=== PATIENT | female | born 1950 | race Caucasian/White ===

== ENCOUNTER 2016-12-15 05:08 | Observation (INO) | payer OTHER ==
[2016-11-30 10:30] VITALS: BMI 40.0
--- NOTE | 2016-11-30 11:00 | PAT Medication Instructions ---
Service Date Nov 30, 2016. Current Home Medication List Aspirin (Aspirin Ec), 81 MG PO HS Atenolol (Tenormin), 25 MG PO QAM Butalbital/Asa/Caffeine (Fiorinal), 1 TAB PO UD PRN for HEADACHES Cholecalciferol (Vitamin D), 5,000 INTER.UNIT PO QAM Hydrocodone/Acetaminophen 5MG/325MG ([place] 5MG/325MG), 1 TABLET PO Q4 PRN for Pain Insulin Glargine (Lantus), 30 UNITS SC QAM Lisinopril (Zestril), 10 MG PO QAM Multivitamin (Multivitamin), 1 TAB PO QAM Omeprazole (Prilosec), 40 MG PO QAM Medication Instructions For Your Scheduled Surgery - Hold the following medications 1 week prior to surgery as instructed by surgeon: Aspirin (Aspirin Ec), 81 MG PO HS Butalbital/Asa/Caffeine (Fiorinal), 1 TAB PO UD PRN for HEADACHES - Hold the following medications the morning of surgery: Lisinopril (Zestril), 10 MG PO QAM Multivitamin (Multivitamin), 1 TAB PO QAM - Take the following medications the morning of surgery with a sip of water OTHERWISE NOTHING TO EAT OR DRINK AFTER MIDNIGHT: Omeprazole (Prilosec), 40 MG PO QAM Atenolol (Tenormin), 25 MG PO QAM - For Insulin Dependent Diabetic patients: Test blood sugar A.M. of surgery. - If Blood Sugar is GREATER THAN 150, take HALF of your regular dose of: Insulin Glargine (Lantus) - If Blood Sugar is LESS THAN 150, do not take any: Insulin Glargine ( Lantus) - Take the following medications as scheduled the night before surgery: Insulin Glargine (Lantus), 30 UNITS SC QPM If you have any questions please call us at [phone] or [phone] or [phone]
[2016-11-30 11:38] LABS: BASO % 0.9 %; BASO ABS # 0.08 K/uL (0-0.2); COMPLETE YES; EOS % 5.4 %; HEMATOCRIT 37.2 % (37-47); IG% 0.5 %; LYMPH % 29.4 %; LYMPH ABS # 2.56 K/uL (1.2-3.4); MEAN CELL VOLUME 91.4 fL (80-100); MEAN CORPUSCULAR HEMOGLOBIN 29.5 pg (25-34); MEAN CORPUSCULAR HGB CONC 32.3 g/dl (32-36); MEAN PLATELET VOLUME 12.9 fL (7.4-10.4); MONO % 8.5 %; NEUT % 55.3 %; PLATELET COUNT 179 K/uL (130-400); RED BLOOD COUNT 4.07 M/uL (4.2-5.4); WHITE BLOOD COUNT 8.72 K/uL (4.8-10.8)
[2016-11-30 11:40] LABS: URINE APPEARANCE CLEAR (CLEAR); URINE BILIRUBIN NEG (NEG); URINE COLOR YELLOW; URINE EPITHELIAL CELL AUTO 20-30 /lpf (0-5); URINE NITRITE NEG (NEG); URINE PH 6.5 (4.5-7.5); URINE SPECIFIC GRAVITY 1.017 (1.000-1.030); UROBILINOGEN NEG (NEG)
--- NOTE | 2016-11-30 11:40 | DIAGNOSTIC IMAGING REPORT ---
CHEST 2 VIEWS ROUTINE CLINICAL HISTORY: pat preoperative evaluation COMPARISON STUDY: 12/03/2015 FINDINGS: The bones soft tissues and hemidiaphragms are normal. The cardiomediastinal silhouette is normal. The lungs are clear. The pulmonary vasculature is normal. Bilateral shoulder arthroplasties IMPRESSION: No acute process Electronically signed by: Savage Albarado M.D. 11/30/2016 11:39 AM Dictated Date/Time: 11/30/2016 11:34 AM
[2016-11-30 11:46] LABS: MANUAL MICROSCOPIC REQUIRED? NO; REVIEW REQ? NO
[2016-11-30 12:06] LABS: ESTIMATED AVERAGE GLUCOSE 134 mg/dl; HA1C FLAG Normal (Normal)
[2016-11-30 12:30] LABS: BUN/CREATININE RATIO 16.9 (10-20); CALCIUM 9.3 mg/dl (8.5-10.1); POTASSIUM 4.4 mmol/L (3.5-5.1)
--- NOTE | 2016-12-14 13:40 | History and Physical ---
History & Physical Date Dec 14, 2016. Chief Complaint Left foot pain History of Present Illness The patient is a 66 year old female with complaints of dorsal left foot pain despite attempted fusion of the 2nd and 3rd TMT joints previously. X-rays note that the fusion has not healed. 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 She is now being set up for surgical tx. Past Medical/Surgical History Diabetes Type II HTN GERD PVD Hyperlipidemia Obesity Additional History Endocrine Disorder: Yes (DM) Hypertension: Yes Bleeding Tendencies: No Allergies Coded Allergies: Sulfa Drugs (Verified Allergy, Severe, anaphylaxis, 11/30/16) Sucralfate (Verified Allergy, Intermediate, HIVES, 11/30/16) Tramadol (Verified Allergy, Intermediate, HEADACHES, 11/30/16) Adhesives (Verified Allergy, Mild, contact dermatitis; skin blistering, ) Codeine (Verified Allergy, Unknown, vomiting, 11/30/16) Erythromycin (Verified Allergy, Unknown, hives, 11/30/16) Meloxicam (Verified Allergy, Unknown, GI upset, 11/30/16) Azithromycin (Verified Adverse Reaction, Severe, abdominal cramping, SOB, 11/30/16) Ibuprofen (Verified Adverse Reaction, Unknown, GI DISTRESS, 11/30/16) Morphine (Verified Adverse Reaction, Unknown, VOMITING, 11/30/16) FROM MORPHINE GLOBAL SOURCING MANAGER Home Medications Scheduled Aspirin (Aspirin Ec), 81 MG PO HS Atenolol (Tenormin), 25 MG PO QAM Cholecalciferol (Vitamin D), 5,000 INTER.UNIT PO QAM Insulin Glargine (Lantus), 30 UNITS SC BID Lisinopril (Zestril), 10 MG PO QAM Multivitamin (Multivitamin), 1 TAB PO QAM Omeprazole (Prilosec), 40 MG PO QAM Scheduled PRN Butalbital/Asa/Caffeine (Fiorinal), 1 TAB PO UD PRN for HEADACHES Hydrocodone/Acetaminophen 5MG/325MG ([place] 5MG/325MG), 1 TABLET PO Q4 PRN for Pain Physical Examination Skin: warm/dry, no rash Head: normocephalic, atraumatic Neck: supple Respiratory/Chest: lungs clear, normal breath sounds, no respiratory distress Cardiovascular: regular rate, rhythm, no murmur Abdomen / GI: normal bowel sounds, non tender Extremities: + pertinent finding (Antalgic gait to the left LE. Well healed surgical incisions left foot. Swelling of the dorsal foot. No erythema or ecchymosis. Tender to palpation at the 2nd/3rd TMT joint fusion sites. 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 All potential risks, benefits, complications, alternatives and rehab have been discussed. She wishes to proceed with the surgery as indicated. Plan for surgery on 12.15.16 with use of ASA 81 mg BID for 30 days for DVT prophylaxis.
[2016-12-15] VITALS (8 sets, daily range): BP systolic 99–144; BP diastolic 60–84; PULSE 50–72; TEMP 36.7–37.4; O2SAT 93–100; Ht 157.5 cm; Wt 99.0 kg
[~2016-12-15] VITALS: Ht 157.5 cm; Wt 99.0 kg
[~2016-12-15 05:08] MED LIST: ASPI81TA28 PO; ATEN-173 PO; CHOL100010 PO; FRN PO; HYDR-5688 PO; INSDGI SC; LISI-461 PO; MULT-506 PO; OMEP40CA PO
[2016-12-15] MEDS ORDERED: ACET-1256 PO (05:41)
[2016-12-15] MEDS: LACTATED RINGER'S 1000ML 1,000 ML IV SCH ×2 (06:00→11:37)
[2016-12-15] MEDS ORDERED: CEFAZOLIN 2000 MG/60 ML D5W IV SCH (06:00)
[2016-12-15 06:22] LABS: PARTIAL THROMBOPLASTIN RATIO 1.1; PROTHROMBIN TIME (PATIENT) 10.9 SECONDS (9.0-12.0)
[2016-12-15] MEDS ORDERED: ROPIVACAINE 0.5% 5 MG/ML 30 ML VIAL ONE (06:30)
[2016-12-15] MEDS ORDERED: BACITRACIN 50000 UNIT VIAL ONE (07:01)
[2016-12-15] MEDS ORDERED: BUPIVACAINE 0.5 % 5 MG/1 ML MPF 30ML VIAL ONE (07:01)
[2016-12-15] MEDS ORDERED: FENTANYL CITRATE INJ 50 MCG/1 ML 2 ML VIAL ONE ×2 (07:02→09:50)
[2016-12-15] MEDS ORDERED: BUPIVACAINE/EPINEPHRINE 0.5% MPF 1:200,000 10 ML VIAL ONE (07:02)
[2016-12-15] MEDS ORDERED: MIDAZOLAM HCL 1 MG/ML 2ML VIAL ONE (07:02)
[2016-12-15] MEDS ORDERED: SCOPOLAMINE 1.5 MG TDSY TD ONE (07:35)
--- NOTE | 2016-12-15 07:45 | History & Physical Bridge Note ---
H&P Re-Evaluation Bridge Note: I have examined the patient, reviewed the History & Physical and in the interval since the performance of the History & Physical I have noted the following changes of clinical significance: No changes noted
[2016-12-15] MEDS ORDERED: ATROPINE SULFATE 0.1 MG/ML 5ML SYR IV PRN (08:00)
[2016-12-15] MEDS ORDERED: EpHEDrine SULFATE INJ 50 MG/ML AMP IV PRN (08:00)
[2016-12-15] MEDS ORDERED: FENTANYL CITRATE INJ 50 MCG/1 ML 2 ML VIAL IV PRN (08:00)
[2016-12-15] MEDS ORDERED: PROMETHAZINE HCL INJ 12.5 MG in SODIUM CHLORIDE 0.9% 50ML 50 ML IV PRN (08:00)
[2016-12-15] MEDS ORDERED: ONDANSETRON INJ 2 MG/ML 2 ML VIAL IV PRN ×2 (08:00→11:00)
[2016-12-15] MEDS ORDERED: LIDOCAINE HCL 2% 2 ML VIAL (20MG/ML) ONE (08:35)
[2016-12-15] MEDS ORDERED: ONDANSETRON INJ 2 MG/ML 2 ML VIAL ONE (08:35)
[2016-12-15] MEDS ORDERED: METOCLOPRAMIDE HCL INJ 5 MG/ML 2 ML VIAL ONE (08:35)
[2016-12-15] MEDS ORDERED: PROPOFOL IV EMULSION 10 MG/ML 20 ML VIAL IV ONE (08:35)
[2016-12-15] MEDS ORDERED: DEXAMETHASONE SOD INJ 4 MG/ML VIAL ONE (08:35)
--- NOTE | 2016-12-15 10:38 | [facility] Post Operative Brief Note ---
Immediate Operative Summary Operative Date Dec 15, 2016. Pre-Operative Diagnosis Left foot 2nd and 3rd TMT joint fusion nonunions, Retained Hardware Post-Operative Diagnosis Left foot 2nd and 3rd TMT joint fusion nonunions, Retained hardware, Degenerative joint disease second/third intercuneiform joint Procedure(s) Performed Left Foot Revision 2nd and 3rd Tarsometatarsal Joint Fusion with Autograft; Removal Hardware 2nd and 3rd Tarsometatarsal Joints; Calcaneal Autograft [place], Fusion 2nd and 3rd Intercuneiform joint with Autograft Surgeon Dr. Sunny Hutchison Case Manager Specialist Surgeon(s) Artie Malik PA-C Estimated Blood Loss 5ML Findings See dictation Specimens none per surgeon Dr. Sunny Hutchison Drains none Anesthesia Gen. LMA with popliteal block Complication(s) None Disposition Recovery Room / PACU
--- NOTE | 2016-12-15 10:55 | [facility] Operative Report ---
Operative Report Date of Service Dec 15, 2016. Operative Report Preoperative diagnosis: Left midfoot nonunion second/third tarsometatarsal joint ; retained hardware second and third tarsometatarsal joints Postoperative diagnosis: Left midfoot nonunion second/third tarsometatarsal joint; retained hardware second and third tarsometatarsal joints, degenerative joint disease second/third intercuneiform joint Procedure: Left midfoot revision fusion second/third tarsometatarsal joints with autografting. Fusion second/third intercuneiform joint with autografting. Removal screws 2 second and third tarsometatarsal joints. Autograft harvest left calcaneus Surgeon: Kianna Zavala Asst.: Artie Malik PA-C Anesthesia: Gen. LMA with popliteal block Specimens: None Drains: None Complications: None EBL: 5 mL Indications: This is a 66-year-old female who had a previously attempted left midfoot fusion. She had continued pain and swelling of the left midfoot. She had serial radiographs, use of a I bone stimulator, and continued observation. She had failed to achieve union confirmed with a CT scan of the left foot. Patient was then scheduled for revision surgery as indicated. All potential risks, benefits, complications, alternatives, rehabilitation, potential for incomplete relief of symptoms, need for further surgery, persistent numbness, weakness, stiffness, persistent pain, DVT, PE, , bone fracture, hardware breakage, nonunion, malunion or wound complications were discussed with the patient. The patient decided to proceed with the procedure as indicated. Procedure: The patient received a popliteal block in the preoperative holding area. The patient was then taken to the operative suite and placed supine on the operating table. After review of the consent and identification of proper operative site the patient was anesthetized. A tourniquet was applied high on the operative thigh over cast padding. The left lower extremity was then sterilely prepped and draped in usual fashion. The left lower extremity was then elevated and exsanguinated with Esmarch bandage. Tourniquet was inflated to 350 mmHg. A 15 blade scalpel used to make an incision over the dorsum of the left midfoot at the site of the prior incision. This incision was then deepened to the subcutaneous tissue and scar tissue. Meticulous hemostasis was achieved with electrocautery. The retinacular tissue was then sized in line with the skin incision and retracted both medially and laterally. The extensor digitorum brevis was identified elevated retracted and protected. The neurovascular bundle was then elevated retracted and protected. The site of the previous nonunion was identified. A 15 blade scalpel was used to debride the nonunion sites of the second and third tarsometatarsal joints. A rongeur was then used to resect the fibrous tissue at the nonunion site. Next the screw heads were identified and then the screws were removed without difficulty. Next the joint surfaces were then carefully repaired using comminution of small curette and rongeur. Once the fibrous tissue from the nonunion was completely resected the foot was then copious irrigated with sterile normal saline. Multiple small drill holes with a 1.25 mm drill bit was then placed into the joint surfaces of the second and third tarsometatarsal joints next the screw holes from the hardware which is previously removed were then curetted with a small curette. Second and third intercuneiform joint was then noted to have significant degenerative arthropathy. The joint surface was prepared using, patient curette and rongeur. This was irrigated until clear with sterile normal saline. Next a 1.25 mm drill bit was then used to multiple drill holes into the second and third cuneiform bones. Next attention was then directed toward the lateral calcaneus. A 15 blade scalpel incision was used to make an oblique incision over the lateral body of the calcaneus. Incision was deepened through subcutaneous tissue with Metzenbaum scissors. Appropriate retractors were placed to retract soft tissue. A bone window was made with an 8 mm osteotome and mallet. The lateral flap of bone was then elevated with an osteotome. A curet was then used to harvest autograft and the calcaneal tuberosity. Once graft was harvested the incision was irrigated with sterile normal saline. The periosteum overlying the lateral flap of bone was then closed using a single 2-0 Vicryl suture. The dermis was closed using buried interrupted 3-0 Vicryl sutures. The skin was closed using 4-0 nylon. The cancellous bone graft harvested from the calcaneus was then impacted into the second and third tarsometatarsal joints as well as in the second and third intercuneiform joint. Next pilot plant research technician holes were drilled for the bone darrin to be used in the fusion procedure crossing the second and third metatarsal metatarsal joints respectively. 15 mm x 15 mm bone darrin were then impacted into the holes compressing and stabilizing the second and third tarsometatarsal joints after bone grafted and impacted into the second and third tarsometatarsal joints. Bone graft was also placed between the second and third metatarsal bases and also in the 2/3 intercuneiform joint. Next 15 x 15 mm bone staple was then impacted to fuse the 2/3 intercuneiform joint. A final 18 mm x 15 mm bone darrin and drilled and impacted to stabilize the bases of the second and third metatarsals to each other. No further irrigation was performed to prevent removal of the autograft from the joint fusion sites. Next the dorsal retinacular tissue was then closed using 2-0 Vicryl. The dermis was closed using buried interrupted 3-0 Vicryl. The skin is closed using 4-0 nylon. A sterile compressive dressing and bulky Tae Prasad plaster splint was applied overwrapped with an Benedict wrap. The foot was held in neutral dorsiflexion. The tourniquet was released and the patient was then taken to recovery in stable condition. I attest to the content of the Intraoperative Record and any orders documented therein. Any exceptions are noted below.
--- NOTE | 2016-12-15 10:58 | Discharge Instructions ---
Discharge Instructions Date of Service Dec 15, 2016. Admission Reason for Admission: Left Foot Osteoarthritis, Pain D/T Internal Orthop Discharge Discharge Diagnosis / Problem: left nonunion fusion 2nd/3rd tarsometatarsal joints Discharge Goals Goal(s): Decrease discomfort, Improve function Activity Recommendations Activity Limitations: per Instructions/Follow-up section Weightbearing Status: Left non-weightbearing . Instructions / Follow-Up Instructions / Follow-Up ACTIVITY RECOMMENDATIONS: Limitations: No weight bearing to affected limb at all times. SPECIAL CARE INSTRUCTIONS: * Take aspirin 81 mg by mouth every 12 hours for 30 days. * Some drainage onto the dressing is normal and is no cause for alarm. * Some swelling is natural especially after walking. * When resting, keep your foot elevated above the level of your heart. * Call [facility] if you notice: -Increased drainage -Fever over 101 degrees F -Severe constant pain BANDAGE: * Leave bandage/cast in place unless otherwise directed. * Keep bandage/cast dry at all times. FOLLOW UP VISIT WITH DR. PACK If appointment is not already scheduled: Please call [facility] after you get home today to schedule a follow-up appointment for [address] Pack at . Current Hospital Diet Patient's current hospital diet: Diabetes Type 1 Diet Discharge Diet Recommended Diet: Diabetes Type 1 Diet Procedures Procedures Performed: Left Foot Revision 2nd and 3rd Tarsometatarsal Joint Fusion with Autograft; Removal Hardware 2nd and 3rd Tarsometatarsal Joints; Calcaneal Autograft Sandwich, Fusion 2nd and 3rd Intercuneiform joint with Autograft Pending Studies Studies pending at discharge: no Laboratory Results Hemoglobin A1c Test 11/30/16 11:08 Range/Units Estimated Average Glucose 134 mg/dl Hemoglobin A1c 6.3 H 4.5-5.6 % Medical Emergencies . Who to Call and When: Medical Emergencies: If at any time you feel your situation is an emergency, please call 911 immediately. . Non-Emergent Contact Non-Emergency issues call your: Surgeon Call Non-Emergent contact if: temperature is above 101, your pain is not controlled, your pain is worsening . "Provider Documentation" section prepared by Artie Malik. . VTE Core Measure Inpt VTE Proph given/why not?: Other Anticoagulation, T.E.D. Stockings, SCD's
[2016-12-15] MEDS ORDERED: BISACODYL 10 MG SUPP PR PRN (11:00)
[2016-12-15] MEDS ORDERED: HYDROmorphone INJ 1 MG/ML SYR IV PRN (11:00)
[2016-12-15] MEDS ORDERED: NO NSAIDS SCH (11:00)
[2016-12-15] MEDS ORDERED: MAGNESIUM HYDROXIDE SUSP 30 ML UDC PO PRN (11:00)
[2016-12-15] MEDS ORDERED: ZOLPIDEM TARTRATE 5 MG TAB PO PRN (11:00)
[2016-12-15] MEDS ORDERED: SOD PHOSPHATE/SOD BIPHOSPHATE ENEMA 132 ML BTL PR PRN (11:00)
[2016-12-15] MEDS ORDERED: ALUMINUM/MAGNESIUM/SIMETH (MAALOX MAX) 30 ML UDC PO PRN (11:00)
--- NOTE | 2016-12-15 11:18 | Anesthesiology Progress Note ---
Anesthesia Post Op Note Date & Time Dec 15, 2016 at 11:17 Vital Signs Pain Intensity: 0 Vital Signs Past 12 Hours Date Time Temp Pulse Resp B/P (MAP) Pulse Ox O2 Delivery O2 Flow Rate FiO2 12/15/16 11:05 36.7 68 14 121/83 96 Nasal Cannula 2 12/15/16 10:55 69 16 121/75 97 Mask 10 12/15/16 10:45 64 12 108/71 99 Mask 10 12/15/16 10:35 36.7 75 16 124/66 97 Mask 10 12/15/16 05:48 36.7 62 18 140/79 (99) 97 Room Air Notes Mental Status: alert / awake / arousable, participated in evaluation Pt Amnestic to Procedure: Yes Nausea / Vomiting: adequately controlled Pain: adequately controlled Airway Patency, RR, SpO2: stable & adequate BP & HR: stable & adequate Hydration State: stable & adequate Anesthetic Complications: no major complications apparent
--- NOTE | 2016-12-15 11:46 | DIAGNOSTIC IMAGING REPORT ---
LEFT FOOT MIN 3 VIEWS ROUTINE HISTORY:66 yearsFemalepost op COMPARISON: Left foot radiographs 12/29/2015. TECHNIQUE: Three Radiographic views of the left foot. FINDINGS: Post surgical changes are again seen within the left foot with cannulated screws within the first, second and third metatarsal heads and also within the first proximal phalanx. There is been interval removal of the cannulated screws within the second third tarsal metatarsal joints which are now replaced by 4 metallic staple devices fixating the mid foot. Postsurgical changes are seen involving the second and third PIP joints, unchanged. Fine bony details obscured by overlying casting material. There is unchanged mild widening of the first and second cuneiform articulation which is likely postsurgical. IMPRESSION: Interval postoperative changes of the midfoot fixating the second and third tarsal metatarsal joints as above. The above report was generated using voice recognition software. It may contain grammatical, syntax or spelling errors. Electronically signed by: Trent Nicholson 12/15/2016 11:45 AM Dictated Date/Time: 12/15/2016 11:41 AM
[2016-12-15] MEDS ORDERED: GLUCAGON FOR INJ 1 MG VIAL SQ PRN (13:00)
[2016-12-15] MEDS ORDERED: GLUCOSE 40% GEL 15 GM TUBE PO PRN (13:00)
[2016-12-15] MEDS ORDERED: GLUCOSE 10 TABS/TUBE PO PRN (13:00)
[2016-12-15] MEDS ORDERED: DEXTROSE 50% 50 ML SYR IV PRN (13:00)
[2016-12-15] MEDS: POTASSIUM CHLORIDE INJ 10 MEQ in SODIUM CHLORIDE 0.9% 1000ML 1,000 ML IV SCH ×2 (13:35→23:36)
--- NOTE | 2016-12-15 13:38 | DIAGNOSTIC IMAGING REPORT ---
LEFT FOOT 2 VIEWS CLINICAL HISTORY: 66 years-old Female presenting with LEFT FOOT. TECHNIQUE: 2 fluoroscopic spot images including frontal and lateral views of the left foot were obtained intraoperatively. COMPARISON: 12/29/2015. FINDINGS/IMPRESSION: Multiple screw fixation of the first through third metatarsal heads and proximal phalanx of the first toe, unchanged. Interval placement of 4 view-shaped screw fixation devices at the site of prior second and third tarsometatarsal cortical screws. Anatomic alignment grossly intact. Please see separately dictated operative report for further details. Electronically signed by: Marshall Krueger 12/15/2016 1:36 PM Dictated Date/Time: 12/15/2016 1:33 PM
[2016-12-15] MEDS ORDERED: IV FLUIDS COMPLETED PRN (13:45)
[2016-12-15] MEDS: ACETAMINOPHEN 500 MG TAB PO SCH ×2 (13:46→22:08)
--- NOTE | 2016-12-15 18:06 | Medical Consult ---
Consultation Note Date of Service Dec 15, 2016. Consultation Note HOSPITALIST -INTERNAL MEDICINE CONSULT : DATE OF CONSULT: 12/15/16 REASON FOR CONSULT: Post op medical management HPI The patient is a 66 year old female with complaints of dorsal left foot pain despite attempted fusion of the 2nd and 3rd TMT joints previously. X-rays noted that the fusion was not healed. CT scan confirmed the nonunion of the 2nd and 3rd TMT joints. Thus underwent Left midfoot revision fusion second/third tarsometatarsal joints with autografting. Fusion second/third intercuneiform joint with autografting. Removal screws 2 second and third tarsometatarsal joints. Autograft harvest left calcaneus. Patient is currently POD # 0. Denies any chest pain, SOB, nausea, vomiting, fever, ch ills. Hemodynamically stable. We have been consulted for medical mx post operatively including diabetes management. Past Medical/Surgical History Diabetes Type II HTN GERD PVD Hyperlipidemia Obesity SOCIAL HISTORY No hx of smoking, alcoholism FAMILY HISTORY Not significant Allergies Coded Allergies: Sulfa Drugs (Verified Allergy, Severe, anaphylaxis, 11/30/16) Sucralfate (Verified Allergy, Intermediate, HIVES, 11/30/16) Tramadol (Verified Allergy, Intermediate, HEADACHES, 11/30/16) Adhesives (Verified Allergy, Mild, contact dermatitis; skin blistering, ) Codeine (Verified Allergy, Unknown, vomiting, 11/30/16) Erythromycin (Verified Allergy, Unknown, hives, 11/30/16) Meloxicam (Verified Allergy, Unknown, GI upset, 11/30/16) Azithromycin (Verified Adverse Reaction, Severe, abdominal cramping, SOB, 11/30/16) Ibuprofen (Verified Adverse Reaction, Unknown, GI DISTRESS, 11/30/16) Morphine (Verified Adverse Reaction, Unknown, VOMITING, 11/30/16) FROM MORPHINE RN MANAGER Home Medications Scheduled Aspirin (Aspirin Ec), 81 MG PO HS Atenolol (Tenormin), 25 MG PO QAM Cholecalciferol (Vitamin D), 5,000 INTER.UNIT PO QAM Insulin Glargine (Lantus), 30 UNITS SC BID Lisinopril (Zestril), 10 MG PO QAM Multivitamin (Multivitamin), 1 TAB PO QAM Omeprazole (Prilosec), 40 MG PO QAM Scheduled PRN Butalbital/Asa/Caffeine (Fiorinal), 1 TAB PO UD PRN for HEADACHES Hydrocodone/Acetaminophen 5MG/325MG ([place] 5MG/325MG), 1 TABLET PO Q4 PRN for Pain Physical Examination General: AAOX3, no distress Head: normocephalic, atraumatic Neck: supple Respiratory/Chest: lungs clear, normal breath sounds, no respiratory distress Cardiovascular: regular rate, rhythm, no murmur Abdomen / GI: normal bowel sounds, non tender Extremities: + pertinent finding S/P Surgery - foot - left Neurologic/Psych: no motor/sensory deficits, alert, oriented x 3 ASSESSMENT AND PLAN: STATUS POST Left midfoot revision fusion second/third tarsometatarsal joints with autografting. Fusion second/third intercuneiform joint with autografting. Removal screws 2 second and third tarsometatarsal joints. Autograft harvest left calcaneus. -POD # 0 -Pain mx/Wound care/DVT prophylaxis per primary team -Monitor H & H post operatively DM-II -Insulin glargine 30 units daily as at home. -ISS, Accuchecks HTN- Stable -Continue with home medications GERD -Continue with protonix HX OF PVD HYPERLIPIDEMIA OBESITY DVT PROPHYLAXIS ASA 81 MG BID x 30 days per Ortho DISPOSITION Per primary team
--- NOTE | 2016-12-15 18:50 | Critical Care Consultation ---
Critical Care Consultation Date of Consultation: Dec 15, 2016. Attending Physician: Sunny Hutchison D.O. Reason for Consultation: Possible central line for IV antibiotics History of Present Illness Patient is a 66-year-old female with significant past medical history of type 2 diabetes, hypertension and GERD, per for vascular disease, hyperlipidemia, obesity who is postop day 0 from a transmetatarsal joint effusion and associated removal of hardware. She has poor vascular access, requires 24 hours of IV antibiotics and has failed multiple IV attempts. I have been consult to address further vascular access. Patient does not have contraindication for midline catheter insertion. He does not have a breast cancer history, she has had hardware in both shoulders. She is not on anticoagulants. I have discussed the risks and benefits of midline catheter placement, obtained written consent from the patient and the IV team will be proceeding with catheter placement. If IV team is unable to place a midline catheter we will proceed with small bore central venous catheter placement. Past Medical/Surgical History As noted above Family History Hypertension Social History Smoking Status: Never Smoker Drug Use: none Occupation Status: retired Allergies Coded Allergies: Sulfa Antibiotics (Verified Allergy, Severe, ANAPHYLAXIS, 12/15/16) Sucralfate (Verified Allergy, Intermediate, HIVES, 12/15/16) Tramadol (Verified Allergy, Intermediate, HEADACHES, 12/15/16) Adhesives (Verified Allergy, Mild, contact dermatitis; skin blistering, 12/15/16) Codeine (Verified Allergy, Unknown, vomiting, 12/15/16) Erythromycin (Verified Allergy, Unknown, hives, 12/15/16) Meloxicam (Verified Allergy, Unknown, GI upset, 12/15/16) Azithromycin (Verified Adverse Reaction, Severe, abdominal cramping, SOB, 12/15/16) Ibuprofen (Verified Adverse Reaction, Unknown, GI DISTRESS, 12/15/16) Morphine (Verified Adverse Reaction, Unknown, VOMITING, 12/15/16) 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 Home Medications Scheduled Aspirin (Aspirin Ec), 81 MG PO HS Atenolol (Tenormin), 25 MG PO QAM Cholecalciferol (Vitamin D), 5,000 INTER.UNIT PO QAM Insulin Glargine (Lantus), 30 UNITS SC BID Lisinopril (Zestril), 10 MG PO QAM Multivitamin (Multivitamin), 1 TAB PO QAM Omeprazole (Prilosec), 40 MG PO QAM Scheduled PRN Acetaminophen (Tylenol), 1 TAB PO Q8 PRN for Pain Butalbital/Asa/Caffeine (Fiorinal), 1 TAB PO UD PRN for HEADACHES Hydrocodone/Acetaminophen 5MG/325MG ([place] 5MG/325MG), 1 TABLET PO Q4 PRN for Pain Current Inpatient Medications Current Inpatient Medications Medications (Trade) Dose Ordered Sig/Kayla Route Start Time Stop Time Status Last Admin Dose Admin Atenolol (Tenormin Tab) 25 mg QAM PO 12/16/16 09:00 01/15/17 08:59 Miscellaneous Information (Order Awaiting Action) 1 ea QS N/A 12/15/16 16:00 01/14/17 15:59 Cholecalciferol (Vitamin D Tab) 5,000 inter.unit QAM PO 12/16/16 09:00 01/15/17 08:59 Lisinopril (Zestril Tab) 10 mg QAM PO 12/16/16 09:00 01/15/17 08:59 Multivitamins (Multivitamin Tab) 1 tab QAM PO 12/16/16 09:00 01/15/17 08:59 Pantoprazole Sodium (Protonix Tab) 40 mg QAM PO 12/16/16 09:00 01/15/17 08:59 Aspirin (Ecotrin Tab) 81 mg Q12 PO 12/15/16 21:00 01/14/17 20:59 Potassium Chloride 10 meq/ Sodium Chloride 1,005 ml @ 100 mls/hr Q10H3M IV 12/15/16 13:15 01/14/17 10:47 12/15/16 13:35 100 MLS/HR Miscellaneous Medication (No Nsaids) 1 ea UD N/A 12/15/16 11:00 01/14/17 10:59 Oxycodone HCl (Roxicodone Immediate Rel Tab) 1-2 TABS FOR PAIN 1 TABLET ... Q4H PRN PO 12/15/16 11:00 12/29/16 10:59 Oxycodone HCl (Oxycontin Tab) 10 mg Q12 PO 12/15/16 21:00 12/29/16 20:59 Acetaminophen (Tylenol Tab) 1,000 mg Q8H PO 12/15/16 14:00 01/14/17 10:59 12/15/16 13:46 1,000 MG Magnesium Hydroxide (Milk Of Magnesia Susp) 30 ml Q6H PRN PO 12/15/16 11:00 01/14/17 10:59 Bisacodyl (Dulcolax Supp) 10 mg DAILY PRN VT 12/15/16 11:00 01/14/17 10:59 Sodium Biphosphate/ Sodium Phosphate (Fleet Enema) 132 ml DAILY PRN VT 12/15/16 11:00 01/14/17 10:59 Senna (Senokot Tab) 17.2 mg HS PO 12/15/16 21:00 01/14/17 20:59 Docusate Sodium (coLACE CAP) 100 mg BID PO 12/15/16 21:00 01/14/17 20:59 Diphenhydramine HCl (Benadryl Cap) 25 mg Q8H PRN PO 12/15/16 11:00 01/14/17 10:59 Al Hydrox/Mg Hydrox/Simethicone (Maalox Max Susp) 15 ml Q4H PRN PO 12/15/16 11:00 01/14/17 10:59 Zolpidem Tartrate (Ambien Tab) 5 mg HSZ PRN PO 12/15/16 11:00 01/14/17 10:59 Ondansetron HCl (Zofran Inj) 4 mg Q6H PRN IV 12/15/16 11:00 01/14/17 10:59 Cefazolin Sodium 2000 mg/Dextrose 60 ml @ 100 mls/hr Q8H IV 12/15/16 16:00 12/16/16 00:35 Hydromorphone HCl (Dilaudid Inj) 1 mg Q1HWA PRN IV 12/15/16 11:00 12/29/16 10:59 Glucose (Glucose 40% Gel) 15-30 GRAMS 15 GRAMS... UD PRN PO 12/15/16 13:00 01/14/17 12:59 Glucose (Glucose Chew Tab) 4-8 Tablets 4 Tabl... UD PRN PO 12/15/16 13:00 01/14/17 12:59 Dextrose (Dextrose 50% 50ML Syringe) 25-50ML OF 50% DW IV FOR... UD PRN IV 12/15/16 13:00 01/14/17 12:59 Glucagon (Glucagon Inj) 1 mg UD PRN SQ 12/15/16 13:00 01/14/17 12:59 Miscellaneous (Iv Fluids Completed) 1 ea PRN PRN N/A 12/15/16 13:45 12/15/17 13:44 Insulin Aspart (novoLOG ASPART) SLIDING SCALE If C... ACHS SC 12/15/16 21:00 01/14/17 20:59 Insulin Glargine (Lantus Solostar Pen) 30 units HS SC 12/15/16 21:00 01/14/17 20:59 Review of Systems Constitutional: No fever, No chills, No sweats Musculoskeletal: No joint pain (no postoperative pain at this time) Integumentary: No rash, No itch, No new/changing skin lesions, No color change Physical Exam Date Time Temp Pulse Resp B/P (MAP) Pulse Ox O2 Delivery O2 Flow Rate FiO2 12/15/16 14:48 37.4 69 18 110/69 (83) 99 Nasal Cannula 2.0 12/15/16 13:48 65 16 108/72 (84) 99 Nasal Cannula 2.0 12/15/16 12:50 72 16 126/75 (92) 100 Nasal Cannula 2.0 12/15/16 12:20 62 18 126/77 (93) 98 Nasal Cannula 2.0 12/15/16 11:50 36.9 72 16 144/84 (104) 100 Nasal Cannula 2.0 12/15/16 11:50 100 Nasal Cannula 2.0 12/15/16 11:50 100 Nasal Cannula 2.0 12/15/16 11:35 36.8 61 14 104/71 98 Nasal Cannula 2 12/15/16 11:25 57 14 112/69 97 Nasal Cannula 2 12/15/16 11:15 67 14 120/65 96 Nasal Cannula 2 12/15/16 11:05 36.7 68 14 121/83 96 Nasal Cannula 2 12/15/16 10:55 69 16 121/75 97 Mask 10 12/15/16 10:45 64 12 108/71 99 Mask 10 12/15/16 10:35 36.7 75 16 124/66 97 Mask 10 12/15/16 05:48 36.7 62 18 140/79 (99) 97 Room Air General Appearance: well-appearing, WD/WN Head: normocephalic, atraumatic Lower Extremities: other (left lower extremity in a bulky dressing with ice and elevated) Laboratory Results Last 24 Hours Test 12/15/16 05:35 12/15/16 05:58 12/15/16 10:40 12/15/16 12:09 Bedside Glucose 95 mg/dl 141 mg/dl 105 mg/dl Prothrombin Time 10.9 SECONDS Prothromb Time International Ratio 1.0 Activated Partial Thromboplast Time 29.0 SECONDS Partial Thromboplastin Ratio 1.1 Test 12/15/16 16:47 Bedside Glucose 151 mg/dl Assessment & Plan Patient consented for midline catheter placement * If IV team unable to place midline catheter proceed with central venous catheter placement.
[2016-12-15] MEDS: CEFAZOLIN IV 2,000 MG in DEXTROSE 5% 50ML 50 ML IV SCH (20:15)
[2016-12-15] MEDS ORDERED: INSULIN GLARGINE SOLOSTAR 100 UNITS/ML 3 ML PEN SC SCH ×2 (21:00)
[2016-12-15] MEDS: DOCUSATE SODIUM 100 MG CAP PO SCH (22:07)
[2016-12-15] MEDS: SENNA 8.6 MG TAB PO SCH (22:07)
[2016-12-15] MEDS: ASPIRIN 81 MG ECTAB PO SCH (22:07)
[2016-12-15] MEDS: OXYCODONE HCL 10 MG TABCR (OXYCONTIN) PO SCH (22:08)
[2016-12-15] MEDS: INSULIN ASPART 100 UNITS/ML 3 ML PEN SC SCH (22:13)
[2016-12-16] VITALS (12 sets, daily range): BP systolic 68–103; BP diastolic 44–66; PULSE 40–53; TEMP 36.8–36.9; O2SAT 93–97
[2016-12-16] MEDS: CEFAZOLIN IV 2,000 MG in DEXTROSE 5% 50ML 50 ML IV SCH (03:52)
[2016-12-16] MEDS: ACETAMINOPHEN 500 MG TAB PO SCH ×3 (05:35→22:12)
[2016-12-16 05:54] LABS: HEMATOCRIT 34.1 % (37-47); MEAN CELL VOLUME 90.9 fL (80-100); MEAN CORPUSCULAR HEMOGLOBIN 28.8 pg (25-34); MEAN CORPUSCULAR HGB CONC 31.7 g/dl (32-36); MEAN PLATELET VOLUME 12.3 fL (7.4-10.4); PLATELET COUNT 173 K/uL (130-400); RED BLOOD COUNT 3.75 M/uL (4.2-5.4); WHITE BLOOD COUNT 15.17 K/uL (4.8-10.8)
[2016-12-16 06:31] LABS: BUN/CREATININE RATIO 15.5 (10-20); CALCIUM 8.3 mg/dl (8.5-10.1); CREATININE 1.1 mg/dl (0.60-1.20); POTASSIUM 4.6 mmol/L (3.5-5.1)
--- NOTE | 2016-12-16 07:54 | Orthopedic Progress Note ---
Orthopedic Progress Note Date of Service Dec 16, 2016. Subjective Post OP Day: 1 Reports: feeling well (Moderate pain) Objective dressing C/D/I, toes mobile (Pt states decreased sensation in toes) Date Time Temp Pulse Resp B/P (MAP) Pulse Ox O2 Delivery O2 Flow Rate FiO2 12/15/16 23:38 37.0 50 16 99/60 (73) 96 Room Air 12/15/16 23:32 Room Air 12/15/16 20:59 37.2 71 18 107/66 (80) 93 Room Air 12/15/16 16:25 Nasal Cannula 2.0 12/15/16 14:48 37.4 69 18 110/69 (83) 99 Nasal Cannula 2.0 12/15/16 13:48 65 16 108/72 (84) 99 Nasal Cannula 2.0 12/15/16 12:50 72 16 126/75 (92) 100 Nasal Cannula 2.0 12/15/16 12:20 62 18 126/77 (93) 98 Nasal Cannula 2.0 12/15/16 11:50 36.9 72 16 144/84 (104) 100 Nasal Cannula 2.0 12/15/16 11:50 100 Nasal Cannula 2.0 12/15/16 11:50 100 Nasal Cannula 2.0 12/15/16 11:35 36.8 61 14 104/71 98 Nasal Cannula 2 12/15/16 11:25 57 14 112/69 97 Nasal Cannula 2 12/15/16 11:15 67 14 120/65 96 Nasal Cannula 2 12/15/16 11:05 36.7 68 14 121/83 96 Nasal Cannula 2 12/15/16 10:55 69 16 121/75 97 Mask 10 12/15/16 10:45 64 12 108/71 99 Mask 10 12/15/16 10:35 36.7 75 16 124/66 97 Mask 10 Laboratory Results 24 Hours: Test 12/16/16 05:12 Hematocrit 34.1 % Hemoglobin 10.8 g/dL Assessment & Plan Assessment: 66 yo female stable POD #1 s/p left revision midfoot fusion Plan: 1. Med management 2. DVT prophylaxis- ASA 3. PT/OT 4. D/C planning- probable d/c home tomorrow
[2016-12-16] MEDS: ASPIRIN 81 MG ECTAB PO SCH ×2 (08:42→21:07)
[2016-12-16] MEDS: OXYCODONE HCL 10 MG TABCR (OXYCONTIN) PO SCH ×2 (08:42→20:16)
[2016-12-16] MEDS: PANTOprazole SOD 40 MG TAB PO SCH (08:43)
[2016-12-16] MEDS: DOCUSATE SODIUM 100 MG CAP PO SCH ×2 (08:43→21:07)
[2016-12-16] MEDS: MULTIVITAMIN TAB PO SCH (08:43)
[2016-12-16] MEDS: CHOLECALCIFEROL 1000 INTER.UNIT TAB PO SCH (08:44)
[2016-12-16] MEDS: INSULIN ASPART 100 UNITS/ML 3 ML PEN SC SCH ×4 (08:51→20:42)
[2016-12-16] MEDS ORDERED: LISINOPRIL 10 MG TAB PO SCH (09:00)
[2016-12-16] MEDS ORDERED: MULTIVITAMIN TAB PO SCH (09:00)
[2016-12-16] MEDS: OXYCODONE HCL IR 5 MG TAB (IMMEDIATE RELEASE) PO PRN ×2 (10:35→20:17)
[2016-12-16] MEDS: POTASSIUM CHLORIDE INJ 10 MEQ in SODIUM CHLORIDE 0.9% 1000ML 1,000 ML IV SCH ×2 (10:45→21:07)
--- NOTE | 2016-12-16 11:43 | Progress Note ---
Internal Med Progress Note Date of Service: Dec 16, 2016. Provider Documentation: SUBJECTIVE: Patient doing well post operatively. Pain is well controlled No chest pain, fever, chills, SOB, nausea, vomiting OBJECTIVE: Vital Signs-as noted below Exam: General: AAOX3, no distress Head: normocephalic, atraumatic Neck: supple Respiratory/Chest: lungs clear, normal breath sounds, no respiratory distress Cardiovascular: regular rate, rhythm, no murmur Abdomen / GI: normal bowel sounds, non tender Extremities: + pertinent finding S/P Surgery - foot - left Lab data as noted below. ASSESSMENT & PLAN: ASSESSMENT AND PLAN: STATUS POST Left midfoot revision fusion second/third tarsometatarsal joints with autografting. Fusion second/third intercuneiform joint with autografting. Removal screws 2 second and third tarsometatarsal joints. Autograft harvest left calcaneus. -POD # 1 -Pain mx/Wound care/DVT prophylaxis per primary team -Monitor H & H post operatively-stable DM-II -Blood sugars in range -Insulin glargine 30 units daily as at home. -ISS, Accuchecks HTN- Stable -Continue with home medications GERD -Continue with protonix HX OF PVD HYPERLIPIDEMIA OBESITY DVT PROPHYLAXIS ASA 81 MG BID x 30 days per Ortho DISPOSITION Per primary team. Likely discharge tomorrow Vital Signs: Date Time Temp Pulse Resp B/P (MAP) Pulse Ox O2 Delivery O2 Flow Rate FiO2 12/16/16 09:31 93 Room Air 12/16/16 08:57 36.9 53 18 103/66 (78) 97 Room Air 12/15/16 23:38 37.0 50 16 99/60 (73) 96 Room Air 12/15/16 23:32 Room Air 12/15/16 20:59 37.2 71 18 107/66 (80) 93 Room Air 12/15/16 16:25 Nasal Cannula 2.0 12/15/16 14:48 37.4 69 18 110/69 (83) 99 Nasal Cannula 2.0 12/15/16 13:48 65 16 108/72 (84) 99 Nasal Cannula 2.0 12/15/16 12:50 72 16 126/75 (92) 100 Nasal Cannula 2.0 12/15/16 12:20 62 18 126/77 (93) 98 Nasal Cannula 2.0 12/15/16 11:50 36.9 72 16 144/84 (104) 100 Nasal Cannula 2.0 12/15/16 11:50 100 Nasal Cannula 2.0 12/15/16 11:50 100 Nasal Cannula 2.0 Lab Results: Results Past 24 Hours Test 12/15/16 12:09 12/15/16 16:47 12/15/16 20:26 12/16/16 05:12 Range/Units Bedside Glucose 105 151 160 70-90 mg/dl White Blood Count 15.17 4.8-10.8 K/uL Red Blood Count 3.75 4.2-5.4 M/uL Hemoglobin 10.8 12.0-16.0 g/dL Hematocrit 34.1 37-47 % Mean Corpuscular Volume 90.9 80-100 fL Mean Corpuscular Hemoglobin 28.8 25-34 pg Mean Corpuscular Hemoglobin Concent 31.7 32-36 g/dl RDW Standard Deviation 48.6 36.4-46.3 fL RDW Coefficient of Variation 14.5 11.5-14.5 % Platelet Count 173 130-400 K/uL Mean Platelet Volume 12.3 7.4-10.4 fL Sodium Level 140 136-145 mmol/L Potassium Level 4.6 3.5-5.1 mmol/L Chloride Level 109 98-107 mmol/L Carbon Dioxide Level 24 21-32 mmol/L Anion Gap 7.0 3-11 mmol/L Blood Urea Nitrogen 17 7-18 mg/dl Creatinine 1.10 0.60-1.20 mg/dl Est Creatinine Clear Calc Drug Dose 53.8 ml/min Estimated GFR () 59.7 Estimated GFR (Non- 51.5 BUN/Creatinine Ratio 15.5 10-20 Random Glucose 123 70-99 mg/dl Calcium Level 8.3 8.5-10.1 mg/dl Test 12/16/16 08:02 Range/Units Bedside Glucose 97 70-90 mg/dl
[2016-12-16] MEDS ORDERED: NURSING VERBAL MED ORDER ONE ×2 (15:30→16:30)
[2016-12-16] MEDS ORDERED: SODIUM CHLORIDE 0.9% 1000ML 500 ML IV SCH ×2 (15:45→16:30)
--- NOTE | 2016-12-16 16:44 | Progress Note ---
Progress Note Date of Service Dec 16, 2016. Progress Note Received a call from RN as BP was 76/48 and HR of 40s. Patient overall asymptomatic, except when she tried to walk before felt a bit dizzy. No c/o chest pain, SOB, diaphoresis, nausea, vomiting. Likely post operative hypotension On Exam: Gen- AAOX3, no distress, Heart- Bradycardia, no murmurs, Lungs- AEBE, no wheezing, crackles, Ext-S/P left foot surgery. Will give a bolus of IV NS - 1 L. HR in 40s. Will do EKG. Hold Atenolol, Lisinopril which are her home medications. Will closely monitor BP/HR.
[2016-12-16] MEDS ORDERED: INSULIN GLARGINE SOLOSTAR 100 UNITS/ML 3 ML PEN SC SCH (22:00)
[2016-12-16] MEDS: SENNA 8.6 MG TAB PO SCH (22:12)
[2016-12-17] MEDS ORDERED: SODIUM CHLORIDE 0.9% 500ML 500 ML IV SCH (02:00)
[2016-12-17 03:10] VITALS: BP 82/55; PULSE 45
[2016-12-17 05:46] VITALS: BP 97/66
[2016-12-17] MEDS: POTASSIUM CHLORIDE INJ 10 MEQ in SODIUM CHLORIDE 0.9% 1000ML 1,000 ML IV SCH (05:56)
[2016-12-17] MEDS: ACETAMINOPHEN 500 MG TAB PO SCH (05:56)
[2016-12-17 06:15] LABS: HEMATOCRIT 34.2 % (37-47); MEAN CELL VOLUME 92.9 fL (80-100); MEAN CORPUSCULAR HEMOGLOBIN 28.8 pg (25-34); MEAN PLATELET VOLUME 12.9 fL (7.4-10.4); PLATELET COUNT 164 K/uL (130-400); RED BLOOD COUNT 3.68 M/uL (4.2-5.4); WHITE BLOOD COUNT 11.23 K/uL (4.8-10.8)
[2016-12-17 06:45] LABS: BUN/CREATININE RATIO 18.5 (10-20); CALCIUM 8.2 mg/dl (8.5-10.1); CREATININE 1.1 mg/dl (0.60-1.20); POTASSIUM 4.6 mmol/L (3.5-5.1)
[2016-12-17 07:37] VITALS: BP 93/62; PULSE 47; TEMP 36.9; O2SAT 93
--- NOTE | 2016-12-17 07:49 | Orthopedic Progress Note ---
Orthopedic Progress Note Date of Service Dec 17, 2016. Subjective Post OP Day: 2 Reports: feeling well (Pt states her BP has been low.) Objective N/V intact, splint C/D/I, toes mobile Date Time Temp Pulse Resp B/P (MAP) Pulse Ox O2 Delivery O2 Flow Rate FiO2 12/17/16 07:37 36.9 47 18 93/62 (72) 93 Room Air 12/17/16 05:46 97/66 (76) 12/17/16 03:10 45 82/55 (64) 12/16/16 23:15 68/44 (52) 12/16/16 23:01 36.8 45 14 71/51 (58) 93 Room Air 12/16/16 20:15 98/55 (69) 12/16/16 19:50 44 98/48 (65) 12/16/16 19:40 Room Air 12/16/16 17:55 52 90/56 (67) 12/16/16 16:50 44 81/52 (62) 12/16/16 16:10 40 76/48 (57) 12/16/16 15:42 Room Air 12/16/16 15:26 43 74/48 (57) 12/16/16 15:01 90/47 (61) 12/16/16 14:55 36.9 45 18 93 Room Air 12/16/16 09:31 93 Room Air 12/16/16 08:57 36.9 53 18 103/66 (78) 97 Room Air Laboratory Results 24 Hours: Test 12/17/16 05:09 Hematocrit 34.2 % Hemoglobin 10.6 g/dL Assessment & Plan Assessment: 66 yo female stable POD #2 s/p left revision midfoot fusion Plan: 1. Med management 2. DVT prophylaxis- ASA 3. PT/OT 4. D/C planning- d/c home when BP improves
[2016-12-17] MEDS ORDERED: ACET-24 PO (07:51)
[2016-12-17] MEDS ORDERED: OXYSR10 PO (07:51)
[2016-12-17] MEDS ORDERED: RXC5 PO (07:51)
[2016-12-17] MEDS ORDERED: ASPEC81 PO (07:51)
[2016-12-17] MEDS: INSULIN ASPART 100 UNITS/ML 3 ML PEN SC SCH ×2 (08:00→12:00)
[2016-12-17] MEDS: DOCUSATE SODIUM 100 MG CAP PO SCH (09:00)
[2016-12-17] MEDS: PANTOprazole SOD 40 MG TAB PO SCH (09:00)
[2016-12-17] MEDS: MULTIVITAMIN TAB PO SCH (09:14)
[2016-12-17] MEDS: ASPIRIN 81 MG ECTAB PO SCH (09:14)
[2016-12-17] MEDS: OXYCODONE HCL 10 MG TABCR (OXYCONTIN) PO SCH (09:15)
[2016-12-17] MEDS: CHOLECALCIFEROL 1000 INTER.UNIT TAB PO SCH (09:15)
[2016-12-17 11:04] VITALS: BP 105/69
[2016-12-17 11:28] VITALS: BP 108/65; PULSE 73
--- NOTE | 2016-12-17 11:33 | Progress Note ---
Internal Med Progress Note Date of Service: Dec 17, 2016. Provider Documentation: SUBJECTIVE: Patient 's BP dropped down to 70s yesterday- Responded to IVF. Pain is well controlled Denies any dizziness, syncope. No chest pain, fever, chills, SOB, nausea, vomiting OBJECTIVE: Vital Signs-as noted below Exam: General: AAOX3, no distress Head: normocephalic, atraumatic Neck: supple Respiratory/Chest: lungs clear, normal breath sounds, no respiratory distress Cardiovascular: regular rate, rhythm, no murmur Abdomen / GI: normal bowel sounds, non tender Extremities: + pertinent finding S/P Surgery - foot - left Lab data as noted below. ASSESSMENT & PLAN: ASSESSMENT AND PLAN: POST OPERATIVE HYPOTENSION BP did drop to 70s yesterday, responded to IVF -Received 1.5 L NS in boluses and 100 cc/hour maintenance fluids -BP is 108/70 , HR 73 now. Asymptomatic. Tolerating ambulation very well. Discharged by primary team -Instructed patient to hold Atenolol, Lisinopril today, tomorrow- Ok to restart it on 12/19/16 if SBP > 110, HR > 60 STATUS POST Left midfoot revision fusion second/third tarsometatarsal joints with autografting. Fusion second/third intercuneiform joint with autografting. Removal screws 2 second and third tarsometatarsal joints. Autograft harvest left calcaneus. -POD # 2 -Pain mx/Wound care/DVT prophylaxis per primary team -Monitor H & H post operatively-stable DM-II -Blood sugars in range -Insulin glargine 30 units daily as at home. -ISS, Accuchecks HTN- Stable -Continue with home medications GERD -Continue with protonix HX OF PVD HYPERLIPIDEMIA OBESITY DVT PROPHYLAXIS ASA 81 MG BID x 30 days per Ortho DISPOSITION Discharged by primary team Discharge instructions given Vital Signs: Date Time Temp Pulse Resp B/P (MAP) Pulse Ox O2 Delivery O2 Flow Rate FiO2 12/17/16 11:28 73 108/65 (79) 12/17/16 11:08 Room Air 12/17/16 07:37 36.9 47 18 93/62 (72) 93 Room Air 12/17/16 05:46 97/66 (76) 12/17/16 03:10 45 82/55 (64) 12/16/16 23:15 68/44 (52) 12/16/16 23:01 36.8 45 14 71/51 (58) 93 Room Air 12/16/16 20:15 98/55 (69) 12/16/16 19:50 44 98/48 (65) 12/16/16 19:40 Room Air 12/16/16 17:55 52 90/56 (67) 12/16/16 16:50 44 81/52 (62) 12/16/16 16:10 40 76/48 (57) 12/16/16 15:42 Room Air 12/16/16 15:26 43 74/48 (57) 12/16/16 15:01 90/47 (61) 12/16/16 14:55 36.9 45 18 93 Room Air Lab Results: Results Past 24 Hours Test 12/16/16 11:52 12/16/16 16:40 12/16/16 21:24 12/17/16 05:09 Range/Units Bedside Glucose 76 84 146 70-90 mg/dl White Blood Count 11.23 4.8-10.8 K/uL Red Blood Count 3.68 4.2-5.4 M/uL Hemoglobin 10.6 12.0-16.0 g/dL Hematocrit 34.2 37-47 % Mean Corpuscular Volume 92.9 80-100 fL Mean Corpuscular Hemoglobin 28.8 25-34 pg Mean Corpuscular Hemoglobin Concent 31.0 32-36 g/dl RDW Standard Deviation 51.9 36.4-46.3 fL RDW Coefficient of Variation 15.2 11.5-14.5 % Platelet Count 164 130-400 K/uL Mean Platelet Volume 12.9 7.4-10.4 fL Sodium Level 140 136-145 mmol/L Potassium Level 4.6 3.5-5.1 mmol/L Chloride Level 110 98-107 mmol/L Carbon Dioxide Level 21 21-32 mmol/L Anion Gap 9.0 3-11 mmol/L Blood Urea Nitrogen 20 7-18 mg/dl Creatinine 1.10 0.60-1.20 mg/dl Est Creatinine Clear Calc Drug Dose 53.8 ml/min Estimated GFR () 59.7 Estimated GFR (Non- 51.5 BUN/Creatinine Ratio 18.5 10-20 Random Glucose 64 70-99 mg/dl Calcium Level 8.2 8.5-10.1 mg/dl Test 12/17/16 08:02 12/17/16 09:27 Range/Units Bedside Glucose 68 74 70-90 mg/dl
--- NOTE | 2016-12-17 11:36 | Discharge Instructions ---
Discharge Instructions Date of Service Dec 17, 2016. Admission Reason for Admission: Left Foot Osteoarthritis, Pain D/T Internal Orthop Discharge Discharge Diagnosis / Problem: 1. Post operative hypotension 2. S/P Left foot surgery Discharge Goals Goal(s): Decrease discomfort, Improve function Activity Recommendations Activity Limitations: per Instructions/Follow-up section (as per ortho instructions) . Instructions / Follow-Up Instructions / Follow-Up MEDICATION CHANGES: 1. Hold Atenolol as her HR was in 40s. Hold it today, tomorrow, restart on if heart rate > 60 2. Hold Lisinopril as your BP was low. Hold it today, tomorrow,. restart on 12/19 if BP > 110 FOLLOW UP 1. Follow up with PCP in 1 week. Please call for appt date/time 2. Follow up with ortho as per instructions Current Hospital Diet Patient's current hospital diet: Diabetes Type 2 Diet Discharge Diet Recommended Diet: Diabetes Type 2 Diet Procedures Procedures Performed: Left Foot Revision 2nd and 3rd Tarsometatarsal Joint Fusion with Autograft; Removal Hardware 2nd and 3rd Tarsometatarsal Joints; Calcaneal Autograft [place], Fusion 2nd and 3rd Intercuneiform joint with Autograft Pending Studies Studies pending at discharge: no Laboratory Results Hemoglobin A1c Test 11/30/16 11:08 Range/Units Estimated Average Glucose 134 mg/dl Hemoglobin A1c 6.3 H 4.5-5.6 % Medical Emergencies . Who to Call and When: Medical Emergencies: If at any time you feel your situation is an emergency, please call 911 immediately. . Non-Emergent Contact Non-Emergency issues call your: Primary Care Provider, Specialist (orthopedics) . . "Provider Documentation" section prepared by Mariana El. . VTE Core Measure Inpt VTE Proph given/why not?: Other Anticoagulation, T.E.D. Stockings, SCD's
[2016-12-17 12:12] VITALS: BP 108/65; PULSE 73; TEMP 36.9; O2SAT 93
[2016-12-17] MEDS: OXYCODONE HCL IR 5 MG TAB (IMMEDIATE RELEASE) PO PRN (12:53)
[2016-12-17] MEDS ORDERED: INSULIN GLARGINE SOLOSTAR 100 UNITS/ML 3 ML PEN SC SCH (21:00)
--- NOTE | 2016-12-28 11:45 | Discharge Summary ---
Orthopedic Discharge Summary Admission Date/Reason Dec 15, 2016 at 10:55 Left Foot Osteoarthritis, Pain D/T Internal Orthop. 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 Fusion second/third intercuneiform joint with autografting. Removal screws 2 second and third tarsometatarsal joints. Autograft harvest left calcaneus Consultations Medicine Medication Reconciliation New Medications: Acetaminophen (Sb Non-Aspirin Extra Stre) 500 Mg Tab 1000 MG PO Q8H for 30 Days, TAB Aspirin (Aspirin EC Low Dose) 81 Mg Ectab 81 MG PO Q12 for 30 Days Oxycodone HCl (Oxycontin) 10 Mg Tabcr 10 MG PO Q12, #20 Oxycodone HCl (Oxycodone HCl) 5 Mg Tab 5-10 MG PO Q4H PRN for Pain, #60 TAB Continued Medications: Atenolol (Tenormin) 25 Mg Tab 25 MG PO QAM, 0 Refills Butalbital/Asa/Caffeine (Fiorinal) 1 Tab Tab 1 TAB PO UD PRN for HEADACHES, TAB Cholecalciferol (Vitamin D) 1,000 Inter.unit Tab 5000 INTER.UNIT PO QAM, 0 Refills Insulin Glargine (Lantus) Vial 30 UNITS SC BID, 0 Refills ONLY TAKES IF BSG IS GREATER THAN 130 Lisinopril (Zestril) 10 Mg Tab 10 MG PO QAM, TAB Multivitamin (Multivitamin) Tab 1 TAB PO QAM, TAB Omeprazole (Prilosec) 40 Mg Capcr 40 MG PO QAM, CAP Discontinued Medications: Acetaminophen (Tylenol) 500 Mg Tab 1 TAB PO Q8 PRN for Pain for 3 Days, #10 TAB Aspirin (Aspirin Ec) 81 Mg Tab 81 MG PO HS IS AWARE TO STOP ONE WEEK PRIOR TO SURGERY PER SURGEON Hydrocodone/Acetaminophen 5MG/325MG ([place] 5MG/325MG) Tab 1 TABLET PO Q4 PRN for Pain, TAB PRN PAIN Admission Physical Exam As per Admitting History & Physical. Hospital Course On 12.15.16, the patient underwent the above procedure. She was kept overnight because of her secondary diagnoses. On POD #1, she was hypotensive and medicine had ordered an IV bolus. Her pain was controlled and was maintaining NWB. On POD #2, her BP was improved and she continued to do well from the orthopedic standpoint. She was d/c'd home. Discharge Instructions Please refer to the electronic Patient Visit Report (Discharge Instructions) for additional information. ACTIVITY RECOMMENDATIONS: Limitations: No weight bearing to affected limb at all times. SPECIAL CARE INSTRUCTIONS: * Some drainage onto the dressing is normal and is no cause for alarm. * Some swelling is natural especially after walking. * When resting, keep your foot elevated above the level of your heart. * Call [facility] if you notice: -Increased drainage -Fever over 101 degrees F -Severe constant pain BANDAGE: * Leave bandage/cast in place unless otherwise directed. * Keep bandage/cast dry at all times. FOLLOW UP VISIT WITH DR. PACK If appointment is not already scheduled: Please call [facility] after you get home today to schedule a follow-up appointment for [address] Pack at .
== END 2016-12-17 13:14 | disposition home or self-care (01) ==
LOC: C.ACU 05:08 → C.3E 10:55 → ENRESERV 11:20
PROVIDERS: ADMIT Orthopaedic Surgery Sports Medicine; ATTEND Orthopaedic Surgery Sports Medicine
DX: S92.812K Other fracture of left foot, subsequent encounter for fracture with nonunion (principal); Z47.2 Encounter for removal of internal fixation device; I95.81 Postprocedural hypotension; M19.072 Primary osteoarthritis, left ankle and foot; X58.XXXD Exposure to other specified factors, subsequent encounter; E11.9 Type 2 diabetes mellitus without complications; I10 Essential (primary) hypertension; K21.9 Gastro-esophageal reflux disease without esophagitis; I73.9 Peripheral vascular disease, unspecified; E78.5 Hyperlipidemia, unspecified; E66.9 Obesity, unspecified; Z79.4 Long term (current) use of insulin; Z79.82 Long term (current) use of aspirin; Z82.49 Family history of ischemic heart disease and other diseases of the circulatory system

== ENCOUNTER → 2018-01-24 | Outpatient (CLI) | payer OTHER ==
[~2018-01-24] MED LIST changes: +ACET-24 PO; +ASPI-320 PO; -ASPI81TA28 PO; -HYDR-5688 PO; +OXYSR10 PO; +RXC5 PO
[2018-01-24 14:48] LABS: BASO ABS # 0.09 K/uL (0-0.2); EOS % 6.8 %; EOS ABS # 0.64 K/uL (0-0.5); HEMATOCRIT 39.3 % (37-47); HEMOGLOBIN 12.8 g/dL (12.0-16.0); IG# 0.03 K/uL (0.00-0.02); LYMPH % 33.2 %; LYMPH ABS # 3.14 K/uL (1.2-3.4); MEAN CORPUSCULAR HGB CONC 32.6 g/dl (32-36); MEAN PLATELET VOLUME 12.8 fL (7.4-10.4); MONO % 6.8 %; MONO ABS # 0.64 K/uL (0.11-0.59); NEUT % 51.9 %; NEUT ABS # 4.93 K/uL (1.4-6.5); PLATELET COUNT 201 K/uL (130-400); RED CELL DISTRIBUTION WIDTH CV 15.7 % (11.5-14.5); RED CELL DISTRIBUTION WIDTH SD 52.5 fL (36.4-46.3); WHITE BLOOD COUNT 9.47 K/uL (4.8-10.8)
--- NOTE | 2018-01-24 23:42 | DIAGNOSTIC IMAGING REPORT ---
THREE-PHASE NUCLEAR BONE SCAN OF THE SHOULDERS CLINICAL HISTORY: Painful right shoulder arthroplasty. COMPARISON STUDY: Three-phase bone scan of the shoulders 8 04/24/2016. Radiographs of the right shoulder dated 01/31/2012. Radiographs of the left shoulder dated 06/14/2011. TECHNIQUE: Following the IV administration of 27.4 mCi of technetium 99m MDP, three-phase bone scan of the shoulders was performed. Anterior and posterior flow and blood pool phase imaging of the shoulders is performed. Bone phase imaging of the shoulders was acquired at three hours in multiple obliquities. Note that interpretation is suboptimal without current plain film correlate. FINDINGS: There is no hyperemia identified in either shoulder on the flow or blood pool phase imaging. Photopenic defects are consistent with bilateral shoulder arthroplasties. There is nonspecific and symmetric tracer deposition identified around both shoulder arthroplasties involving the humeral head and the glenoid, overall similar to the 04/24/2016 examination. IMPRESSION: 1. Three-phase negative bone scan of the shoulders. 2. 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 3. Nonspecific and symmetric tracer deposition is again identified around both shoulder arthroplasties, similar in appearance to the 04/24/2016 examination. This is nonspecific and may represent normal postoperative change. Loosening would be impossible to exclude but is considered less likely. Electronically signed by: Yosef Quintero M.D. 01/24/2018 11:40 PM Dictated Date/Time: 01/24/2018 11:36 PM
== END | disposition home or self-care (01) ==
LOC: C.NUCL 13:30
PROVIDERS: ATTEND Orthopaedic Surgery Sports Medicine
DX: Z96.612 Presence of left artificial shoulder joint (principal)

== ENCOUNTER → 2018-02-01 | Outpatient (CLI) | payer OTHER ==
--- NOTE | 2018-02-01 10:41 | DIAGNOSTIC IMAGING REPORT ---
FLUOROSCOPICALLY GUIDED LEFT SHOULDER ARTHROGRAM PRIOR TO CT CLINICAL HISTORY: Left shoulder pain. Total shoulder arthroplasty. Evaluate for rotator cuff tear. COMPARISON STUDY: Left shoulder radiographs November 20, 2017. FLUOROSCOPY TIME: 0.8 minutes. FINDINGS: 1 fluoroscopic image was obtained. The procedure, risks and benefits were discussed with the patient and informed written consent was obtained. The procedure was performed by Dr. Alfredo following a timeout. Skin was prepped and draped in sterile fashion and local anesthesia was achieved with 1% lidocaine. Under intermittent fluoroscopic guidance, a 2 1/2 inch 22-gauge needle was directed into the left glenohumeral joint. Positioning within the joint was confirmed with injection of contrast. At this time, 15 cc of Optiray 300 was injected into the left glenohumeral joint. Filling defects within the joint space were noted. No extravasation of contrast into the subacromial/subdeltoid bursa was identified by fluoroscopy. The needle was removed. The patient tolerated the procedure well and no immediate complications were evident. The patient was transported to CT. IMPRESSION: Fluoroscopically guided left shoulder arthrogram prior to CT. Electronically signed by: Ankit Alfredo M.D. 02/01/2018 10:40 AM Dictated Date/Time: 02/01/2018 10:38 AM
--- NOTE | 2018-02-01 10:54 | DIAGNOSTIC IMAGING REPORT ---
LEFT SHOULDER CT ARTHROGRAPHY CLINICAL HISTORY: Left shoulder pain following arthroplasty. Recent fall. Evaluate for rotator cuff tear. COMPARISON STUDY: Left shoulder radiographs November 20, 2017. TECHNIQUE: Following a fluoroscopically guided left shoulder arthrogram, axial images through the left shoulder were obtained. Sagittal and coronal reconstructions were viewed. FINDINGS: Alignment of the left shoulder arthroplasty is anatomic. No periprosthetic fracture or lucency is noted. There is contrast within the glenohumeral joint. There are multiple filling defects within the joint space. In addition, there is contrast extravasation into the subacromial/subdeltoid bursa which suggests a full-thickness rotator cuff tear. The cuff is difficult to assess given streak artifact from the arthroplasty. However, subscapularis appears irregular with suspected full-thickness tear. There is also a suspected small full-thickness tear of the anterior distal fibers of supraspinatus. Tendon retraction or muscular atrophy is difficult to assess on this examination. Visualized portions of the lungs are unremarkable. No mass is noted adjacent to the left shoulder. IMPRESSION: 1. Status post left shoulder arthroplasty. No periprosthetic fracture or lucency. Hardware intact. 2. Contrast extravasation into the subacromial/subdeltoid bursa which suggests a full-thickness rotator cuff tear. Cuff difficult to assess given streak artifact from arthroplasty. However, suspected full-thickness tear of subscapularis and probable small full-thickness tear anterior distal fibers of supraspinatus. 3. Numerous filling defects within the joint space which suggest joint bodies/debris. Electronically signed by: Ankit Alfredo M.D. 02/01/2018 10:53 AM Dictated Date/Time: 02/01/2018 10:40 AM
== END | disposition home or self-care (01) ==
LOC: C.RAD 09:26
PROVIDERS: ATTEND Orthopaedic Surgery Sports Medicine
DX: Z96.612 Presence of left artificial shoulder joint (principal)

== ENCOUNTER 2019-02-14 08:32 | Inpatient (IN) ==
--- NOTE | 2019-01-22 15:24 | XRay Report ---
XR chest 2V routine CLINICAL HISTORY: Preoperative chest COMPARISON STUDY: 02/22/2018 FINDINGS: The cardiac and mediastinal contours are normal. There is no evidence of focal pulmonary co nsolidation. There is no evidence of failure. No pleural effusions are visualized.[Note is made of bi lateral shoulder arthroplasties. IMPRESSION: No active disease in the chest. Electronically signed by: Geovanny Boyle M.D. 01/22/2019 3:23 PM
[2019-01-22 15:30] LABS: Basophils # (auto) 0.06 K/uL (0-0.2); Basophils % (auto) 0.6 %; Eosinophils # (auto) 0.41 K/uL (0-0.5); Eosinophils % (auto) 4.4 %; Hematocrit (blood only) 38.1 % (37-47); Hemoglobin 12.4 g/dL (12.0-16.0); Immature Granulocytes # (auto) 0.06 K/uL (0.00-0.02); Immature Granulocytes % (auto) 0.6 %; Lymphocytes # (auto) 2.75 K/uL (1.2-3.4); Lymphocytes % (auto) 29.5 %; Mean Corpuscular Hemoglobin 30.7 pg (25-34); Mean Corpuscular Hgb Conc 32.5 g/dL (32-36); Mean Corpuscular Volume 94.3 fL (80-100); Mean Platelet Volume 13.5 fL (7.4-10.4); Monocytes % (auto) 6.4 %; Neutrophils # (auto) 5.44 K/uL (1.4-6.5); Neutrophils % (auto) 58.5 %; Platelet Count 184 K/uL (130-400); RDW Coefficient of Variation 14.4 % (11.5-14.5); RDW Standard Deviation 49.8 fL (36.4-46.3); Red Blood Count 4.04 M/uL (4.2-5.4); White Blood Count 9.32 K/uL (4.8-10.8)
[2019-01-22 15:37] LABS: Appearance Urine Cloudy (Clear); Bacteria Urine Automated 1+ (Negative); Bilirubin Urine Negative (Negative); Blood Urine Negative (Negative); Color Urine Yellow; Epithelial Cell Urine Auto >30 /lpf (0-5); Glucose Urine UA Negative (Negative); Ketones Urine Negative (Negative); Leukocyte Esterase Urine 1+ (Negative); Nitrite Urine Negative (Negative); Protein Urine Negative (Negative); RBC Urine Automated 0-4 /hpf (0-4); Specific Gravity Urine 1.017 (1.000-1.030); Urobilinogen Urine Negative (Negative)
--- NOTE | 2019-01-24 11:08 | Anesthesiology Consultation ---
Date of Service January 24, 2019 Assessment & Plan (1) Encounter for pre-operative examination: - Mivacurium reaction: "abdominal cramping, SOB" per RN phone interview; no further details - S/P left reverse total shoulder revision TSA: 03/07/18: Grade 2 view, MAC#3, ETT 7.0 at [facility]. Scope patch used. - Hx PONV: per RN phone interview, patient requesting scope patch be used for upcoming surgery. Does appear scope patch used with 02/2018 shoulder surgery at [facility]. Will leave at anesthesiologist discretion AM DOS regarding use of scope patch. - Check BSG AM DOS Chart Review Chart Review: Acceptable Risk for Surgery and Patient NOT seen in Pre Admission Testing History Surgery Operation Date: 02/14/19 09:15 Proposed Procedures p Right Knee Debridement Nonunion Distal Femur with Allograft, Application Vikki roselinen - Sunny Hutchison DO Height/Weight Height: 5 ft 2 in Weight: 86.183 kg Allergies Allergy/AdvReac Type Severity Reaction Status Date / Time Sulfa (Sulfonamide Allergy Severe ANAPHYLAXIS Verified 01/23/19 09:19 Antibiotics) erythromycin base Allergy Intermediate hives Verified 01/23/19 09:19 latex Allergy Intermediate Blister Verified 01/23/19 09:19 sucralfate Allergy Intermediate HIVES Verified 01/23/19 09:19 adhesive Allergy Mild contact Verified 01/23/19 09:19 dermatitis; skin blistering mivacurium AdvReac Severe abdominal Verified 01/23/19 09:19 cramping, SOB meloxicam AdvReac Intermediate GI upset Verified 01/24/19 11:03 tramadol AdvReac Intermediate HEADACHES Verified 01/24/19 11:03 codeine AdvReac Unknown vomiting Verified 01/24/19 11:03 ibuprofen AdvReac Unknown GI DISTRESS Verified 01/23/19 09:19 morphine AdvReac Unknown VOMITING Verified 01/23/19 09:19 Medications Home Medications Medication Instructions Recorded Confirmed Last Taken [place] Heartburn 1 tab PO UD PRN 02/18/18 01/23/19 03/05/18 13:00 Lantus U-100 Insulin 30 unit SUBCUT UD 02/18/18 01/23/19 03/06/18 05:30 atenolol 25 mg PO QAM 02/18/18 01/23/19 03/05/18 07:00 multivitamin [Multiple Vitamins] 1 tab PO QAM 02/18/18 01/23/19 03/05/18 07:00 omeprazole 40 mg PO QAM 02/18/18 01/23/19 03/05/18 07:00 trolamine salicylate [Arthricream 1 dose TOPICAL UD PRN 02/18/18 01/23/19 03/03/18 09:00 Rub] aspirin 81 mg PO HS 01/23/19 01/23/19 Unknown garlic 300 mg PO QAM 01/23/19 01/23/19 Unknown loratadine [Claritin] 10 mg PO QAM 01/23/19 01/23/19 Unknown Past Medical History Medical History Diabetes mellitus, type 2 Obesity GERD (gastroesophageal reflux disease) Hx of fracture of femur Hx of seasonal allergies Hypertension Osteoarthritis Past Family History Family History Brother Family hx of colon cancer Family history of diabetes mellitus Past Surgical History Surgical History History of breast biopsy History of dilatation and curettage History of endoscopic sinus surgery History of shoulder surgery LEFT History of tonsillectomy History of tooth extraction Hx of hand surgery RT Family history of reaction to anesthesia SON AND DAUGHTER HARD TO WAKE UP Hx of appendectomy Hx of arthroplasty R AND L SHOULDER Hx of colonoscopy Hx of foot surgery BUNION AND OTHER PROCEDURE ( BOTH FEET HAD OPERATIONS...NO FURTHER DETAILS) Hx of fracture of femur RIGHT ([place]) Hx of hysterectomy Hx of total knee arthroplasty R AND L Nausea and vomiting after administration of anesthetic agent Social History Smoking Status: Never smoker Do You Dip or Chew Tobacco: No Hx Alcohol Use: No alcohol intake frequency: holidays/special occasions only Hx Substance Use: No substance use type: does not use Testing Laboratory Results 01/22/19 14:49 Urine Color Yellow 01/22/19 15:06 Urine Appearance Cloudy (Clear) A 01/22/19 15:06 Urine pH 5.0 (4.5-7.5) 01/22/19 15:06 Ur Specific [place] 1.017 (1.000-1.030) 01/22/19 15:06 Urine Protein Negative (Negative) 01/22/19 15:06 Urine Glucose (UA) Negative (Negative) 01/22/19 15:06 Urine Ketones Negative (Negative) 01/22/19 15:06 Urine Nitrite Negative (Negative) 01/22/19 15:06 Ur Leukocyte Esterase 1+ (Negative) H 01/22/19 15:06 Urine WBC (Auto) 10-30 /hpf (0-5) H 01/22/19 15:06 Urine RBC (Auto) 0-4 /hpf (0-4) 01/22/19 15:06 U Hyaline Cast (Auto) 1-5 /lpf (0-5) 01/22/19 15:06 U Epithel Cells (Auto) >30 /lpf (0-5) H 01/22/19 15:06 Urine Bacteria (Auto) 1+ (Negative) H 01/22/19 15:06 01/22/19 15:06 Urine Culture - Final Urine,Clean Catch Three types of organisms present, all high counts probable skin robina. No further identifications or sensitivities to follow. *Surgeon made aware + UA* Electrocardiogram Date: 01/22/19 SR with PVC's at 78bpm. NS ST/TWA. Chest X-Ray Date: 01/22/19 Findings: + NAD
--- NOTE | 2019-02-13 15:35 | History & Physical Report ---
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 All potential risks, benefits, complications, alternatives, and rehab have been discussed with the patient and she wishes to proceed. Plan for ASA 81 mg BID x 4 wks for DVT prophylaxis. History of Present Illness Chief Complaint: right upper leg pain Primary Care Provider: Allan Aragon MD This is a patient who had a distal femur fracture that was fixed in [place] a little over 1 year ago. She had persistent upper leg pain proximal to her knee. A recent CT noted partial union of the fx. She is now being set up for surgical fixation of the nonunion. Allergies Allergy/AdvReac Type Severity Reaction Status Date / Time Sulfa (Sulfonamide Allergy Severe ANAPHYLAXIS Verified 01/23/19 09:19 Antibiotics) erythromycin base Allergy Intermediate hives Verified 01/23/19 09:19 latex Allergy Intermediate Blister Verified 01/23/19 09:19 sucralfate Allergy Intermediate HIVES Verified 01/23/19 09:19 adhesive Allergy Mild contact Verified 01/23/19 09:19 dermatitis; skin blistering mivacurium AdvReac Severe abdominal Verified 01/23/19 09:19 cramping, SOB meloxicam AdvReac Intermediate GI upset Verified 01/24/19 11:03 tramadol AdvReac Intermediate HEADACHES Verified 01/24/19 11:03 codeine AdvReac Unknown vomiting Verified 01/24/19 11:03 ibuprofen AdvReac Unknown GI DISTRESS Verified 01/23/19 09:19 morphine AdvReac Unknown VOMITING Verified 01/23/19 09:19 Home Medications Home Medications Medication Instructions Recorded Confirmed Type [facility]orah-[place] Heartburn 1 tab PO UD PRN 02/18/18 01/23/19 History Lantus U-100 Insulin 30 unit SUBCUT UD 02/18/18 01/23/19 History atenolol 25 mg PO QAM 02/18/18 01/23/19 History multivitamin [Multiple Vitamins] 1 tab PO QAM 02/18/18 01/23/19 History omeprazole 40 mg PO QAM 02/18/18 01/23/19 History trolamine salicylate [Arthricream 1 dose TOPICAL UD PRN 02/18/18 01/23/19 History Rub] aspirin 81 mg PO HS 01/23/19 01/23/19 History garlic 300 mg PO QAM 01/23/19 01/23/19 History loratadine [Claritin] 10 mg PO QAM 01/23/19 01/23/19 History Past Med/Surg History Medical History Diabetes mellitus, type 2 GERD (gastroesophageal reflux disease) Hx of fracture of femur Hx of seasonal allergies Hypertension Obesity Osteoarthritis Surgical History Family history of reaction to anesthesia SON AND DAUGHTER HARD TO WAKE UP History of breast biopsy History of dilatation and curettage History of endoscopic sinus surgery History of shoulder surgery LEFT History of tonsillectomy History of tooth extraction Hx of appendectomy Hx of arthroplasty R AND L SHOULDER Hx of colonoscopy Hx of foot surgery BUNION AND OTHER PROCEDURE ( BOTH FEET HAD OPERATIONS...NO FURTHER DETAILS) Hx of fracture of femur RIGHT ([place]) Hx of hand surgery RT Hx of hysterectomy Hx of total knee arthroplasty R AND L Nausea and vomiting after administration of anesthetic agent Family History Brother Family hx of colon cancer Family history of diabetes mellitus Social History Preferred Language: [place]araguan Communication Ability: Effective Executive Director Contract Shop Required: No Beliefs That Will Affect Care: None Current Living Situation: Spouse Current Living Situation Comment: , SON AND GRANDCHILDREN Other Information That Helps Us Care for You: No Feels Safe at Home: Yes Safety Concerns: Feels Safe At This Time Smoking Status: Never smoker Do You Dip or Chew Tobacco: No ; Second Hand Exposure: No ; Tobacco Cessation Education Requested by Patient: No Hx Alcohol Use: No Hx Substance Use: No Physical Exam Constitutional: well developed and well nourished; no acute distress ENMT: external ear and nose normal, oropharynx normal Neck: trachea midline, no thyromegaly Respiratory: normal respiratory effort, lungs clear to auscultation Cardiovascular: Rate/Rhythm: regular rate and regular rhythm Gastrointestinal (Abdomen): normal bowel sounds, soft, nontender, no hepatosplenomegaly Musculoskeletal: Knee: + surgical incision (Right knee: anterior knee, lateral thigh); knee normal to inspection, no deformity, no skin erythema, no ecchymosis and no crepitation with knee ROM Tender right distal femur Skin: no rashes, warm and dry Neurologic: normal touch/pain/proprioception Psychiatric: A+Ox3, euthymic affect Lymphatic: no cervical or axillary lymphadenopathy
[~2019-02-14 08:32] MED LIST changes: -ACET-24 PO; -ASPI-320 PO; -ATEN-173 PO; +CEFAZOLIN 2000MG 2,000 MG/15 ML SYR IV SCH; -CHOL100010 PO; -FRN PO; -INSDGI SC; -LISI-461 PO; +LR 15ML/HR IV SCH; -MULT-506 PO; -OMEP40CA PO; -OXYSR10 PO; -RXC5 PO
--- NOTE | 2019-02-14 09:19 | History & Physical Bridge Note ---
Date of Service February 14, 2019 History & Physical Bridge Note I have examined the patient, reviewed the History & Physical and in the interval since the performance of the History & Physical I have noted the following changes of clinical significance: no changes noted
[2019-02-14] MEDS ORDERED: DEXAMETHASONE SOD INJ 4 MG/ML VIAL ONE (09:20)
[2019-02-14] MEDS ORDERED: LIDOCAINE HCL 2% 2 ML VIAL/AMP(20MG/ML) INFIL ONE (09:20)
[2019-02-14] MEDS ORDERED: PROPOFOL IV EMULSION 10 MG/ML 20 ML VIAL IV ONE (09:20)
[2019-02-14] MEDS ORDERED: ONDANSETRON INJ 2 MG/ML 2 ML VIAL ONE (09:20)
[2019-02-14] MEDS ORDERED: MIDAZOLAM HCL 1 MG/ML 2ML VIAL ONE ×2 (09:21)
[2019-02-14] MEDS ORDERED: fentaNYL citrate 100 MCG/2 ML VIAL ONE ×2 (09:21→12:18)
[2019-02-14] MEDS ORDERED: ROPIVACAINE 0.5% 5 MG/ML 30 ML VIAL ONE (10:31)
[2019-02-14] MEDS ORDERED: SCOPOLAMINE 1.5 MG TDSY ONE (11:01)
[2019-02-14] MEDS ORDERED: BACITRACIN INJ 50,000 UNIT VIAL ONE (11:01)
[2019-02-14] MEDS ORDERED: HYDROmorphone INJ 2 MG/ML SYR/VIAL IV PRN (11:29)
[2019-02-14] MEDS ORDERED: ePHEDrine sulfate 50 MG/ML AMP IV PRN ×2 (11:29→11:30)
[2019-02-14] MEDS ORDERED: ATROPINE SULFATE 0.1 MG/ML 10ML SYR IV PRN ×2 (11:29→11:30)
[2019-02-14] MEDS ORDERED: HYDROmorphone INJ 0.5 MG/0.5 ML SYR IV PRN ×2 (11:30→14:52)
[2019-02-14] MEDS ORDERED: ePHEDrine sulfate 50 MG/ML SYR ONE (12:20)
--- NOTE | 2019-02-14 13:39 | Post Operative Brief Note ---
Immediate Post Op Note v1 Date of Surgery February 14, 2019 Pre & Post Diagnosis Operation Date: 02/14/19 10:40 Pre-Op Diagnosis: Nonunion right distal femur, unspecified Fracture of Lower End of Right Femur Post-Op Diagnosis: Nonunion right distal femur, unspecified Fracture of Lower End of Right Femur Procedure Operation Date: 02/14/19 10:40 Actual Procedures p Right Knee Debridement and curettage of non-Union Distal Femur; Implantation of Allograft distal femur, Application of Augment osteo-inductive bone graft substitute(Right) - Sunny Hutchison DO Surgeon Sunny Hutchison DO Investigation Division Captain Artie Malik PA-C Estimated Blood Loss 10 Findings Consistent with Post-Op Diagnosis Specimens 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 I was immediately available: during the entire case.
--- NOTE | 2019-02-14 13:57 | Fluoroscopy Report ---
FL knee RT 1 or 2V CLINICAL HISTORY: Intraoperative study with metallic plate fixation COMPARISON STUDY: January 2008 FLUOROSCOPY TIME: 4 seconds. NUMBER OF FLUOROSCOPIC IMAGES: 2 FINDINGS: 2 intraoperative fluoroscopic spot images reveal postsurgical changes of a total right knee arthroplasty. There is deformity of the distal femoral metaphysis, possibly posttraumatic. Now evide nt is a laterally positioned distal femoral metallic plate with multiple transverse screws. IMPRESSION: Intraoperative fluoroscopic spot images as described above. Electronically signed by: Geovanny Boyle M.D. 02/14/2019 1:55 PM
[2019-02-14] MEDS ORDERED: MAGNESIUM HYDROXIDE SUSP 30 ML UDC PO PRN (14:52)
[2019-02-14] MEDS ORDERED: SODIUM BICARBONATE PO PRN (14:52)
[2019-02-14] MEDS ORDERED: NO NSAIDS SCH (14:52)
[2019-02-14] MEDS ORDERED: CITRIC ACID PO PRN (14:52)
[2019-02-14] MEDS ORDERED: NALOXONE HCL 0.4 MG/1 ML VIAL/CARP IV PRN (14:52)
[2019-02-14] MEDS ORDERED: BISACODYL 10 MG SUPP PR PRN (14:52)
[2019-02-14] MEDS ORDERED: METOCLOPRAMIDE HCL INJ 5 MG/ML 2 ML VIAL IV PRN (14:52)
[2019-02-14] MEDS ORDERED: INSULIN GLARGINE SOLOSTAR 100 UNITS/ML 3 ML PEN SQ PRN (15:30)
--- NOTE | 2019-02-14 15:45 | Consultation ---
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 I examined the patient today independently of her. I discussed the plan of care with her with the plan being as written in her note except for any following changes/exceptions: None. 68yo F w/ hx of DM & HTN s/p right knee procedure with Dr. Hutchison. Some pain, but otherwise doing well. Knee is bandaged. Will monitor sugars and BP. Thank you for the consult. History of Present Illness Ms. Marroquin is post knee debridement and right femur allograft today. She has some pain at her surgical site but otherwise has no complaints. Pmhx: htn, dmII, GERD Social: never smoker, no alcohol, , raising her 9 year old grandson Family: mother at the age of 92 had dementia, father at 85 of heart problems Attending Physician: Sunny Hutchison, Allergies Allergy/AdvReac Type Severity Reaction Status Date / Time Sulfa (Sulfonamide Allergy Severe ANAPHYLAXIS Verified 02/14/19 09:45 Antibiotics) erythromycin base Allergy Intermediate hives Verified 02/14/19 09:45 latex Allergy Intermediate Blister Verified 02/14/19 09:45 sucralfate Allergy Intermediate HIVES Verified 02/14/19 09:45 adhesive Allergy Mild contact Verified 02/14/19 09:45 dermatitis; skin blistering mivacurium AdvReac Severe abdominal Verified 02/14/19 09:45 cramping, SOB meloxicam AdvReac Intermediate GI upset Verified 02/14/19 09:45 tramadol AdvReac Intermediate HEADACHES Verified 02/14/19 09:45 codeine AdvReac Unknown vomiting Verified 02/14/19 09:45 ibuprofen AdvReac Unknown GI DISTRESS Verified 02/14/19 09:45 morphine AdvReac Unknown VOMITING Verified 02/14/19 09:45 Home Medications Home Medications Medication Instructions Recorded Confirmed Type [facility]orah-[place] Heartburn 1 tab PO UD PRN 02/18/18 02/14/19 History Lantus U-100 Insulin 30 unit SUBCUT UD 02/18/18 02/14/19 History atenolol 25 mg PO QAM 02/18/18 02/14/19 History multivitamin [Multiple Vitamins] 1 tab PO QAM 02/18/18 02/14/19 History omeprazole 40 mg PO QAM 02/18/18 02/14/19 History trolamine salicylate [Arthricream 1 dose TOPICAL UD PRN 02/18/18 02/14/19 History Rub] aspirin 81 mg PO HS 01/23/19 02/14/19 History garlic 300 mg PO QAM 01/23/19 02/14/19 History loratadine [Claritin] 10 mg PO QAM 01/23/19 02/14/19 History Patient History Medical History Post-operative state Diabetes mellitus, type 2 GERD (gastroesophageal reflux disease) Hx of fracture of femur Hx of seasonal allergies Hypertension Obesity Osteoarthritis Surgical History Family history of reaction to anesthesia SON AND DAUGHTER HARD TO WAKE UP History of breast biopsy History of dilatation and curettage History of endoscopic sinus surgery History of shoulder surgery LEFT History of tonsillectomy History of tooth extraction Hx of appendectomy Hx of arthroplasty R AND L SHOULDER Hx of colonoscopy Hx of foot surgery BUNION AND OTHER PROCEDURE ( BOTH FEET HAD OPERATIONS...NO FURTHER DETAILS) Hx of fracture of femur RIGHT ([place]) Hx of hand surgery RT Hx of hysterectomy Hx of total knee arthroplasty R AND L Nausea and vomiting after administration of anesthetic agent Family History Brother Family hx of colon cancer Family history of diabetes mellitus Social History Preferred Language: Belarusian Communication Ability: Effective Switchboard Troubleshooter Required: No Beliefs That Will Affect Care: None Current Living Situation: Spouse Current Living Situation Comment: , SON AND GRANDCHILDREN Other Information That Helps Us Care for You: No Feels Safe at Home: Yes Safety Concerns: Feels Safe At This Time Smoking Status: Never smoker Do You Dip or Chew Tobacco: No ; Second Hand Exposure: No ; Tobacco Cessation Education Requested by Patient: No Hx Alcohol Use: No Hx Substance Use: No Review of Systems Review of Systems: All systems reviewed & are unremarkable except as noted in HPI & below Physical Exam Physical Exam: General: no distress Eyes: normal inspection, PERLL Respiratory: chest non tender, clear to auscultation, normal breath sounds, no respiratory distress, no accessory muscle use Cardiac: regular rate and rhythm, no rub or gallop, no murmur, no edema, no jvd GI/: active bowel sounds, no abd pain or tenderness, soft, non distended Extremities: normal range of motion, normal strength, non tender Neuro/Psych: alert and oriented x 3, normal mood and affect Skin: normal color, dry Results & Data Vital Signs (Past 12 Hours) Vital Signs Temp Pulse Pulse Resp BP Pulse Ox 02/14/19 15:12 36.6 C 54 L 18 138/73 95 02/14/19 14:42 36.5 C 63 16 134/76 94 02/14/19 14:22 36.4 C L 62 14 121/65 95 02/14/19 14:13 70 14 138/66 95 02/14/19 14:00 64 14 125/63 97 02/14/19 13:50 81 14 135/67 96 02/14/19 13:43 36 C L 73 14 133/63 95 02/14/19 09:54 37.0 C 73 20 149/85 H 98 PG Care Time/CCT Total # of Minutes Spent Total Time Spent with Patient: Total time spent is greater than 50% in coordination of care (as documented) at patient's floor/unit and/or counseling patient:
--- NOTE | 2019-02-14 18:13 | Anesthesiology Progress Note ---
Date of Service February 14, 2019 Anesthesia Post Procedure Vital Signs Vital Signs: Temp Pulse Pulse Resp BP BP Pulse Ox 02/14/19 17:42 37 C 74 16 139/83 93 02/14/19 16:49 36.5 C 63 16 122/76 91 02/14/19 15:48 36.4 C L 62 18 121/71 94 02/14/19 15:12 36.6 C 54 L 18 138/73 95 02/14/19 14:42 36.5 C 63 16 134/76 94 02/14/19 14:22 36.4 C L 62 14 121/65 95 02/14/19 14:13 70 14 138/66 95 02/14/19 14:00 64 14 125/63 97 02/14/19 13:50 81 14 135/67 96 02/14/19 13:43 36 C L 73 14 133/63 95 02/14/19 09:54 37.0 C 73 20 149/85 H 98 Transfer of Care Handoff Completed per policy Notes Mental Status: alert / awake / arousable Patient Amnestic to Procedure: Yes Nausea / Vomiting: adequately controlled Pain: adequately controlled Airway Patency, RR, SpO2: stable & adequate BP & HR: stable & adequate Hydration State: stable & adequate Anesthetic Complications: no major complications apparent and Pt Satisfied with anesthetic care
[2019-02-14] MEDS: INSULIN ASPART 100 UNITS/ML 3 ML PEN SC SCH ×2 (18:20→20:54)
[2019-02-14] MEDS: ACETAMINOPHEN 500 MG TAB PO SCH (20:51)
[2019-02-14] MEDS: DOCUSATE SODIUM 100 MG CAP PO SCH (20:51)
[2019-02-14] MEDS: CEFAZOLIN 2000MG 2,000 MG/15 ML SYR IV SCH (20:51)
[2019-02-14] MEDS: SENNA 8.6 MG TAB PO SCH (20:52)
[2019-02-14] MEDS: ASPIRIN 81 MG ECTAB PO SCH (20:52)
[2019-02-14] MEDS: SODIUM CHLORIDE 0.9% 1000ML 1,000 ML IV SCH (22:00)
--- NOTE | 2019-02-14 23:51 | Operative Report ---
DATE OF OPERATION: 02/14/2019 PREOPERATIVE DIAGNOSIS: Right distal femoral nonunion. POSTOPERATIVE DIAGNOSIS: Right distal femoral nonunion. PROCEDURES: 1. Right distal femoral debridement of nonunion. 2. Application allograft, right distal femoral nonunion. 3. Application Augment osteoinductive bone graft substitute. SURGEON: Sunny Hutchison D.O. EXPLOSIVE OPERATOR GRENADE: Artie Malik PA-C, who was present for patient positioning, sterile prep and drape, management of retractors and instruments. He was present through the critical portions of the case including wound closure, application of sterile dressing and transport of the patient to recovery. ANESTHESIA: General LMA with femoral block. SPECIMENS: Aerobic, anaerobic, Gram stain from the right distal femur. DRAINS: None. COMPLICATIONS: None. BLOOD LOSS: 20 mL. PERTINENT HISTORY: This is a 68-year-old female who had previously had a fall on her right lower extremity. She had a severe supracondylar periprosthetic right distal femoral fracture. She underwent open reduction and internal fixation at another center and had an uneventful recovery course initially with soft tissue healing. However, through further surveillance, radiographs and CT scan noted nonunion after over a year of the right distal femur. The patient failed all conservative measures for healing of the right distal femur. She had persistent pain and limitation of activities due to pain with some degree of worsening of discomfort and loss of function due to her nonunion. The patient is scheduled for surgery as indicated. Radiographs and CT scans demonstrate significant nonunion of the right distal femur supracondylar femoral region. All potential risks, benefits, complications, alternatives, rehab, potential for incomplete relief of symptoms, need for further surgery, DVT, PE, , persistent pain, swelling, scarring, weakness, neurovascular injury, wound complications, hardware failure, nonunion, malunion, bone fracture were discussed with the patient. The decided to proceed with the procedure as indicated. DESCRIPTION OF PROCEDURE: After femoral nerve block was administered in preop holding area, the patient was taken to the operative suite, placed supine on the operating room table. I reviewed consent and identification of proper operative site. The patient was anesthetized, LMA was placed. Tourniquet was placed high on the right thigh over cast padding. Right lower extremity was then sterilely prepped in usual fashion, elevated and exsanguinated with bandage. Tourniquet inflated to 350 mmHg. Next, a #10 blade scalpel was used to make an incision over the anterior midline of the right knee extending proximally. The incision was deepened through subcutaneous tissue. Meticulous hemostasis was achieved with electrocautery. Incision was partially through prior total knee arthroplasty incision and dissection was further through the scar and the subcutaneous tissue down to the level of the extensor. A second #10 blade scalpel was used to make an incision in the midline of the extensor mechanism site of prior incision, extending proximally over the distal femur. The incision was deepened through the fascia, extensor down to the level of the periosteum. This was then incised with a #10 blade scalpel and elevated both medially and laterally exposing the distal femur and also the area of nonunion. Next, a Choi elevator was used to elevate periosteum and scar both medial and lateral distal femur and then 2 blunt Hohmann retractors were placed medial and lateral to the distal femur. The area of nonunion was clearly identified and confirmed with fluoroscopic images x2. The nonunion was then debrided with a large rongeur and a curette down to bleeding bone. Greater than 50% bone loss was noted at the supracondylar femoral region. The plate was stable bridging the periprosthetic region of the distal femur with the joint implant noted to be stable and the more proximal shaft of the femur. The interspace between was then carefully debrided down to bleeding bone and the nonunion cavity was extensive. Next, specimen was obtained for aerobic, anaerobic, Gram stain from the deep distal femur. There appeared to be no evidence of obvious infection. No purulence, no abscess. Next, after pulsatile lavage with bacitracin was used to irrigate the nonunion cavity and the distal femoral region, this area was then suctioned dry and Augment osteoinductive bone graft substitute was then prepared, 3 mL container and then this was mixed with morcellized cancellous allograft. This mix was then implanted in the distal femur and spread evenly throughout the area of nonunion and then further cancellous allograft was then impacted into the distal femoral supracondylar femur region with a large bone tamp, 30 mL total of allograft plus 3 mL of ViviGen and its carrier, material was then packed into the distal femoral region. Radiographs confirmed correct location implantation in the distal femoral region. There is no gross motion of the prosthetic components and there was no gross motion at the distal femur at the intercondylar region. Final irrigation was then performed prior to implantation of the allograft and Augment. The extensor was then closed using interrupted [id number] #1 Vicryl sutures with the knee held in 30 degrees of flexion. The dermis was closed using buried interrupted 2-0 Vicryl and the skin was closed using skin darrin. A CHANO drain was applied to the anterior aspect of the knee at the site of the incision and a sterile compressive dressing was provided circumferentially around the distal femoral region. The tourniquet was released. The patient was awakened and taken to recovery in stable condition. I attest to the content of the Intraoperative Record and any orders documented therein. Any exception s are noted below.
[2019-02-15] MEDS: SODIUM CHLORIDE 0.9% 1000ML 1,000 ML IV SCH (03:19)
[2019-02-15] MEDS: CEFAZOLIN 2000MG 2,000 MG/15 ML SYR IV SCH (03:26)
[2019-02-15] MEDS: OXYCODONE HCL IR 5 MG TAB (IMMEDIATE RELEASE) PO PRN ×4 (03:26→20:35)
[2019-02-15] MEDS: ACETAMINOPHEN 500 MG TAB PO SCH ×3 (05:10→21:25)
[2019-02-15 06:51] LABS: Hematocrit (blood only) 32.6 % (37-47); Hemoglobin 10.7 g/dL (12.0-16.0); Mean Corpuscular Hemoglobin 30.8 pg (25-34); Mean Corpuscular Hgb Conc 32.8 g/dL (32-36); Mean Corpuscular Volume 93.9 fL (80-100); Platelet Count 154 K/uL (130-400); RDW Coefficient of Variation 14.4 % (11.5-14.5); RDW Standard Deviation 49.2 fL (36.4-46.3); Red Blood Count 3.47 M/uL (4.2-5.4); White Blood Count 12.89 K/uL (4.8-10.8)
[2019-02-15 07:40] LABS: Calcium 8.7 mg/dl (8.5-10.1); Creatinine Clr Calc Pharmacy 52.4 ml/min; Est GFR (African American) 59.6; Est GFR (Non-African American) 51.4; Potassium 4.3 mmol/L (3.5-5.1)
--- NOTE | 2019-02-15 08:01 | Orthopedic Progress Note ---
Date of Service February 15, 2019 Assessment & Plan (1) Fracture of distal end of right femur with nonunion: 68 yo female stable POD #1 s/p bone grating right femoral nonunion 1. Med management 2. DVT prophylaxis- ASA, SCDs 3. PT/OT 4. D/C planning- home when stable Subjective Pt resting in bed, appears comfortable Physical Exam Physical Exam: Knee immobilizer and dressing in place, toes mobile, NVI Results & Data Vital Signs (Past 12 Hours) Vital Signs Temp Pulse Resp BP Pulse Ox 02/15/19 07:14 36.3 C L 47 L 18 100/47 L 92 02/15/19 03:25 36.8 C 51 L 18 108/62 92 02/14/19 23:05 36.9 C 62 16 105/66 93 Laboratory Results 02/15/19 02/15/19 02/14/19 Range/Units 06:22 06:22 20:45 WBC 12.89 H (4.8-10.8) K/uL RBC 3.47 L (4.2-5.4) M/uL Hgb 10.7 L (12.0-16.0) g/dL Hct 32.6 L (37-47) % MCV 93.9 (80-100) fL MCH 30.8 (25-34) pg MCHC 32.8 (32-36) g/dL RDW Std Deviation 49.2 H (36.4-46.3) fL RDW Coeff of July 14.4 (11.5-14.5) % Plt Count 154 (130-400) K/uL MPV 13.0 H (7.4-10.4) fL Sodium 141 (136-145) mmol/L Potassium 4.3 (3.5-5.1) mmol/L Chloride 110 H (98-107) mmol/L Carbon Dioxide 25 (21-32) mmol/L Anion Gap 7.0 (3-11) BUN 16 (7-18) mg/dl Creatinine 1.09 (0.6-1.2) mg/dl Est Cr Clr Drug Dosing 52.4 ml/min Est GFR ( Amer) 59.6 Est GFR (Non-Af Amer) 51.4 BUN/Creatinine Ratio 15.0 (10-20) Glucose 124 H (70-99) mg/dl POC Glucose 172 H (70-99) Calcium 8.7 (8.5-10.1) mg/dl 02/14/19 02/14/19 02/14/19 Range/Units 17:18 13:47 09:18 WBC (4.8-10.8) K/uL RBC (4.2-5.4) M/uL Hgb (12.0-16.0) g/dL Hct (37-47) % MCV (80-100) fL MCH (25-34) pg MCHC (32-36) g/dL RDW Std Deviation (36.4-46.3) fL RDW Coeff of July (11.5-14.5) % Plt Count (130-400) K/uL MPV (7.4-10.4) fL Sodium (136-145) mmol/L Potassium (3.5-5.1) mmol/L Chloride (98-107) mmol/L Carbon Dioxide (21-32) mmol/L Anion Gap (3-11) BUN (7-18) mg/dl Creatinine (0.6-1.2) mg/dl Est Cr Clr Drug Dosing ml/min Est GFR ( Amer) Est GFR (Non-Af Amer) BUN/Creatinine Ratio (10-20) Glucose (70-99) mg/dl POC Glucose 118 H 102 H 99 (70-99) Calcium (8.5-10.1) mg/dl
[2019-02-15] MEDS: LORATADINE 10 MG TAB PO SCH (08:47)
[2019-02-15] MEDS: DOCUSATE SODIUM 100 MG CAP PO SCH ×2 (08:47→20:33)
[2019-02-15] MEDS: PANTOprazole 40 MG TAB PO SCH (08:47)
[2019-02-15] MEDS: MULTIVITAMIN TAB PO SCH (08:48)
[2019-02-15] MEDS: ASPIRIN 81 MG ECTAB PO SCH ×2 (08:48→20:33)
[2019-02-15] MEDS: ATENOLOL 25 MG TABLET PO SCH (08:51)
[2019-02-15] MEDS ORDERED: GARLIC 300 MG PO SCH (09:00)
[2019-02-15] MEDS ORDERED: MULTIVITAMIN TAB PO SCH (09:00)
[2019-02-15] MEDS: INSULIN ASPART 100 UNITS/ML 3 ML PEN SC SCH ×4 (09:33→20:41)
--- NOTE | 2019-02-15 16:14 | Hospitalist Progress Note ---
Date of Service February 15, 2019 Assessment & Plan (1) Fracture of distal end of right femur with nonunion: s/p Right Knee Debridement and curettage of non-Union Distal Femur; Implantation of Allograft distal femur, Application of Augment osteo-inductive bone graft substitute pain control, dvt proph per primary monitor for acute blood loss - hgb decreased about 2g (2) Diabetes mellitus, type 2: Continue home lantus, added ss - blood sugars well controlled BSGs ac & hs (3) Hypertension: continue ASA, atenolol (4) GERD (gastroesophageal reflux disease): continue ppi Medicine will sign off at this time. Please call with any questions or concerns Subjective Ms. Marroquin is having pain at her surgical site but otherwise has no complaints. Review of Systems Review of Systems: All systems reviewed & are unremarkable except as noted in HPI & below Physical Exam Physical Exam: General: no distress Eyes: normal inspection, PERLL Respiratory: chest non tender, clear to auscultation, normal breath sounds, no respiratory distress, no accessory muscle use Cardiac: regular rate and rhythm, no rub or gallop, no murmur, no edema, no jvd GI/: active bowel sounds, no abd pain or tenderness, soft, non distended Extremities: normal range of motion, normal strength, non tender Neuro/Psych: alert and oriented x 3, normal mood and affect Skin: normal color, dry Results & Data Vital Signs (Past 12 Hours) Vital Signs Temp Pulse Resp BP Pulse Ox 02/15/19 15:43 37.2 C 45 L 16 114/70 92 02/15/19 11:27 36.9 C 53 L 18 93/58 L 95 02/15/19 08:50 65 124/75 02/15/19 07:14 36.3 C L 47 L 18 100/47 L 92 PG Care Time/CCT Total # of Minutes Spent Total Time Spent with Patient: Total time spent is greater than 50% in coordination of care (as documented) at patient's floor/unit and/or counseling patient:
[2019-02-15] MEDS: SENNA 8.6 MG TAB PO SCH (20:33)
[2019-02-16] MEDS: OXYCODONE HCL IR 5 MG TAB (IMMEDIATE RELEASE) PO PRN ×3 (02:31→18:42)
[2019-02-16] MEDS: ACETAMINOPHEN 500 MG TAB PO SCH ×3 (05:16→21:21)
--- NOTE | 2019-02-16 09:09 | Orthopedic Progress Note ---
Date of Service February 16, 2019 Assessment & Plan (1) Fracture of distal end of right femur with nonunion: 68 yo female stable POD #2 s/p bone grafting right femoral nonunion 1. Med management 2. DVT prophylaxis- ASA, SCDs 3. PT/OT 4. D/C planning- home Subjective Pt resting in bed, appears comfortable Physical Exam Physical Exam: Dressing changed by NS, knee immobilizer in place, toes mobile, NVI Results & Data Vital Signs (Past 12 Hours) Vital Signs Temp Pulse Resp BP Pulse Ox 02/16/19 07:19 37.0 C 58 L 18 108/69 93 02/15/19 23:14 37.2 C 57 L 16 101/58 L 91 02/15/19 23:13 83 L Laboratory Results 02/16/19 02/15/19 02/15/19 Range/Units 08:15 20:39 17:04 POC Glucose 92 129 H 108 H (70-99) 02/15/19 Range/Units 12:10 POC Glucose 102 H (70-99)
[2019-02-16] MEDS: INSULIN ASPART 100 UNITS/ML 3 ML PEN SC SCH ×4 (09:22→21:35)
[2019-02-16] MEDS: LORATADINE 10 MG TAB PO SCH (09:24)
[2019-02-16] MEDS: ASPIRIN 81 MG ECTAB PO SCH ×2 (09:24→21:21)
[2019-02-16] MEDS: ATENOLOL 25 MG TABLET PO SCH (09:24)
[2019-02-16] MEDS: DOCUSATE SODIUM 100 MG CAP PO SCH ×2 (09:24→21:21)
[2019-02-16] MEDS: MULTIVITAMIN TAB PO SCH (09:25)
[2019-02-16] MEDS: PANTOprazole 40 MG TAB PO SCH (09:25)
[2019-02-16] MEDS: ONDANSETRON INJ 2 MG/ML 2 ML VIAL IV PRN ×2 (10:14→16:36)
[2019-02-16] MEDS: SENNA 8.6 MG TAB PO SCH (21:21)
[2019-02-17] MEDS: OXYCODONE HCL IR 5 MG TAB (IMMEDIATE RELEASE) PO PRN ×3 (03:53→19:59)
[2019-02-17] MEDS: ACETAMINOPHEN 500 MG TAB PO SCH ×3 (05:54→22:06)
--- NOTE | 2019-02-17 08:10 | Anesthesiology Progress Note ---
Date of Service February 17, 2019 Anesthesia Post Procedure Vital Signs Vital Signs: Temp Pulse Pulse Resp BP Pulse Ox 02/17/19 07:12 37.0 C 58 L 18 124/76 91 02/16/19 23:29 37.2 C 62 16 98/59 L 92 02/16/19 15:29 37.2 C 54 L 16 109/65 95 02/16/19 12:20 64 134/79 02/16/19 11:02 55 L 103/64 Notes Mental Status: alert / awake / arousable and participated in evaluation Nausea / Vomiting: adequately controlled Pain: adequately controlled Airway Patency, RR, SpO2: stable & adequate BP & HR: stable & adequate Hydration State: stable & adequate
[2019-02-17] MEDS: LORATADINE 10 MG TAB PO SCH (08:45)
[2019-02-17] MEDS: ASPIRIN 81 MG ECTAB PO SCH ×2 (08:45→20:01)
[2019-02-17] MEDS: PANTOprazole 40 MG TAB PO SCH (08:45)
[2019-02-17] MEDS: MULTIVITAMIN TAB PO SCH (08:45)
[2019-02-17] MEDS: ATENOLOL 25 MG TABLET PO SCH (08:45)
[2019-02-17] MEDS: DOCUSATE SODIUM 100 MG CAP PO SCH ×2 (08:45→20:01)
[2019-02-17] MEDS: INSULIN ASPART 100 UNITS/ML 3 ML PEN SC SCH ×4 (08:55→20:43)
--- NOTE | 2019-02-17 10:23 | Orthopedic Progress Note ---
Date of Service February 17, 2019 Assessment & Plan (1) Fracture of distal end of right femur with nonunion: 68 yo female stable POD #3 s/p bone grafting right femoral nonunion 1. Med management 2. DVT prophylaxis- ASA, SCDs 3. PT/OT 4. D/C planning- SNF today if bed available and insurance approves. Subjective Pain controlled overall. Has been NWB on the RLE. Feels she would benefit from a rehab stay, particularly since her fell this past weekend. Physical Exam Constitutional: well developed and well nourished; no acute distress ENMT: external ear and nose normal, oropharynx normal Neck: trachea midline, no thyromegaly Respiratory: normal respiratory effort, lungs clear to auscultation Cardiovascular: Rate/Rhythm: regular rate and regular rhythm Gastrointestinal (Abdomen): normal bowel sounds, soft, nontender, no hepatosplenomegaly Musculoskeletal: Knee: + surgical incision (Right knee: anterior knee, lateral thigh. CHANO intact and functioning.); knee normal to inspection, no deformity, no skin erythema and no ecchymosis Skin: no rashes, warm and dry Neurologic: normal touch/pain/proprioception Psychiatric: A+Ox3, euthymic affect Lymphatic: no cervical or axillary lymphadenopathy Results & Data Vital Signs (Past 12 Hours) Vital Signs Temp Pulse Resp BP Pulse Ox 02/17/19 08:45 69 117/71 02/17/19 07:12 37.0 C 58 L 18 124/76 91 02/16/19 23:29 37.2 C 62 16 98/59 L 92
[2019-02-17] MEDS: SENNA 8.6 MG TAB PO SCH (20:01)
[2019-02-18] MEDS: ACETAMINOPHEN 500 MG TAB PO SCH (06:25)
--- NOTE | 2019-02-18 07:40 | Orthopedic Progress Note ---
Date of Service February 18, 2019 Assessment & Plan (1) Fracture of distal end of right femur with nonunion: 68 yo female stable POD #4 s/p bone grafting right femoral nonunion 1. Med management 2. DVT prophylaxis- ASA, SCDs 3. PT/OT 4. D/C planning- SNF today if bed available and insurance approves. Subjective Pain controlled overall. Has been NWB on the RLE. Feels she would benefit from a rehab stay, particularly since her fell this past weekend. No changes from yesterday. Physical Exam Constitutional: well developed and well nourished; no acute distress ENMT: external ear and nose normal, oropharynx normal Neck: trachea midline, no thyromegaly Respiratory: normal respiratory effort, lungs clear to auscultation Cardiovascular: Rate/Rhythm: regular rate and regular rhythm Gastrointestinal (Abdomen): normal bowel sounds, soft, nontender, no hepatosplenomegaly Musculoskeletal: Knee: + surgical incision (Right knee: anterior knee, lateral thigh. CHANO intact and functioning.); knee normal to inspection, no deformity, no skin erythema and no ecchymosis Skin: no rashes, warm and dry Neurologic: normal touch/pain/proprioception Psychiatric: A+Ox3, euthymic affect Lymphatic: no cervical or axillary lymphadenopathy Results & Data Vital Signs (Past 12 Hours) Vital Signs Temp Pulse Resp BP Pulse Ox 02/17/19 23:57 37.0 C 57 L 14 106/68 92
[2019-02-18] MEDS: ATENOLOL 25 MG TABLET PO SCH (07:55)
[2019-02-18] MEDS: ASPIRIN 81 MG ECTAB PO SCH (07:55)
[2019-02-18] MEDS: PANTOprazole 40 MG TAB PO SCH (07:55)
[2019-02-18] MEDS: LORATADINE 10 MG TAB PO SCH (07:56)
[2019-02-18] MEDS: DOCUSATE SODIUM 100 MG CAP PO SCH (07:56)
[2019-02-18] MEDS: MULTIVITAMIN TAB PO SCH (07:56)
[2019-02-18] MEDS: INSULIN ASPART 100 UNITS/ML 3 ML PEN SC SCH ×2 (09:14→12:50)
--- NOTE | 2019-02-24 14:04 | Discharge Summary ---
Date of Service February 24, 2019 Admission HPI Per Admitting Provider This is a patient who had a distal femur fracture that was fixed in [place] a little over 1 year ago. She had persistent upper leg pain proximal to her knee. A recent CT noted partial union of the fx. She is now being set up for surgical fixation of the nonunion. Principal Diagnosis right knee periprosthetic distal femur fracture nonunion Discharge Exam Constitutional well developed and well nourished; no acute distress ENMT external ear and nose normal, oropharynx normal Neck trachea midline, no thyromegaly Respiratory normal respiratory effort, lungs clear to auscultation Cardiovascular Rate/Rhythm: regular rate and regular rhythm Gastrointestinal (Abdomen) normal bowel sounds, soft, nontender, no hepatosplenomegaly Musculoskeletal Knee: + surgical incision (Right knee: anterior knee, lateral thigh. CHANO intact and functioning.); knee normal to inspection, no deformity, no skin erythema and no ecchymosis Skin no rashes, warm and dry Neurologic normal touch/pain/proprioception Psychiatric A+Ox3, euthymic affect Lymphatic no cervical or axillary lymphadenopathy Discharge Data Allergies Allergy/AdvReac Type Severity Reaction Status Date / Time Sulfa (Sulfonamide Allergy Severe ANAPHYLAXIS Verified 02/14/19 09:45 Antibiotics) erythromycin base Allergy Intermediate hives Verified 02/14/19 09:45 latex Allergy Intermediate Blister Verified 02/14/19 09:45 sucralfate Allergy Intermediate HIVES Verified 02/14/19 09:45 adhesive Allergy Mild contact Verified 02/14/19 09:45 dermatitis; skin blistering mivacurium AdvReac Severe abdominal Verified 02/14/19 09:45 cramping, SOB meloxicam AdvReac Intermediate GI upset Verified 02/14/19 09:45 tramadol AdvReac Intermediate HEADACHES Verified 02/14/19 09:45 codeine AdvReac Unknown vomiting Verified 02/14/19 09:45 ibuprofen AdvReac Unknown GI DISTRESS Verified 02/14/19 09:45 morphine AdvReac Unknown VOMITING Verified 02/14/19 09:45 Consultations 02/14/19 14:52 Consult Case Management - Discharge Planning Routine Consult Hospitalist Routine Procedures Performed Operation Date: 02/14/19 10:40 Actual Procedures p Right Knee Debridement Non-Union Distal Femur with implantation of Allograft, Application of Augment and bone substitute(Right) - Sunny Pack DO Ordered Studies 02/14/19 05:00 US - OR guided needle placemen Routine 02/14/19 10:40 FL fluoroscopy <1hr Routine FL knee RT 1 or 2V Routine 02/14/19 11:31 US - OR guided needle placemen Routine Hospital Course (1) Fracture of distal end of right femur with nonunion: On 02.14.19, the patient underwent the noted procedure. She did well with post operative pain. She had difficulties with ambulation during PT and it was recommended that she have a rehabilitation stay upon discharge from the hospital. She had decided on a couple different SNFs on POD #3. Once insurance approval was received and a bed was available, the patient was discharged on POD #4. 68 yo female stable POD #4 s/p bone grafting right femoral nonunion 1. Med management 2. DVT prophylaxis- ASA, SCDs 3. PT/OT 4. D/C planning- SNF today if bed available and insurance approves. Total Time Total Time Spent Total Time Spent (In Minutes): 60 Total Time Includes: Examination of the Patient, Discharge Planning and Medication Reconciliation Discharge Plan Discharge Items Patient Disposition: Transfer [facility] Reason For Visit: Unspecified Fracture of Lower End of Right Femur Activity: Per Instructions section Non-emergency contact: Surgeon Follow-up/Referrals: Allan Aragon MD [Primary Care Provider] - Add Radio Engineering Teacher Provider Instructions: Nonweightbearing right lower extremity with walker. Frequent ice and elevation. Maintain knee immobilizer at all times, may remove to shower/bathe. ACTIVITY RECOMMENDATIONS: Limitations: No weight bearing to affected limb at all times. SPECIAL CARE INSTRUCTIONS: * Some drainage onto the dressing is normal and is no cause for alarm. * Some swelling is natural especially after walking. * When resting, keep your foot elevated above the level of your heart. * Call [facility] if you notice: -Increased drainage -Fever over 101.5 degrees F -Severe constant pain BANDAGE: * Leave bandage/cast in place unless otherwise directed. * CHANO dressing: You have a CHANO dressing on your surgical wound. It will remain in place for 7 days from surgery. You will be provided with a booklet with the do's and don'ts with the dressing in place. After 7 days, the dressing may be removed. If there is drainage from the surgical incision, you may cover the wound with dry dressings * Keep bandage/cast dry at all times. FOLLOW UP VISIT WITH DR. PACK If appointment is not already scheduled: Please call [facility] after you get home today to schedule a follow-up appointment for [address] Pack at . Stand-Alone Forms: My [facility] Skilled Items Patient informed of condition?: Yes DNR: No Discharge Level of Care: Acute rehab Communicable Disease: No Discharge Prognosis: Stable Medications and DC Order Prescriptions: New aspirin [Ecotrin Low Strength] 81 mg Tablet,Delayed Release (Dr/Ec) 81 mg PO BID Qty: 60 RF: 0 oxycodone-acetaminophen [Percocet] 5-325 mg tablet 1 tab PO Q4H PRN (Reason: pain) Qty: 40 RF: 0 Continued multivitamin [Multiple Vitamins] Tablet 1 tab PO QAM RF: 0 atenolol 25 mg Tablet 25 mg PO QAM RF: 0 omeprazole 40 mg Capsule,Delayed Release(Dr/Ec) 40 mg PO QAM RF: 0 trolamine salicylate [Arthricream Rub] 10 % Cream 1 dose TOPICAL UD PRN (Reason: Pain) RF: 0 Dinor[place] Heartburn 1,940-1,000 mg Tablet, Effervescent 1 tab PO UD PRN (Reason: Heartburn) RF: 0 Lantus U-100 Insulin 100 unit/mL Solution 30 unit SUBCUT UD RF: 0 loratadine [Claritin] 10 mg Tablet 10 mg PO QAM RF: 0 garlic Tablet 300 mg PO QAM RF: 0 Discontinued aspirin 81 mg Tablet,Delayed Release (Dr/Ec) 81 mg PO HS RF: 0 Discharge Orders: Discharge Order (Routine); Ordered 02/17/19 Ordered By: Artie Malik Admission Data Admit Date/Time: 02/14/19 14:12 Attending Provider: Sunny Pack Admit Provider: Sunny Pack Primary Care Provider: Allan Aragon Other Providers: Larry Gillespie ; Carrie Garcia ; Annie Larson ; Carlton Alvarado ; Tae Ng ; Susan Hagan ; Paul Jordan ; Marciano Belcher ; Devendra Miller ; Keyla Martin ; Kelin Mchugh ; Helena Leigh ; Blaine Mariee ; Vonnie Ceja ; Erik Fu. ; Thai Mejia ; Carrie Monet ; Patricia Robb ; Veronica Meade ; Hernandez Robert ; Carlton Neville ; Ari Huddleston ; Luz Marina Bui ; Chad Garduno ; Manuel Encinas ; Corina Crawford Other Interventions: Discharge Summary Assessment (RN) Last Done: 02/18/19 11:18 DC Date/Time DO NOT enter until pt leaves facility: 02/18/19 13:25
== END 2019-02-18 13:25 | DRG 482 ==
LOC: ASU 08:32 → 3E 14:12
DX: X58.XXXA Exposure to other specified factors, initial encounter; E11.9 Type 2 diabetes mellitus without complications; I10 Essential (primary) hypertension; S72.401K Unspecified fracture of lower end of right femur, subsequent encounter for closed fracture with nonunion; Z79.899 Other long term (current) drug therapy; K21.9 Gastro-esophageal reflux disease without esophagitis

== ENCOUNTER 2021-09-28 07:29 | Inpatient (IN) ==
--- NOTE | 2021-09-08 09:37 | PAT Medication Instructions ---
Medication Instructions Date of Service September 08, 2021 Home Medications atenolol 25 mg tablet 25 mg PO QAM insulin glargine 100 unit/mL subcutaneous solution (Lantus U-100 Insulin) 30 unit SUBCUT QAM multivitamin (Multiple Vitamins) 1 tab PO QAM omeprazole 40 mg capsule,delayed release 40 mg PO QAM sodium bicarb and citrate 1,940 mg-1,000 mg effervescent tablet ([place] Heartburn) 1 tab PO UD PRN loratadine 10 mg tablet (Claritin) 10 mg PO QAM PRN cholecalciferol (vitamin D3) 50 mcg (2,000 unit) capsule (Vitamin D3) 50 mcg PO QAM empagliflozin 25 mg tablet (Jardiance) 25 mg PO QAM aspirin 81 mg tablet,delayed release 81 mg PO QPM DO NOT take the morning of surgery multivitamin (Multiple Vitamins) 1 tab PO QAM sodium bicarb and citrate 1,940 mg-1,000 mg effervescent tablet (Dinorah-Fields Heartburn) 1 tab PO UD PRN loratadine 10 mg tablet (Claritin) 10 mg PO QAM PRN cholecalciferol (vitamin D3) 50 mcg (2,000 unit) capsule (Vitamin D3) 50 mcg PO QAM empagliflozin 25 mg tablet (Jardiance) 25 mg PO QAM Take morning of surgery With a small sip of water, OTHERWISE NOTHING TO EAT OR DRINK AFTER MIDNIGHT: atenolol 25 mg tablet 25 mg PO QAM omeprazole 40 mg capsule,delayed release 40 mg PO QAM Take evening before surgery sodium bicarb and citrate 1,940 mg-1,000 mg effervescent tablet (Dinorah-Fields Heartburn) 1 tab PO UD PRN (if needed) aspirin 81 mg tablet,delayed release 81 mg PO QPM (unless surgeon directed otherwise) Insulin Dependent Diabetic Patients * Test your blood sugar the morning of surgery * If Blood Sugar is GREATER THAN 150, take HALF of your regular dose of: insulin glargine 100 unit/mL subcutaneous solution (Lantus U-100 Insulin) (take 15 units) * If Blood Sugar is LESS THAN 150, DO NOT TAKE ANY: insulin glargine 100 unit/mL subcutaneous solution (Lantus U-100 Insulin) Other Notes If you have any questions please call us at [phone] or [phone] or [phone] or [phone]
--- NOTE | 2021-09-09 13:05 | Anesthesiology Consultation ---
Date of Service September 09, 2021 Assessment & Plan (1) Encounter for pre-operative examination: - check BSG am DOS. - surgeon ordered medical clearance 09/14/2021 per surgeon's office. - COVID screening: Per assessment on 09/09/2021: Travel screen negative, no known COVID-19 positive contacts or current COVID-19 related symptoms in past 2 weeks. Patient vaccinated. Surgeon arranging preop COVID testing, scheduled 09/26/2021. Awaiting results. Chart Review Chart Review: Pending: Refer to Additional Notes / Consult section and Patient seen in Pre Admission Testing Teaching & Discussion Pre-Anesthesia Teaching/Discussion Notes: Instructed NPO after midnight before surgery, except medications with 15 cc of water. Medication instructions pr ovided according to the PAT guidelines. History Surgery Operation Date: 09/28/21 07:15 Proposed Procedures p Right Total Shoulder Arthroplasty convert to Right Total Shoulder Arthroplasty Reverse - Bertin Marquez MD Height/Weight Height: 5 ft 2.5 in Weight: 95.3 kg Allergies Allergy/AdvReac Type Severity Reaction Status Date / Time Sulfa (Sulfonamide Allergy Severe Anaphylaxis Verified 09/07/21 15:40 Antibiotics) erythromycin base Allergy Intermediate Hives Verified 09/07/21 15:40 latex Allergy Intermediate Blisters Verified 09/07/21 15:40 sucralfate Allergy Intermediate Hives Verified 09/07/21 15:40 adhesive Allergy Mild Contact Verified 09/07/21 15:40 dermatitis; skin blistering pineapple Allergy Unknown Throat Verified 09/07/21 15:40 swelling wheat Allergy Unknown "Hard to Verified 09/07/21 15:40 go down" (shredded wheat) azithromycin AdvReac Severe Abdominal Verified 09/07/21 15:40 Pain, SOB meloxicam AdvReac Intermediate GI upset Verified 09/07/21 15:40 tramadol AdvReac Intermediate Headaches Verified 09/07/21 15:40 cantaloupe AdvReac Unknown Abdominal Verified 09/07/21 15:40 cramps codeine AdvReac Unknown Vomiting Verified 09/07/21 15:40 ibuprofen AdvReac Unknown GI upset Verified 09/07/21 15:40 morphine AdvReac Unknown Vomiting Verified 09/07/21 15:40 Medications Home Medications Medication Instructions Recorded Confirmed Last Taken atenolol 25 mg tablet 25 mg PO QAM 02/18/18 09/07/21 05/20/20 06:00 insulin glargine 100 unit/mL 30 unit SUBCUT QAM 02/18/18 09/07/21 05/20/20 06:00 subcutaneous solution (Lantus U-100 Insulin) multivitamin (Multiple Vitamins) 1 tab PO QAM 02/18/18 09/07/21 05/20/20 11:00 omeprazole 40 mg capsule,delayed 40 mg PO QAM 02/18/18 09/07/21 05/20/20 06:00 release sodium bicarb and citrate 1,940 1 tab PO UD PRN 02/18/18 09/07/21 2 Weeks Ago mg-1,000 mg effervescent tablet ~01/31/19 ([place] Heartburn) loratadine 10 mg tablet (Claritin) 10 mg PO QAM PRN 01/23/19 09/07/21 3 Weeks Ago ~01/24/19 cholecalciferol (vitamin D3) 50 50 mcg PO QAM 05/04/20 09/07/21 05/20/20 06:00 mcg (2,000 unit) capsule (Vitamin D3) empagliflozin 25 mg tablet 25 mg PO QAM 05/04/20 09/07/21 05/20/20 06:00 (Jardiance) aspirin 81 mg tablet,delayed 81 mg PO QPM 09/07/21 09/07/21 Unknown release Past Medical History Medical History (Updated 09/09/21 @ 13:17 by Temitope Vega PA-C) Diabetes mellitus, type 2 IDDM GERD (gastroesophageal reflux disease) controlled 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 ear Hiatal hernia History of blood transfusion (40+ years ago) Hx of seasonal allergies Hypertension controlled, stable per pt Lupus Migraine hx Obesity Osteoarthritis Patient denies h/o stroke, seizures, heart attack, heart failure, or blood clots. Exercise / Class Metabolic Activity III < 4 Walking/Shop/Light housework (denies CP or SOB) Past Family History Family History Brother Family hx of colon cancer Family history of diabetes mellitus Past Surgical History Surgical History History of breast biopsy History of dilatation and curettage History of endoscopic sinus surgery History of esophagogastroduodenoscopy (EGD) History of shoulder surgery left History of tonsillectomy History of tooth extraction Hx of appendectomy Hx of arthroplasty R/L shoulder Hx of colonoscopy Hx of foot surgery bunion + other foot procedures Hx of fracture of femur right s/p surgery (+ hardware), Right Knee Debridement Nonunion Distal Femur with Allograft: 02/14/19: LMA#4 + PNB at [facility] Hx of hand surgery right Hx of hysterectomy Hx of total knee arthroplasty R/L S/P hardware removal Right upper leg removal of hardware (05/21/20): LMA#4 + PNB at [facility] Past Anesthesia History No Hx of Anesthesia Complications and No Family Hx of Anesthesia Complications History of PONV History of PONV (states has received scop patch in past, received just IV medication for right upper leg removal of hardware in 2019 and did well without scop patch) and Hx of Motion Sickness Social History Smoking Status: Never smoker Do You Dip or Chew Tobacco: No Hx Alcohol Use: Yes alcohol intake frequency: holidays/special occasions only Hx Substance Use: No substance use type: does not use Review of Systems Snoring, denies witnessed apneas or sleep studies. Patient denies chest pain, shortness of breath, dyspnea on exertion, fever, chills, cough, wheezing, or palpitations. Physical Exam Vital Signs Vitals BP 115/75 P 59 TEMP 98.5 SP02 95% on RA RESP 17 Physical Full cervical extension range of motion without pain Full TMJ range of motion TMD 3.5 finger breaths Mallampati Score 3 Dentition: edentulous Lungs: normal respiratory effort. Clear throughout to auscultation, no adventitious breath sounds Cardiac: regular rate and rhythm, no murmurs noted Carotid arteries: negative bruit bilat Lab Results Anesthesia Preop Results Results Anesthesia Widget: WBC 7.69 K/uL (4.8-10.8) 09/09/21 Hgb 12.8 g/dL (12.0-16.0) 09/09/21 Hct 38.7 % (37-47) 09/09/21 Plt 159 K/uL (130-400) 09/09/21 Na 140 mmol/L (136-145) 09/09/21 K 4.1 mmol/L (3.5-5.1) 09/09/21 Cl 105 mmol/L (98-107) 09/09/21 CO2 28 mmol/L (21-32) 09/09/21 BUN 16 mg/dl (6-23) 09/09/21 Creat 0.98 mg/dl (0.6-1.2) 09/09/21 Glucose Level 91 mg/dl (70-99(Fasting)) 09/09/21 PT 10.7 Seconds (9.0-12.0) 09/09/21 PTT 30.8 Seconds (21.0-31.0) 09/09/21 INR 1.0 (0.9-1.1) 09/09/21 HA1c 6.6 % (4.5-5.6) H 09/09/21 Urine Color Yellow 09/09/21 Urine Appearance Clear (Clear) 09/09/21 Urine pH 5.5 (4.5-7.5) 09/09/21 Urine Specific [place] 1.027 (1.000-1.030) 09/09/21 Urine Protein Negative (Negative) 09/09/21 Urine Glucose (UA) 3+ (Negative) H 09/09/21 Urine Ketones Negative (Negative) 09/09/21 Urine Blood Negative (Negative) 09/09/21 Urine Nitrite Negative (Negative) 09/09/21 Urine Bilirubin Negative (Negative) 09/09/21 Urine Urobilinogen Negative (Negative) 09/09/21 Urine Leukocyte Esterase Negative (Negative) 09/09/21 Blood Type O Positive 09/09/21 Antibody Screen NEGATIVE 09/09/21 Testing Electrocardiogram Date: 09/09/21 Poor data quality Sinus bradycardia, rate 58 bpm Low voltage QRS Chest X-Ray Date: 09/09/21 FINDINGS: Lung volumes are normal. Lungs are clear. There is no pneumothorax or pleural effusion. Cardiac size is normal. Mediastinal contours are normal. There is no evidence for pulmonary edema. Bilateral shoulder arthroplasties are incidentally noted. IMPRESSION: No acute cardiopulmonary findings.
--- NOTE | 2021-09-26 07:34 | History & Physical Report ---
Date of Service September 26, 2021 Assessment & Plan (1) Full thickness rotator cuff tear: Plan: Treatment options discussed with the patient. She has failed conservative measures. She has persistent pain and weakness in her shoulder that is interfering with her ability to carry out normal daily activities. Revision surgery is indicated. Risks, benefits and alternatives to surgery including but not limited to infection, DVT, pain, stiffness, need for revision surgery, damage to blood vessels, damage to nerves, PE, , were discussed with the patient and they wish to proceed. We will plan on right shoulder conversion of a total shoulder arthroplasty to a reverse total shoulder arthroplasty. Surgery scheduled for 09/28/2021 at [facility] with Dr. Marquez. All questions were answered. Patient will follow up postoperatively. Rotator cuff tear trauma status: unspecified whether traumatic Laterality: right Qualified Code(s): M75.121 - Complete rotator cuff tear or rupture of right shoulder, not specified as traumatic History of Present Illness Chief Complaint: Right shoulder pain Primary Care Provider: Allan Aragon MD 71-year-old female with past medical history significant for GERD, hypertension, diabetes mellitus type 2 who presents with ongoing right shoulder pain. She underwent a right total shoulder arthroplasty in the past. She has had no injury. Bone scan demonstrates no loosening however exam concerning for possible rotator cuff tear. Has had some bone loss proximal humerus. Pain is interfering with her daily activities. She is unable to with chronic condition. She has failed conservative measures including anti-inflammatories and therapy. She would like to proceed with revision surgery. Patient denies headaches, sweats, fevers, chills, double vision, blurred vision, cough, sore throat, dysphagia, chest pain, sob, wheezing, n/v/d/c, numbness, tingling, fatigue, urinary symptoms, mood disorders. ROS positive for right shoulder pain and stiffness. Allergies Allergy/AdvReac Type Severity Reaction Status Date / Time Sulfa (Sulfonamide Allergy Severe Anaphylaxis Verified 09/07/21 15:40 Antibiotics) erythromycin base Allergy Intermediate Hives Verified 09/07/21 15:40 latex Allergy Intermediate Blisters Verified 09/07/21 15:40 sucralfate Allergy Intermediate Hives Verified 09/07/21 15:40 adhesive Allergy Mild Contact Verified 09/07/21 15:40 dermatitis; skin blistering pineapple Allergy Unknown Throat Verified 09/07/21 15:40 swelling wheat Allergy Unknown "Hard to Verified 09/07/21 15:40 go down" (shredded wheat) azithromycin AdvReac Severe Abdominal Verified 09/07/21 15:40 Pain, SOB meloxicam AdvReac Intermediate GI upset Verified 09/07/21 15:40 tramadol AdvReac Intermediate Headaches Verified 09/07/21 15:40 cantaloupe AdvReac Unknown Abdominal Verified 09/07/21 15:40 cramps codeine AdvReac Unknown Vomiting Verified 09/07/21 15:40 ibuprofen AdvReac Unknown GI upset Verified 09/07/21 15:40 morphine AdvReac Unknown Vomiting Verified 09/07/21 15:40 Home Medications Medication Instructions Recorded Confirmed Type atenolol 25 mg tablet 25 mg PO QAM 02/18/18 09/07/21 History insulin glargine 100 unit/mL 30 unit SUBCUT QAM 02/18/18 09/07/21 History subcutaneous solution (Lantus U-100 Insulin) multivitamin (Multiple Vitamins) 1 tab PO QAM 02/18/18 09/07/21 History omeprazole 40 mg capsule,delayed 40 mg PO QAM 02/18/18 09/07/21 History release sodium bicarbonate-citric acid 1 tab PO UD PRN 02/18/18 09/07/21 History 1,940 mg-1,000 mg effervescent tablet ([place] Heartburn) loratadine 10 mg tablet (Claritin) 10 mg PO QAM PRN 01/23/19 09/07/21 History cholecalciferol (vitamin D3) 50 50 mcg PO QAM 05/04/20 09/07/21 History mcg (2,000 unit) capsule (Vitamin D3) empagliflozin 25 mg tablet 25 mg PO QAM 05/04/20 09/07/21 History (Jardiance) aspirin 81 mg tablet,delayed 81 mg PO QPM 09/07/21 09/07/21 History release Past Med/Surg History Medical History (Updated 09/26/21 @ 16:47 by Arsh Patino PA-C) Diabetes mellitus, type 2 IDDM GERD (gastroesophageal reflux disease) controlled 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 ear Hiatal hernia History of blood transfusion (40+ years ago) Hx of seasonal allergies Hypertension controlled, stable per pt Lupus Migraine hx Obesity Osteoarthritis Surgical History History of breast biopsy History of dilatation and curettage History of endoscopic sinus surgery History of esophagogastroduodenoscopy (EGD) History of shoulder surgery left History of tonsillectomy History of tooth extraction Hx of appendectomy Hx of arthroplasty R/L shoulder Hx of colonoscopy Hx of foot surgery bunion + other foot procedures Hx of fracture of femur right s/p surgery (+ hardware), Right Knee Debridement Nonunion Distal Femur with Allograft: 02/14/19: LMA#4 + PNB at [facility] Hx of hand surgery right Hx of hysterectomy Hx of total knee arthroplasty R/L S/P hardware removal Right upper leg removal of hardware (05/21/20): LMA#4 + PNB at [facility] Family History Brother Family hx of colon cancer Family history of diabetes mellitus Social History Smoking Status: Never smoker Second Hand Exposure: No; Hx Alcohol Use: Yes Hx Substance Use: No Preferred Language: Sami Communication Ability: Effective Water Meter Installer Required: No Beliefs That Will Affect Care: None Current Living Situation: Spouse Current Living Situation Comment: , SON AND GRANDCHILDREN Feels Safe at Home: Yes Assistive Devices: Denture - Upper and Glasses Review of Systems All systems reviewed & are unremarkable except as noted in HPI & below Physical Exam Constitutional: well developed and well nourished; no acute distress Eyes: PERRL, conjunctivae normal, anicteric sclerae ENMT: external ear and nose normal, oropharynx normal Neck: trachea midline, no thyromegaly Respiratory: normal respiratory effort, lungs clear to auscultation Cardiovascular: RRR, no murmur, no edema Musculoskeletal: Right shoulder: Diffuse tenderness, kathy anterolateral acromion. Positive impingement signs. Active painful range of motion. Forward flexion to 80 degrees, abduction to 80 degrees, 30 degrees of external rotation actively. She has weakness and pain with strength testing. Skin: no rashes, warm and dry Neurologic: patellar DTR's 2+ bilat, sensation intact Psychiatric: A+Ox3, euthymic affect Results & Data ([facility]) Diagnostic Findings Right shoulder radiographs demonstrate a right total shoulder arthroplasty. She has bone loss medially proximal humerus varus alignment. No evidence of l oosening.
[~2021-09-28 07:29] MED LIST changes: +ACETAMINOPHEN 500 MG TAB PO SCH; -CEFAZOLIN 2000MG 2,000 MG/15 ML SYR IV SCH; +FAMOTIDINE 20 MG TAB PO SCH; +GABAPENTIN 300 MG CAP PO SCH; +METOCLOPRAMIDE HCL 10 MG TABLET PO SCH; +TRANEXAMIC ACID 1,000 MG **IV Intra-op IV SCH; +TRANEXAMIC ACID 1,000 MG **IV Pre-op IV SCH; +ceFAZolin 2000MG 2,000 MG/15 ML SYR IV SCH
[2021-09-28] MEDS ORDERED: BUPIVACAINE 0.5 % 5 MG/1 ML PF 10ML VIAL ONE (07:30)
[2021-09-28] MEDS ORDERED: fentaNYL citrate 100 MCG/2 ML VIAL IV PRN (08:02)
[2021-09-28] MEDS ORDERED: PHENYLEPHRINE 100MCG/ML 5ML SYR IV PRN (08:02)
[2021-09-28] MEDS ORDERED: ATROPINE SULFATE 0.1 MG/ML 10ML SYR IV PRN (08:02)
[2021-09-28] MEDS ORDERED: ONDANSETRON INJ 2 MG/ML 2 ML VIAL IV PRN ×2 (08:02→16:47)
[2021-09-28] MEDS ORDERED: LABETALOL HCL IV 5 MG/ML 20ML IV PRN (08:02)
[2021-09-28] MEDS ORDERED: ePHEDrine sulfate 50 MG/ML AMP IV PRN (08:02)
[2021-09-28] MEDS ORDERED: SCOPOLAMINE 1 MG TDSY TD ONE (09:05)
--- NOTE | 2021-09-28 09:07 | History & Physical Bridge Note ---
Date of Service September 28, 2021 History & Physical Bridge Note I have examined the patient, reviewed the History & Physical and in the interval since the performance of the History & Physical I have noted the following changes of clinical significance: no changes noted
[2021-09-28] MEDS ORDERED: MIDAZOLAM HCL 1 MG/ML 2ML VIAL ONE (09:08)
[2021-09-28] MEDS ORDERED: fentaNYL citrate 100 MCG/2 ML VIAL ONE (09:08)
[2021-09-28] MEDS ORDERED: SCOPOLAMINE 1 MG TDSY TD SCH (09:15)
[2021-09-28] MEDS ORDERED: ceFAZolin 330 MG/ML 1 GM VIAL ONE (10:08)
[2021-09-28] MEDS ORDERED: GLYCOPYRROLATE 0.2 MG/ML VIAL ONE (12:43)
[2021-09-28] MEDS ORDERED: NEOSTIGMINE METHYLSULFATE 1 MG/ML 10ML VIAL ONE (12:43)
[2021-09-28] MEDS ORDERED: PROPOFOL IV EMULSION 10 MG/ML 20 ML VIAL IV ONE (12:44)
[2021-09-28] MEDS ORDERED: ROCURONIUM BROMIDE 10 MG/ML 5 ML VIAL IV ONE (12:44)
[2021-09-28] MEDS ORDERED: ONDANSETRON INJ 2 MG/ML 2 ML VIAL ONE ×2 (12:44→12:48)
[2021-09-28] MEDS ORDERED: DEXAMETHASONE SOD INJ 4 MG/ML VIAL ONE (12:48)
[2021-09-28] MEDS ORDERED: ceFAZolin 1000MG 1,000 MG/7.5 ML SYR IV STA (13:18)
--- NOTE | 2021-09-28 15:36 | Post Operative Brief Note ---
Immediate Post Op Note v1 Date of Surgery September 28, 2021 Pre & Post Diagnosis Operation Date: 09/28/21 09:45 Pre-Op Diagnosis: Right Shoulder chronic pain status post total shoulder arthroplasty, rotator cuff tear posttraumatic, obesity BMI 38 Post-Op Diagnosis: Right Shoulder chronic pain status post total shoulder arthroplasty, rotator cuff tear posttraumatic subscapularis and infraspinatus, osteolysis proximal hu merus and glenoid, aseptic glenoid loosening, obesity BMI 38 I identified the patient and participated in the time-out.: Yes Procedure Operation Date: 09/28/21 09:45 Actual Procedures p Right Total Shoulder Arthroplasty convert to Right Total Shoulder Arthroplasty Reverse(Right), explantation glenoid and humeral components requiring proximal humeral shaft osteotomy for explantation well fixed humeral stem, debridement and bone grafting with cancellous allograft to glenoid, repair intraoperative greater tuberosity fracture Bertin Marquez MD Surgeon Bertin Marquez MD Insurance Claims Examiner Milton HERNANDEZ Estimated Blood Loss 100 Findings Consistent with Post-Op Diagnosis Specimens Frozen sections Tissue cultures Swab cultures Drains [place] Catheter and Hemovac Drain Complications Intraoperative greater and lesser tuberosity fracture Disposition Disposition: Recovery Room Overlapping Procedure I was immediately available: during the entire case.
[2021-09-28] MEDS ORDERED: ePHEDrine sulfate 50 MG/ML AMP ONE (15:46)
[2021-09-28] MEDS ORDERED: PHENYLEPHRINE HCL 10 MG/ML VIAL ONE (15:46)
[2021-09-28] MEDS ORDERED: CHECK SCOPOLAMINE PATCH PLACEMENT SCH (16:00)
--- NOTE | 2021-09-28 16:05 | XRay Report ---
XR shoulder RT min 2V routine CLINICAL HISTORY: Post shoulder surgery COMPARISON STUDY: None. FINDINGS: Status post reverse right total shoulder arthroplasty. The hardware appears intact. No frac ture or dislocation. Skin darrin and surgical drains are in place. There is elevation of the right h emidiaphragm. IMPRESSION: Status post reverse right total shoulder arthroplasty. No evidence for hardware complica tion. ACT 112: Negative or not required by law. Electronically signed by: Frankie Valdez M.D. 09/28/2021 4:03 PM
--- NOTE | 2021-09-28 16:10 | Anesthesiology Progress Note ---
Date of Service September 28, 2021 Anesthesia Post Procedure Vital Signs Vital Signs: Temp Pulse Pulse Resp BP Pulse Ox 09/28/21 16:00 77 14 109/67 95 09/28/21 15:50 81 15 104/64 97 09/28/21 15:40 89 17 111/70 98 09/28/21 15:34 97.2 F L 78 14 108/62 98 09/28/21 08:49 99.0 F 68 18 134/60 96 Transfer of Care Handoff Completed per policy Notes Mental Status: alert / awake / arousable and participated in evaluation Patient Amnestic to Procedure: Yes Nausea / Vomiting: adequately controlled Pain: adequately controlled Airway Patency, RR, SpO2: stable & adequate BP & HR: stable & adequate Hydration State: stable & adequate Anesthetic Complications: no major complications apparent and Pt Satisfied with anesthetic care
[2021-09-28] MEDS ORDERED: HYDROmorphone INJ 0.5 MG/0.5 ML SYR IV PRN (16:47)
[2021-09-28] MEDS ORDERED: PHARMACY GLYCEMIC MGMT CONSULT PRN (16:47)
[2021-09-28] MEDS ORDERED: LORATADINE 10 MG TAB PO PRN (16:47)
[2021-09-28] MEDS ORDERED: SODIUM CHLORIDE 0.9% 1000ML 1,000 ML IV SCH (16:47)
[2021-09-28] MEDS ORDERED: NALOXONE HCL 0.4 MG/1 ML VIAL/CARP IV PRN (16:47)
[2021-09-28] MEDS ORDERED: MAGNESIUM HYDROXIDE SUSP 30 ML UDC PO PRN (16:47)
[2021-09-28] MEDS ORDERED: bisacodyL 10 MG SUPP PR PRN (16:47)
[2021-09-28] MEDS: ceFAZolin 2000MG 2,000 MG/15 ML SYR IV SCH (17:39)
[2021-09-28] MEDS: INSULIN ASPART PER UNIT SC SCH ×2 (17:49→21:11)
--- NOTE | 2021-09-28 17:51 | Hospitalist Consultation ---
Date of Consultation September 28, 2021 Assessment & Plan (1) Full thickness rotator cuff tear: S/p right total shoulder arthroplasty with Dr. Marquez on 09/28. Patient presently comfortable, as I suspect her block is still working. - Normal PT/OT per surgery. - DVT ppx per surgical team - ASA 81 mg PO BID (2) Hypertension: BP after surgery was 100/70. Patient with normal mental status. - Continue home atenolol (3) Diabetes mellitus type 2 in obese: Follows with her home PCP for primary DM care. Takes Lantus 30 units SQ QAM if her morning blood sugar is >120. - Glycemic pharmacy consulted - Presently on sliding scale insulin History of Present Illness Attending Physician: Bertin Marquez MD History of Present Illness 71yo M w/ hx of DM who presents for medical management after right shoulder arthroplasty with Dr. Marquez on 09/28/2021. The patient reports that she is doing well post-op. Her shoulder is not hurting much. When I see her, she is eating dinner with left arm in no distress. Allergies Allergy/AdvReac Type Severity Reaction Status Date / Time Sulfa (Sulfonamide Allergy Severe Anaphylaxis Verified 09/28/21 08:44 Antibiotics) erythromycin base Allergy Intermediate Hives Verified 09/28/21 08:44 latex Allergy Intermediate Blisters Verified 09/28/21 08:44 sucralfate Allergy Intermediate Hives Verified 09/28/21 08:44 adhesive Allergy Mild Contact Verified 09/28/21 08:44 dermatitis; skin blistering pineapple Allergy Unknown Throat Verified 09/28/21 08:44 swelling wheat Allergy Unknown "Hard to Verified 09/28/21 08:44 go down" (shredded wheat) azithromycin AdvReac Severe Abdominal Verified 09/28/21 08:44 Pain, SOB meloxicam AdvReac Intermediate GI upset Verified 09/28/21 08:44 tramadol AdvReac Intermediate Headaches Verified 09/28/21 08:44 cantaloupe AdvReac Unknown Abdominal Verified 09/28/21 08:44 cramps codeine AdvReac Unknown Vomiting Verified 09/28/21 08:44 ibuprofen AdvReac Unknown GI upset Verified 09/28/21 08:44 morphine AdvReac Unknown Vomiting Verified 09/28/21 08:44 Home Medications Medication Instructions Recorded Confirmed Type atenolol 25 mg tablet 25 mg PO QAM 02/18/18 09/28/21 History insulin glargine 100 unit/mL 30 unit SUBCUT QAM 02/18/18 09/28/21 History subcutaneous solution (Lantus U-100 Insulin) multivitamin (Multiple Vitamins) 1 tab PO QAM 02/18/18 09/28/21 History omeprazole 40 mg capsule,delayed 40 mg PO QAM 02/18/18 09/28/21 History release sodium bicarbonate-citric acid 1 tab PO UD PRN 02/18/18 09/28/21 History 1,940 mg-1,000 mg effervescent tablet ([place] Heartburn) loratadine 10 mg tablet (Claritin) 10 mg PO QAM PRN 01/23/19 09/28/21 History cholecalciferol (vitamin D3) 50 50 mcg PO QAM 05/04/20 09/28/21 History mcg (2,000 unit) capsule (Vitamin D3) empagliflozin 25 mg tablet 25 mg PO QAM 05/04/20 09/28/21 History (Jardiance) aspirin 81 mg tablet,delayed 81 mg PO QPM 09/07/21 09/28/21 History release acetaminophen 500 mg tablet 500 mg PO Q6H PRN 09/28/21 09/28/21 History (Tylenol Extra Strength) Patient History Medical History Diabetes mellitus, type 2 IDDM GERD (gastroesophageal reflux disease) controlled 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 ear Hiatal hernia History of blood transfusion (40+ years ago) Hx of seasonal allergies Hypertension controlled, stable per pt Lupus Migraine hx Obesity Osteoarthritis Surgical History History of breast biopsy History of dilatation and curettage History of endoscopic sinus surgery History of esophagogastroduodenoscopy (EGD) History of shoulder surgery left History of tonsillectomy History of tooth extraction Hx of appendectomy Hx of arthroplasty R/L shoulder Hx of colonoscopy Hx of foot surgery bunion + other foot procedures Hx of fracture of femur right s/p surgery (+ hardware), Right Knee Debridement Nonunion Distal Femur with Allograft: 02/14/19: LMA#4 + PNB at [facility] [place] Hx of hand surgery right Hx of hysterectomy Hx of total knee arthroplasty R/L S/P hardware removal Right upper leg removal of hardware (05/21/20): LMA#4 + PNB at [facility] [place] Family History Brother Family hx of colon cancer Family history of diabetes mellitus Social History Smoking Status: Never smoker Second Hand Exposure: No; Do You Dip or Chew Tobacco: No; Tobacco Cessation Education Requested by Patient: No Hx Alcohol Use: Yes Hx Substance Use: No Preferred Language: Setswana Communication Ability: Effective Summer Law Associate Required: No Beliefs That Will Affect Care: None Current Living Situation: Spouse Current Living Situation Comment: , SON AND GRANDCHILDREN Other Information That Helps Us Care for You: No Feels Safe at Home: Yes Safety Concerns: Feels Safe At This Time Assistive Devices: Denture - Upper and Glasses Review of Systems Review of Systems: All systems reviewed & are unremarkable except as noted in HPI & below Physical Exam Constitutional: WD/WN, vitals as above Eyes: EOM intact bilaterally; no conjunctival abnormality ENMT: external ear and nose normal, oropharynx normal Neck: trachea midline, no thyromegaly normal visual inspection Respiratory: normal respiratory effort, lungs clear to auscultation no respiratory distress Cardiovascular: RRR, no murmur, no edema Gastrointestinal (Abdomen): Inspection/Auscultation: abdomen normal to inspection; abdomen not distended Musculoskeletal: Head/Neck/Chest: normocephalic and head atraumatic Shoulder: + limited ROM (Right shoulder in sling) Skin: no rashes, warm and dry Neurologic: moves all extremities and awake Psychiatric: Orientation: alert, oriented to person and cooperative Results & Data Results & Data ([facility]) Vital Signs (Past 12 Hours) Vital Signs Temp Pulse Pulse Pulse Resp BP Pulse Ox 09/28/21 17:34 88 16 103/68 97 09/28/21 17:07 86 16 112/74 96 09/28/21 16:30 36.4 C L 91 H 16 110/75 97 09/28/21 16:20 84 16 105/61 95 09/28/21 16:10 36.3 C L 80 16 104/64 95 09/28/21 16:00 77 14 109/67 95 09/28/21 15:50 81 15 104/64 97 09/28/21 15:40 89 17 111/70 98 09/28/21 15:34 36.2 C L 78 14 108/62 98 09/28/21 08:49 37.2 C 68 18 134/60 96 PG Care Time/CCT Total # of Minutes Spent Total Time Spent with Patient: Total time spent is greater than 50% in coordination of care (as documented) at patient's floor/unit and/or counseling patient: Coding Level of Care Code 83513 Inpt Consult Level 3 Diagnoses Full thickness rotator cuff tear M75.121 Rotator cuff tear trauma status: unspecified whether traumatic Laterality: right Hypertension I10 Diabetes mellitus type 2 in obese E11.69; E66.9 (1) Full thickness rotator cuff tear Rotator cuff tear trauma status: unspecified whether traumatic Laterality: right Qualified Code(s): M75.121 - Complete rotator cuff tear or rupture of right shoulder, not specified as traumatic
[2021-09-28] MEDS: ACETAMINOPHEN 500 MG TAB PO SCH (21:11)
[2021-09-28] MEDS: SENNA 8.6 MG TAB PO SCH (21:12)
[2021-09-28] MEDS: ASPIRIN 81 MG ECTAB PO SCH (21:13)
[2021-09-28] MEDS: DOCUSATE SODIUM 100 MG CAP PO SCH (21:13)
[2021-09-29] MEDS: INSULIN ASPART PER UNIT SC SCH ×6 (00:15→21:08)
[2021-09-29] MEDS: ceFAZolin 2000MG 2,000 MG/15 ML SYR IV SCH (02:10)
[2021-09-29] MEDS ORDERED: SODIUM CHLORIDE 0.9% 1000ML 500 ML IV ONE (03:28)
--- NOTE | 2021-09-29 03:31 | Communication Note ---
Date of Service: September 29, 2021 Informed of soft BPs this evening 90/56. Checking the AM labs now (cbc, bmp) as opposed to later in morning. Giving 500mL NSS bolus. She is asymptomatic per nursing. Patient is postop shoulder arthroplasty 09/28/21. Hb 10.3. Previous Hb was 12.8 on 09/09/21. No blood transfusion indicated at this time. BPs remaining soft. Day team to follow
[2021-09-29 05:08] LABS: BUN Creatinine Ratio 18.9 (10-20); Calcium 8.2 mg/dl (8.5-10.1); Creatinine Clr Calc Pharmacy 57.5 ml/min; Est GFR (African American) 68.9 ml/min; Est GFR (Non-African American) 59.4 ml/min; Potassium 4.3 mmol/L (3.5-5.1)
[2021-09-29] MEDS: ACETAMINOPHEN 500 MG TAB PO SCH ×3 (05:31→21:21)
[2021-09-29 06:23] LABS: Basophils # (auto) 0.02 K/uL (0-0.2); Basophils % (auto) 0.2 %; Eosinophils # (auto) 0.02 K/uL (0-0.5); Eosinophils % (auto) 0.2 %; Giant Platelets 1+; Hematocrit (blood only) 31.1 % (37-47); Hemoglobin 10.3 g/dL (12.0-16.0); Immature Granulocytes # (auto) 0.13 K/uL (0.00-0.02); Lymphocytes # (auto) 1.23 K/uL (1.2-3.4); Lymphocytes % (auto) 9.6 %; Mean Corpuscular Hemoglobin 32.9 pg (25-34); Mean Corpuscular Hgb Conc 33.1 g/dL (32-36); Mean Corpuscular Volume 99.4 fL (80-100); Mean Platelet Volume 13.5 fL (7.4-10.4); Monocytes # (auto) 0.87 K/uL (0.11-0.59); Monocytes % (auto) 6.8 %; Neutrophils # (auto) 10.58 K/uL (1.4-6.5); Neutrophils % (auto) 82.2 %; Platelet Count 124 K/uL (130-400); Platelet Estimate Decreased (Normal); RDW Coefficient of Variation 15.5 % (11.5-14.5); RDW Standard Deviation 56.6 fL (36.4-46.3); Red Blood Count 3.13 M/uL (4.2-5.4); White Blood Count 12.85 K/uL (4.8-10.8)
--- NOTE | 2021-09-29 08:06 | Operative Report (OR) ---
ADDENDUM The Perform glenoid baseplate was chosen. The guide for the 25 mm baseplate was placed and the guide pin was placed centrally with good purchase just below the level of the previous central post of the cemented glenoid. The reamer for a 25 baseplate was used. This exposed some more osteolytic bone, which was curetted out with the angled curette. Left stable old cement in place for better support f or the baseplate and screw fixation. There were several areas of exposed bone that we would be able to get bone ingrowth too with the baseplate including the central posterior. The drill for the centr al post was used. The drill for the central screw was used. When I drilled for the central screw, t here was noted to be osteolysis more medial and further debridement with a pituitary rongeur and a cu rette was used. I had to go to a larger 9.5 central screw to get satisfactory purchase due to the os teolysis medially. I chose a +3 lateralized baseplate. After irrigation with antibiotic solution, t he areas of osteolysis were bone grafted and then the Perform 25 mm +3 lateralized baseplate was scre wed in with good fixation of the central screw. The baseplate was then transfixed with anterior, pos terior compression screws with good fixation posteriorly, fair at best fixation anteriorly and superi or and inferior locking screws both with very good fixation. The baseplate was stable. The fan ream er was used. After irrigation and drying the implant, the 39 mm standard Glenosphere was applied and the security screw was tightened after the Glenosphere was impacted into position. We tested this with a Steph alvarez vator to be stable and then moved back to the humerus. Trial was removed from the humeral shaft. I had to drill out a pedestal at the base of the implant. During x-ray rotating the arm the very thin tuberosity bone between the shaft and tuberosity fractured and the small fragment of the lesser tuber osity fractured as well during this maneuver. There was still some periosteal connection. At this t alvarado, after drilling the bone, it was required to use reamers due to the pedestal narrowing the canal. We used the [employer] reamers up to a size 10 mm to ream out the stenotic area of the pedestal. This was enough to pass an 11 sound to the appropriate depth for 130 mm stem, which we chose based on the length of the previous stem and getting adequate distal fixation based on preoperative templating. A trial reduction was then performed assembling a 13 mm proximal body with an 11 mm distal stem at 20 degrees of retroversion. We used a high offset tray, high offset rotated superiorly and a 39+6 trial reversed insert. There was no shuck and there was a stable range of motion 320 degrees of flexion a nd external rotation 70 degrees, abduction to about 80 degrees. The trial was then removed by disloc ating it from the Glenosphere and then removing the trial. At this point, after copious irrigation of the shaft, the osteotomy site was cerclage taped using the Arthrex system. I previously placed temporary fixation with a Nice knot to control the osteotomy du ring trialing, Nice knot was placed using #5 FiberWire proximally around the shaft. The subperiostea l dissection was performed below the level of the axillary nerve around the osteotomy and a passing d evice was placed around the shaft subperiosteally over the osteotomy site and then the Arthrex tapes were passed twice around the shaft and connected to the tensioning device and appropriate knots were placed per the Arthrex protocol and tension was placed at 60 pounds. The wound was irrigated copious ly. The greater tuberosity fracture was then prepared for sutures. A drill hole was made into the s haft and a #5 FiberWire was placed through the shaft and then suture was placed up through the greate r tuberosity with the large needle for #5 FiberWire. Then, two sutures were placed into the posterio r cuff and greater tuberosity with #5 FiberWire sutures and passed around the neck of the implant ant eriorly and then the #5 FiberWire suture was placed in the lesser tuberosity fracture and that suture was also passed through some of the posterior greater tuberosity and cuff tissue to stabilize that f ragment. After these #5 FiberWire sutures were placed then after further irrigation, the final implant was imp acted to the appropriate level that was determined when the trial was placed. The final implant was a 13 mm proximal body, 11 mm distal stem, 130 mm length, Revive Tornier Álvarez Stem. It was fully di stal porous coating with good fixation. This kept the 120 degrees retroversion until fully seated. Then, the +0 high offset tray was placed with a high offset superior that was impacted into position and the Yee taper was secure and then the 39+6 reversed insert was placed. Then, the humerus was r educed to the Glenosphere with good fixation and no shuck and good stability and then the greater tub erosity fracture was repaired around the anterior neck of the implant with two #5 FiberWire sutures a nd the suture to the shaft and the suture in the lesser trochanteric fragment which also passed throu gh the posterior cuff tissue was passed through the subscapularis tendon tissue using Desean-William sut ure technique to help with anterior stability. This was tied down with a surgeon's knot. The tubero sity was reduced back anatomically and the range of motion at the end of the procedure was 0-120 degr ees of flexion, 80 degrees abduction and 45 degrees of external rotation without any tension on the r epair and good stability. After further irrigation, the split in the pectoralis was repaired with a [id number]-jj-flrvu #2 FiberWire sutures, two Hemovac drains were placed and the deltopectoral interval w as repaired with interrupted [id number] #1 Vicryl sutures and then the subcutaneous tissues were closed with interrupted 2-0 Vicryl sutures and the skin was closed with darrin and sterile dressing s were applied and a sling immobilizer. The patient tolerated the procedure well. DAVID Mejia was my help desk assistant who participated as help desk assistant the entire procedure, a ssisted in all aspects of the procedure including patient positioning, prepping, draping, arm positio pee, soft tissue retraction, assisted in wound closure and dressing, sling application and postopera tive care. Job ID: [id number]
--- NOTE | 2021-09-29 08:07 | Operative Report (OR) ---
INDICATIONS FOR PROCEDURE: A 71-year-old female who in 2005 had a primary total shoulder replacement of her right shoulder. She did well for many years until having some falls this last year and then developed increased pain and weakness in her shoulder afterwards. She failed extensive conservative management. Radiographs demonstrate previous decompression, distal clavicle excision, well- fixed total shoulder short stem type prosthetic with no clear loosening of the glenoid with no loosening of the stem. She has minor proximal migration, but exam is consistent with rotator cuff weakness. Inflammatory parameters are not elevated. PREOPERATIVE DIAGNOSES: Right shoulder chronic pain, status post total shoulder arthroplasty with rotator cuff tear, posttraumatic; and obesity, BMI 38. 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 PROCEDURE PERFORMED: Conversion of a right total shoulder arthroplasty to a right reversed total shoulder arthroplasty with explantation of the glenoid and humeral components requiring proximal humeral shaft osteotomy for explantation well-fixed humeral stem and debridement and bone grafting with cancellous allograft to glenoid fixation and repair of intraoperative greater tuberosity fracture and lesser tuberosity fracture. SURGEON: Bertin Marquez MD SAMPLE DYE MIXER: DAVID Mejia ESTIMATED BLOOD LOSS: 100 mL FINDINGS: Consistent with postoperative diagnosis. SPECIMENS: Frozen section tissue cultures and swab cultures. DRAINS: Hemovac and Heaton catheter, and complications, intraoperative greater and lesser tuberosity fractures. DISPOSITION: Recovery room. OVERLAPPING PROCEDURE: None. DESCRIPTION OF PROCEDURE: The patient was taken to the operating room and had regional block and general anesthetic was placed on a 40-degree beachchair position with a towel roll under medial border medial border of right scapula. She was translated right side of the bed, so her shoulder could be manipulated off the bed as necessary. She had SCDs, Heaton catheter placed. She had a foam headrest, protective eyewear. Right shoulder exam demonstrated good passive range of motion with moderately obese arm. There is no gross instability. There are no signs of infection or drainage. No erythema benign-appearing skin and benign-appearing incision. The right upper extremity was prepped and draped with ChloraPrep. The patient had preoperative intravenous antibiotic. An anterior deltopectoral approach was performed. The skin was incised sharply. Subcutaneous tissues were dissected down to the fascia. The cephalic vein was intact. The deltopectoral interval was developed down to the lateral margin of the conjoined tendon. Conjoined tendon was still intact. There was scar tissue over the subscapularis tendon. There was some dense scar tissue and some suture reaction around some of the old FiberWire sutures. The pectoralis repair was still intact. The upper portion of the subscapularis tendon was torn and retracted medially. The lower portion of the subscapularis tendon was still intact. The anterior and mid supraspinatus tendon was intact. Some of the infraspinatus tendon was torn. Teres minor was still intact. Thickened scarred bursa tissue was resected over the rotator cuff. A self-retaining retractor was placed. Incision was made, carried down to the glenoid and down through the bicipital groove area down to the upper pectoralis. We released the upper centimeter of the pectoralis for inferior exposure. The remaining subscapularis tendon tissue was taken down with a peel technique exposing the humeral component. The humeral component was well fixed. There was thinning of the medial calcar tissue, thinning of the bone underlying the subscapularis attachment to the lesser tuberosity. There was some osteopenia of the bone noted. There was a very well-fixed humeral implant. An impactor was used to remove the humeral head, component of the stem, and the stem was still well fixed. A flexible osteotome was used around the stem. The stem was still well fixed despite that. Care was taken around the neck and under the lesser tuberosity area of the bone was very thin due to osteolysis. 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 There was a bello discoloration of the synovium. Sent some tissues for culture and frozen section. The stem could not be removed with a screw and slap hammer at this point, so I did an osteotomy using an oscillating saw down just below the tip of the stem and widened it with another osteotome and then we were able to remove the stem with a slap hammer. A Nice knot was then placed around the proximal humerus subperiosteally above the level of the axillary nerve using #2 FiberWire to hold the osteotomy together. Then, the attention was taken to explain the glenoid. The glenoid was grossly loose and this was removed uneventfully. Beneath the glenoid, there were several areas of osteolysis. The actual glenoid component appeared to be in good condition without any major wear. The areas of osteolysis were curetted. Some extra bone that formed around the edges of the implant were removed. Inferior anterior and posterior capsular releases were performed for glenoid exposure. The trial humeral stem was placed into the shaft and a cup protector to protect the proximal humerus during retraction. Humerus was retracted posteriorly. Glenoid was further exposed. The areas of osteolysis were curetted out and irrigated with antibiotic solution with Ancef. Before we irrigated with the antibiotic solution, we took several samples for culture, swab samples, and several samples of tissue for frozen section. All the samples came back 0 of white blood cells, no significant signs of infection. At this time, I chose to convert the total shoulder to reverse replacement. A guide was placed for a 25- mm baseplate. The [place] reverse total shoulder arthroplasty system was used with perform reverse glenoid baseplate was chosen. The guide for the 25 mm baseplate was placed and the guide pin was placed centrally with good purchase just below the level of the previous central post of the cemented glenoid. The reamer for a 25 baseplate was used. This exposed some more osteolytic bone, which was curetted out with the angled curette. Left stable old cement in place for better support for the baseplate and screw fixation. There were several areas of exposed bone that we would be able to get bone ingrowth too with the baseplate including the central posterior. The drill for the central post was used. The drill for the central screw was used. When I drilled for the central screw, there was noted to be osteolysis more medial and further debridement with a pituitary rongeur and a curette was used. I had to go to a larger 9.5 central screw to get satisfactory purchase due to the osteolysis medially. I chose a +3 lateralized baseplate. After irrigation with antibiotic solution, the areas of osteolysis were bone grafted and then the Perform 25 mm +3 lateralized baseplate was screwed in with good fixation of the central screw. The baseplate was then transfixed with anterior, posterior compression screws with good fixation posteriorly, fair at best fixation anteriorly and superior and inferior locking screws both with very good fixation. The baseplate was stable. The fan reamer was used. After irrigation and drying the implant, the 39 mm standard Glenosphere was applied and the security screw was tightened after the Glenosphere was impacted into position. We tested this with a Choi elevator to be stable and then moved back to the humerus. Trial was removed from the humeral shaft. I had to drill out a pedestal at the base of the implant. During x-ray rotating the arm the very thin tuberosity bone between the shaft and tuberosity fractured and the small fragment of the lesser tuberosity fractured as well during this maneuver. There was still some periosteal connection. At this time, after drilling the bone, it was required to use reamers due to the pedestal narrowing the canal. We used the [employer] reamers up to a size 10 mm to ream out the stenotic area of the pedestal. This was enough to pass an 11 sound to the appropriate depth for 130 mm stem, which we chose based on the length of the previous stem and getting adequate distal fixation based on preoperative templating. A trial reduction was then performed assembling a 13 mm proximal body with an 11 mm distal stem at 20 degrees of retroversion. We used a high offset tray, high offset rotated superiorly and a 39+6 trial reversed insert. There was no shuck and there was a stable range of motion 320 degrees of flexion and external rotation 70 degrees, abduction to about 80 degrees. The trial was then removed by dislocating it from the Glenosphere and then removing the trial. At this point, after copious irrigation of the shaft, the osteotomy site was cerclage taped using the Arthrex system. I previously placed temporary fixation with a Nice knot to control the osteotomy during trialing, Nice knot was placed using #5 FiberWire proximally around the shaft. The subperiosteal dissection was performed below the level of the axillary nerve around the osteotomy and a passing device was placed around the shaft subperiosteally over the osteotomy site and then the Arthrex tapes were passed twice around the shaft and connected to the tensioning device and appropriate knots were placed per the Arthrex protocol and tension was placed at 60 pounds. The wound was irrigated copiously. The greater tuberosity fracture was then prepared for sutures. A drill hole was made into the shaft and a #5 FiberWire was placed through the shaft and then suture was placed up through the greater tuberosity with the large needle for #5 FiberWire. Then, two sutures were placed into the posterior cuff and greater tuberosity with #5 FiberWire sutures and passed around the neck of the implant anteriorly and then the #5 FiberWire suture was placed in the lesser tuberosity fracture and that suture was also passed through some of the posterior greater tuberosity and cuff tissue to stabilize that fragment. After these #5 FiberWire sutures were placed then after further irrigation, the final implant was impacted to the appropriate level that was determined when the trial was placed. The final implant was a 13 mm proximal body, 11 mm distal stem, 130 mm length, Revive Tornier Álvarez Stem. It was fully distal porous coating with good fixation. This kept the 120 degrees retroversion until fully seated. Then, the +0 high offset tray was placed with a high offset superior that was impacted into position and the Yee taper was secure and then the 39+6 reversed insert was placed. Then, the humerus was reduced to the Glenosphere with good fixation and no shuck and good stability and then the greater tuberosity fracture was repaired around the anterior neck of the implant with two #5 FiberWire sutures and the suture to the shaft and the suture in the lesser trochanteric fragment which also passed through the posterior cuff tissue was passed through the subscapularis tendon tissue using Desean-William suture technique to help with anterior stability. This was tied down with a surgeon's knot. The tuberosity was reduced back anatomically and the range of motion at the end of the procedure was 0-120 degrees of flexion, 80 degrees abduction and 45 degrees of external rotation without any tension on the repair and good stability. After further irrigation, the split in the pectoralis was repaired with a hbhexw-[id number] #2 FiberWire sutures, two Hemovac drains were placed and the deltopectoral interval was repaired with interrupted fiofly-gt-hfvlo #1 Vicryl sutures and then the subcutaneous tissues were closed with interrupted 2- 0 Vicryl sutures and the skin was closed with darrin and sterile dressings were applied and a sling immobilizer. The patient tolerated the procedure well. DAVID Mejia was my or first assist registered nurse who participated as or first assist registered nurse the entire procedure, assisted in all aspects of the procedure including patient positioning, prepping, draping, arm positioning, soft tissue retraction, assisted in wound closure and dressing, sling application and postoperative care. Job ID: [id number] [email or web address]
--- NOTE | 2021-09-29 08:09 | Hospitalist Progress Note ---
Date of Service September 29, 2021 Assessment & Plan (1) Full thickness rotator cuff tear: Plan: POD#1 S/p right total shoulder arthroplasty with Dr. Marquez on 09/28. EBL 100cc. Pre-op h/h 12.8/38.7 H/h 10.3/31.1 on repeat -- suspect acute blood loss anemia from surgery as well as dilutional from IVF (got additional 500cc bolus overnight for low BP/lightheaded) Pain management/bowel regimen/PT/OT per primary service ASA 81mg BID ordered for DVT prophylaxis (2) Hypertension: Plan: BP softer, asymptomatic overnight reported but patient did admit she had some lightheaded/dizziness when standing and had been given 500cc bolus NSS Repeat hgb stable as above Morning atenolol held for parameters, BP currently improved to 114/73 Having RN check orthostatics, additional bolus to be provided if + Continue to monitor (3) Diabetes mellitus type 2 in obese: Plan: Follows with her home PCP for primary DM care. Takes Lantus 30 units SQ QAM if her morning blood sugar is >120. - Glycemic pharmacy consulted - Presently on sliding scale insulin and BSGs acceptable Plan: continued inpatient stay to monitor pain/nerve block issues per primary will chart check in AM/additional IVF if needed Please call/message with any additional questions/concerns Admission and Anticipated Discharge Date Admission Date: September 28, 2021 Subjective Evaluated this afternoon. Camilo removed earlier, small amount of urine since that time. Pain controlled but creeping up, nerve block wearing off. Is right hand dominant. Worked with therapy this morning. Fingers mobile but still numbness to 3rd/4th/5th digit R hand. Plans on monitoring pain overnight and hopeful for discharge tomorrow. Hemovac emptied this morning x 1, remains in place. Did have lightheadedness overnight and stated was improved after she got her IVF. Will have RN check orthostatics as patient with small amt lightheadedness/dizziness upon standing and BP borderline. Review of Systems Review of Systems: All systems reviewed & are unremarkable except as noted in HPI & below Physical Exam Constitutional: WD/WN, vitals as above Eyes: EOM intact bilaterally; no conjunctival abnormality ENMT: mm slightly dry Neck: trachea midline, no thyromegaly normal visual inspection Respiratory: normal respiratory effort, lungs clear to auscultation no respiratory distress Cardiovascular: RRR, no murmur, no edema Gastrointestinal (Abdomen): Inspection/Auscultation: abdomen normal to inspection; abdomen not distended Musculoskeletal: Head/Neck/Chest: normocephalic and head atraumatic Shoulder: + limited ROM (Right shoulder in sling, NVI with except light touch 1- 3st fingers) decreased java integration developer strength R>L, pulses palpable hemovac in place with bloody drainage Skin: no rashes, warm and dry Neurologic: moves all extremities and awake Psychiatric: Orientation: alert, oriented to person and cooperative Genitourinary: no camilo Results & Data Results & Data ([facility]) Vital Signs (Past 12 Hours) Vital Signs Temp Pulse Pulse Resp BP Pulse Ox 09/29/21 07:22 37.0 C 71 16 96/59 L 92 09/29/21 06:02 36.5 C 59 L 18 92/55 L 94 09/29/21 03:05 36.6 C 62 18 90/56 L 92 09/28/21 23:31 36.6 C 74 18 106/66 93 09/28/21 22:39 36.5 C 71 17 93/60 L 93 Laboratory Results 09/29/21 09/29/21 09/29/21 Range/Units 11:58 07:59 04:12 WBC (4.8-10.8) K/uL RBC (4.2-5.4) M/uL Hgb (12.0-16.0) g/dL Hct (37-47) % MCV (80-100) fL MCH (25-34) pg MCHC (32-36) g/dL RDW Std Deviation (36.4-46.3) fL RDW Coeff of July (11.5-14.5) % Plt Count (130-400) K/uL MPV (7.4-10.4) fL Immature Gran % (Auto) % Neut % (Auto) % Lymph % (Auto) % [place] % (Auto) % Eos % (Auto) % Baso % (Auto) % Neut # (Auto) (1.4-6.5) K/uL Lymph # (Auto) (1.2-3.4) K/uL [place] # (Auto) (0.11-0.59) K/uL Eos # (Auto) (0-0.5) K/uL Baso # (Auto) (0-0.2) K/uL Immature Gran # (Auto) (0.00-0.02) K/uL Platelet Estimate (Normal) Giant Platelets Sodium 137 (136-145) mmol/L Potassium 4.3 (3.5-5.1) mmol/L Chloride 109 H (98-107) mmol/L Carbon Dioxide 23 (21-32) mmol/L Anion Gap 5 (3-11) BUN 18 (6-23) mg/dl Creatinine 0.95 (0.6-1.2) mg/dl Est Cr Clr Drug Dosing 57.5 ml/min Est GFR ( Amer) 68.9 ml/min Est GFR (Non-Af Amer) 59.4 ml/min BUN/Creatinine Ratio 18.9 (10-20) Glucose 127 H (70-99(Fasting)) mg/dl POC Glucose 92 108 H (70-99) mg/dl Calcium 8.2 L (8.5-10.1) mg/dl Hepatitis C Ab (EIA) Hep C Ab Signal/Cutoff 09/29/21 09/29/21 09/29/21 Range/Units 04:12 04:12 03:44 WBC 12.85 H (4.8-10.8) K/uL RBC 3.13 L (4.2-5.4) M/uL Hgb 10.3 L (12.0-16.0) g/dL Hct 31.1 L (37-47) % MCV 99.4 (80-100) fL MCH 32.9 (25-34) pg MCHC 33.1 (32-36) g/dL RDW Std Deviation 56.6 H (36.4-46.3) fL RDW Coeff of July 15.5 H (11.5-14.5) % Plt Count 124 L (130-400) K/uL MPV 13.5 H (7.4-10.4) fL Immature Gran % (Auto) 1.0 % Neut % (Auto) 82.2 % Lymph % (Auto) 9.6 % [place] % (Auto) 6.8 % Eos % (Auto) 0.2 % Baso % (Auto) 0.2 % Neut # (Auto) 10.58 H (1.4-6.5) K/uL Lymph # (Auto) 1.23 (1.2-3.4) K/uL [place] # (Auto) 0.87 H (0.11-0.59) K/uL Eos # (Auto) 0.02 (0-0.5) K/uL Baso # (Auto) 0.02 (0-0.2) K/uL Immature Gran # (Auto) 0.13 H (0.00-0.02) K/uL Platelet Estimate Decreased L (Normal) Giant Platelets 1+ Sodium (136-145) mmol/L Potassium (3.5-5.1) mmol/L Chloride (98-107) mmol/L Carbon Dioxide (21-32) mmol/L Anion Gap (3-11) BUN (6-23) mg/dl Creatinine (0.6-1.2) mg/dl Est Cr Clr Drug Dosing ml/min Est GFR ( Amer) ml/min Est GFR (Non-Af Amer) ml/min BUN/Creatinine Ratio (10-20) Glucose (70-99(Fasting)) mg/dl POC Glucose 132 H (70-99) mg/dl Calcium (8.5-10.1) mg/dl Hepatitis C Ab (EIA) Pending Hep C Ab Signal/Cutoff Pending 09/29/21 09/28/21 09/28/21 Range/Units 00:14 20:38 17:12 WBC (4.8-10.8) K/uL RBC (4.2-5.4) M/uL Hgb (12.0-16.0) g/dL Hct (37-47) % MCV (80-100) fL MCH (25-34) pg MCHC (32-36) g/dL RDW Std Deviation (36.4-46.3) fL RDW Coeff of July (11.5-14.5) % Plt Count (130-400) K/uL MPV (7.4-10.4) fL Immature Gran % (Auto) % Neut % (Auto) % Lymph % (Auto) % [place] % (Auto) % Eos % (Auto) % Baso % (Auto) % Neut # (Auto) (1.4-6.5) K/uL Lymph # (Auto) (1.2-3.4) K/uL [place] # (Auto) (0.11-0.59) K/uL Eos # (Auto) (0-0.5) K/uL Baso # (Auto) (0-0.2) K/uL Immature Gran # (Auto) (0.00-0.02) K/uL Platelet Estimate (Normal) Giant Platelets Sodium (136-145) mmol/L Potassium (3.5-5.1) mmol/L Chloride (98-107) mmol/L Carbon Dioxide (21-32) mmol/L Anion Gap (3-11) BUN (6-23) mg/dl Creatinine (0.6-1.2) mg/dl Est Cr Clr Drug Dosing ml/min Est GFR ( Amer) ml/min Est GFR (Non-Af Amer) ml/min BUN/Creatinine Ratio (10-20) Glucose (70-99(Fasting)) mg/dl POC Glucose 179 H 164 H 140 H (70-99) mg/dl Calcium (8.5-10.1) mg/dl Hepatitis C Ab (EIA) Hep C Ab Signal/Cutoff 09/28/21 Range/Units 15:35 WBC (4.8-10.8) K/uL RBC (4.2-5.4) M/uL Hgb (12.0-16.0) g/dL Hct (37-47) % MCV (80-100) fL MCH (25-34) pg MCHC (32-36) g/dL RDW Std Deviation (36.4-46.3) fL RDW Coeff of July (11.5-14.5) % Plt Count (130-400) K/uL MPV (7.4-10.4) fL Immature Gran % (Auto) % Neut % (Auto) % Lymph % (Auto) % [place] % (Auto) % Eos % (Auto) % Baso % (Auto) % Neut # (Auto) (1.4-6.5) K/uL Lymph # (Auto) (1.2-3.4) K/uL [place] # (Auto) (0.11-0.59) K/uL Eos # (Auto) (0-0.5) K/uL Baso # (Auto) (0-0.2) K/uL Immature Gran # (Auto) (0.00-0.02) K/uL Platelet Estimate (Normal) Giant Platelets Sodium (136-145) mmol/L Potassium (3.5-5.1) mmol/L Chloride (98-107) mmol/L Carbon Dioxide (21-32) mmol/L Anion Gap (3-11) BUN (6-23) mg/dl Creatinine (0.6-1.2) mg/dl Est Cr Clr Drug Dosing ml/min Est GFR ( Amer) ml/min Est GFR (Non-Af Amer) ml/min BUN/Creatinine Ratio (10-20) Glucose (70-99(Fasting)) mg/dl POC Glucose 134 H (70-99) mg/dl Calcium (8.5-10.1) mg/dl Hepatitis C Ab (EIA) Hep C Ab Signal/Cutoff Diagnostic Findings Shoulder X-Ray 09/28/21 15:36 XR shoulder RT min 2V routine CLINICAL HISTORY: Post shoulder surgery COMPARISON STUDY: None. FINDINGS: Status post reverse right total shoulder arthroplasty. The hardware appears intact. No fracture or dislocation. Skin darrin and surgical drains are in place. There is elevation of the right hemidiaphragm. IMPRESSION: Status post reverse right total shoulder arthroplasty. No evidence for hardware complication. ACT 112: Negative or not required by law. Electronically signed by: Frankie Valdez M.D. 09/28/2021 4:03 PM PG Care Time/CCT Total # of Minutes Spent Total Time Spent with Patient: Total time spent is greater than 50% in coordination of care (as documented) at patient's floor/unit and/or counseling patient: Coding Level of Care Code 10107 Subseq Hosp Care Lvl 2 Diagnoses Full thickness rotator cuff tear M75.121 Laterality: right Rotator cuff tear trauma status: unspecified whether traumatic Hypertension I10 Diabetes mellitus type 2 in obese E11.69; E66.9 (1) Full thickness rotator cuff tear Laterality: right Rotator cuff tear trauma status: unspecified whether traumatic Qualified Code(s): M75.121 - Complete rotator cuff tear or rupture of right shoulder, not specified as traumatic
[2021-09-29] MEDS ORDERED: NON-FORMULARY MEDICATION (Multivitamin [Multiple Vitamins] Tablet) PO SCH (09:00)
[2021-09-29] MEDS ORDERED: INSULIN GLARGINE SOLOSTAR 100 UNITS/ML 3 ML PEN SC ONE (09:00)
[2021-09-29] MEDS: ATENOLOL 25 MG TABLET PO SCH (09:01)
[2021-09-29] MEDS: ASPIRIN 81 MG ECTAB PO SCH ×2 (09:06→20:13)
[2021-09-29] MEDS: DOCUSATE SODIUM 100 MG CAP PO SCH ×2 (09:06→20:13)
[2021-09-29] MEDS: MULTIVITAMIN TAB PO SCH (09:06)
[2021-09-29] MEDS: PANTOprazole 40 MG TAB PO SCH (09:06)
[2021-09-29] MEDS: CHOLECALCIFEROL 1,000 UNITS 25 MCG TAB PO SCH (09:06)
--- NOTE | 2021-09-29 10:53 | Orthopedic Progress Note ---
Date of Service September 29, 2021 Assessment & Plan (1) Full thickness rotator cuff tear: Plan: Postop day 1 status post removal of right TSA with revision to right reverse total shoulder arthroplasty. PT/OT protocols. Nonweightbearing right upper extremity DVT prophylaxis-aspirin p.o. twice daily, SCDs. Pain management as written. Patient's Heaton was just discontinued and she has not yet urinated. Patient is also concerned with pain control issues as blocks wear off. We will recheck on her little bit later today. DC planning-patient is planning for discharge to home. Admission and Anticipated Discharge Date Admission Date: September 28, 2021 Supervising Physician Co-Signing Physician Notes Patient seen and examined. Agree with DAVID Kaiser's note as above. She looks very comfortable, but she reports that she has a lot of pain in her shoulder. We will plan to keep her until tomorrow for pain control. Plan for discharge home tomorrow Subjective Postop day 1 Patient sitting in her chair at the bedside. She states she continues to have some residual numbness from her nerve blocks from the surgery. She is moving her fingers more at this time but still is unable to move her wrist she states. Also having some residual decreased sensation. Denies any shortness of breath or chest pain. States she had a little bit of abdominal pain this morning which seems to be resolving. He is having some pain in the shoulder at this time but is controlled. Physical Exam Physical Exam: Dressings are clean, dry, and intact. Sling is in place. She does have residual decreased sensation in all of her fingers. She is moving all of her fingers at this time with some decrease strength. She is unable to flex or extend the wrist at this time. Results & Data ([facility]) Vital Signs (Past 12 Hours) Vital Signs Temp Pulse Pulse Resp BP Pulse Ox 09/29/21 07:22 37.0 C 71 16 96/59 L 92 09/29/21 06:02 36.5 C 59 L 18 92/55 L 94 09/29/21 03:05 36.6 C 62 18 90/56 L 92 09/28/21 23:31 36.6 C 74 18 106/66 93 Laboratory Results Laboratory Results WBC 12.85 K/uL (4.8-10.8) H 09/29/21 04:12 RBC 3.13 M/uL (4.2-5.4) L 09/29/21 04:12 Hgb 10.3 g/dL (12.0-16.0) L 09/29/21 04:12 Hct 31.1 % (37-47) L 09/29/21 04:12 MCV 99.4 fL (80-100) 09/29/21 04:12 MCH 32.9 pg (25-34) 09/29/21 04:12 MCHC 33.1 g/dL (32-36) 09/29/21 04:12 RDW Std Deviation 56.6 fL (36.4-46.3) H 09/29/21 04:12 RDW Coeff of July 15.5 % (11.5-14.5) H 09/29/21 04:12 Plt Count 124 K/uL (130-400) L 09/29/21 04:12 MPV 13.5 fL (7.4-10.4) H 09/29/21 04:12 Immature Gran % (Auto) 1.0 % 09/29/21 04:12 Neut % (Auto) 82.2 % 09/29/21 04:12 Lymph % (Auto) 9.6 % 09/29/21 04:12 [place] % (Auto) 6.8 % 09/29/21 04:12 Eos % (Auto) 0.2 % 09/29/21 04:12 Baso % (Auto) 0.2 % 09/29/21 04:12 Neut # (Auto) 10.58 K/uL (1.4-6.5) H 09/29/21 04:12 Lymph # (Auto) 1.23 K/uL (1.2-3.4) 09/29/21 04:12 [place] # (Auto) 0.87 K/uL (0.11-0.59) H 09/29/21 04:12 Eos # (Auto) 0.02 K/uL (0-0.5) 09/29/21 04:12 Baso # (Auto) 0.02 K/uL (0-0.2) 09/29/21 04:12 Immature Gran # (Auto) 0.13 K/uL (0.00-0.02) H 09/29/21 04:12 Platelet Estimate Decreased (Normal) L 09/29/21 04:12 Giant Platelets 1+ 09/29/21 04:12 Sodium 137 mmol/L (136-145) 09/29/21 04:12 Potassium 4.3 mmol/L (3.5-5.1) 09/29/21 04:12 Chloride 109 mmol/L (98-107) H 09/29/21 04:12 Carbon Dioxide 23 mmol/L (21-32) 09/29/21 04:12 Anion Gap 5 (3-11) 09/29/21 04:12 BUN 18 mg/dl (6-23) 09/29/21 04:12 Creatinine 0.95 mg/dl (0.6-1.2) 09/29/21 04:12 Est Cr Clr Drug Dosing 57.5 ml/min 09/29/21 04:12 Est GFR ( Amer) 68.9 ml/min 09/29/21 04:12 Est GFR (Non-Af Amer) 59.4 ml/min 09/29/21 04:12 BUN/Creatinine Ratio 18.9 (10-20) 09/29/21 04:12 Glucose 127 mg/dl (70-99(Fasting)) H 09/29/21 04:12 POC Glucose 108 mg/dl (70-99) H 09/29/21 07:59 Calcium 8.2 mg/dl (8.5-10.1) L 09/29/21 04:12 SARS-CoV-2, RNA, NAAT NEGATIVE (NEGATIVE) 09/28/21 08:10 Impressions Shoulder X-Ray 09/28/21 15:36 XR shoulder RT min 2V routine CLINICAL HISTORY: Post shoulder surgery COMPARISON STUDY: None. FINDINGS: Status post reverse right total shoulder arthroplasty. The hardware appears intact. No fracture or dislocation. Skin darrin and surgical drains are in place. There is elevation of the right hemidiaphragm. IMPRESSION: Status post reverse right total shoulder arthroplasty. No evidence for hardware complication. ACT 112: Negative or not required by law. Electronically signed by: Frankie Valdez M.D. 09/28/2021 4:03 PM (1) Full thickness rotator cuff tear Laterality: right Rotator cuff tear trauma status: unspecified whether traumatic Qualified Code(s): M75.121 - Complete rotator cuff tear or rupture of right shoulder, not specified as traumatic
--- NOTE | 2021-09-29 13:58 | Pharmacy Report ---
Pharmacy Glycemic Short Note 2 - Date of Service September 29, 2021 - Glycemic Short BSG Results (Last 24 hours): 09/28/21 09/28/21 09/28/21 15:35 17:12 20:38 Glucose POC Glucose 134 H 140 H 164 H 09/29/21 09/29/21 09/29/21 00:14 03:44 04:12 Glucose 127 H POC Glucose 179 H 132 H 09/29/21 09/29/21 07:59 11:58 Glucose POC Glucose 108 H 92 OUTPATIENT ANTIDIABETIC REGIMEN: * Lantus 30 units in the morning if BSG > 120 mg/dL * Humalog 4 units B/L/D * Jaridance 25 mg PO daily ASSESSMENT: * Patient's BSGs yesterday were 140-164 and overnight were 179-132 mg/dL. Patient received 2 units of Novolog overnight. * Today's BSGs are 108-92 mg/dL. * Patient received dexamethasone 8 mg IV intraoperatively yesterday. * Give Lantus 15 units (half of home dose- BSG is less than 120 mg/dL plus patient received steroids) * Novolog weight-based stress of ~2 PLAN FOR INPATIENT GLYCEMIC CONTROL: * Hold outpatient oral diabetes medications * Basal insulin * Lantus 15 units SQ x 1 then reassess * Bolus insulin * NovoLog per scale ACHS or Q6hrs while NPO * Goal Range: Low 110 mg/dL - High 140 mg/dL * Correction Factor: 30 mg/dL/unit * Nutritional / Prandial insulin per carb ratio of 1 unit per 10 grams CHO consumed
[2021-09-29] MEDS: oxyCODONE HCL IR 5 MG TAB (IMMEDIATE RELEASE) PO PRN ×2 (15:07→20:16)
[2021-09-29] MEDS: SENNA 8.6 MG TAB PO SCH (20:13)
[2021-09-29] MEDS ORDERED: FAMOTIDINE 10 MG in SYRINGE 3 ML IV ONE (23:30)
[2021-09-30] MEDS: ACETAMINOPHEN 500 MG TAB PO SCH (05:24)
[2021-09-30] MEDS: ATENOLOL 25 MG TABLET PO SCH (07:38)
[2021-09-30] MEDS: oxyCODONE HCL IR 5 MG TAB (IMMEDIATE RELEASE) PO PRN (07:43)
[2021-09-30] MEDS: CHOLECALCIFEROL 1,000 UNITS 25 MCG TAB PO SCH (07:45)
[2021-09-30] MEDS: DOCUSATE SODIUM 100 MG CAP PO SCH (07:45)
[2021-09-30] MEDS: ASPIRIN 81 MG ECTAB PO SCH (07:45)
[2021-09-30] MEDS: PANTOprazole 40 MG TAB PO SCH (07:45)
[2021-09-30] MEDS: MULTIVITAMIN TAB PO SCH (07:45)
[2021-09-30] MEDS: INSULIN ASPART PER UNIT SC SCH (08:30)
--- NOTE | 2021-09-30 08:36 | Orthopedic Progress Note ---
Date of Service September 30, 2021 Assessment & Plan (1) Full thickness rotator cuff tear: Plan: Postop day 2 status post removal of right TSA with revision to right reverse total shoulder arthroplasty. PT/OT protocols. Nonweightbearing right upper extremity DVT prophylaxis-aspirin p.o. twice daily, SCDs. Pain management as written. Patient urinating status post Heaton removal. DC planning-patient is planning for discharge to home. Plan for discharge to home today. Admission and Anticipated Discharge Date Admission Date: September 28, 2021 Subjective Postop day 2 Patient sitting in the chair at the bedside. Eating her breakfast. No complaints this morning. Feels comfortable. Pain is controlled. No new complaints. Physical Exam Physical Exam: Dressings are clean, dry, and intact. Hemovac drain present and functioning. Patient having much better range of motion of her right wrist today with good strength. She is able to move all of her fingers well and her symptoms from her block have essentially resolved. Sling is in place. Results & Data ([facility]) Vital Signs (Past 12 Hours) Vital Signs Temp Pulse Pulse Resp BP Pulse Ox 09/30/21 07:48 37.2 C 60 16 124/78 91 09/29/21 23:01 37.5 C 64 17 112/69 93 (1) Full thickness rotator cuff tear Rotator cuff tear trauma status: unspecified whether traumatic Laterality: right Qualified Code(s): M75.121 - Complete rotator cuff tear or rupture of right shoulder, not specified as traumatic
--- NOTE | 2021-09-30 13:55 | Communication Note ---
Date of Service: September 30, 2021 Patient discharged prior to able to see. Previously was just going to chart check. Orthostatic VS yesterday acceptable. BP improved to 124/78. No further dizziness/lightheadedness reported per nursing.
--- NOTE | 2021-09-30 18:45 | Discharge Summary ---
Date of Service September 30, 2021 Admission HPI Per Admitting Provider 71-year-old female with past medical history significant for GERD, hypertension, diabetes mellitus type 2 who presents with ongoing right shoulder pain. She underwent a right total shoulder arthroplasty in the past. She has had no injury. Bone scan demonstrates no loosening however exam concerning for possible rotator cuff tear. Has had some bone loss proximal humerus. Pain is interfering with her daily activities. She is unable to with chronic condition. She has failed conservative measures including anti-inflammatories and therapy. She would like to proceed with revision surgery. Patient denies headaches, sweats, fevers, chills, double vision, blurred vision, cough, sore throat, dysphagia, chest pain, sob, wheezing, n/v/d/c, numbness, tingling, fatigue, urinary symptoms, mood disorders. ROS positive for right shoulder pain and stiffness. Admission Exam Per Admitting Provider Constitutional: well developed and well nourished; no acute distress Eyes: PERRL, conjunctivae normal, anicteric sclerae ENMT: external ear and nose normal, oropharynx normal Neck: trachea midline, no thyromegaly Respiratory: normal respiratory effort, lungs clear to auscultation Cardiovascular: RRR, no murmur, no edema Musculoskeletal: Right shoulder: Diffuse tenderness, kathy anterolateral acromion. Positive impingement signs. Active painful range of motion. Forward flexion to 80 degrees, abduction to 80 degrees, 30 degrees of external rotation actively. She has weakness and pain with strength testing. A Skin: no rashes, warm and dry Neurologic: patellar DTR's 2+ bilat, sensation intact Psychiatric: A+Ox3, euthymic affect Principal Diagnosis right shoulder rotator cuff tear, right TSA loosening Discharge Exam Dressings are clean, dry, and intact. Hemovac drain present and functioning. Patient having much better range of motion of her right wrist today with good strength. She is able to move all of her fingers well and her symptoms from her block have essentially resolved. Sling is in place. Discharge Data Allergies Allergy/AdvReac Type Severity Reaction Status Date / Time Sulfa (Sulfonamide Allergy Severe Anaphylaxis Verified 09/28/21 08:44 Antibiotics) erythromycin base Allergy Intermediate Hives Verified 09/28/21 08:44 latex Allergy Intermediate Blisters Verified 09/28/21 08:44 sucralfate Allergy Intermediate Hives Verified 09/28/21 08:44 adhesive Allergy Mild Contact Verified 09/28/21 08:44 dermatitis; skin blistering pineapple Allergy Unknown Throat Verified 09/28/21 08:44 swelling azithromycin AdvReac Severe Abdominal Verified 09/28/21 08:44 Pain, SOB meloxicam AdvReac Intermediate GI upset Verified 09/28/21 08:44 tramadol AdvReac Intermediate Headaches Verified 09/28/21 08:44 cantaloupe AdvReac Unknown Abdominal Verified 09/28/21 08:44 cramps codeine AdvReac Unknown Vomiting Verified 09/28/21 08:44 ibuprofen AdvReac Unknown GI upset Verified 09/28/21 08:44 morphine AdvReac Unknown Vomiting Verified 09/28/21 08:44 Consultations 09/26/21 14:34 Consult Hospitalist Routine Procedures Performed Operation Date: 09/28/21 09:45 Actual Procedures p Right Total Shoulder Arthroplasty convert to Right Total Shoulder Arthroplasty Reverse(Right) - Bertin Marquez MD Ordered Studies 09/28/21 05:00 US - OR guided needle placemen Routine Hospital Course (1) Full thickness rotator cuff tear: Patient presented for same day admission following right conversion of TSA to reverse TSA with repair of intraoperative greater tuberosity fracture on 09/28/21. She tolerated procedure well. The Patient had an uneventful hospital course. Post-operatively, her activity was progressed and well tolerated. They participated in PT without complication. Labs remained stable- lowest hemoglobin recorded: 103.. [facility] [place] was consulted for medical management during admission. Pain controlled on oral medications. Please refer to daily progress notes and PT notes for complete details. After exam on 09/30/21, patient was felt to be stable for discharge home. Patient will f/u in the office in about 2 weeks for further evaluation including x-rays and incision check, sooner if having any issues or concerns. Postop day 2 status post removal of right TSA with revision to right reverse total shoulder arthroplasty. PT/OT protocols. Nonweightbearing right upper extremity DVT prophylaxis-aspirin p.o. twice daily, SCDs. Pain management as written. Patient urinating status post [place] removal. DC planning-patient is planning for discharge to home. Plan for discharge to home today. Lab Results 09/28/21 09/28/21 09/28/21 Range/Units 08:10 08:29 13:06 WBC (4.8-10.8) K/uL RBC (4.2-5.4) M/uL Hgb (12.0-16.0) g/dL Hct (37-47) % MCV (80-100) fL MCH (25-34) pg MCHC (32-36) g/dL RDW Std Deviation (36.4-46.3) fL RDW Coeff of July (11.5-14.5) % Plt Count (130-400) K/uL MPV (7.4-10.4) fL Immature Gran % (Auto) % Neut % (Auto) % Lymph % (Auto) % Conway % (Auto) % Eos % (Auto) % Baso % (Auto) % Neut # (Auto) (1.4-6.5) K/uL Lymph # (Auto) (1.2-3.4) K/uL Conway # (Auto) (0.11-0.59) K/uL Eos # (Auto) (0-0.5) K/uL Baso # (Auto) (0-0.2) K/uL Immature Gran # (Auto) (0.00-0.02) K/uL Platelet Estimate (Normal) Giant Platelets Sodium (136-145) mmol/L Potassium (3.5-5.1) mmol/L Chloride (98-107) mmol/L Carbon Dioxide (21-32) mmol/L Anion Gap (3-11) BUN (6-23) mg/dl Creatinine (0.6-1.2) mg/dl Est Cr Clr Drug Dosing ml/min Est GFR ( Amer) ml/min Est GFR (Non-Af Amer) ml/min BUN/Creatinine Ratio (10-20) Glucose (70-99(Fasting)) mg/dl POC Glucose 105 H 129 H (70-99) mg/dl Calcium (8.5-10.1) mg/dl Hepatitis C Ab (EIA) (NON-REACTIVE) Hep C Ab Signal/Cutoff (<1.00) SARS-CoV-2, RNA, NAAT NEGATIVE (NEGATIVE) 09/28/21 09/28/21 09/28/21 Range/Units 15:35 17:12 20:38 WBC (4.8-10.8) K/uL RBC (4.2-5.4) M/uL Hgb (12.0-16.0) g/dL Hct (37-47) % MCV (80-100) fL MCH (25-34) pg MCHC (32-36) g/dL RDW Std Deviation (36.4-46.3) fL RDW Coeff of July (11.5-14.5) % Plt Count (130-400) K/uL MPV (7.4-10.4) fL Immature Gran % (Auto) % Neut % (Auto) % Lymph % (Auto) % Conway % (Auto) % Eos % (Auto) % Baso % (Auto) % Neut # (Auto) (1.4-6.5) K/uL Lymph # (Auto) (1.2-3.4) K/uL Conway # (Auto) (0.11-0.59) K/uL Eos # (Auto) (0-0.5) K/uL Baso # (Auto) (0-0.2) K/uL Immature Gran # (Auto) (0.00-0.02) K/uL Platelet Estimate (Normal) Giant Platelets Sodium (136-145) mmol/L Potassium (3.5-5.1) mmol/L Chloride (98-107) mmol/L Carbon Dioxide (21-32) mmol/L Anion Gap (3-11) BUN (6-23) mg/dl Creatinine (0.6-1.2) mg/dl Est Cr Clr Drug Dosing ml/min Est GFR ( Amer) ml/min Est GFR (Non-Af Amer) ml/min BUN/Creatinine Ratio (10-20) Glucose (70-99(Fasting)) mg/dl POC Glucose 134 H 140 H 164 H (70-99) mg/dl Calcium (8.5-10.1) mg/dl Hepatitis C Ab (EIA) (NON-REACTIVE) Hep C Ab Signal/Cutoff (<1.00) SARS-CoV-2, RNA, NAAT (NEGATIVE) 09/29/21 09/29/21 09/29/21 Range/Units 00:14 03:44 04:12 WBC (4.8-10.8) K/uL RBC (4.2-5.4) M/uL Hgb (12.0-16.0) g/dL Hct (37-47) % MCV (80-100) fL MCH (25-34) pg MCHC (32-36) g/dL RDW Std Deviation (36.4-46.3) fL RDW Coeff of July (11.5-14.5) % Plt Count (130-400) K/uL MPV (7.4-10.4) fL Immature Gran % (Auto) % Neut % (Auto) % Lymph % (Auto) % Conway % (Auto) % Eos % (Auto) % Baso % (Auto) % Neut # (Auto) (1.4-6.5) K/uL Lymph # (Auto) (1.2-3.4) K/uL Conway # (Auto) (0.11-0.59) K/uL Eos # (Auto) (0-0.5) K/uL Baso # (Auto) (0-0.2) K/uL Immature Gran # (Auto) (0.00-0.02) K/uL Platelet Estimate (Normal) Giant Platelets Sodium (136-145) mmol/L Potassium (3.5-5.1) mmol/L Chloride (98-107) mmol/L Carbon Dioxide (21-32) mmol/L Anion Gap (3-11) BUN (6-23) mg/dl Creatinine (0.6-1.2) mg/dl Est Cr Clr Drug Dosing ml/min Est GFR ( Amer) ml/min Est GFR (Non-Af Amer) ml/min BUN/Creatinine Ratio (10-20) Glucose (70-99(Fasting)) mg/dl POC Glucose 179 H 132 H (70-99) mg/dl Calcium (8.5-10.1) mg/dl Hepatitis C Ab (EIA) NON-REACTIVE (NON-REACTIVE) Hep C Ab Signal/Cutoff 0.00 (<1.00) SARS-CoV-2, RNA, NAAT (NEGATIVE) 09/29/21 09/29/21 09/29/21 Range/Units 04:12 04:12 07:59 WBC 12.85 H (4.8-10.8) K/uL RBC 3.13 L (4.2-5.4) M/uL Hgb 10.3 L (12.0-16.0) g/dL Hct 31.1 L (37-47) % MCV 99.4 (80-100) fL MCH 32.9 (25-34) pg MCHC 33.1 (32-36) g/dL RDW Std Deviation 56.6 H (36.4-46.3) fL RDW Coeff of July 15.5 H (11.5-14.5) % Plt Count 124 L (130-400) K/uL MPV 13.5 H (7.4-10.4) fL Immature Gran % (Auto) 1.0 % Neut % (Auto) 82.2 % Lymph % (Auto) 9.6 % Conway % (Auto) 6.8 % Eos % (Auto) 0.2 % Baso % (Auto) 0.2 % Neut # (Auto) 10.58 H (1.4-6.5) K/uL Lymph # (Auto) 1.23 (1.2-3.4) K/uL Conway # (Auto) 0.87 H (0.11-0.59) K/uL Eos # (Auto) 0.02 (0-0.5) K/uL Baso # (Auto) 0.02 (0-0.2) K/uL Immature Gran # (Auto) 0.13 H (0.00-0.02) K/uL Platelet Estimate Decreased L (Normal) Giant Platelets 1+ Sodium 137 (136-145) mmol/L Potassium 4.3 (3.5-5.1) mmol/L Chloride 109 H (98-107) mmol/L Carbon Dioxide 23 (21-32) mmol/L Anion Gap 5 (3-11) BUN 18 (6-23) mg/dl Creatinine 0.95 (0.6-1.2) mg/dl Est Cr Clr Drug Dosing 57.5 ml/min Est GFR ( Amer) 68.9 ml/min Est GFR (Non-Af Amer) 59.4 ml/min BUN/Creatinine Ratio 18.9 (10-20) Glucose 127 H (70-99(Fasting)) mg/dl POC Glucose 108 H (70-99) mg/dl Calcium 8.2 L (8.5-10.1) mg/dl Hepatitis C Ab (EIA) (NON-REACTIVE) Hep C Ab Signal/Cutoff (<1.00) SARS-CoV-2, RNA, NAAT (NEGATIVE) 09/29/21 09/29/21 09/29/21 Range/Units 11:58 16:54 17:15 WBC (4.8-10.8) K/uL RBC (4.2-5.4) M/uL Hgb (12.0-16.0) g/dL Hct (37-47) % MCV (80-100) fL MCH (25-34) pg MCHC (32-36) g/dL RDW Std Deviation (36.4-46.3) fL RDW Coeff of July (11.5-14.5) % Plt Count (130-400) K/uL MPV (7.4-10.4) fL Immature Gran % (Auto) % Neut % (Auto) % Lymph % (Auto) % Conway % (Auto) % Eos % (Auto) % Baso % (Auto) % Neut # (Auto) (1.4-6.5) K/uL Lymph # (Auto) (1.2-3.4) K/uL Conway # (Auto) (0.11-0.59) K/uL Eos # (Auto) (0-0.5) K/uL Baso # (Auto) (0-0.2) K/uL Immature Gran # (Auto) (0.00-0.02) K/uL Platelet Estimate (Normal) Giant Platelets Sodium (136-145) mmol/L Potassium (3.5-5.1) mmol/L Chloride (98-107) mmol/L Carbon Dioxide (21-32) mmol/L Anion Gap (3-11) BUN (6-23) mg/dl Creatinine (0.6-1.2) mg/dl Est Cr Clr Drug Dosing ml/min Est GFR ( Amer) ml/min Est GFR (Non-Af Amer) ml/min BUN/Creatinine Ratio (10-20) Glucose (70-99(Fasting)) mg/dl POC Glucose 92 68 L* 70 (70-99) mg/dl Calcium (8.5-10.1) mg/dl Hepatitis C Ab (EIA) (NON-REACTIVE) Hep C Ab Signal/Cutoff (<1.00) SARS-CoV-2, RNA, NAAT (NEGATIVE) 09/29/21 09/30/21 Range/Units 20:46 08:07 WBC (4.8-10.8) K/uL RBC (4.2-5.4) M/uL Hgb (12.0-16.0) g/dL Hct (37-47) % MCV (80-100) fL MCH (25-34) pg MCHC (32-36) g/dL RDW Std Deviation (36.4-46.3) fL RDW Coeff of July (11.5-14.5) % Plt Count (130-400) K/uL MPV (7.4-10.4) fL Immature Gran % (Auto) % Neut % (Auto) % Lymph % (Auto) % Conway % (Auto) % Eos % (Auto) % Baso % (Auto) % Neut # (Auto) (1.4-6.5) K/uL Lymph # (Auto) (1.2-3.4) K/uL Conway # (Auto) (0.11-0.59) K/uL Eos # (Auto) (0-0.5) K/uL Baso # (Auto) (0-0.2) K/uL Immature Gran # (Auto) (0.00-0.02) K/uL Platelet Estimate (Normal) Giant Platelets Sodium (136-145) mmol/L Potassium (3.5-5.1) mmol/L Chloride (98-107) mmol/L Carbon Dioxide (21-32) mmol/L Anion Gap (3-11) BUN (6-23) mg/dl Creatinine (0.6-1.2) mg/dl Est Cr Clr Drug Dosing ml/min Est GFR ( Amer) ml/min Est GFR (Non-Af Amer) ml/min BUN/Creatinine Ratio (10-20) Glucose (70-99(Fasting)) mg/dl POC Glucose 118 H 75 (70-99) mg/dl Calcium (8.5-10.1) mg/dl Hepatitis C Ab (EIA) (NON-REACTIVE) Hep C Ab Signal/Cutoff (<1.00) SARS-CoV-2, RNA, NAAT (NEGATIVE) Total Time Total Time Spent Total Time Spent (In Minutes): 20 Discharge Plan Discharge Items Patient Disposition: Home - Self-Care Reason For Visit: Right Shoulder Complete Rupture of Rotator Cuff Discharge Diagnosis: Right Shoulder rotator cuff tear; chronic shoulder pain s/p Right TSA Activity: Per Instructions section Weightbearing: Right non-weightbearing Non-emergency contact: Surgeon Call non-emergency contact if: your pain is not controlled, your temperature is above 101.5, your wound has increased redness and your wound has increased drainage Follow-up/Referrals: Bertin Marquez MD [Surgeon] - (Follow up with Dr Marquez in 14 days from the day of surgery for your first post operative visit.) Allan Aragon MD [Primary Care Provider] - Diet: Carb Consistent or DM2 Addtl Attending Provider Instructions: ACTIVITY RECOMMENDATIONS: SELF CARE INSTRUCTIONS AFTER TOTAL SHOULDER ARTHROPLASTY REVERSE A. You may do daily exercises as taught in physical therapy while in hospital. No lifting with the operative arm. B. You are to wear your sling/immobilizer at all times EXCEPT when performing your daily exercises and for hygiene purposes. C. You may perform dry, daily dressing changes. Please keep your incision covered. You may shower 48 hours after surgery. Do not apply soap or any ointment/lotions directly over incision. Do not soak incision in bath tub/swimming pool. D. You may use ice as needed to operative shoulder. SPECIAL CARE INSTRUCTIONS: VERY IMPORTANT TO READ AND REVIEW A. There are a few signs you need to watch for after you are home. Call [facility] at [phone] if you experience any of the followin. Increased severe shoulder pain. Some pain is expected especially when you exercise. 2. Increased swelling in you shoulder or arm; pain or swelling in either upper extremity. 3. Any fluid drainage from the incision. 4. Shortness of breath or chest pain. B. Please call [facility] at [phone] if you have any questions or concerns about your operation or recovery. C. Call your physician if: 1. Temperature is greater than 101 degrees (F). 2. Pain is not relieved by prescribed pain medications. 3. Increase drainage or redness from incision. 4. Unanswered questions or concerns. FOLLOW UP VISIT: Please call [facility] at [phone] to schedule a follow up appointment with Dr. Marquez or his PA in 12-14 days from your surgery date. Stand-Alone Forms: [place] qui dit Oui, Smoking Cessation Medications and DC Order Prescriptions: New aspirin 81 mg Tablet,Delayed Release (Dr/Ec) 81 mg PO BID 30 Days Qty: 60 RF: 0 acetaminophen [Tylenol Extra Strength] 500 mg Tablet 1,000 mg PO Q8 14 Days Qty: 84 RF: 0 polyethylene glycol 3350 [Miralax] 17 gram powder in packet 17 g PO DAILY PRN (Reason: constipation) Qty: 5 RF: 0 cefadroxil 500 mg capsule 500 mg PO BID Qty: 28 RF: 1 oxycodone 5 mg Tablet 5 mg PO Q4H MDD 6 PRN (Reason: pain) Qty: 30 RF: 0 Continued multivitamin [Multiple Vitamins] Tablet 1 tab PO QAM RF: 0 atenolol 25 mg Tablet 25 mg PO QAM RF: 0 omeprazole 40 mg Capsule,Delayed Release(Dr/Ec) 40 mg PO QAM RF: 0 [place] Heartburn 1,940-1,000 mg Tablet, Effervescent 1 tab PO UD PRN (Reason: Heartburn) RF: 0 Lantus U-100 Insulin 100 unit/mL Solution 30 unit SUBCUT QAM RF: 0 loratadine [Claritin] 10 mg Tablet 10 mg PO QAM PRN (Reason: Allergy Symptoms) RF: 0 cholecalciferol (vitamin D3) [Vitamin D3] 50 mcg (2,000 unit) Capsule 50 mcg PO QAM RF: 0 Jardiance 25 mg Tablet 25 mg PO QAM RF: 0 Discontinued aspirin 81 mg tablet,delayed release (DR/EC) 81 mg PO QPM RF: 0 acetaminophen [Tylenol Extra Strength] 500 mg Tablet 500 mg PO Q6H PRN (Reason: Pain, Mild) RF: 0 Discharge Orders: Discharge Order (Routine); Ordered 09/30/21 Ordered By: Giblerto Kaiser Admission Data Admit Date/Time: 09/28/21 15:36 Attending Provider: Bertin Marquez Admit Provider: Bertin Marquez Primary Care Provider: Allan Aragon Other Providers: Chad Garduno Other Interventions: Discharge Summary Assessment (RN) Last Done: 09/30/21 10:07
== END 2021-09-30 11:32 | disposition home or self-care (01) | DRG 483 ==
LOC: ASU 07:29 → 3E 15:36

== ENCOUNTER 2022-11-03 05:30 | Inpatient (IN) ==
--- NOTE | 2022-10-12 15:47 | PAT Medication Instructions ---
Medication Instructions Date of Service October 12, 2022 Home Medications Medication Instructions Recorded cefadroxil 500 mg capsule 500 mg PO BID #28 caps 09/29/21 polyethylene glycol 3350 17 gram 17 g PO DAILY PRN constipation #5 09/29/21 oral powder packet (Miralax) ea oxycodone 5 mg tablet 5 mg PO Q4H PRN pain #30 tabs 09/30/21 atenolol 25 mg tablet 25 mg PO QAM insulin glargine 100 unit/mL subcutaneous solution (Lantus U-100 Insulin) 30 un it subcut QAM multivitamin (Multiple Vitamins tablet) 1 tab PO QAM omeprazole 40 mg capsule,delayed release 40 mg PO QAM sodium bicarbonate-citric acid 1,940 mg-1,000 mg effervescent tablet ([place] Heartburn) 1 tab PO UD PRN loratadine 10 mg tablet (Claritin) 10 mg PO QAM PRN cholecalciferol (vitamin D3) 50 mcg (2,000 unit) capsule (Vitamin D3) 50 mcg PO QAM empagliflozin 25 mg tablet (Jardiance) 25 mg PO QAM cefadroxil 500 mg capsule 500 mg PO BID polyethylene glycol 3350 17 gram oral powder packet (Miralax) 17 g PO DAILY PRN oxycodone 5 mg tablet 5 mg PO Q4H PRN aspirin-caffeine 500 mg-32.5 mg tablet (Mara Back and Body) 1 tab PO QID ibuprofen 200 mg tablet (Advil) 200 mg PO Q6H PRN rosuvastatin 5 mg tablet 5 mg PO QAM STOP 3 days before surgery empagliflozin 25 mg tablet (Jardiance) 25 mg PO QAM ASK your surgeon for instructions ibuprofen 200 mg tablet (Advil) 200 mg PO Q6H PRN aspirin-caffeine 500 mg-32.5 mg tablet (Mara Back and Body) 1 tab PO QID DO NOT take the morning of surgery multivitamin (Multiple Vitamins tablet) 1 tab PO QAM sodium bicarbonate-citric acid 1,940 mg-1,000 mg effervescent tablet ([place]- [place] Heartburn) 1 tab PO UD PRN loratadine 10 mg tablet (Claritin) 10 mg PO QAM PRN cholecalciferol (vitamin D3) 50 mcg (2,000 unit) capsule (Vitamin D3) 50 mcg PO QAM polyethylene glycol 3350 17 gram oral powder packet (Miralax) 17 g PO DAILY PRN Take morning of surgery With a small sip of water, OTHERWISE NOTHING TO EAT OR DRINK AFTER MIDNIGHT: atenolol 25 mg tablet 25 mg PO QAM omeprazole 40 mg capsule,delayed release 40 mg PO QAM cefadroxil 500 mg capsule 500 mg PO BID rosuvastatin 5 mg tablet 5 mg PO QAM oxycodone 5 mg tablet 5 mg PO Q4H PRN(if needed) Take evening before surgery cefadroxil 500 mg capsule 500 mg PO BID oxycodone 5 mg tablet 5 mg PO Q4H PRN(if needed) Insulin Dependent Diabetic Patients * Test your blood sugar the morning of surgery * If Blood Sugar is GREATER THAN 150, take HALF of your regular dose of: insulin glargine 100 unit/mL subcutaneous solution (Lantus U-100 Insulin). * If Blood Sugar is LESS THAN 150, DO NOT TAKE ANY: insulin glargine 100 unit/mL subcutaneous solution (Lantus U-100 Insulin). Other Notes If you have any questions please call us at [phone] or [phone] or [phone] or [phone]
--- NOTE | 2022-10-20 13:02 | Anesthesiology Consultation ---
Date of Service October 20, 2022 Assessment & Plan (1) Encounter for pre-operative examination: - check BSG am DOS. - PONV: pt states has received scop patch in past, will leave to anesthesiologist discussion with patient DOS and determination. Pt states received just IV medication for right upper leg removal of hardware in 2019 and did well without scop patch - s/p R TSA Grade 1 view, MAC 3, ETT 7 + PNB. Chart Review Chart Review: Acceptable Risk for Surgery and Patient seen in Pre Admission Testing Teaching & Discussion Pre-Anesthesia Teaching/Discussion Notes: Instructed NPO after midnight before surgery, except medications with 15 cc of water. Medication instructions provided according to the PAT guidelines. History Surgery Operation Date: 11/03/22 07:45 Proposed Procedures p L4-L5 Decompression and Fusion, Spinal Cord Monitoring - Flash Armando DO Height/Weight Height: 5 ft 2 in Weight: 92.079 kg Allergies Allergy/AdvReac Type Severity Reaction Status Date / Time Sulfa (Sulfonamide Allergy Severe Anaphylaxis Verified 10/12/22 08:36 Antibiotics) erythromycin base Allergy Intermediate Hives Verified 10/12/22 08:36 latex Allergy Intermediate Blisters Verified 10/12/22 08:36 sucralfate Allergy Intermediate Hives Verified 10/12/22 08:36 adhesive Allergy Mild Contact Verified 10/12/22 08:36 dermatitis; skin blistering pineapple Allergy Unknown Throat Verified 10/12/22 08:36 swelling azithromycin AdvReac Severe Abdominal Verified 10/12/22 08:36 Pain, SOB meloxicam AdvReac Intermediate GI upset Verified 10/12/22 08:36 tramadol AdvReac Intermediate Headaches Verified 10/12/22 08:36 cantaloupe AdvReac Unknown Abdominal Verified 10/12/22 08:36 cramps codeine AdvReac Unknown Vomiting Verified 10/12/22 08:36 ibuprofen AdvReac Unknown GI upset Verified 10/12/22 08:36 morphine AdvReac Unknown Vomiting Verified 10/12/22 08:36 Medications Home Medications Medication Instructions Recorded Confirmed Last Taken atenolol 25 mg tablet 25 mg PO QAM 02/18/18 10/12/22 09/28/21 05:15 insulin glargine 100 unit/mL 30 unit subcut QAM 02/18/18 10/12/22 09/27/21 06:00 subcutaneous solution (Lantus 30 units U-100 Insulin) multivitamin (Multiple Vitamins 1 tab PO QAM 02/18/18 10/12/22 09/27/21 05:30 tablet) omeprazole 40 mg capsule,delayed 40 mg PO QAM 02/18/18 10/12/22 09/28/21 05:15 release sodium bicarbonate-citric acid 1 tab PO UD PRN Heartburn 02/18/18 10/12/22 2 Weeks Ago 1,940 mg-1,000 mg effervescent ~01/31/19 tablet (Dinorah-[place] Heartburn) loratadine 10 mg tablet (Claritin) 10 mg PO QAM PRN Allergy Symptoms 01/23/19 10/12/22 08/28/21 cholecalciferol (vitamin D3) 50 50 mcg PO QAM 05/04/20 10/12/22 09/27/21 05:30 mcg (2,000 unit) capsule (Vitamin D3) empagliflozin 25 mg tablet 25 mg PO QAM 05/04/20 10/12/22 09/27/21 05:30 (Jardiance) cefadroxil 500 mg capsule 500 mg PO BID #28 caps 09/29/21 10/12/22 Unknown polyethylene glycol 3350 17 gram 17 g PO DAILY PRN constipation #5 09/29/21 10/12/22 Unknown oral powder packet (Miralax) ea oxycodone 5 mg tablet 5 mg PO Q4H PRN pain #30 tabs 09/30/21 10/12/22 Unknown aspirin-caffeine 500 mg-32.5 mg 1 tab PO QID 10/12/22 10/12/22 Unknown tablet (Mara Back and Body) ibuprofen 200 mg tablet (Advil) 200 mg PO Q6H PRN Pain 10/12/22 10/12/22 Unknown rosuvastatin 5 mg tablet 5 mg PO QAM 10/12/22 10/12/22 Unknown Past Medical History Medical History Diabetes mellitus, type 2 IDDM GERD (gastroesophageal reflux disease) controlled, stable per pt 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 ear Hiatal hernia History of blood transfusion (40+ years ago) Hx of seasonal allergies Hyperlipidemia Hypertension controlled, stable per pt Lupus Migraine hx Obesity Patient denies h/o stroke, seizures, heart attack, heart failure, r blood clots. Exercise / Class Metabolic Activity III < 4 Walking/Shop/Light housework (denies chest discomfort or shortness of breath with usual activities) Past Family History Family History Brother Family hx of colon cancer Family history of diabetes mellitus Past Surgical History Surgical History History of breast biopsy benign History of dilatation and curettage History of endoscopic sinus surgery History of esophagogastroduodenoscopy (EGD) History of tonsillectomy History of tooth extraction Hx of appendectomy Hx of arthroplasty R/L shoulder Hx of colonoscopy Hx of foot surgery bunion + other foot procedures Hx of fracture of femur right s/p surgery (+ hardware), Right Knee Debridement Nonunion Distal Femur with Allograft: 02/14/19: LMA#4 + PNB at [facility] Hx of hand surgery right Hx of hysterectomy Hx of total knee arthroplasty R/L S/P hardware removal Right upper leg removal of hardware (05/21/20): LMA#4 + PNB at [facility] Past Anesthesia History No Hx of Anesthesia Complications and Other (son and daughter slow to wake) History of PONV History of PONV (pt states has received scop patch in past) and Hx of Motion Sickness Social History Smoking Status: Never smoker Do You Dip or Chew Tobacco: No Hx Alcohol Use: Yes Alcohol type: wine alcohol intake frequency: holidays/special occasions only Hx Substance Use: No substance use type: does not use Review of Systems Snoring, denies witnessed apneas. Patient denies chest pain, shortness of breath, dyspnea on exertion, fever, chills, cough, wheezing, or palpitations. Physical Exam Vital Signs Vitals BP 107/70 P 64 TEMP 98.5 SP02 95% on RA RESP 17 Physical Full cervical extension range of motion without pain TMD 3.5 finger breadths Mallampati Score 3 Dentition: edentulous, full upper dentures Lungs: normal respiratory effort. Clear throughout to auscultation, no adventitious breath sounds Cardiac: regular rate and rhythm, no murmurs noted Carotid arteries: negative bruit bilat Lab Results Anesthesia Preop Results Results Anesthesia Widget: WBC 8.71 K/ul (4.8-10.8) 10/20/22 Hgb 12.1 g/dl (12.0-16.0) 10/20/22 Hct 37.3 % (37.0-47.0) 10/20/22 Plt 146 K/uL (130-400) 10/20/22 Na 142 mmol/L (136-145) 10/20/22 K 3.8 mmol/L (3.5-5.1) 10/20/22 Cl 109 mmol/L (98-107) H 10/20/22 CO2 26 mmol/L (21-32) 10/20/22 BUN 17 mg/dl (6-23) 10/20/22 Creat 0.95 mg/dl (0.6-1.2) 10/20/22 Glucose Level 113 mg/dl (70-99(Fasting)) H 10/20/22 PT 11.1 Seconds (9.0-12.0) 10/20/22 PTT 29.6 Seconds (21.0-31.0) 10/20/22 INR 1.0 (0.9-1.1) 10/20/22 HA1c 6.6 % (4.5-5.6) H 10/20/22 Urine Color Yellow 10/20/22 Urine Appearance Clear (Clear) 10/20/22 Urine pH 5.5 (4.5-7.5) 10/20/22 Urine Specific [place] 1.034 (1.000-1.030) H 10/20/22 Urine Protein Negative (Negative) 10/20/22 Urine Glucose (UA) 3+ (Negative) H 10/20/22 Urine Ketones Negative (Negative) 10/20/22 Urine Blood Negative (Negative) 10/20/22 Urine Nitrite Negative (Negative) 10/20/22 Urine Bilirubin Negative (Negative) 10/20/22 Urine Urobilinogen Negative (Negative) 10/20/22 Urine Leukocyte Esterase Trace (Negative) H 10/20/22 Urine WBC (Auto) 10-30 /hpf (0-5) H 10/20/22 Urine RBC (Auto) 0-4 /hpf (0-4) 10/20/22 Urine Hyaline Casts (Auto) 1-5 /lpf (0-5) 10/20/22 Urine Epithelial Cells (Auto) >30 /lpf (0-5) H 10/20/22 Urine Bacteria (Auto) 1+ (Negative) H 10/20/22 Urine Yeast Not Reportable 10/20/22 Blood Type O Positive 10/20/22 Antibody Screen NEGATIVE 10/20/22 Testing Laboratory Results 09/22/2022 SODIUM: 139 POTASSIUM: 4.2 CHLORIDE: 108 CO2: 25 BUN: 21 CREATININE: 1.1 GLUCOSE: 80 Surgeon's office made aware of abnormal UA. Electrocardiogram Date: 10/20/22 NSR, rate 62 bpm Chest X-Ray Date: 10/20/22 Cardiac silhouette is normal in size. Atherosclerosis of the aorta. No pneumothorax, pleural effusion or airspace consolidation. Reverse bilateral total joint arthroplasties of the shoulders. Spondylitic spurring of the spine. IMPRESSION: No acute process of the chest. COVID-19 Risk Screen Screening Information COVID-19 Screen Date: 10/20/22 Exposure 21 Days Family/Household +COVID Last 21 Days: No Exposure 10 Days Any COVID Exposure Last 10 Days: No Symptoms Last 10 Days Experienced COVID Sx Last 10 Days: No + COVID 0-90 Days COVID + in Last 0-90 Days: No
[2022-11-03] MEDS ORDERED: GABAPENTIN 300 MG CAP PO SCH (06:00)
[2022-11-03] MEDS ORDERED: ACETAMINOPHEN 500 MG TAB PO SCH (06:00)
[2022-11-03] MEDS ORDERED: LR 15ML/HR IV SCH (06:00)
[2022-11-03] MEDS ORDERED: ceFAZolin 2000MG 2,000 MG/15 ML SYR IV SCH (06:00)
[2022-11-03] MEDS ORDERED: ePHEDrine sulfate 50 MG/ML AMP IV PRN (06:48)
[2022-11-03] MEDS ORDERED: ATROPINE SULFATE 0.1 MG/ML 10ML SYR IV PRN (06:48)
[2022-11-03] MEDS ORDERED: ONDANSETRON INJ 2 MG/ML 2 ML VIAL IV PRN (06:48)
--- NOTE | 2022-11-03 06:48 | Anesthesiology Consultation ---
Date of Service November 03, 2022 Assessment & Plan Chart Review Chart Review: Acceptable Risk for Surgery Consults Requested none ASA ASA2 Proposed Anesthesia Anesthesia Type: General Risk / Benefits Reviewed With: PT / POA / Parent / Guardian, Accepts Plan and Informed Consent Obtained History Surgery Operation Date: 11/03/22 07:45 Proposed Procedures p L4-L5 Decompression and Fusion, Spinal Cord Monitoring - Flash Armando, Height/Weight Height: 5 ft 2 in Weight: 94.1 kg Allergies Allergy/AdvReac Type Severity Reaction Status Date / Time Sulfa (Sulfonamide Allergy Severe Anaphylaxis Verified 11/03/22 06:04 Antibiotics) erythromycin base Allergy Intermediate Hives Verified 11/03/22 06:04 latex Allergy Intermediate Blisters Verified 11/03/22 06:04 sucralfate Allergy Intermediate Hives Verified 11/03/22 06:04 adhesive Allergy Mild Contact Verified 11/03/22 06:04 dermatitis; skin blistering pineapple Allergy Unknown Throat Verified 11/03/22 06:04 swelling azithromycin AdvReac Severe Abdominal Verified 11/03/22 06:04 Pain, SOB meloxicam AdvReac Intermediate GI upset Verified 11/03/22 06:04 tramadol AdvReac Intermediate Headaches Verified 11/03/22 06:04 cantaloupe AdvReac Unknown Abdominal Verified 11/03/22 06:04 cramps codeine AdvReac Unknown Vomiting Verified 11/03/22 06:04 ibuprofen AdvReac Unknown GI upset Verified 11/03/22 06:04 morphine AdvReac Unknown Vomiting Verified 11/03/22 06:04 Medications Home Medications Medication Instructions Recorded Confirmed Last Taken atenolol 25 mg tablet 25 mg PO QAM 02/18/18 11/03/22 11/03/22 03:30 insulin glargine 100 unit/mL 30 unit subcut QAM 02/18/18 11/03/22 10/30/22 subcutaneous solution (Lantus U-100 Insulin) multivitamin (Multiple Vitamins 1 tab PO QAM 02/18/18 11/03/22 10/27/22 tablet) omeprazole 40 mg capsule,delayed 40 mg PO QAM 02/18/18 11/03/22 11/03/22 03:30 release sodium bicarbonate-citric acid 1 tab PO UD PRN Heartburn 02/18/18 11/03/22 08/23/22 1,940 mg-1,000 mg effervescent tablet (Dinorah-[place] Heartburn) loratadine 10 mg tablet (Claritin) 10 mg PO QAM PRN Allergy Symptoms 01/23/19 11/03/22 10/31/22 cholecalciferol (vitamin D3) 50 50 mcg PO QAM 05/04/20 11/03/22 11/02/22 06:00 mcg (2,000 unit) capsule (Vitamin D3) empagliflozin 25 mg tablet 25 mg PO QAM 05/04/20 11/03/22 10/30/22 (Jardiance) cefadroxil 500 mg capsule 500 mg PO BID #28 caps 09/29/21 11/03/22 Unknown polyethylene glycol 3350 17 gram 17 g PO DAILY PRN constipation #5 09/29/21 11/03/22 10/27/22 oral powder packet (Miralax) ea oxycodone 5 mg tablet 5 mg PO Q4H PRN pain #30 tabs 09/30/21 11/03/22 Unknown aspirin-caffeine 500 mg-32.5 mg 1 tab PO QID 10/12/22 11/03/22 10/24/22 tablet (Mara Back and Body) ibuprofen 200 mg tablet (Advil) 200 mg PO Q6H PRN Pain 10/12/22 11/03/22 10/20/22 rosuvastatin 5 mg tablet 5 mg PO QAM 10/12/22 11/03/22 10/31/22 06:00 NPO Date Last Intake of Fluids: 11/02/22 Time Last Intake of Fluids: 21:00 Last Intake of Fluids Comment: 0330 sip water for meds Date Last Intake of Solids: 11/02/22 Time Last Intake of Solids: 21:00 Past Medical History Medical History Diabetes mellitus, type 2 IDDM GERD (gastroesophageal reflux disease) controlled, stable per pt 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 ear Hiatal hernia History of blood transfusion (40+ years ago) Hx of seasonal allergies Hyperlipidemia Hypertension controlled, stable per pt Lupus Migraine hx Obesity Exercise / Class Metabolic Activity II 4-5 Yardwork/Stairs/Walk up hill Past Family History Family History Brother Family hx of colon cancer Family history of diabetes mellitus Past Surgical History Surgical History History of breast biopsy benign History of dilatation and curettage History of endoscopic sinus surgery History of esophagogastroduodenoscopy (EGD) History of tonsillectomy History of tooth extraction Hx of appendectomy Hx of arthroplasty R/L shoulder Hx of colonoscopy Hx of foot surgery bunion + other foot procedures Hx of fracture of femur right s/p surgery (+ hardware), Right Knee Debridement Nonunion Distal Femur with Allograft: 02/14/19: LMA#4 + PNB at [facility] Hx of hand surgery right Hx of hysterectomy Hx of total knee arthroplasty R/L S/P hardware removal Right upper leg removal of hardware (05/21/20): LMA#4 + PNB at [facility] Past Anesthesia History No Hx of Anesthesia Complications and No Family Hx of Anesthesia Complications History of PONV No Hx of PONV and No Hx of Motion Sickness Social History Smoking Status: Never smoker Do You Dip or Chew Tobacco: No Hx Alcohol Use: Yes Alcohol type: wine alcohol intake frequency: holidays/special occasions only Hx Substance Use: No substance use type: does not use Physical Exam ENMT Mouth: no dentition abnormality Thyromental Distance: > or= 3.5 Finger Breadths Mallampati Class: II Neck normal visual inspection Respiratory normal respiratory effort Auscultation: lungs clear to auscultation bilaterally Cardiovascular Rate/Rhythm: regular rate and regular rhythm Testing Laboratory Results 11/03/22 05:59 POC Glucose 104 H Electrocardiogram Date: 10/20/22 NSR, rate 62 bpm Chest X-Ray Date: 10/20/22 Cardiac silhouette is normal in size. Atherosclerosis of the aorta. No pneumothorax, pleural effusion or airspace consolidation. Reverse bilateral total joint arthroplasties of the shoulders. Spondylitic spurring of the spine. IMPRESSION: No acute process of the chest.
[2022-11-03] MEDS ORDERED: fentaNYL citrate PF 100 MCG/2 ML VIAL ONE (06:57)
[2022-11-03] MEDS ORDERED: GLYCOPYRROLATE 0.2 MG/ML VIAL ONE (06:57)
[2022-11-03] MEDS ORDERED: NEOSTIGMINE METHYLSULFATE 1 MG/ML 10ML VIAL ONE (06:57)
[2022-11-03] MEDS ORDERED: MIDAZOLAM HCL 1 MG/ML 2ML VIAL ONE (06:57)
[2022-11-03] MEDS ORDERED: LIDOCAINE 2% 2 ML VIAL/AMP(20MG/ML) INFIL ONE (06:57)
[2022-11-03] MEDS ORDERED: ONDANSETRON INJ 2 MG/ML 2 ML VIAL ONE ×2 (06:57→09:16)
[2022-11-03] MEDS ORDERED: ROCURONIUM BROMIDE 10 MG/ML 5 ML VIAL IV ONE ×2 (06:57→08:23)
[2022-11-03] MEDS ORDERED: PROPOFOL IV EMULSION 10 MG/ML 20 ML VIAL IV ONE (06:57)
[2022-11-03] MEDS ORDERED: BUPIVACAINE/EPINEPHRINE 0.25% 1:200,000 30 ML VIAL ONE (07:14)
[2022-11-03] MEDS ORDERED: ceFAZolin 330 MG/ML 1 GM VIAL ONE (07:14)
--- NOTE | 2022-11-03 07:40 | History & Physical Bridge Note ---
Date of Service November 03, 2022 History & Physical Bridge Note I have examined the patient, reviewed the History & Physical and in the interval since the performance of the History & Physical I have noted the following changes of clinical significance: no changes noted
--- NOTE | 2022-11-03 07:41 | History & Physical Report ---
Date of Service November 03, 2022 Assessment & Plan (1) Neurogenic claudication due to lumbar spinal stenosis: Plan: L4-L5 decompression and fusion History of Present Illness Chief Complaint: Back and leg pain Primary Care Provider: Allan Aragon MD This 72-year-old female presents for persistent back and leg pain after failing course of nonoperative care she is here for surgical intervention. Allergies Allergy/AdvReac Type Severity Reaction Status Date / Time Sulfa (Sulfonamide Allergy Severe Anaphylaxis Verified 11/03/22 06:04 Antibiotics) erythromycin base Allergy Intermediate Hives Verified 11/03/22 06:04 latex Allergy Intermediate Blisters Verified 11/03/22 06:04 sucralfate Allergy Intermediate Hives Verified 11/03/22 06:04 adhesive Allergy Mild Contact Verified 11/03/22 06:04 dermatitis; skin blistering pineapple Allergy Unknown Throat Verified 11/03/22 06:04 swelling azithromycin AdvReac Severe Abdominal Verified 11/03/22 06:04 Pain, SOB meloxicam AdvReac Intermediate GI upset Verified 11/03/22 06:04 tramadol AdvReac Intermediate Headaches Verified 11/03/22 06:04 cantaloupe AdvReac Unknown Abdominal Verified 11/03/22 06:04 cramps codeine AdvReac Unknown Vomiting Verified 11/03/22 06:04 ibuprofen AdvReac Unknown GI upset Verified 11/03/22 06:04 morphine AdvReac Unknown Vomiting Verified 11/03/22 06:04 Home Medications Medication Instructions Recorded Confirmed Type atenolol 25 mg tablet 25 mg PO QAM 02/18/18 11/03/22 History insulin glargine 100 unit/mL 30 unit subcut QAM 02/18/18 11/03/22 History subcutaneous solution (Lantus U-100 Insulin) multivitamin (Multiple Vitamins 1 tab PO QAM 02/18/18 11/03/22 History tablet) omeprazole 40 mg capsule,delayed 40 mg PO QAM 02/18/18 11/03/22 History release sodium bicarbonate-citric acid 1 tab PO UD PRN Heartburn 02/18/18 11/03/22 History 1,940 mg-1,000 mg effervescent tablet (Dinorah-[place] Heartburn) loratadine 10 mg tablet (Claritin) 10 mg PO QAM PRN Allergy Symptoms 01/23/19 11/03/22 History cholecalciferol (vitamin D3) 50 50 mcg PO QAM 05/04/20 11/03/22 History mcg (2,000 unit) capsule (Vitamin D3) empagliflozin 25 mg tablet 25 mg PO QAM 05/04/20 11/03/22 History (Jardiance) cefadroxil 500 mg capsule 500 mg PO BID #28 caps 09/29/21 11/03/22 Rx polyethylene glycol 3350 17 gram 17 g PO DAILY PRN constipation #5 09/29/21 11/03/22 Rx oral powder packet (Miralax) ea oxycodone 5 mg tablet 5 mg PO Q4H PRN pain #30 tabs 09/30/21 11/03/22 Rx aspirin-caffeine 500 mg-32.5 mg 1 tab PO QID 10/12/22 11/03/22 History tablet (Mara Back and Body) ibuprofen 200 mg tablet (Advil) 200 mg PO Q6H PRN Pain 10/12/22 11/03/22 History rosuvastatin 5 mg tablet 5 mg PO QAM 10/12/22 11/03/22 History Past Med/Surg History Medical History Diabetes mellitus, type 2 IDDM GERD (gastroesophageal reflux disease) controlled, stable per pt 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 ear Hiatal hernia History of blood transfusion (40+ years ago) Hx of seasonal allergies Hyperlipidemia Hypertension controlled, stable per pt Lupus Migraine hx Obesity Surgical History History of breast biopsy benign History of dilatation and curettage History of endoscopic sinus surgery History of esophagogastroduodenoscopy (EGD) History of tonsillectomy History of tooth extraction Hx of appendectomy Hx of arthroplasty R/L shoulder Hx of colonoscopy Hx of foot surgery bunion + other foot procedures Hx of fracture of femur right s/p surgery (+ hardware), Right Knee Debridement Nonunion Distal Femur with Allograft: 02/14/19: LMA#4 + PNB at [facility] Hx of hand surgery right Hx of hysterectomy Hx of total knee arthroplasty R/L S/P hardware removal Right upper leg removal of hardware (05/21/20): LMA#4 + PNB at [facility] Family History Brother Family hx of colon cancer Family history of diabetes mellitus Social History Smoking Status: Never smoker Second Hand Exposure: No; Do You Dip or Chew Tobacco: No; Tobacco Cessation Education Requested by Patient: No Hx Alcohol Use: Yes Alcohol type: wine Hx Substance Use: No Preferred Language: Montenegrin Communication Ability: Effective Communication Ability Comment: SLIGHTLY HEARD OF HEARING Overlock Sewing Machine Operator Required: No Beliefs That Will Affect Care: None Current Living Situation: Spouse Current Living Situation Comment: , SON AND GRANDCHILDREN Other Information That Helps Us Care for You: No Feels Safe at Home: Yes Safety Concerns: Feels Safe At This Time Assistive Devices: Denture - Upper, Denture - Lower and Glasses Physical Exam Physical Exam: Patient is alert and oriented Heart regular rhythm Lungs clear
[2022-11-03] MEDS ORDERED: DEXAMETHASONE SOD INJ 4 MG/ML VIAL ONE (08:08)
[2022-11-03] MEDS ORDERED: PHENYLEPHRINE 100MCG/ML 5ML SYR ONE (08:23)
[2022-11-03] MEDS ORDERED: FLOSEAL HEMOSTATIC MATRIX 10ML TOP ONE (08:30)
--- NOTE | 2022-11-03 09:16 | Operative Report ---
Post Operative Report Pre & Post Diagnosis Operation Date: 11/03/22 07:45 Pre-Op Diagnosis: Neurogenic claudication due to lumbar spinal stenosis L4-L5 Post-Op Diagnosis: Neurogenic claudication due to lumbar spinal stenosis L4-L5 I identified the patient and participated in the time-out.: Yes Procedure Operation Date: 11/03/22 07:45 Actual Procedures #1 lumbar decompression bilaterally facetectomies and foraminotomies L3-L4 L4- L5. #2 posterior spinal fusion L4-L5 #3 placed posterior instrumentation L4-5. #4 interbody fusion L4-5 #5 placement Spira 13 x 26 mm at L4-5 #6 placement locally harvested morselized graft in the posterior gutters. #7 placement I factor bone of the test and interbody space and posterior gutters. Surgeon Flash Armando, DO Hospital Educator Nj Meng Estimated Blood Loss 100 Findings See Below The patient is 5 foot 2 weighing over 94 kg with a BMI in excess of 37. Patient's body habitus did contribute to significant technical difficulty required deepest retractors and longer instruments in order to perform her procedure. This at least 50% increased operative time. Specimens None Indications This is a 72-year-old female who presents above-mentioned diagnosis after failing course of nonoperative care is here for surgical invention. Description of Procedure Patient was met with identified informed consent obtained. Patient was then taken to the operative suite underwent ablation placed in a prone position the Latty table top Babatunde frame. All bony promises well-padded eyes inspected to ensure no external pressure placed upon them. This point the lumbar spine was prepped and draped in a sterile fashion. Sharp dissection with the assistance of Bovie cautery to form down to and exposing the lamina transverse processes of L3-L4. From caudal cephalad fashion complete laminectomy of L 4 partial archana ectomy L3 was performed: Bilateral medial facetectomies and foraminotomies addressing severe spinal stenosis. Pedicle screws then placed in L3 and L4 bilaterally with assistance of fluoroscopy and appropriate sized farhad placed. Bilateral transforaminal approach on the left complete discectomy of L4-L5 was performed endplates guided to subcortically bone and a 13 x 26 mm Spira cage with I factor tapped in position. The rods then locked in final position bilaterally. The transverse processes of L4-5 burred to subcortically bone. I factor bone of the test and locally harvested morselized autograft placed in the posterior gutters. 15 round FRANCESCO drain inserted. The incision was then closed with 1 Vicryl the fascia 2-0 Vicryl subcutaneously and 4 Monocryl for final skin closure. Steri-Strips sterile dressing placed. Patient awakened taken to PACU stable condition. Please note spinal cord monitoring was utilized at the procedure no changes noted. Lastly Nj Meng was present at the entire surgery involved the patient positioning complex portions of the surgery and final skin closure. I attest to the content of the Intraoperative Record and any orders documented therein. Any exceptions are noted below.
--- NOTE | 2022-11-03 09:54 | Fluoroscopy Report ---
FL lumbar spine 2-3V CLINICAL HISTORY: L4-L5 DECOMPRESSION AND FUSION COMPARISON STUDY: None. FLUOROSCOPY TIME: 13 seconds FLUOROSCOPY IMAGES: 2 Ka,r: 11.6 mGy FINDINGS: Posterior decompression fusion at L4-L5 with pedicle screws and rods. The hardware is intac t. Disc spacers are placed. IMPRESSION: Fluoroscopic assistance as above. ACT 112: Negative or not required by law. Electronically signed by: Frankie Valdez M.D. 11/03/2022 9:51 AM
[2022-11-03] MEDS: fentaNYL citrate PF 100 MCG/2 ML VIAL IV PRN ×2 (09:58→10:03)
[2022-11-03] MEDS ORDERED: LORazepam 2 MG/1 ML VIAL IV PRN (10:59)
[2022-11-03] MEDS ORDERED: DO NOT ADMINISTER FLU VACCINE PRN (10:59)
[2022-11-03] MEDS ORDERED: hydrOXYzine HCl 25 MG TAB PO PRN (10:59)
[2022-11-03] MEDS ORDERED: NALOXONE HCL 0.4 MG/1 ML VIAL/CARP IV PRN (10:59)
[2022-11-03] MEDS ORDERED: METOCLOPRAMIDE HCL INJ 5 MG/ML 2 ML VIAL IV PRN (10:59)
[2022-11-03] MEDS ORDERED: DO NOT ADMINISTER PNEUMOCOCCAL VACCINE PRN (10:59)
[2022-11-03] MEDS ORDERED: LORazepam 0.5 MG TAB PO PRN (10:59)
[2022-11-03] MEDS ORDERED: PROMETHAZINE HCL 12.5 MG in SODIUM CHLORIDE 0.9% 50 ML IV PRN (10:59)
[2022-11-03] MEDS ORDERED: SOD PHOSPHATE/SOD BIPHOSPHATE ENEMA 132 ML BTL PR PRN (10:59)
[2022-11-03] MEDS ORDERED: HYDROmorphone INJ 0.5 MG/0.5 ML SYR IV PRN (10:59)
[2022-11-03] MEDS ORDERED: MAGNESIUM HYDROXIDE SUSP 30 ML UDC PO PRN (10:59)
[2022-11-03] MEDS ORDERED: FAMOTIDINE 20 MG TAB PO PRN (10:59)
[2022-11-03] MEDS ORDERED: ACETAMINOPHEN 1,000 MG/100 ML VIAL IV PRN (10:59)
[2022-11-03] MEDS ORDERED: LORATADINE 10 MG TAB PO PRN (10:59)
[2022-11-03] MEDS ORDERED: diphenhydrAMINE Capsule 25 MG CAP PO PRN (10:59)
[2022-11-03] MEDS ORDERED: PHARMACY GLYCEMIC MGMT CONSULT PRN (10:59)
[2022-11-03] MEDS ORDERED: bisacodyL 10 MG SUPP PR PRN (10:59)
[2022-11-03] MEDS ORDERED: HYDROmorphone INJ 1 MG/ML SYRINGE IV PRN (10:59)
--- NOTE | 2022-11-03 11:07 | Anesthesiology Progress Note ---
Date of Service November 03, 2022 Anesthesia Post Procedure Vital Signs Vital Signs: Temp Pulse Resp BP Pulse Ox O2 Del Method O2 Flow Rate 11/03/22 10:15 55 L 14 118/59 L 98 Nasal Cannula 2 11/03/22 10:05 51 L 14 127/67 98 Oxymask 4 11/03/22 09:55 61 17 124/69 98 Oxymask 6 11/03/22 09:45 71 19 125/72 98 Oxymask 8 11/03/22 10:35 52 L 13 132/70 99 Nasal Cannula 2 11/03/22 10:25 97.5 F L 47 L 12 124/68 98 Nasal Cannula 2 11/03/22 09:35 97.2 F L 89 19 134/83 99 Oxymask 8 Pain Intensity Bilateral Lower Back: Pain Intensity: 8 Back: Pain Intensity: 4 Transfer of Care Handoff Completed per policy Notes Mental Status: alert / awake / arousable and participated in evaluation Patient Amnestic to Procedure: Yes Nausea / Vomiting: adequately controlled Pain: adequately controlled Airway Patency, RR, SpO2: stable & adequate BP & HR: stable & adequate Hydration State: stable & adequate Anesthetic Complications: no major complications apparent and Pt Satisfied with anesthetic care
[2022-11-03] MEDS: SODIUM CHLORIDE 0.9% 1000ML 1,000 ML IV SCH ×2 (11:16→21:43)
[2022-11-03] MEDS: oxyCODONE HCL IR 5 MG TAB (IMMEDIATE RELEASE) PO PRN ×2 (11:17→19:58)
[2022-11-03] MEDS ORDERED: GLUCAGON FOR INJ 1 MG VIAL IM PRN (12:00)
[2022-11-03] MEDS ORDERED: GLUCOSE 10 TAB/TUBE PO PRN (12:00)
[2022-11-03] MEDS ORDERED: GLUCOSE 40% GEL 15 GM TUBE PO PRN (12:00)
[2022-11-03] MEDS ORDERED: DEXTROSE 50% 50 ML SYRINGE IV PRN (12:00)
[2022-11-03] MEDS ORDERED: CARBOHYDRATES FOR HYPOGLYCEMIA PO PRN (12:00)
--- NOTE | 2022-11-03 12:23 | Hospitalist Consultation ---
Date of Consultation November 03, 2022 Assessment & Plan (1) Neurogenic claudication due to lumbar spinal stenosis: - Pain management, bowel regimen and DVT ppx per the primary team - PT/OT consults, pt is planning on outpatient therapy - Follow am CBC to monitor for acute blood loss, last hgb was 12.1 (2) Diabetes mellitus type 2 in obese: - Pt had held jardiance for the past 3 days, glycemic pharmacy consulted, ok to resume - Home med of lantus 30 U QAM - holding for now and using ISS per glycemic pharmacy consult - Appears dexamethasone 4 mg IV was ordered in the OR which will increase glucose, monitor (3) Hypertension: - Cont atenolol 25 mg qam (4) Hyperlipidemia: - Cont rosuvastatin 5 mg qam (5) Lupus: - Stable, not on any medication for suppression - Pt denies recent flares - reports that after she is out in the sun for a long time she gets extremely tired so avoids doing that. DVT ppx: - teds, scds CODE: Full code Dispo: From home, likely to remain in the hospital x 1-2 days A total of 45 minutes were spent with greater than 50% of that time face to face with the patient, personally reviewing all current laboratories, imaging studies, past medication reconciliation, outpatient chart review, and discussion with specialists to collaborate care for the patient with attending. Please see attending documentation for corrections and/or additions. (6) Obesity: Supervising Physician Co-Signing Physician Notes I have seen and examined the patient and have discussed the case with the provider above. I agree with the assessment and plan as stated. 72 yo F s/p lumbar spine surgery today. She vomited post op and has some pain. She feels like just sleeping for now. Denies SOB and is oxygenating well on room air. Denies numbness or tingling in her feet. VSS on exam, she is mentating clearly. Lungs are CTA throughout. Cardiac exam reveals S1/2 heard and no mgr. Abdomen soft NTND. Surgical wound not directly visualized and FRANCESCO drain in place with an expected bloody drainage. Labs/meds reviewed. Appreciate glycemic pharmacy recommendations. Cont plan as noted above. Thank you for this consultation. DO Simon History of Present Illness Reason for Consultation: Medical management Requesting Physician: Dr. Armando Attending Physician: Flash Armando DO History of Present Illness This is a 72 yo F with PMhx of DM II, HTN, HLD, Lupus, GERD, migraine who presents for lumbar decompression of L3-L4 by Dr. Armando on 11/03/22. Reports that she is having back pain since coming up from surgery rating it an 8/10, and that is it not radiating, no numbness or tingling going into her feet. She is able to move her feet and toes without difficulty. Pt is tolerating clear liquid lunch, denies nausea or vomiting, but states that anytime she moves her pain is worse. Last bowel movement was last evening. She doesn't use mirilax unless necessary. Pt lives at home with her , grandson and great grandson, and a puppy that was born last March, he is "half trained", reports she will use a walker as needed to prevent falls. Pt denies any other acute complaints but is requesting pain medication. Allergies Allergy/AdvReac Type Severity Reaction Status Date / Time Sulfa (Sulfonamide Allergy Severe Anaphylaxis Verified 11/03/22 06:04 Antibiotics) erythromycin base Allergy Intermediate Hives Verified 11/03/22 06:04 latex Allergy Intermediate Blisters Verified 11/03/22 06:04 sucralfate Allergy Intermediate Hives Verified 11/03/22 06:04 adhesive Allergy Mild Contact Verified 11/03/22 06:04 dermatitis; skin blistering pineapple Allergy Unknown Throat Verified 11/03/22 06:04 swelling azithromycin AdvReac Severe Abdominal Verified 11/03/22 06:04 Pain, SOB meloxicam AdvReac Intermediate GI upset Verified 11/03/22 06:04 tramadol AdvReac Intermediate Headaches Verified 11/03/22 06:04 cantaloupe AdvReac Unknown Abdominal Verified 11/03/22 06:04 cramps codeine AdvReac Unknown Vomiting Verified 11/03/22 06:04 ibuprofen AdvReac Unknown GI upset Verified 11/03/22 06:04 morphine AdvReac Unknown Vomiting Verified 11/03/22 06:04 Home Medications Medication Instructions Recorded Confirmed Type atenolol 25 mg tablet 25 mg PO QAM 02/18/18 11/03/22 History insulin glargine 100 unit/mL 30 unit subcut QAM 02/18/18 11/03/22 History subcutaneous solution (Lantus U-100 Insulin) multivitamin (Multiple Vitamins 1 tab PO QAM 02/18/18 11/03/22 History tablet) omeprazole 40 mg capsule,delayed 40 mg PO QAM 02/18/18 11/03/22 History release sodium bicarbonate-citric acid 1 tab PO UD PRN Heartburn 02/18/18 11/03/22 History 1,940 mg-1,000 mg effervescent tablet (Dinorah-[place] Heartburn) loratadine 10 mg tablet (Claritin) 10 mg PO QAM PRN Allergy Symptoms 01/23/19 11/03/22 History cholecalciferol (vitamin D3) 50 50 mcg PO QAM 05/04/20 11/03/22 History mcg (2,000 unit) capsule (Vitamin D3) empagliflozin 25 mg tablet 25 mg PO QAM 05/04/20 11/03/22 History (Jardiance) aspirin-caffeine 500 mg-32.5 mg 1 tab PO QID 10/12/22 11/03/22 History tablet ([facility]) rosuvastatin 5 mg tablet 5 mg PO QAM 10/12/22 11/03/22 History Patient History Medical History (Updated 11/03/22 @ 13:04 by Helena Leigh PA-C) Diabetes mellitus, type 2 IDDM GERD (gastroesophageal reflux disease) controlled, stable per pt 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 ear Hiatal hernia History of blood transfusion (40+ years ago) Hx of seasonal allergies Hyperlipidemia Hypertension controlled, stable per pt Lupus Migraine hx Obesity Surgical History History of breast biopsy benign History of dilatation and curettage History of endoscopic sinus surgery History of esophagogastroduodenoscopy (EGD) History of tonsillectomy History of tooth extraction Hx of appendectomy Hx of arthroplasty R/L shoulder Hx of colonoscopy Hx of foot surgery bunion + other foot procedures Hx of fracture of femur right s/p surgery (+ hardware), Right Knee 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 Hx of hand surgery right Hx of hysterectomy Hx of total knee arthroplasty R/L S/P hardware removal Right upper leg removal of hardware (05/21/20): LMA#4 + PNB at [facility] Family History Brother Family hx of colon cancer Family history of diabetes mellitus Social History Smoking Status: Never smoker Second Hand Exposure: No; Do You Dip or Chew Tobacco: No; Tobacco Cessation Education Requested by Patient: No Hx Alcohol Use: Yes Alcohol type: wine Hx Substance Use: No Preferred Language: Amharic Communication Ability: Effective Communication Ability Comment: SLIGHTLY HEARD OF HEARING Farrowing Manager Required: No Beliefs That Will Affect Care: None Current Living Situation: Spouse Current Living Situation Comment: , SON AND GRANDCHILDREN Other Information That Helps Us Care for You: No Feels Safe at Home: Yes Safety Concerns: Feels Safe At This Time Assistive Devices: Denture - Upper, Denture - Lower and Glasses Review of Systems Review of Systems: Constitutional: No fever, sweats or chills Eyes: No diplopia, no worsening or blurred vision ENT: normal hearing, no trouble swallowing Respiratory: No cough, sputum, dyspnea at rest or on exertion Cardiovascular: No chest pain, tightness or palpitations Abdomen: No pain, nausea, vomiting, diarrhea or constipation Musculoskeletal: No joint pain, calf pain, swelling Neurologic: No weakness, numbness/tingling, or balance problems Psychiatric: No anxiety or depression Skin: No rash or itch Physical Exam Physical Exam: General: awake, alert, no apparent distress, obese with BMI of 37.9 Head: Normocephalic, atraumatic ENT: PERRL, EOMI, no pharyngeal exudate, mucous membranes moist Chest: Clear to auscultation, on room air, no adventitious breath sounds Cardiac: Regular rate and rhythm, no murmur, no JVD, normal peripheral pulses, good capillary refill Back: Dressing c/d/i, FRANCESCO drain in place draining serosanginous bloody outs Abdominal: NABS x 4 quadrants, soft, nondistended, nontender to palpation, no rebound or guarding : camilo catheter in place draining clear yellow urine Extremities: Normal inspection, + trace peripheral edema , no erythema, calfs nontender to palpation Psych: Normal mood and affect Neuro: AAO x 3, strength intact bilaterally and rated 5/5, no motor deficits, speech is clear, no peripheral sensory deficits Results & Data Results & Data Vital Signs (Past 12 Hours) Vital Signs Temp Pulse Pulse Resp BP Pulse Ox O2 Del Method 11/03/22 11:57 36.3 C L 50 L 16 123/77 98 Nasal Cannula 11/03/22 11:29 36.3 C L 48 L 18 131/78 98 Room Air 11/03/22 10:59 36.4 C L 47 L 18 126/81 98 Room Air 11/03/22 10:15 55 L 14 118/59 L 98 Nasal Cannula 11/03/22 10:05 51 L 14 127/67 98 Oxymask 11/03/22 09:55 61 17 124/69 98 Oxymask 11/03/22 09:45 71 19 125/72 98 Oxymask 11/03/22 10:35 52 L 13 132/70 99 Nasal Cannula 11/03/22 10:25 36.4 C L 47 L 12 124/68 98 Nasal Cannula 11/03/22 09:35 36.2 C L 89 19 134/83 99 Oxymask O2 Flow Rate 11/03/22 11:57 3 11/03/22 11:29 11/03/22 10:59 11/03/22 10:15 2 11/03/22 10:05 4 11/03/22 09:55 6 11/03/22 09:45 8 11/03/22 10:35 2 11/03/22 10:25 2 11/03/22 09:35 8
[2022-11-03] MEDS: ACETAMINOPHEN 500 MG TAB PO PRN (12:29)
[2022-11-03] MEDS: INSULIN ASPART PER UNIT CHARGE SC SCH ×3 (12:33→19:59)
[2022-11-03] MEDS: ONDANSETRON INJ 2 MG/ML 2 ML VIAL IV PRN (12:39)
[2022-11-03] MEDS: ceFAZolin 2000MG 2,000 MG/15 ML SYR IV SCH ×2 (15:25→23:41)
[2022-11-03] MEDS: ONDANSETRON 4 MG OD TAB PO PRN (19:57)
[2022-11-03] MEDS: DOCUSATE SODIUM/SENNA 50/8.6MG TAB PO SCH (19:59)
[2022-11-03] MEDS: ALUMINUM/MAGNESIUM SUSP 30 ML UDC PO PRN (23:41)
[2022-11-04] MEDS ORDERED: INSULIN ASPART PER UNIT CHARGE SC SCH
[2022-11-04] MEDS: oxyCODONE HCL IR 5 MG TAB (IMMEDIATE RELEASE) PO PRN ×2 (05:30→17:52)
[2022-11-04] MEDS: POLYETHYLENE (MIRALAX) 17 GM PACK PO SCH ×4 (05:30→20:44)
[2022-11-04] MEDS: ONDANSETRON 4 MG OD TAB PO PRN ×2 (05:30→17:51)
[2022-11-04 06:58] LABS: Basophils # (auto) 0.05 K/uL (0-0.2); Basophils % (auto) 0.3 %; Eosinophils # (auto) 0.07 K/uL (0-0.50); Eosinophils % (auto) 0.5 %; Hematocrit (blood only) 31.7 % (37.0-47.0); Hemoglobin 10.6 g/dl (12.0-16.0); Immature Granulocytes # (auto) 0.58 K/uL (0.01-0.20); Immature Granulocytes % (auto) 3.9 %; Lymphocytes % (auto) 14.6 %; Mean Corpuscular Hemoglobin 33.2 pg (25.0-34.0); Mean Corpuscular Hgb Conc 33.4 g/dL (32.0-36.0); Mean Corpuscular Volume 99.4 fL (80.0-100.0); Monocytes # (auto) 1.26 K/uL (0.11-0.59); Monocytes % (auto) 8.4 %; Neutrophils # (auto) 10.89 K/uL (1.40-6.50); Neutrophils % (auto) 72.3 %; Platelet Count 134 K/uL (130-400); RDW Coefficient of Variation 15.7 % (11.5-14.5); RDW Standard Deviation 57.6 fL (36.4-46.3); Red Blood Count 3.19 M/uL (4.20-5.40); White Blood Count 15.05 K/ul (4.8-10.8)
[2022-11-04 07:01] LABS: Calcium 8.7 mg/dl (8.6-10.3); Potassium 5.2 mmol/L (3.5-5.1)
[2022-11-04 07:06] LABS: BUN Creatinine Ratio 22.4 (10-20); Creatinine Clr Calc Pharmacy 62.1 ml/min; Est GFR (African American) 78.2 ml/min; Est GFR (Non-African American) 67.5 ml/min
[2022-11-04] MEDS: CHOLECALCIFEROL 1,000 UNITS 25 MCG TAB PO SCH (08:04)
[2022-11-04] MEDS: PANTOprazole 40 MG TAB PO SCH (08:05)
[2022-11-04] MEDS: ROSUVASTATIN CALCIUM 5 MG TAB PO SCH (08:05)
[2022-11-04] MEDS: EMPAGLIFLOZIN 25 MG TAB PO SCH (08:05)
[2022-11-04] MEDS: MULTIVITAMIN TAB PO SCH (08:05)
[2022-11-04] MEDS: ATENOLOL 25 MG TABLET PO SCH (08:05)
[2022-11-04] MEDS: INSULIN ASPART PER UNIT CHARGE SC SCH ×4 (08:51→20:21)
--- NOTE | 2022-11-04 09:43 | Orthopedic Progress Note ---
Date of Service November 04, 2022 Assessment & Plan (1) Neurogenic claudication due to lumbar spinal stenosis: Plan: This time we will initiate physical therapy monitor her FRANCESCO output hopefully discharge home the next few days. Admission and Anticipated Discharge Date Admission Date: November 03, 2022 Subjective Back pain controlled struggling with some nausea no leg pain Physical Exam Physical Exam: On exam patient is in bed. She does appear comfortable. Is good strength testing. Results & Data Vital Signs (Past 12 Hours) Vital Signs Temp Pulse Pulse Resp BP Pulse Ox O2 Del Method 11/04/22 07:00 37.0 C 72 16 102/64 96 Room Air 11/04/22 03:40 96 Room Air 11/04/22 03:38 37.4 C 67 16 105/62 92 Room Air 11/03/22 23:17 36.9 C 66 18 105/68 96 Room Air Queries Orthopedic Spine Acute Posthemorrhagic Anemia: Yes
[2022-11-04] MEDS: ACETAMINOPHEN 500 MG TAB PO PRN (14:36)
--- NOTE | 2022-11-04 17:13 | Hospitalist Progress Note ---
Date of Service November 04, 2022 Assessment & Plan (1) Neurogenic claudication due to lumbar spinal stenosis: Plan: - Pain management, bowel regimen and DVT ppx per the primary team - PT/OT consults, pt is planning on outpatient therapy - WBC rise today likely reactive. Hb drop to be expected in post op setting. Will continue to trend -encourage IS, out of bed to chair (2) Diabetes mellitus type 2 in obese: Plan: - Pt had held jardiance for the past 3 days, glycemic pharmacy consulted, ok to resume - Home med of lantus 30 U QAM - holding for now and using ISS per glycemic pharmacy consult - Appears dexamethasone 4 mg IV was ordered in the OR which will increase glucose, monitor (3) Hypertension: Plan: - Cont atenolol 25 mg qam (4) Hyperlipidemia: Plan: - Cont rosuvastatin 5 mg qam (5) Lupus: Plan: - Stable, not on any medication for suppression - Pt denies recent flares - reports that after she is out in the sun for a long time she gets extremely tired so avoids doing that. DVT ppx: - Per primary service CODE: Full code (6) Obesity: Admission and Anticipated Discharge Date Admission Date: November 03, 2022 Subjective Having nausea and vomiting with her pain medications Review of Systems Review of Systems: as above Physical Exam Physical Exam: Appears tired, non toxic, no acute distress Respiratory: Breathing comfortably on room air, no wheezing/rhonchi Cardiovascular: Regular rate and rhythm, no murmurs/rubs Gastrointestinal (Abdomen): Hyperactive, soft Musculoskeletal: No edema Neurologic: awake, alert, spontaneously moving extremities Results & Data Results & Data Vital Signs (Past 12 Hours) Vital Signs Temp Pulse Pulse Resp BP Pulse Ox O2 Del Method 11/04/22 15:25 37.5 C 11/04/22 14:32 37.6 C H 60 17 112/61 93 Room Air 11/04/22 10:54 37.0 C 65 16 114/66 95 Room Air 11/04/22 07:00 37.0 C 72 16 102/64 96 Room Air
[2022-11-04] MEDS: DOCUSATE SODIUM/SENNA 50/8.6MG TAB PO SCH (20:44)
[2022-11-05] MEDS: POLYETHYLENE (MIRALAX) 17 GM PACK PO SCH ×3 (05:58→17:07)
[2022-11-05] MEDS: ALUMINUM/MAGNESIUM SUSP 30 ML UDC PO PRN (07:39)
[2022-11-05] MEDS: oxyCODONE HCL IR 5 MG TAB (IMMEDIATE RELEASE) PO PRN ×3 (07:39→18:39)
--- NOTE | 2022-11-05 07:59 | Orthopedic Progress Note ---
Date of Service November 05, 2022 Assessment & Plan (1) Neurogenic claudication due to lumbar spinal stenosis: Plan: Ella is postoperative day 2 status post TLIF L4-5. Will limit narcotics as this is most likely the source of her nausea and vomiting. Work on pain control today. Continue with ambulation and frequent changes of positions. DVT prophylaxis is in the form teds and SCDs. Maintain FRANCESCO drain. Anticipate discharge home within the next day or 2. Admission and Anticipated Discharge Date Admission Date: November 03, 2022 Subjective Ella is postoperative day 2 status post TLIF L4-5. Unfortunately she has been suffering from some nausea and vomiting over the past 24 hours. She also has lower back pain that is increased. No radicular leg pain. FRANCESCO drain output last shift is 35 cc. Review of Systems Review of Systems: All systems reviewed & are unremarkable except as noted in HPI & below Physical Exam Physical Exam: She is lying in bed alert and oriented x3 Lumbar dressing is clean dry and intact with functioning FRANCESCO drain Calf soft nontender bilateral Strength intact bilateral lower extremities Abdomen is soft and nondistended Results & Data Vital Signs (Past 12 Hours) Vital Signs Temp Pulse Pulse Resp BP Pulse Ox O2 Del Method 11/05/22 07:11 37.5 C 80 16 122/68 95 Room Air 11/04/22 21:05 37.2 C 70 16 116/70 94 Room Air
[2022-11-05] MEDS: INSULIN ASPART PER UNIT CHARGE SC SCH ×4 (09:02→20:35)
[2022-11-05] MEDS: ATENOLOL 25 MG TABLET PO SCH (09:06)
[2022-11-05] MEDS: PANTOprazole 40 MG TAB PO SCH (09:06)
[2022-11-05] MEDS: CHOLECALCIFEROL 1,000 UNITS 25 MCG TAB PO SCH (09:06)
[2022-11-05] MEDS: ROSUVASTATIN CALCIUM 5 MG TAB PO SCH (09:07)
[2022-11-05] MEDS: MULTIVITAMIN TAB PO SCH ×2 (09:08→09:11)
[2022-11-05] MEDS: EMPAGLIFLOZIN 25 MG TAB PO SCH (09:08)
--- NOTE | 2022-11-05 14:25 | Pharmacy Report ---
Pharmacy Glycemic Short Note 2 - Date of Service November 05, 2022 - Glycemic Short BSG Results (Last 24 hours): 11/04/22 11/04/22 11/05/22 16:46 20:03 08:19 POC Glucose 107 H 193 H 217 H 11/05/22 12:06 POC Glucose 99 OUTPATIENT ANTIDIABETIC REGIMEN: * jardiance, metformin ASSESSMENT: * 72 year old now s/p surgery, pharmacy consulted for glycemic management. Patient only requiring 5 units of insulin yesterday - all correctional * Fasting BSG 217 mg/dL - unclear reasoning for elevation. Lunch BSG trending down quickly, will remove CR for now * Likely could sign off consult if stable within next 24 hours PLAN FOR INPATIENT GLYCEMIC CONTROL: * Hold outpatient oral diabetes medications * Basal insulin * none * Bolus insulin * NovoLog per scale ACHS or Q6hrs while NPO * Goal Range: 110 Low mg/dL - High 140 mg/dL * Correction Factor: 30 mg/dL/unit * Nutritional / Prandial insulin per carb ratio of 1 unit per -- grams CHO consumed
--- NOTE | 2022-11-05 17:50 | Hospitalist Progress Note ---
Date of Service November 05, 2022 Assessment & Plan (1) Neurogenic claudication due to lumbar spinal stenosis: Plan: - Pain management, bowel regimen and DVT ppx per the primary team - PT/OT consults, pt is planning on outpatient therapy - WBC rising llikely reactive. Hb drop to be expected in post op setting. Repeat CBC tomorrow -encourage IS, out of bed to chair (2) Diabetes mellitus type 2 in obese: Plan: -management per glycemic pharmacist (3) Hypertension: Plan: - Cont atenolol 25 mg qam (4) Hyperlipidemia: Plan: - Cont rosuvastatin 5 mg qam (5) Lupus: Plan: - Stable, not on any medication for suppression - Pt denies recent flares - reports that after she is out in the sun for a long time she gets extremely tired so avoids doing that. DVT ppx: - Per primary service CODE: Full code (6) Obesity: Admission and Anticipated Discharge Date Admission Date: November 03, 2022 Subjective Having nausea, pain No fevers/chills No chest pain or shortness of breath Review of Systems Review of Systems: as above Physical Exam Physical Exam: Non toxic, no acute distress Respiratory: Breathing comfortably on room air, no wheezing/rhonchi Cardiovascular: Regular rate and rhythm, no murmurs/rubs/gallops Gastrointestinal (Abdomen): soft Musculoskeletal: No edema Neurologic: awake, alert, answering questions appropriately Results & Data Results & Data Vital Signs (Past 12 Hours) Vital Signs Temp Pulse Pulse Resp BP Pulse Ox O2 Del Method 11/05/22 14:26 37.2 C 69 18 102/67 95 Room Air 11/05/22 11:05 37.5 C 73 18 106/64 95 Room Air 11/05/22 07:11 37.5 C 80 16 122/68 95 Room Air
[2022-11-05] MEDS: DOCUSATE SODIUM/SENNA 50/8.6MG TAB PO SCH (20:36)
[2022-11-05] MEDS: ONDANSETRON INJ 2 MG/ML 2 ML VIAL IV PRN (20:57)
[2022-11-06] MEDS: POLYETHYLENE (MIRALAX) 17 GM PACK PO SCH ×4 (00:26→18:12)
[2022-11-06] MEDS: oxyCODONE HCL IR 5 MG TAB (IMMEDIATE RELEASE) PO PRN ×2 (02:09→07:48)
[2022-11-06] MEDS: ACETAMINOPHEN 500 MG TAB PO PRN ×2 (05:35→15:09)
[2022-11-06 06:17] LABS: Calcium 8.7 mg/dl (8.6-10.3); Potassium 4.7 mmol/L (3.5-5.1)
[2022-11-06 06:23] LABS: BUN Creatinine Ratio 16.3 (10-20); Creatinine Clr Calc Pharmacy 57.3 ml/min; Est GFR (African American) 71.1 ml/min; Est GFR (Non-African American) 61.3 ml/min
[2022-11-06 06:46] LABS: Hematocrit (blood only) 29.6 % (37.0-47.0); Hemoglobin 9.7 g/dl (12.0-16.0); Mean Corpuscular Hemoglobin 33.3 pg (25.0-34.0); Mean Corpuscular Hgb Conc 32.8 g/dL (32.0-36.0); Mean Corpuscular Volume 101.7 fL (80.0-100.0); Platelet Count 126 K/uL (130-400); RDW Coefficient of Variation 15.4 % (11.5-14.5); RDW Standard Deviation 57.7 fL (36.4-46.3); Red Blood Count 2.91 M/uL (4.20-5.40); White Blood Count 10.11 K/ul (4.8-10.8)
[2022-11-06 06:59] LABS: ALC (manual) 1.62 K/uL (1.2-3.4); ANC (manual) 7.78 K/uL (1.4-6.5); Eosinophils % (manual) 1 %; Lymphocytes # (manual) 1.62 K/uL (1.2-3.4); Lymphocytes % (manual) 16 %; Monocytes # (manual) 0.71 K/uL (0.11-0.59); Monocytes % (manual) 7 %; Neutrophils # (manual) 7.78 K/uL (1.40-6.50); Neutrophils % (manual) 77 %
[2022-11-06] MEDS: INSULIN ASPART PER UNIT CHARGE SC SCH ×4 (08:04→20:58)
--- NOTE | 2022-11-06 08:25 | Hospitalist Progress Note ---
Date of Service November 06, 2022 Assessment & Plan (1) Neurogenic claudication due to lumbar spinal stenosis: Plan: - Pain management, bowel regimen and DVT ppx per the primary team - PT/OT consults, pt is planning on outpatient therapy - WBC normalized at 10K -encourage IS, out of bed to chair Acute blood loss anemia pre-op Hb 12 -> 10.6 - expected drop in post op setting. Also possibly dilutional Current Hgb 9.7 - no need for blood transfusion at this time , Repeat H&H tomorrow (2) Diabetes mellitus type 2 in obese: Plan: -management per glycemic pharmacist (3) Hypertension: Plan: - Cont atenolol 25 mg qam (4) Hyperlipidemia: Plan: - Cont rosuvastatin 5 mg qam (5) Lupus: Plan: - Stable, not on any medication for suppression - Pt denies recent flares - reports that after she is out in the sun for a long time she gets extremely tired so avoids doing that. DVT ppx: - Per primary service CODE: Full code (6) Obesity: Admission and Anticipated Discharge Date Admission Date: November 03, 2022 Subjective Patient seen in med consult follow-up, status post lumbar spine surgery Sitting up in chair in NAD but reports Having nausea. She did eat all her breakfast. Not having BM yet - discussed using suppository w/ RN at the bedside No fevers/chills No chest pain or shortness of breath Review of Systems Review of Systems: All systems reviewed & are unremarkable except as noted in Subjective Physical Exam Physical Exam: Physical Exam: elderly F, in no acute distress Respiratory: Breathing comfort ably on room air, no wheezing/rhonch i Cardiovascular:H Regular rate and rhythm, no murmurs /rubs/gallops Gastrointestinal ( Abdomen): soft, nontender, obese, + bowel juan jose nds Musculoskeletal: No edema Neurologic: awake, alert, ans wering questions a ppropriately, move s extremities Results & Data Results & Data Vital Signs (Past 12 Hours) Vital Signs Temp Pulse Resp BP Pulse Ox O2 Del Method 11/06/22 07:16 37.1 C 80 20 117/69 96 Room Air Laboratory Results 11/06/22 11/06/22 11/06/22 Range/Units 07:58 05: 05:29 WBC 10.11 (4.8-10.8) K/ul RBC 2.91 L (4.20-5.40) M/uL Hgb 9.7 L (12.0-16.0) g/dl Hct 29.6 L (37.0-47.0) % MCV 101.7 H (80.0-100.0) fL MCH 33.3 (25.0-34.0) pg MCHC 32.8 (32.0-36.0) g/dL RDW Std Deviation 57.7 H (36.4-46.3) fL RDW Coeff of July 15.4 H (11.5-14.5) % Plt Count 126 L (130-400) K/uL Neutrophils % (Manual) 77 % Lymphocytes % (Manual) 16 % Monocytes % (Manual) 7 % Eosinophils % (Manual) 1 % Neutrophils # (Manual) 7.78 H (1.40-6.50) K/uL Total Absolute Neuts 7.78 H (1.4-6.5) K/uL Lymphocytes # (Manual) 1.62 (1.2-3.4) K/uL Total Abs Lymphocytes 1.62 (1.2-3.4) K/uL Monocytes # (Manual) 0.71 H (0.11-0.59) K/uL Eosinophils # (Manual) 0.10 (0-0.50) K/uL Sodium 133 L (136-145) mmol/L Potassium 4.7 (3.5-5.1) mmol/L Chloride 101 (98-107) mmol/L Carbon Dioxide 26 (21-32) mmol/L Anion Gap 6 (3-11) BUN 15 (6-23) mg/dl Creatinine 0.92 (0.6-1.2) mg/dl Est Cr Clr Drug Dosing 57.3 ml/min Est GFR ( Amer) 71.1 ml/min Est GFR (Non-Af Amer) 61.3 ml/min BUN/Creatinine Ratio 16.3 (10-20) Glucose 101 H (70-99(Fasting)) mg/dl POC Glucose 111 H (70-99) mg/dl Calcium 8.7 (8.6-10.3) mg/dl 11/05/22 11/05/22 11/05/22 Range/Units 20:22 17:00 12:06 WBC (4.8-10.8) K/ul RBC (4.20-5.40) M/uL Hgb (12.0-16.0) g/dl Hct (37.0-47.0) % MCV (80.0-100.0) fL MCH (25.0-34.0) pg MCHC (32.0-36.0) g/dL RDW Std Deviation (36.4-46.3) fL RDW Coeff of July (11.5-14.5) % Plt Count (130-400) K/uL Neutrophils % (Manual) % Lymphocytes % (Manual) % Monocytes % (Manual) % Eosinophils % (Manual) % Neutrophils # (Manual) (1.40-6.50) K/uL Total Absolute Neuts (1.4-6.5) K/uL Lymphocytes # (Manual) (1.2-3.4) K/uL Total Abs Lymphocytes (1.2-3.4) K/uL Monocytes # (Manual) (0.11-0.59) K/uL Eosinophils # (Manual) (0-0.50) K/uL Sodium (136-145) mmol/L Potassium (3.5-5.1) mmol/L Chloride (98-107) mmol/L Carbon Dioxide (21-32) mmol/L Anion Gap (3-11) BUN (6-23) mg/dl Creatinine (0.6-1.2) mg/dl Est Cr Clr Drug Dosing ml/min Est GFR ( Amer) ml/min Est GFR (Non-Af Amer) ml/min BUN/Creatinine Ratio (10-20) Glucose (70-99(Fasting)) mg/dl POC Glucose 87 75 99 (70-99) mg/dl Calcium (8.6-10.3) mg/dl 11/05/22 Range/Units 08:19 WBC (4.8-10.8) K/ul RBC (4.20-5.40) M/uL Hgb (12.0-16.0) g/dl Hct (37.0-47.0) % MCV (80.0-100.0) fL MCH (25.0-34.0) pg MCHC (32.0-36.0) g/dL RDW Std Deviation (36.4-46.3) fL RDW Coeff of July (11.5-14.5) % Plt Count (130-400) K/uL Neutrophils % (Manual) % Lymphocytes % (Manual) % Monocytes % (Manual) % Eosinophils % (Manual) % Neutrophils # (Manual) (1.40-6.50) K/uL Total Absolute Neuts (1.4-6.5) K/uL Lymphocytes # (Manual) (1.2-3.4) K/uL Total Abs Lymphocytes (1.2-3.4) K/uL Monocytes # (Manual) (0.11-0.59) K/uL Eosinophils # (Manual) (0-0.50) K/uL Sodium (136-145) mmol/L Potassium (3.5-5.1) mmol/L Chloride (98-107) mmol/L Carbon Dioxide (21-32) mmol/L Anion Gap (3-11) BUN (6-23) mg/dl Creatinine (0.6-1.2) mg/dl Est Cr Clr Drug Dosing ml/min Est GFR ( Amer) ml/min Est GFR (Non-Af Amer) ml/min BUN/Creatinine Ratio (10-20) Glucose (70-99(Fasting)) mg/dl POC Glucose 217 H (70-99) mg/dl Calcium (8.6-10.3) mg/dl Medications Administered Current Inpatient Medications Acetaminophen (Acetaminophen 500 Mg Tab) 1,000 mg PO Q8H PRN PRN Reason: MILD Pain Scale 1,2,3 & Pre PT Stop: 12/03/22 10:58 Last Admin: 11/06/22 05:35 Dose: 1,000 mg Al Hydrox/Mg Hydrox/Simethicone (Aluminum/Magnesium Susp 30 Ml Udc) 30 ml PO Q6H PRN PRN Reason: Dyspepsia Stop: 12/03/22 10:58 Last Admin: 11/05/22 07:39 Dose: 30 ml Atenolol (Atenolol 25 Mg Tablet) 25 mg PO QAM JUAN J Stop: 12/04/22 08:59 Last Admin: 11/05/22 09:06 Dose: 25 mg Bisacodyl (Bisacodyl 10 Mg Supp) 10 mg [place] DAILY PRN PRN Reason: Constipation Stop: 12/03/22 10:58 Dextrose (Dextrose 50% 50 Ml Syringe) 25 - 50 ml IV UD PRN; Protocol PRN Reason: Hypoglycemia Protocol Stop: 12/03/22 11:59 Diphenhydramine HCl (Diphenhydramine Capsule 25 Mg Cap) 25 mg PO Q6H PRN PRN Reason: Allergic Rhinitis/Insomnia Stop: 12/03/22 10:58 Empagliflozin (Empagliflozin 25 Mg Tab) 25 mg PO QAM JUAN J Stop: 12/04/22 08:59 Last Admin: 11/05/22 09:08 Dose: 25 mg Famotidine (Famotidine 20 Mg Tab) 20 mg PO Q12H PRN PRN Reason: Dyspepsia Stop: 12/03/22 10:58 Glucagon (Glucagon For Inj 1 Mg Vial) 1 mg IM UD PRN; Protocol PRN Reason: Hypoglycemia Protocol Stop: 12/03/22 11:59 Glucose (Glucose 40% Gel 15 Gm Tube) 15 - 30 gm PO UD PRN; Protocol PRN Reason: Hypoglycemia Protocol Stop: 12/03/22 11:59 Glucose (Glucose 10 Tab/Tube) 4 - 8 tab PO UD PRN; Protocol PRN Reason: Hypoglycemia Protocol Stop: 12/03/22 11:59 Hydromorphone HCl (Hydromorphone Inj 0.5 Mg/0.5 Ml Syr) 0.5 mg IV Q3H PRN PRN Reason: MODERATE Pain (Scale 4,5,6) & Pre PT Stop: 11/17/22 10:58 Last Admin: 11/04/22 08:05 Dose: 0.5 mg Hydromorphone HCl (Hydromorphone Inj 1 Mg/Ml Syringe) 1 mg IV Q3H PRN PRN Reason: SEVERE Pain (Scale 7,8,9,10) Stop: 11/17/22 10:58 Hydroxyzine HCl (Hydroxyzine Hcl 25 Mg Tab) 25 mg PO Q8H PRN PRN Reason: Anxiety Stop: 12/03/22 10:58 Promethazine HCl 12.5 mg/ (Sodium Chloride) 50.5 mls @ 202 mls/hr IV Q6H PRN PRN Reason: Nausea &/or Vomiting Stop: 12/03/22 10:58 Influenza Virus Vaccine Quadrival (Do Not Administer Flu Vaccine) 1 each N/A PRN PRN PRN Reason: Notification Stop: 12/03/22 10:58 Insulin Aspart (Insulin Aspart Per Unit Charge) 0 units SC ACHS [facility] Stop: 12/03/22 11:59 Last Admin: 11/06/22 08:04 Dose: Not Given Loratadine (Loratadine 10 Mg Tab) 10 mg PO QAM PRN PRN Reason: Allergy Symptoms Stop: 12/03/22 10:58 Lorazepam (Lorazepam 0.5 Mg Tab) 0.5 mg PO Q8H PRN PRN Reason: Sedation/Anxiety Stop: 12/03/22 10:58 Lorazepam (Lorazepam 2 Mg/1 Ml Vial) 0.5 mg IV Q8H PRN PRN Reason: Sedation/Anxiety Stop: 12/03/22 10:58 Magnesium Hydroxide (Magnesium Hydroxide Susp 30 Ml Udc) 30 ml PO Q24H PRN PRN Reason: Constipation Stop: 12/03/22 10:58 Metoclopramide HCl (Metoclopramide Hcl Inj 5 Mg/Ml 2 Ml Vial) 10 mg IV Q6H PRN PRN Reason: Nausea &/or Vomiting Stop: 12/03/22 10:58 Last Admin: 11/04/22 22:52 Dose: 10 mg Miscellaneous (Carbohydrates For Hypoglycemia ) 15 - 30 gm PO UD PRN PRN Reason: Hypoglycemia Treatment Stop: 12/03/22 11:59 Miscellaneous Information (Pharmacy Glycemic Mgmt Consult) 1 each N/A UD PRN PRN Reason: Consult Stop: 12/03/22 10:58 Multivitamins (Multivitamin Tab) 1 tab PO QAM [facility] Stop: 12/04/22 08:59 Last Admin: 11/05/22 09:11 Dose: Not Given Naloxone HCl (Naloxone Hcl 0.4 Mg/1 Ml Vial/Carp) 0.1 mg IV Q5M PRN PRN Reason: Oversedation/Resp depression Stop: 12/03/22 10:58 Ondansetron HCl (Ondansetron Inj 2 Mg/Ml 2 Ml Vial) 4 mg IV Q6H PRN PRN Reason: Nausea &/or Vomiting Stop: 12/03/22 10:58 Last Admin: 11/05/22 20:57 Dose: 4 mg Ondansetron HCl (Ondansetron 4 Mg Od Tab) 4 mg PO Q6H PRN PRN Reason: Nausea Stop: 12/03/22 10:58 Last Admin: 11/04/22 17:51 Dose: 4 mg Oxycodone HCl (Oxycodone Hcl Ir 5 Mg Tab (Immediate Release)) 5 - 10 mg PO Q4H PRN PRN Reason: Pain & Pre PT Stop: 11/17/22 10:58 Last Admin: 11/06/22 07:48 Dose: 10 mg Pantoprazole Sodium (Pantoprazole 40 Mg Tab) [facility] Protocol Stop: 12/04/22 08:59 Last Admin: 11/05/22 09:06 Dose: 40 mg Pneumococcal Polyvalent Vaccine (Do Not Administer Pneumococcal Vaccine) 1 each N/A PRN PRN PRN Reason: Notification Stop: 12/03/22 10:58 Polyethylene Glycol (Polyethylene (Miralax) 17 Gm Pack) 17 gm PO Q6 [facility] Stop: 12/04/22 05:59 Last Admin: 11/06/22 05:32 Dose: 17 gm Rosuvastatin Calcium (Rosuvastatin Calcium 5 Mg Tab) [facility] [place] Stop: 12/04/22 08:59 Last Admin: 11/05/22 09:07 Dose: 5 mg Senna/Docusate Sodium (Docusate Sodium/Senna 50/8.6mg Tab) 2 tab PO HS [facility] Stop: 12/03/22 20:59 Last Admin: 11/05/22 20:36 Dose: 2 tab Sodium Biphosphate/Sodium Phosphate (Sod Phosphate/Sod Biphosphate Enema 132 Ml Btl) 132 ml WI ONE PRN PRN Reason: Constipation Stop: 12/03/22 10:58 Vitamin D (Cholecalciferol 1,000 Units 25 Mcg Tab) 2,000 units PO [facility] Stop: 12/04/22 08:59 Last Admin: 11/05/22 09:06 Dose: 2,000 units
[2022-11-06] MEDS: EMPAGLIFLOZIN 25 MG TAB PO SCH (08:51)
[2022-11-06] MEDS: PANTOprazole 40 MG TAB PO SCH (08:51)
[2022-11-06] MEDS: ATENOLOL 25 MG TABLET PO SCH (08:51)
[2022-11-06] MEDS: ROSUVASTATIN CALCIUM 5 MG TAB PO SCH (08:52)
[2022-11-06] MEDS: CHOLECALCIFEROL 1,000 UNITS 25 MCG TAB PO SCH (08:52)
[2022-11-06] MEDS: MULTIVITAMIN TAB PO SCH ×2 (08:52→08:55)
[2022-11-06] MEDS: ONDANSETRON 4 MG OD TAB PO PRN (08:57)
--- NOTE | 2022-11-06 09:39 | Orthopedic Progress Note ---
Date of Service November 06, 2022 Assessment & Plan (1) Neurogenic claudication due to lumbar spinal stenosis: Plan: This time continue physical therapy discontinue her drain. We will try to arrange for home health and perhaps discharge home tomorrow. Admission and Anticipated Discharge Date Admission Date: November 03, 2022 Subjective Back pain hold still struggling with nausea and vomiting. Physical Exam Physical Exam: Patient in the chair at the bedside good strength testing. Results & Data Vital Signs (Past 12 Hours) Vital Signs Temp Pulse Resp BP Pulse Ox O2 Del Method 11/06/22 07:16 37.1 C 80 20 117/69 96 Room Air Queries Orthopedic Spine Acute Posthemorrhagic Anemia: Yes
[2022-11-06] MEDS: ONDANSETRON INJ 2 MG/ML 2 ML VIAL IV PRN (12:58)
[2022-11-06] MEDS ORDERED: VANCOMYCIN CONSULT ACTIVE PRN (15:11)
[2022-11-06] MEDS ORDERED: VANCOMYCIN HCL 2,000 MG in SODIUM CHLORIDE 0.9% 500 ML IV ONE (15:30)
[2022-11-06] MEDS: SODIUM CHLORIDE 0.9% 1000ML 1,000 ML IV SCH (15:38)
--- NOTE | 2022-11-06 15:44 | XRay Report ---
XR chest 1V portable HISTORY: 72 years-old Female fever acute fever COMPARISON: Chest radiograph 10/20/2022 TECHNIQUE: AP view of the chest FINDINGS: Cardiomediastinal and hilar silhouettes are within normal limits. Atherosclerosis of the aorta. No pn eumothorax, large pleural effusion or overt pulmonary edema. Mild subsegmental left basilar opacities . Bilateral shoulder arthroplasties. Degenerative changes of the spine. IMPRESSION: 1. Cardiomegaly without pulmonary edema. 2. Mild left basilar opacities favor atelectasis. ACT 112: Negative or not required by law. The above report was generated using voice recognition software. It may contain grammatical, syntax o r spelling errors. Electronically signed by: Jair Nicholson M.D. 11/06/2022 3:43 PM
--- NOTE | 2022-11-06 15:57 | XRay Report ---
KUB HISTORY: Acute abdominal pain with nausea nausea COMPARISON: None. FINDINGS: Mild linear scarring versus atelectasis of left lung base. Mild gaseous distention of the l arge bowel. Moderate to extensive fecal retention. No renal calculi. No ureteral calculi. No pneumop eritoneum or pneumatosis. Posterior to bilateral farhad and screw fusion with discectomy at L4-L5. No fr acture. IMPRESSION: 1. Nonobstructive bowel gas pattern. 2. Moderate to extensive fecal retention. ACT 112: Negative or not required by law. The above report was generated using voice recognition software. It may contain grammatical, syntax o r spelling errors. Electronically signed by: Jair Nicholson M.D. 11/06/2022 3:55 PM
--- NOTE | 2022-11-06 15:59 | Pharmacy Report ---
Pharmacy PK ABX Note - Date of Service November 06, 2022 - Assessment and Plan Assessment 72 year old F receiving vancomycin and Rocephin empirically. Patient developed fever today and is s/p neurogenic claudication 11/03. Cultures pending. Day # 1 of antimicrobial therapy. Plan Vancomycin * Loading dose: 2000 mg IV x 1 * Maintenance dose: 1000 mg IV every 12 hours to start 11/07 @0200 * Regimen is predicted to achieve target AUC/EH of 400-600 mg/L.hr * Level to be ordered if therapy continues past 24 hours Pharmacy will continue to follow and will adjust dose/frequency as necessary. Thank you. Pharmacy has transitioned to AUC monitoring for vancomycin. AUC/EH is the preferred PK/PD target and is associated with decreased risk of nephrotoxicity compared to traditional trough targets.
[2022-11-06 18:12] LABS: Appearance Urine Clear (Clear); Bilirubin Urine Negative (Negative); Blood Urine Negative (Negative); Color Urine Yellow; Glucose Urine UA 3+ (Negative); Ketones Urine 1+ (Negative); Leukocyte Esterase Urine Negative (Negative); Nitrite Urine Negative (Negative); Protein Urine Negative (Negative); Specific Gravity Urine 1.023 (1.000-1.030); Urobilinogen Urine Negative (Negative)
[2022-11-06] MEDS: cefTRIAXone SODIUM 2,000 MG in DEXTROSE 5% 50 ML IV SCH (18:28)
[2022-11-06] MEDS: DOCUSATE SODIUM/SENNA 50/8.6MG TAB PO SCH (19:48)
[2022-11-06] MEDS: ALUMINUM/MAGNESIUM SUSP 30 ML UDC PO PRN (20:58)
[2022-11-07] MEDS: POLYETHYLENE (MIRALAX) 17 GM PACK PO SCH ×3 (00:24→12:18)
[2022-11-07] MEDS: SODIUM CHLORIDE 0.9% 1000ML 1,000 ML IV SCH ×2 (05:11→16:43)
[2022-11-07] MEDS: VANCOMYCIN HCL 1,000 MG in SODIUM CHLORIDE 0.9% 250 ML IV SCH ×2 (05:17→17:35)
[2022-11-07 06:17] LABS: Hematocrit (blood only) 29.7 % (37.0-47.0); Hemoglobin 9.6 g/dl (12.0-16.0)
[2022-11-07 06:26] LABS: BUN Creatinine Ratio 16.9 (10-20); Calcium 8.3 mg/dl (8.6-10.3); Creatinine Clr Calc Pharmacy 59.3 ml/min; Est GFR (Non-African American) 63.8 ml/min; Magnesium 1.9 mg/dl (1.7-2.4); Phosphorus 3.5 mg/dl (2.5-4.9); Potassium 4.4 mmol/L (3.5-5.1)
--- NOTE | 2022-11-07 07:45 | Hospitalist Progress Note ---
Date of Service November 07, 2022 Assessment & Plan (1) Neurogenic claudication due to lumbar spinal stenosis: Plan: - Pain management, bowel regimen and DVT ppx per the primary team - PT/OT consults, pt is planning on outpatient therapy - WBC normalized at 10K -encourage IS, out of bed to chair Acute blood loss anemia pre-op Hb 12 -> 10.6 - expected drop in post op setting. Also possibly dilutional Current Hgb 9.6 - no need for blood transfusion at this time , stable from yesterday Fever Spiked fever yesterday, November 06 UA negative Chest x-ray with possible atelectasis, and incentive spirometer encouraged KUB showing moderate to extensive fecal retention - pt had a BM this AM Blood cultures obtained and pending Empiric antibiotic started Currently patient afebrile (2) Diabetes mellitus type 2 in obese: Plan: -management per glycemic pharmacist (3) Hypertension: Plan: - Cont atenolol 25 mg qam (4) Hyperlipidemia: Plan: - Cont rosuvastatin 5 mg qam (5) Lupus: Plan: - Stable, not on any medication for suppression - Pt denies recent flares - reports that after she is out in the sun for a long time she gets extremely tired so avoids doing that. DVT ppx: - Per primary service CODE: Full code (6) Obesity: Admission and Anticipated Discharge Date Admission Date: November 03, 2022 Subjective Patient seen in med consult follow-up, status post lumbar spine surgery Laying in bed, in no acute distress Reports she finally had a bowel movement this morning Yesterday spiked fever in the afternoon No chest pain or shortness of breath Says she has not been walking yet since the surgery Review of Systems Review of Systems: All systems reviewed & are unremarkable except as noted in Subjective Physical Exam Physical Exam: Physical Exam: elderly F, laying in bed, in no acu te distress Respiratory: Breathing comfort ably on room air, no wheezing/rhonch i Cardiovascular:H Regular rate and rhythm, no murmurs /rubs/gallops Gastrointestinal ( Abdomen): soft, nontender, obese, + bowel juan jose nds Musculoskeletal: No edema Neurologic: awake, alert, ans wering questions a ppropriately, move s extremities Results & Data Results & Data Vital Signs (Past 12 Hours) Vital Signs Temp Pulse Resp BP Pulse Ox O2 Del Method 11/07/22 07:15 37.4 C 84 18 121/66 96 Room Air 11/06/22 23:38 37.4 C 77 16 128/78 95 Room Air 11/06/22 21:32 37.3 C 77 18 131/76 94 Room Air Laboratory Results 11/07/22 11/07/22 11/06/22 Range/Units 05:45 05:45 20:55 Hgb 9.6 L (12.0-16.0) g/dl Hct 29.7 L (37.0-47.0) % Sodium 133 L (136-145) mmol/L Potassium 4.4 (3.5-5.1) mmol/L Chloride 102 (98-107) mmol/L Carbon Dioxide 24 (21-32) mmol/L Anion Gap 7 (3-11) BUN 15 (6-23) mg/dl Creatinine 0.89 (0.6-1.2) mg/dl Est Cr Clr Drug Dosing 59.3 ml/min Est GFR ( Amer) 74.0 ml/min Est GFR (Non-Af Amer) 63.8 ml/min BUN/Creatinine Ratio 16.9 (10-20) Glucose 88 (70-99(Fasting)) mg/dl POC Glucose 93 (70-99) mg/dl Calcium 8.3 L (8.6-10.3) mg/dl Phosphorus 3.5 (2.5-4.9) mg/dl Magnesium 1.9 (1.7-2.4) mg/dl Procalcitonin (0-0.5) ng/ml Urine Color Urine Appearance (Clear) Urine pH (4.5-7.5) Ur Specific [place] (1.000-1.030) Urine Protein (Negative) Urine Glucose (UA) (Negative) Urine Ketones (Negative) Urine Blood (Negative) Urine Nitrite (Negative) Urine Bilirubin (Negative) Urine Urobilinogen (Negative) Ur Leukocyte Esterase (Negative) 11/06/22 11/06/22 11/06/22 Range/Units 18:00 16:57 16:55 Hgb (12.0-16.0) g/dl Hct (37.0-47.0) % Sodium (136-145) mmol/L Potassium (3.5-5.1) mmol/L Chloride (98-107) mmol/L Carbon Dioxide (21-32) mmol/L Anion Gap (3-11) BUN (6-23) mg/dl Creatinine (0.6-1.2) mg/dl Est Cr Clr Drug Dosing ml/min Est GFR ( Amer) ml/min Est GFR (Non-Af Amer) ml/min BUN/Creatinine Ratio (10-20) Glucose (70-99(Fasting)) mg/dl POC Glucose 113 H (70-99) mg/dl Calcium (8.6-10.3) mg/dl Phosphorus (2.5-4.9) mg/dl Magnesium (1.7-2.4) mg/dl Procalcitonin 0.06 (0-0.5) ng/ml Urine Color Yellow Urine Appearance Clear (Clear) Urine pH 6.0 (4.5-7.5) Ur Specific [place] 1.023 (1.000-1.030) Urine Protein Negative (Negative) Urine Glucose (UA) 3+ H (Negative) Urine Ketones 1+ H (Negative) Urine Blood Negative (Negative) Urine Nitrite Negative (Negative) Urine Bilirubin Negative (Negative) Urine Urobilinogen Negative (Negative) Ur Leukocyte Esterase Negative (Negative) 11/06/22 11/06/22 Range/Units 12:02 07:58 Hgb (12.0-16.0) g/dl Hct (37.0-47.0) % Sodium (136-145) mmol/L Potassium (3.5-5.1) mmol/L Chloride (98-107) mmol/L Carbon Dioxide (21-32) mmol/L Anion Gap (3-11) BUN (6-23) mg/dl Creatinine (0.6-1.2) mg/dl Est Cr Clr Drug Dosing ml/min Est GFR ( Amer) ml/min Est GFR (Non-Af Amer) ml/min BUN/Creatinine Ratio (10-20) Glucose (70-99(Fasting)) mg/dl POC Glucose 121 H 111 H (70-99) mg/dl Calcium (8.6-10.3) mg/dl Phosphorus (2.5-4.9) mg/dl Magnesium (1.7-2.4) mg/dl Procalcitonin (0-0.5) ng/ml Urine Color Urine Appearance (Clear) Urine pH (4.5-7.5) Ur Specific [place] (1.000-1.030) Urine Protein (Negative) Urine Glucose (UA) (Negative) Urine Ketones (Negative) Urine Blood (Negative) Urine Nitrite (Negative) Urine Bilirubin (Negative) Urine Urobilinogen (Negative) Ur Leukocyte Esterase (Negative) Medications Administered Current Inpatient Medications Acetaminophen (Acetaminophen 500 Mg Tab) 1,000 mg PO Q8H PRN PRN Reason: MILD Pain Scale 1,2,3 & Pre PT Stop: 12/03/22 10:58 Last Admin: 11/06/22 15:09 Dose: 1,000 mg Hydrocodone Bitart/Acetaminophen (Hydrocodone/Acetamophen 5/325mg Tab) 1 tab PO Q4H PRN PRN Reason: Pain Stop: 11/20/22 09:38 Al Hydrox/Mg Hydrox/Simethicone (Aluminum/Magnesium Susp 30 Ml Udc) 30 ml PO Q6H PRN PRN Reason: Dyspepsia Stop: 12/03/22 10:58 Last Admin: 11/06/22 20:58 Dose: 30 ml Atenolol (Atenolol 25 Mg Tablet) 25 mg PO QAM JUAN J Stop: 12/04/22 08:59 Last Admin: 11/06/22 08:51 Dose: 25 mg Bisacodyl (Bisacodyl 10 Mg Supp) 10 mg [place] DAILY PRN PRN Reason: Constipation Stop: 12/03/22 10:58 Last Admin: 11/06/22 18:12 Dose: 10 mg Dextrose (Dextrose 50% 50 Ml Syringe) 25 - 50 ml IV UD PRN; Protocol PRN Reason: Hypoglycemia Protocol Stop: 12/03/22 11:59 Diphenhydramine HCl (Diphenhydramine Capsule 25 Mg Cap) 25 mg PO Q6H PRN PRN Reason: Allergic Rhinitis/Insomnia Stop: 12/03/22 10:58 Empagliflozin (Empagliflozin 25 Mg Tab) 25 mg PO QAM JUAN J Stop: 12/04/22 08:59 Last Admin: 11/06/22 08:51 Dose: 25 mg Famotidine (Famotidine 20 Mg Tab) 20 mg PO Q12H PRN PRN Reason: Dyspepsia Stop: 12/03/22 10:58 Glucagon (Glucagon For Inj 1 Mg Vial) 1 mg IM UD PRN; Protocol PRN Reason: Hypoglycemia Protocol Stop: 12/03/22 11:59 Glucose (Glucose 40% Gel 15 Gm Tube) 15 - 30 gm PO UD PRN; Protocol PRN Reason: Hypoglycemia Protocol Stop: 12/03/22 11:59 Glucose (Glucose 10 Tab/Tube) 4 - 8 tab PO UD PRN; Protocol PRN Reason: Hypoglycemia Protocol Stop: 12/03/22 11:59 Hydromorphone HCl (Hydromorphone Inj 0.5 Mg/0.5 Ml Syr) 0.5 mg IV Q3H PRN PRN Reason: MODERATE Pain (Scale 4,5,6) & Pre PT Stop: 11/17/22 10:58 Last Admin: 11/04/22 08:05 Dose: 0.5 mg Hydromorphone HCl (Hydromorphone Inj 1 Mg/Ml Syringe) 1 mg IV Q3H PRN PRN Reason: SEVERE Pain (Scale 7,8,9,10) Stop: 11/17/22 10:58 Hydroxyzine HCl (Hydroxyzine Hcl 25 Mg Tab) 25 mg PO Q8H PRN PRN Reason: Anxiety Stop: 12/03/22 10:58 Promethazine HCl 12.5 mg/ (Sodium Chloride) 50.5 mls @ 202 mls/hr IV Q6H PRN PRN Reason: Nausea &/or Vomiting Stop: 12/03/22 10:58 Sodium Chloride (Nss 1000ml) 1,000 mls @ 80 mls/hr IV .[id number] [facility] Stop: 12/06/22 15:14 Last Admin: 11/07/22 05:11 Dose: 80 mls/hr Ceftriaxone Sodium 2,000 mg/ (Dextrose) 70 mls @ 100 mls/hr IV Q24H [facility]; Protocol Stop: 11/08/22 15:29 Last Infusion: 11/06/22 19:40 Dose: Infused Vancomycin HCl 1,000 mg/ (Sodium Chloride) 270 mls @ 200 mls/hr IV Q12H [facility]; Protocol Stop: 11/09/22 01:59 Last Infusion: 11/07/22 07:04 Dose: Infused Influenza Virus Vaccine Quadrival (Do Not Administer Flu Vaccine) 1 each N/A PRN PRN PRN Reason: Notification Stop: 12/03/22 10:58 Insulin Aspart (Insulin Aspart Per Unit Charge) 0 units SC ACHS JUAN J Stop: 12/03/22 11:59 Last Admin: 11/06/22 20:58 Dose: Not Given Loratadine (Loratadine 10 Mg Tab) 10 mg PO QAM PRN PRN Reason: Allergy Symptoms Stop: 12/03/22 10:58 Lorazepam (Lorazepam 0.5 Mg Tab) 0.5 mg PO Q8H PRN PRN Reason: Sedation/Anxiety Stop: 12/03/22 10:58 Lorazepam (Lorazepam 2 Mg/1 Ml Vial) 0.5 mg IV Q8H PRN PRN Reason: Sedation/Anxiety Stop: 12/03/22 10:58 Magnesium Hydroxide (Magnesium Hydroxide Susp 30 Ml Udc) 30 ml PO Q24H PRN PRN Reason: Constipation Stop: 12/03/22 10:58 Metoclopramide HCl (Metoclopramide Hcl Inj 5 Mg/Ml 2 Ml Vial) 10 mg IV Q6H PRN PRN Reason: Nausea &/or Vomiting Stop: 12/03/22 10:58 Last Admin: 11/04/22 22:52 Dose: 10 mg Miscellaneous (Carbohydrates For Hypoglycemia ) 15 - 30 gm PO UD PRN PRN Reason: Hypoglycemia Treatment Stop: 12/03/22 11:59 Miscellaneous Information (Pharmacy Glycemic Mgmt Consult) 1 each N/A UD PRN PRN Reason: Consult Stop: 12/03/22 10:58 Miscellaneous Information (Vancomycin Consult Active) 1 each N/A UD PRN PRN Reason: Consult Stop: 12/06/22 15:10 Multivitamins (Multivitamin Tab) 1 tab PO QAM JUAN J Stop: 12/04/22 08:59 Last Admin: 11/06/22 08:55 Dose: Not Given Naloxone HCl (Naloxone Hcl 0.4 Mg/1 Ml Vial/Carp) 0.1 mg IV Q5M PRN PRN Reason: Oversedation/Resp depression Stop: 12/03/22 10:58 Ondansetron HCl (Ondansetron Inj 2 Mg/Ml 2 Ml Vial) 4 mg IV Q6H PRN PRN Reason: Nausea &/or Vomiting Stop: 12/03/22 10:58 Last Admin: 11/06/22 12:58 Dose: 4 mg Ondansetron HCl (Ondansetron 4 Mg Od Tab) 4 mg PO Q6H PRN PRN Reason: Nausea Stop: 12/03/22 10:58 Last Admin: 11/06/22 08:57 Dose: 4 mg Pantoprazole Sodium (Pantoprazole 40 Mg Tab) [facility] [place] [place] Stop: 12/04/22 08:59 Last Admin: 11/06/22 08:51 Dose: 40 mg Pneumococcal Polyvalent Vaccine (Do Not Administer Pneumococcal Vaccine) 1 each N/A PRN PRN PRN Reason: Notification Stop: 12/03/22 10:58 Polyethylene Glycol (Polyethylene (Miralax) 17 Gm Pack) 17 gm PO Q6 [facility] Stop: 12/04/22 05:59 Last Admin: 11/07/22 05:19 Dose: 17 gm Rosuvastatin Calcium (Rosuvastatin Calcium 5 Mg Tab) [facility] [place]: 12/04/22 08:59 Last Admin: 11/06/22 08:52 Dose: 5 mg Senna/Docusate Sodium (Docusate Sodium/Senna 50/8.6mg Tab) 2 tab PO HS [facility] Stop: 12/03/22 20:59 Last Admin: 11/06/22 19:48 Dose: 2 tab Sodium Biphosphate/Sodium Phosphate (Sod Phosphate/Sod Biphosphate Enema 132 Ml Btl) 132 ml MI ONE PRN PRN Reason: Constipation Stop: 12/03/22 10:58 Vitamin D (Cholecalciferol 1,000 Units 25 Mcg Tab) 2,000 units PO [facility] Stop: 12/04/22 08:59 Last Admin: 11/06/22 08:52 Dose: 2,000 units
[2022-11-07] MEDS: HYDROCODONE/ACETAMOPHEN 5/325MG TAB PO PRN ×3 (08:14→19:32)
[2022-11-07] MEDS: CHOLECALCIFEROL 1,000 UNITS 25 MCG TAB PO SCH (08:15)
[2022-11-07] MEDS: ATENOLOL 25 MG TABLET PO SCH (08:15)
[2022-11-07] MEDS: EMPAGLIFLOZIN 25 MG TAB PO SCH (08:16)
[2022-11-07] MEDS: ROSUVASTATIN CALCIUM 5 MG TAB PO SCH (08:16)
[2022-11-07] MEDS: PANTOprazole 40 MG TAB PO SCH (08:16)
[2022-11-07] MEDS: MULTIVITAMIN TAB PO SCH (08:17)
[2022-11-07] MEDS: INSULIN ASPART PER UNIT CHARGE SC SCH ×4 (08:19→20:42)
--- NOTE | 2022-11-07 09:19 | Pharmacy Report ---
Pharmacy Glycemic Sign Off Nt - Date of Service November 07, 2022 - Assessment & Plan ASSESSMENT: * Pharmacy was consulted by Dr Armando on 11/05 for glycemic control and to write orders per formerly [facility] inpatient glycemic control protocol. * Major changes made by pharmacy to antidiabetic regimen include: * Novolog ACHS- carb coverage held * Patient has been receiving/requiring minimal insulin and BSGs within goal range * Do not anticipate further changes in patient status that would quickly deteriorate glycemic control (i.e. patient to be NPO for upcoming procedure, steroids tapering, starting tube feedings, etc). PLAN FOR INPATIENT GLYCEMIC CONTROL: No changes needed to current regimen. * Continue NovoLog per scale ACHS/Q6hrs while NPO * Goal range = 110- 140 mg/dl * CF = 30 mg/dl/unit * CR - none * Pharmacy is signing off of glycemic consult and will no longer be making adjustments to inpatient regimen. Please feel free to re-consult if needed. Thank you.
--- NOTE | 2022-11-07 11:30 | Orthopedic Progress Note ---
Date of Service November 07, 2022 Assessment & Plan (1) Neurogenic claudication due to lumbar spinal stenosis: Plan: At this time encouraged the patient to walk at least twice between each meal. We will continue with her bowel regiment. She is tolerating the hydrocodone. Hopefully we can discharge in the next day or so. Admission and Anticipated Discharge Date Admission Date: November 03, 2022 Subjective Back pain controlled. She is ambulating better. Nausea is improved. She had a bowel movement. Physical Exam Physical Exam: Patient is currently in bed. She does appear comfortable. Good strength testing. Results & Data Vital Signs (Past 12 Hours) Vital Signs Temp Pulse Resp BP Pulse Ox O2 Del Method 11/07/22 07:15 37.4 C 84 18 121/66 96 Room Air 11/06/22 23:38 37.4 C 77 16 128/78 95 Room Air Queries Orthopedic Spine Acute Posthemorrhagic Anemia: Yes
[2022-11-07] MEDS: cefTRIAXone SODIUM 2,000 MG in DEXTROSE 5% 50 ML IV SCH (16:42)
[2022-11-07] MEDS: DOCUSATE SODIUM/SENNA 50/8.6MG TAB PO SCH (19:32)
[2022-11-07] MEDS: ALUMINUM/MAGNESIUM SUSP 30 ML UDC PO PRN (19:54)
[2022-11-08] MEDS: VANCOMYCIN HCL 1,000 MG in SODIUM CHLORIDE 0.9% 250 ML IV SCH (03:35)
[2022-11-08] MEDS: SODIUM CHLORIDE 0.9% 1000ML 1,000 ML IV SCH (05:22)
[2022-11-08] MEDS: HYDROCODONE/ACETAMOPHEN 5/325MG TAB PO PRN ×2 (06:19→11:48)
[2022-11-08 07:53] LABS: Hematocrit (blood only) 26.5 % (37.0-47.0); Hemoglobin 8.8 g/dl (12.0-16.0); Mean Corpuscular Hemoglobin 33.5 pg (25.0-34.0); Mean Corpuscular Hgb Conc 33.2 g/dL (32.0-36.0); Mean Corpuscular Volume 100.8 fL (80.0-100.0); Mean Platelet Volume 14.1 fL (9.4-12.4); Platelet Count 138 K/uL (130-400); RDW Coefficient of Variation 15.4 % (11.5-14.5); RDW Standard Deviation 57.1 fL (36.4-46.3); Red Blood Count 2.63 M/uL (4.20-5.40); White Blood Count 8.43 K/ul (4.8-10.8)
[2022-11-08 08:13] LABS: Calcium 8.3 mg/dl (8.6-10.3); Magnesium 1.9 mg/dl (1.7-2.4); Potassium 4.1 mmol/L (3.5-5.1)
[2022-11-08 08:19] LABS: BUN Creatinine Ratio 17.7 (10-20); Creatinine Clr Calc Pharmacy 66.8 ml/min; Est GFR (African American) 85.5 ml/min; Est GFR (Non-African American) 73.7 ml/min; Phosphorus 3.1 mg/dl (2.5-4.9)
[2022-11-08] MEDS: MULTIVITAMIN TAB PO SCH ×2 (08:38→08:42)
[2022-11-08] MEDS: ROSUVASTATIN CALCIUM 5 MG TAB PO SCH (08:38)
[2022-11-08] MEDS: ATENOLOL 25 MG TABLET PO SCH (08:38)
[2022-11-08] MEDS: CHOLECALCIFEROL 1,000 UNITS 25 MCG TAB PO SCH (08:38)
[2022-11-08] MEDS: PANTOprazole 40 MG TAB PO SCH (08:38)
[2022-11-08] MEDS: EMPAGLIFLOZIN 25 MG TAB PO SCH (08:38)
[2022-11-08] MEDS: INSULIN ASPART PER UNIT CHARGE SC SCH ×2 (08:40→12:00)
--- NOTE | 2022-11-08 09:51 | Discharge Summary ---
Date of Service November 08, 2022 Admission HPI Per Admitting Provider This 72-year-old female presents for persistent back and leg pain after failing course of nonoperative care she is here for surgical intervention. Principal Diagnosis Lumbar spinal stenosis with neurogenic claudication Discharge Data Allergies Allergy/AdvReac Type Severity Reaction Status Date / Time Sulfa (Sulfonamide Allergy Severe Anaphylaxis Verified 11/03/22 06:04 Antibiotics) erythromycin base Allergy Intermediate Hives Verified 11/03/22 06:04 latex Allergy Intermediate Blisters Verified 11/03/22 06:04 sucralfate Allergy Intermediate Hives Verified 11/03/22 06:04 adhesive Allergy Mild Contact Verified 11/03/22 06:04 dermatitis; skin blistering pineapple Allergy Unknown Throat Verified 11/03/22 06:04 swelling azithromycin AdvReac Severe Abdominal Verified 11/03/22 06:04 Pain, SOB meloxicam AdvReac Intermediate GI upset Verified 11/03/22 06:04 tramadol AdvReac Intermediate Headaches Verified 11/03/22 06:04 cantaloupe AdvReac Unknown Verified 11/07/22 16:08 codeine AdvReac Unknown Vomiting Verified 11/03/22 06:04 ibuprofen AdvReac Unknown GI upset Verified 11/03/22 06:04 morphine AdvReac Unknown Vomiting Verified 11/03/22 06:04 Consultations 11/03/22 10:59 Consult Hospitalist Routine Procedures Performed Operation Date: 11/03/22 07:45 Actual Procedures p L4-L5 Decompression and Fusion, Interbody Fusion L4-L5, Spinal Cord Monitoring - Flash Armando DO Ordered Studies 11/03/22 07:45 FL lumbar spine 2-3V Routine Hospital Course (1) Neurogenic claudication due to lumbar spinal stenosis: Patient underwent multilevel lumbar decompression fusion tolerated as well as taken to orthopedic for postop labor postop day 1 she was up and ambulating progressed throughout the week slowly but steady. FRANCESCO drain decreased probably. Pain well controlled. Excellent strength testing. Subsequent discharge home. Discharge orders instructions found in chart for further review. Total Time Total Time Spent Total Time Spent (In Minutes): 20 minutes Discharge Plan Discharge Items Patient Disposition: Home - Self-Care Reason For Visit: Lumbar Region Spinal Stenosis with Neurogenic Tyra Discharge Diagnosis: Lumbar spinal stenosis with neurogenic claudication Activity: As commented below Non-emergency contact: Primary Care Provider Call non-emergency contact if: you have any medication questions Follow-up/Referrals: Allan Aragon MD [Primary Care Provider] - Diet: Regular Addtl Attending Provider Instructions: ACTIVITY RECOMMENDATIONS: SELF CARE INSTRUCTIONS AFTER THORACIC/LUMBAR FUSIONS 1. You may walk to your tolerance. It is good exercise for your legs and back. Expect some back and intermittent leg aches and pains. 2. You may perform "counter-top" level activities (make a sandwich, ja with a project, etc.). 3. No bending or lifting of more than 10 pounds or back twisting of any nature (roll like a log when turning in bed). 4. You may ride in a car for 20-30 minutes at a time. No driving until after your first visit with your doctor. 5. Frequent changes of position and restricting sitting to 30 minutes at a time will help limit the amount of back spasms and stiffness you may experience. 6. You may discontinue the use of ambulatory aids (cane, crutches, etc.) once your strength and confidence allow. 7. You may bellstand attendant the shower and let water strike your incision when you arrive home at least once daily. Do not take a tub bath, sit in a hot tub or go into a swimming pool until after your first recheck in the office. SPECIAL CARE INSTRUCTIONS: VERY IMPORTANT TO READ AND REVIEW A. Your surgical incision has been closed with a cosmetic suture under the skin that will dissolve in about 6 weeks. In 14 days, you can use a pair of clean scissors and cut the suture that is left outside of the skin at the ends of your incision. 1. The small skin tapes can be removed 7 days after surgery if they have not fallen off by that point. 2. You may keep the wound open to air as much as possible to promote healing after post-op day number 5 unless told otherwise by your doctor. 3. If you think the wound looks like it is becoming infected (redness or worsening drainage) and/or you are experiencing fever, chill or worsening back pain and muscle spasms, contact the office so that we may evaluate you as soon as possible. B. Complications are uncommon, but please contact us if you have any signs or symptoms of: 1. wound infection (fever higher than 102.5 degrees F, redness, separation of wound, drainage, or increasing pain from the incision) 2. blood clots in legs (pain, swelling, redness and warmth in legs) 3. urinary tract infection (fever higher than 102.5 degrees F, burning upon urination or increased frequency of urination) 4. nerve problems (inability to walk on your toes or heels, numbness, loss of bowel or bladder control) 5. any other symptoms that concern you C. Please call the office at if you have any concerns or questions about your operation or recovery. D. No smoking! Smoking drastically decreases the chance of a solid fusion. E. Do not take any anti-inflammatory medications (Indocin, Advil, Motrin, Aspirin, Naprosyn, etc.) as these may inhibit the chance of a solid fusion. Tylenol is okay to take for pain. MANAGING PAIN AFTER SPINAL SURGERY 1. Narcotic medication is intended for short-term use and will be provided for surgical pain. Surgical pain usually lasts for a period of 4-6 weeks. Narcotic medication includes Percocet, Vicodin, Darvocet, Tylenol #3 or Lortab. 2. Longer-term pain is more appropriately treated with non-narcotic medication such as Tylenol ES. 3. Muscle spasm is not appropriately treated with narcotics. Muscle relaxers such as Soma, Flexeril or Skelaxin can be used along with Tylenol ES. 4. Remember that we all live with some "aches and pains". This is not unusual or uncommon after an injury or as we get older. a. Back pain is expected and may include muscle spasms for 4 to 6 weeks after surgery. The pain should gradually improve. If the pain worsens for no apparent reason, please contact the office. b. Intermittent leg pain may also be experienced and should not be concerned about unless it worsens for no apparent reason. If so, please contact the office. 5. We will provide appropriate medication within the normal guidelines of their prescribed use. We will also be very cautious and aware of potential abuse and extended duration of patients' medication needs. a. Pain medications are for your comfort and to assist with sleep and rest so that the tissue can heal. They are not provided in order to return to normal activity and should not be used through the day. To do so or worsening pain at night can result from ongoing tissue damage and development of tolerance to the prescribed medicine. 6. Please allow 2-3 days to process refills. Prescriptions will not be mailed but must be picked up at the office. FOLLOW UP VISIT: Keep your scheduled follow-up appointment. Any questions, please call the office at . Pending Studies at Discharge: No Stand-Alone Forms: My [facility], Smoking Cessation Medications and DC Order Prescriptions: New hydrocodone-acetaminophen 5-325 mg tablet 1 tab PO Q6H PRN (Reason: pain) Qty: 30 0RF Continued multivitamin [Multiple Vitamins] Tablet 1 tab PO QAM atenolol 25 mg Tablet 25 mg PO QAM omeprazole 40 mg Capsule,Delayed Release(Dr/Ec) 40 mg PO QAM [place] Heartburn 1,940-1,000 mg Tablet, Effervescent 1 tab PO UD PRN (Reason: Heartburn) insulin glargine [Lantus U-100 Insulin] 100 unit/mL Solution 30 unit SUBCUT QAM Rx Instructions: TAKES IF BSG GREATER THAN 120 IN THE AM loratadine [Claritin] 10 mg Tablet 10 mg PO QAM PRN (Reason: Allergy Symptoms) cholecalciferol (vitamin D3) [Vitamin D3] 50 mcg (2,000 unit) Capsule 50 mcg PO QAM Jardiance 25 mg Tablet 25 mg PO QAM rosuvastatin 5 mg Tablet 5 mg PO QAM Mara Back and Body 500-32.5 mg Tablet 1 tab PO QID Discharge Orders: Discharge Order (Routine); Ordered 11/08/22 Ordered By: Flash Armando Admission Data Admit Date/Time: 11/03/22 09:20 Attending Provider: Flash Armando Admit Provider: Flash Armando Primary Care Provider: Allan Aragon Other Providers: Karyn Montes ; Doug Escoto
--- NOTE | 2022-11-08 21:29 | Hospitalist Progress Note ---
Date of Service November 08, 2022 Assessment & Plan (1) Neurogenic claudication due to lumbar spinal stenosis: Plan: Status post lumbar spinal surgery per orthopedics. Further management per orthopedics. Acute blood loss anemia: Hemoglobin drop noted postop- not unexpected post op, 8.8 on day of discharge. No need for transfusion. Asymptomatic. Fever: unclear cause.Work up negative so far except for possible atelectasis vs PNA on left lower lung. She received empiric antibiotic and now afebrile. Will continue augmentin for 3 more days at discharge given possible PNA. (2) Diabetes mellitus type 2 in obese: Plan: Continue home medication (3) Hypertension: Plan: Continue home atenolol (4) Hyperlipidemia: Plan: - Cont rosuvastatin (5) Lupus: Plan: - Stable, not on any medication for suppression - Pt denies recent flares - reports that after she is out in the sun for a long time she gets extremely tired so avoids doing that. (6) Obesity: Plan: BMI 37.9 recommend weight loss. Follow-up with PCP Plan Patient is being discharged per primary team Admission and Anticipated Discharge Date Admission Date: November 03, 2022 Subjective Patient was seen and examined at bedside. She was already dressed and ready to go home as discharge orders are already in place by orthopedics. Her pain is controlled. She denies any more fever or chills. No chest pain or shortness of breath. No nausea or vomiting. Review of Systems Review of Systems: All systems reviewed & are unremarkable except as noted in Subjective Physical Exam Physical Exam: General: Sitting comfortably at bedside, not in distress, on room air HEENT: EOMI, KELSEA, MMM Chest: Clear breath sounds bilaterally, no wheezes or crackles CVS: Regular rate and rhythm, normal heart sounds, no murmur Abdomen: Soft, non tender, not distended, normal bowel sounds Neuro: Awake, alert, oriented, conversing well, non focal Extremities: No cyanosis, clubbing or edema Incision clean dry intact Results & Data Results & Data Laboratory Results Short CBC 11/08/22 Range/Units 06:47 WBC 8.43 (4.8-10.8) K/ul Hgb 8.8 L (12.0-16.0) g/dl Hct 26.5 L (37.0-47.0) % Plt Count 138 (130-400) K/uL BMP 11/08/22 06:47 Sodium 135 L Potassium 4.1 Chloride 104 Carbon Dioxide 24 BUN 14 Creatinine 0.79 Glucose 87 Calcium 8.3 L
== END 2022-11-08 13:14 | disposition home health service (06) | DRG 454 ==
LOC: ASU 05:30 → 3E 09:20

== ENCOUNTER 2023-09-17 07:27 | Inpatient (IN) ==
--- NOTE | 2023-09-07 10:14 | Anesthesiology Consultation ---
Date of Service September 07, 2023 Assessment & Plan Chart Review Chart Review: Acceptable Risk for Surgery Consults Requested none History Surgery Operation Date: 07/31/23 07:45 Proposed Procedures p L3-L4 and L5-S1 Decompression, L3-S1 Fusion, L4-L5 Hardware Removal, Spinal Cord Monitoring - Flash Armando DO Operation Date: 09/17/23 07:45 Proposed Procedures p L3-L4 and L5-S1 Decompression and Fusion, Hardware Removal L4-L5, with Spinal Cord Monitoring - Flash Armando DO Height/Weight Height: 5 ft 2 in Weight: 90.265 kg Allergies Allergy/AdvReac Type Severity Reaction Status Date / Time Sulfa (Sulfonamide Allergy Severe Anaphylaxis Verified 09/05/23 09:12 Antibiotics) erythromycin base Allergy Intermediate Hives Verified 09/05/23 09:12 latex Allergy Intermediate Blisters Verified 09/05/23 09:12 sucralfate Allergy Intermediate Hives Verified 09/05/23 09:12 adhesive Allergy Mild Contact Verified 09/05/23 09:12 dermatitis; skin blistering pineapple Allergy Unknown Throat Verified 09/05/23 09:12 swelling azithromycin AdvReac Severe Abdominal Verified 09/05/23 09:12 Pain, SOB meloxicam AdvReac Intermediate GI upset Verified 09/05/23 09:12 tramadol AdvReac Intermediate Headaches Verified 09/05/23 09:12 cantaloupe AdvReac Unknown Verified 09/05/23 09:12 codeine AdvReac Unknown Vomiting Verified 09/05/23 09:12 ibuprofen AdvReac Unknown GI upset Verified 09/05/23 09:12 morphine AdvReac Unknown Vomiting Verified 09/05/23 09:12 Medications Home Medications Medication Instructions Recorded Confirmed Last Taken atenolol 25 mg tablet 25 mg PO QAM 02/18/18 09/05/23 11/03/22 03:30 insulin glargine 100 unit/mL 30 unit subcut QAM 02/18/18 09/05/23 10/30/22 subcutaneous solution (Lantus U-100 Insulin) multivitamin (Multiple Vitamins 1 tab PO QAM 02/18/18 09/05/23 10/27/22 tablet) omeprazole 40 mg capsule,delayed 40 mg PO QAM 02/18/18 09/05/23 11/03/22 03:30 release sodium bicarbonate-citric acid 1 tab PO UD PRN Heartburn 02/18/18 09/05/23 08/23/22 1,940 mg-1,000 mg effervescent tablet ([place] Heartburn) loratadine 10 mg tablet (Claritin) 10 mg PO QAM PRN Allergy Symptoms 01/23/19 09/05/23 10/31/22 empagliflozin 25 mg tablet 25 mg PO QAM 05/04/20 09/05/23 09/27/21 05:30 (Jardiance) aspirin-caffeine 500 mg-32.5 mg 1 tab PO QID 10/12/22 09/05/23 10/24/22 tablet (Mara Back and Body) rosuvastatin 5 mg tablet 5 mg PO QAM 10/12/22 09/05/23 Unknown pantoprazole 40 mg tablet,delayed 40 mg PO QAM 07/11/23 09/05/23 Unknown release (Protonix) calcium carbonate 200 mg calcium 200 mg PO UD PRN gerd 09/05/23 09/05/23 Unknown (500 mg) chewable tablet (Tums) cholecalciferol (vitamin D3) 125 125 mcg PO BID 09/05/23 09/05/23 Unknown mcg (5,000 unit) tablet (Vitamin D3) Past Medical History Medical History Hyperlipidemia 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 ear Lupus History of blood transfusion (40+ years ago) Hiatal hernia Migraine hx Obesity Diabetes mellitus, type 2 IDDM GERD (gastroesophageal reflux disease) controlled, stable per pt Hx of seasonal allergies Hypertension controlled, stable per pt Past Family History Family History Brother Family hx of colon cancer Family history of diabetes mellitus Past Surgical History Surgical History History of lumbar fusion S/P hardware removal Right upper leg removal of hardware (05/21/20): LMA#4 + PNB at [facility] History of esophagogastroduodenoscopy (EGD) Hx of hand surgery right History of breast biopsy benign History of dilatation and curettage History of tooth extraction History of tonsillectomy History of endoscopic sinus surgery Hx of foot surgery bunion + other foot procedures Hx of colonoscopy Hx of arthroplasty R/L shoulder Hx of total knee arthroplasty R/L Hx of appendectomy Hx of hysterectomy Hx of fracture of femur right s/p surgery (+ hardware), Right Knee Debridement Nonunion Distal Femur with Allograft: 02/14/19: LMA#4 + PNB at [facility] Social History Smoking Status: Never smoker Do You Dip or Chew Tobacco: No Hx Alcohol Use: Yes Alcohol type: wine alcohol intake frequency: holidays/special occasions only Hx Substance Use: No substance use type: does not use
[2023-09-17] MEDS: GABAPENTIN 300 MG CAP PO SCH (08:36)
[2023-09-17 08:43] LABS: Partial Thromboplastin Time 29 Seconds (21-31)
[2023-09-17] MEDS ORDERED: ePHEDrine sulfate 50 MG/ML AMP IV PRN (08:45)
[2023-09-17] MEDS ORDERED: HYDROmorphone INJ 1 MG/ML SYRINGE IV PRN ×2 (08:45→14:49)
[2023-09-17] MEDS ORDERED: ONDANSETRON INJ 2 MG/ML 2 ML VIAL IV PRN (08:45)
[2023-09-17] MEDS ORDERED: ATROPINE SULFATE 0.1 MG/ML 10ML SYR IV PRN (08:45)
[2023-09-17] MEDS: LR 60ML/HR IV SCH (08:52)
[2023-09-17] MEDS: LR 15ML/HR IV SCH (08:52)
--- NOTE | 2023-09-17 09:30 | History & Physical Bridge Note ---
Date of Service September 17, 2023 History & Physical Bridge Note I have examined the patient, reviewed the History & Physical and in the interval since the performance of the History & Physical I have noted the following changes of clinical significance: no changes noted
--- NOTE | 2023-09-17 09:31 | History & Physical Report ---
Date of Service September 17, 2023 Assessment & Plan (1) Neurogenic claudication due to lumbar spinal stenosis: Plan: L3-L4 L5-S1 decompression and fusion, hardware removal L4-L5. History of Present Illness Chief Complaint: Back and bilateral leg pain Primary Care Provider: Allan Aragon MD This is a 73-year-old female known to me presents with chronic persistent back and leg pain after an extensive course of nonoperative care is here for surgical invention. Allergies Allergy/AdvReac Type Severity Reaction Status Date / Time Sulfa (Sulfonamide Allergy Severe Anaphylaxis Verified 09/17/23 08:24 Antibiotics) erythromycin base Allergy Intermediate Hives Verified 09/17/23 08:24 latex Allergy Intermediate Blisters Verified 09/17/23 08:24 sucralfate Allergy Intermediate Hives Verified 09/17/23 08:24 adhesive Allergy Mild Contact Verified 09/17/23 08:24 dermatitis; skin blistering pineapple Allergy Unknown Throat Verified 09/17/23 08:24 swelling azithromycin AdvReac Severe Abdominal Verified 09/17/23 08:24 Pain, SOB meloxicam AdvReac Intermediate GI upset Verified 09/17/23 08:24 tramadol AdvReac Intermediate Headaches Verified 09/17/23 08:24 cantaloupe AdvReac Unknown Nausea Verified 09/17/23 08:24 codeine AdvReac Unknown Vomiting Verified 09/17/23 08:24 ibuprofen AdvReac Unknown GI upset Verified 09/17/23 08:24 morphine AdvReac Unknown Vomiting Verified 09/17/23 08:24 Home Medications Medication Instructions Recorded Confirmed Type atenolol 25 mg tablet 25 mg PO QAM 02/18/18 09/17/23 History insulin glargine 100 unit/mL 30 unit subcut QAM 02/18/18 09/17/23 History subcutaneous solution (Lantus U-100 Insulin) multivitamin (Multiple Vitamins 1 tab PO QAM 02/18/18 09/17/23 History tablet) omeprazole 40 mg capsule,delayed 40 mg PO QAM 02/18/18 09/17/23 History release sodium bicarbonate-citric acid 1 tab PO UD PRN Heartburn 02/18/18 09/17/23 History 1,940 mg-1,000 mg effervescent tablet ([place] Heartburn) loratadine 10 mg tablet (Claritin) 10 mg PO QAM PRN Allergy Symptoms 01/23/19 09/17/23 History empagliflozin 25 mg tablet 25 mg PO QAM 05/04/20 09/17/23 History (Jardiance) aspirin-caffeine 500 mg-32.5 mg 1 tab PO QID 10/12/22 09/17/23 History tablet (Mara Back and Body) rosuvastatin 5 mg tablet 5 mg PO QAM 10/12/22 09/17/23 History pantoprazole 40 mg tablet,delayed 40 mg PO QAM 07/11/23 09/17/23 History release (Protonix) calcium carbonate (Tums) 200 mg PO UD PRN gerd 09/05/23 09/17/23 History cholecalciferol (vitamin D3) 125 125 mcg PO BID 09/05/23 09/17/23 History mcg (5,000 unit) tablet (Vitamin D3) Past Med/Surg History Medical History Hyperlipidemia 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 ear Lupus History of blood transfusion (40+ years ago) Hiatal hernia Migraine hx Obesity Diabetes mellitus, type 2 IDDM GERD (gastroesophageal reflux disease) controlled, stable per pt Hx of seasonal allergies Hypertension controlled, stable per pt Surgical History History of lumbar fusion S/P hardware removal Right upper leg removal of hardware (05/21/20): LMA#4 + PNB at [facility] History of esophagogastroduodenoscopy (EGD) Hx of hand surgery right History of breast biopsy benign History of dilatation and curettage History of tooth extraction History of tonsillectomy History of endoscopic sinus surgery Hx of foot surgery bunion + other foot procedures Hx of colonoscopy Hx of arthroplasty R/L shoulder Hx of total knee arthroplasty R/L Hx of appendectomy Hx of hysterectomy Hx of fracture of femur right s/p surgery (+ hardware), Right Knee Debridement Nonunion Distal Femur with Allograft: 02/14/19: LMA#4 + PNB at [facility] Family History Brother Family hx of colon cancer Family history of diabetes mellitus Social History Smoking Status: Never smoker Second Hand Exposure: No; Do You Dip or Chew Tobacco: No; Tobacco Cessation Education Requested by Patient: No Hx Alcohol Use: Yes Alcohol type: wine Hx Substance Use: No Preferred Language: Uzbek Communication Ability: Effective Doll Surgeon Required: No Beliefs That Will Affect Care: None Current Living Situation: Spouse Current Living Situation Comment: , SON AND GRANDCHILDREN Other Information That Helps Us Care for You: No Feels Safe at Home: Yes Safety Concerns: Feels Safe At This Time Assistive Devices: Denture - Upper, Denture - Lower and Glasses Physical Exam Physical Exam: Patient is alert and oriented Heart regular in rhythm Lungs clear Results & Data Results & Data Vital Signs (Past 12 Hours) Vital Signs Temp Pulse Resp BP Pulse Ox O2 Del Method 09/17/23 08:12 36.6 C 60 20 143/72 H 98 Room Air
[2023-09-17] MEDS ORDERED: ACETAMINOPHEN 1000 MG/100 ML IV IV ONE (09:43)
[2023-09-17] MEDS ORDERED: fentaNYL citrate PF 100 MCG/2 ML VIAL ONE (09:43)
[2023-09-17] MEDS ORDERED: SUGAMMADEX SODIUM 200 MG/2 ML VIAL IV ONE (09:43)
[2023-09-17] MEDS: SCOPOLAMINE 1 MG/72 HR TDSY PATCH TD ONE (09:51)
[2023-09-17] MEDS: ceFAZolin 2000MG 2,000 MG/15 ML SYR IV SCH ×2 (09:54→19:05)
[2023-09-17] MEDS ORDERED: LIDOCAINE 2% 2 ML VIAL/AMP(20MG/ML) INFIL ONE (09:57)
[2023-09-17] MEDS ORDERED: PROPOFOL IV EMULSION 10 MG/ML 20 ML VIAL IV ONE (09:57)
[2023-09-17] MEDS ORDERED: ROCURONIUM BROMIDE 10 MG/ML 5 ML VIAL IV ONE (10:18)
[2023-09-17] MEDS ORDERED: ONDANSETRON INJ 2 MG/ML 2 ML VIAL ONE (10:21)
[2023-09-17] MEDS: BUPIVACAINE/EPINEPHRINE 0.5% MPF 1:200,000 30 ML VIAL ONE (10:36)
[2023-09-17] MEDS: ceFAZolin 330 MG/ML 1 GM VIAL ONE (10:37)
[2023-09-17] MEDS: FLOSEAL HEMOSTATIC MATRIX 10ML TOP ONE (11:58)
[2023-09-17] MEDS: SURGICEL ABSORB HEMOSTAT 2IN X 14IN TOP ONE (11:58)
--- NOTE | 2023-09-17 12:12 | Operative Report ---
Post Operative Report Pre & Post Diagnosis Operation Date: 09/17/23 09:35 Pre-Op Diagnosis: (1) Neurogenic claudication due to lumbar spinal stenosis Spondylolisthesis L5-S1 Obesity Post-Op Diagnosis: Same I identified the patient and participated in the time-out.: Yes Procedure Operation Date: 09/17/23 09:35 Actual Procedures #1 removal of posterior instrumentation L4-L5 per #2 exploration of fusion L4- L5. #3 lumbar decompression bilaterally facetectomies and foraminotomies L3-L4 L5-S1.. #4 posterior spinal fusion L3-L4 L5-S1. #5 there is a posterior instrumentation L3-S1. #6 interbody fusion L3-L4 L5-S1. #7 placement of Spira 12 x 26 mm at L3-L4 and 11 x 26 mm x 2 at L5-S1. #8 placement locally harvested morselized autograft and posterior gutters. 9 placement infuse collagen sponge, with Koros bone graft in the posterior lateral gutters and Morpheus interbody space. Surgeon Flash Armando, DO Marine Fitter Latha Valverde Estimated Blood Loss 550 Findings See Below The patient is 5 foot 2 weighing 91 kg with a BMI in excess of 36. Patient's body habitus did contribute to significant technical difficulty with positioning exposure and the procedure itself adding at least 50% increased operative time. Specimens None Indications This is a 73-year-old female known to me the presents above-mentioned diagnosis of failed course of nonoperative care is here for surgical invention. Description of Procedure Patient was met with identified informed consent obtained. Patient was then taken to the operative suite underwent patient placed in a prone position the Mandeep table top of the Babatunde frame. All bony prominences well-padded eyes i nspected to ensure no external pressure placed upon the. This point the lumbar spine was prepped and draped in normal sterile fashion. Sharp dissection with the assistance of Bovie cautery was performed down to and exposing the lamina and transverse processes of L3 and instrumentation at L4-5 and the lamina and sacral ala of L5-S1. I then proceeded to move the hardware at L4-L5 bilaterally explored the fusion mass noting it to be maturing but not intact. And then performed a complete laminectomy of L5 including bilateral medial facetectomies and foraminotomies addressing all spinal stenosis this was followed by complete laminectomy of L3 with bilateral medial facetectomies and foraminotomies addressing all stenosis. Pedicle screws were then placed in L3-L4-L5 and S1 levels bilaterally with assistance of fluoroscopy and appropriate farhad placed. By way of transforaminal approach on the left discectomy of L5-S1 was performed endplates guarded to subcortical and bone and 11 x 26 mm Spira cage filled with Morpheus tapped in position. Then proceeded to the right transforaminal region at L5-S1 performed a discectomy curetted the endplates to subcortical bleeding bone and placed a second 11 x 26 mm Spira cage filled with Morpheus bone graft into position. Then proceeded to L3-L4 by way of transforaminal approach on the left complete discectomy performed endplates guarded to subcortical mean bone and a 12 x 26 mm spiral cage filled with Morpheus bone graft tapped in position. The rods were then compressed locked in the final position bilaterally. The transverse processes of L3 L4-5 and the sacral ala burred to subcortical bleeding bone. Infuse collagen sponge combined with Koros bone graft placed in the posterior lateral gutters. 15 round FRANCESCO drain inserted. The incision was then closed with 1 Vicryl to fascia 2-0 Vicryl subcutaneously and 4 Monocryl for final closure. Steri-Strips sterile dressing placed. Patient awakened taken to PACU stable condition. Please note spinal cord monitoring was utilized at the procedure no changes noted. Lastly Latha Valverde was present at the entire surgery the patient positioning complex portion of the surgery and final skin closure. I attest to the content of the Intraoperative Record and any orders documented therein. Any exceptions are noted below.
--- NOTE | 2023-09-17 12:19 | Fluoroscopy Report ---
FL lumbar spine 2-3V CLINICAL HISTORY: L3-L4 L5-S1 DECOMPRESSION AND FUSON L4-L5 HW REMOVAL COMPARISON STUDY: MRI lumbar spine 04/09/2023 FLUOROSCOPY TIME: 27.5 seconds FLUOROSCOPY IMAGES: 3 EXPOSURE DOSE: 19.78 mGy FINDINGS: Posterior interbody farhad and screw fusion hardware with discectomy changes noted at what carmenza ears to be the L3-S1 levels. The hardware appears intact. Note that the images were submitted followi ng completion of the surgery. No unexpected opaque foreign bodies. IMPRESSION: Fluoroscopic assistance as above. ACT 112: Negative or not required by law. Electronically signed by: Jair Nicholson M.D. 09/17/2023 12:17 PM
[2023-09-17] MEDS: fentaNYL citrate PF 100 MCG/2 ML VIAL IV PRN (12:51)
--- NOTE | 2023-09-17 13:46 | Anesthesiology Progress Note ---
Date of Service September 17, 2023 Anesthesia Post Procedure Vital Signs Vital Signs: Temp Pulse Resp BP Pulse Ox O2 Del Method O2 Flow Rate 09/17/23 13:25 62 14 96/53 L 94 Nasal Cannula 2 09/17/23 13:15 60 12 93/54 L 94 Nasal Cannula 2 09/17/23 13:05 64 12 98/55 L 94 Nasal Cannula 2 09/17/23 12:55 67 12 100/50 L 95 Nasal Cannula 2 09/17/23 12:45 65 12 106/55 L 97 Oxymask 8 09/17/23 12:35 78 15 106/55 L 94 Oxymask 8 09/17/23 12:26 36.4 C L 77 17 114/53 L 98 Oxymask 8 09/17/23 08:12 36.6 C 60 20 143/72 H 98 Room Air Pain Intensity Back: Pain Intensity: 3 Transfer of Care Handoff Completed per policy Notes Mental Status: alert / awake / arousable Patient Amnestic to Procedure: Yes Nausea / Vomiting: adequately controlled Pain: adequately controlled Airway Patency, RR, SpO2: stable & adequate BP & HR: stable & adequate Hydration State: stable & adequate Anesthetic Complications: no major complications apparent and Pt Satisfied with anesthetic care
[2023-09-17] MEDS ORDERED: NALOXONE HCL 0.4 MG/1 ML VIAL/CARP IV PRN (14:49)
[2023-09-17] MEDS ORDERED: FAMOTIDINE 20 MG TAB PO PRN (14:49)
[2023-09-17] MEDS ORDERED: LORazepam 0.5 MG in SYRINGE 0.25 ML IV PRN (14:49)
[2023-09-17] MEDS ORDERED: LORATADINE 10 MG TAB PO PRN (14:49)
[2023-09-17] MEDS ORDERED: SOD PHOSPHATE/SOD BIPHOSPHATE ENEMA 132 ML BTL PR PRN (14:49)
[2023-09-17] MEDS ORDERED: diphenhydrAMINE Capsule 25 MG CAP PO PRN (14:49)
[2023-09-17] MEDS ORDERED: MAGNESIUM HYDROXIDE SUSP 30 ML UDC PO PRN (14:49)
[2023-09-17] MEDS ORDERED: ACETAMINOPHEN 1,000 MG/100 ML VIAL IV PRN (14:49)
[2023-09-17] MEDS ORDERED: PROMETHAZINE HCL 12.5 MG in SODIUM CHLORIDE 0.9% 50 ML IV PRN (14:49)
[2023-09-17] MEDS ORDERED: DO NOT ADMINISTER FLU VACCINE PRN (14:49)
[2023-09-17] MEDS ORDERED: hydrOXYzine HCl 25 MG TAB PO PRN (14:49)
[2023-09-17] MEDS ORDERED: LORazepam 0.5 MG TAB PO PRN (14:49)
[2023-09-17] MEDS ORDERED: bisacodyL 10 MG SUPP PR PRN (14:49)
[2023-09-17] MEDS ORDERED: CALCIUM CARBONATE 500 MG CHEWABLE TAB PO PRN (14:49)
[2023-09-17] MEDS ORDERED: DO NOT ADMINISTER PNEUMOCOCCAL VACCINE PRN (14:49)
[2023-09-17] MEDS ORDERED: PHARMACY GLYCEMIC MGMT CONSULT PRN (14:49)
[2023-09-17] MEDS: oxyCODONE HCL IR 5 MG TAB (IMMEDIATE RELEASE) PO PRN (14:56)
[2023-09-17] MEDS ORDERED: DEXTROSE 50% 50 ML SYRINGE IV PRN (15:45)
[2023-09-17] MEDS ORDERED: GLUCOSE 10 TAB/TUBE PO PRN (15:45)
[2023-09-17] MEDS ORDERED: GLUCOSE 40% GEL 15 GM TUBE PO PRN (15:45)
[2023-09-17] MEDS ORDERED: GLUCAGON FOR INJ 1 MG VIAL IM PRN (15:45)
[2023-09-17] MEDS: oxyCODONE HCL IR 5 MG TAB (IMMEDIATE RELEASE) ONE (17:18)
[2023-09-17] MEDS: ONDANSETRON INJ 2 MG/ML 2 ML VIAL IV PRN (17:36)
[2023-09-17] MEDS: SODIUM CHLORIDE 0.9% 1,000 ML IV SCH (17:37)
[2023-09-17] MEDS: INSULIN ASPART PER UNIT CHARGE SC SCH (17:43)
--- NOTE | 2023-09-17 18:52 | History & Physical Report ---
Date of Service September 17, 2023 Assessment & Plan (1) Neurogenic claudication due to lumbar spinal stenosis: Plan: Status post L4-L5 hardware removal along with L3-L4 and L5-S1 decompression and fusion by Dr. Armando today DVT prophylaxis, diet, activities, pain management, disposition per primary team (2) Hypertension: Plan: BP stable. Continue atenolol with hold parameters. (3) Diabetes mellitus type 2 in obese: Plan: Glycemic pharmacist consulted by primary team. States she takes Jardiance at home along with Lantus 30 units every morning unless blood sugar less than 120 when she skips Lantus. She did not take Lantus this morning. (4) Hyperlipidemia: Plan: Continue statin. (5) Obesity: Plan: BMI 36.7. Weight loss recommended. Plan DVT prophylaxis-Per primary team Disposition-Per primary team Time spent-approximately 50 minutes Thank you for this consult. Will continue to follow the patient in-house until discharge. Admission and Anticipated Discharge Date Admission Date: September 17, 2023 History of Present Illness Chief Complaint: Postop medical management Primary Care Provider: Allan Aragon MD 72-year-old male with history of hypertension, diabetes, hyperlipidemia, lupus, GERD, migraine with neurogenic claudication due to lumbar spinal stenosis who underwent L4-L5 hardware removal along with L3-L4 and L5-S1 decompression and fusion by Dr. Armando today. Hospitalist service is consulted for post management. Patient was seen and examined at bedside. Comments of pain at the surgical site. No fever, chills, chest pain or shortness of breath, nausea or vomiting. Tolerated diet well. Allergies Allergy/AdvReac Type Severity Reaction Status Date / Time Sulfa (Sulfonamide Allergy Severe Anaphylaxis Verified 09/17/23 08:24 Antibiotics) erythromycin base Allergy Intermediate Hives Verified 09/17/23 08:24 latex Allergy Intermediate Blisters Verified 09/17/23 08:24 sucralfate Allergy Intermediate Hives Verified 09/17/23 08:24 adhesive Allergy Mild Contact Verified 09/17/23 08:24 dermatitis; skin blistering pineapple Allergy Unknown Throat Verified 09/17/23 08:24 swelling azithromycin AdvReac Severe Abdominal Verified 09/17/23 08:24 Pain, SOB meloxicam AdvReac Intermediate GI upset Verified 09/17/23 08:24 tramadol AdvReac Intermediate Headaches Verified 09/17/23 08:24 cantaloupe AdvReac Unknown Nausea Verified 09/17/23 08:24 codeine AdvReac Unknown Vomiting Verified 09/17/23 08:24 ibuprofen AdvReac Unknown GI upset Verified 09/17/23 08:24 morphine AdvReac Unknown Vomiting Verified 09/17/23 08:24 Home Medications Medication Instructions Recorded Confirmed Type atenolol 25 mg tablet 25 mg PO QAM 02/18/18 09/17/23 History insulin glargine 100 unit/mL 30 unit subcut QAM 02/18/18 09/17/23 History subcutaneous solution (Lantus U-100 Insulin) multivitamin (Multiple Vitamins 1 tab PO QAM 02/18/18 09/17/23 History tablet) omeprazole 40 mg capsule,delayed 40 mg PO QAM 02/18/18 09/17/23 History release sodium bicarbonate-citric acid 1 tab PO UD PRN Heartburn 02/18/18 09/17/23 History 1,940 mg-1,000 mg effervescent tablet ([place] Heartburn) loratadine 10 mg tablet (Claritin) 10 mg PO QAM PRN Allergy Symptoms 01/23/19 09/17/23 History empagliflozin 25 mg tablet 25 mg PO QAM 05/04/20 09/17/23 History (Jardiance) aspirin-caffeine 500 mg-32.5 mg 1 tab PO QID 10/12/22 09/17/23 History tablet (Mara Back and Body) rosuvastatin 5 mg tablet 5 mg PO QAM 10/12/22 09/17/23 History pantoprazole 40 mg tablet,delayed 40 mg PO QAM 07/11/23 09/17/23 History release (Protonix) calcium carbonate (Tums) 200 mg PO UD PRN gerd 09/05/23 09/17/23 History cholecalciferol (vitamin D3) 125 125 mcg PO BID 09/05/23 09/17/23 History mcg (5,000 unit) tablet (Vitamin D3) Past Med/Surg History Medical History Hyperlipidemia 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 ear Lupus History of blood transfusion (40+ years ago) Hiatal hernia Migraine hx Obesity Diabetes mellitus, type 2 IDDM GERD (gastroesophageal reflux disease) controlled, stable per pt Hx of seasonal allergies Hypertension controlled, stable per pt Surgical History History of lumbar fusion S/P hardware removal Right upper leg removal of hardware (05/21/20): LMA#4 + PNB at [facility] History of esophagogastroduodenoscopy (EGD) Hx of hand surgery right History of breast biopsy benign History of dilatation and curettage History of tooth extraction History of tonsillectomy History of endoscopic sinus surgery Hx of foot surgery bunion + other foot procedures Hx of colonoscopy Hx of arthroplasty R/L shoulder Hx of total knee arthroplasty R/L Hx of appendectomy Hx of hysterectomy Hx of fracture of femur right s/p surgery (+ hardware), Right Knee Debridement Nonunion Distal Femur with Allograft: 02/14/19: LMA#4 + PNB at [facility] Family History Brother Family hx of colon cancer Family history of diabetes mellitus Social History Smoking Status: Never smoker Second Hand Exposure: No; Do You Dip or Chew Tobacco: No; Tobacco Cessation Education Requested by Patient: No Hx Alcohol Use: Yes Alcohol type: wine Hx Substance Use: No Preferred Language: Maltese Communication Ability: Effective Climate Change Analyst Required: No Beliefs That Will Affect Care: None Current Living Situation: Spouse Current Living Situation Comment: , SON AND GRANDCHILDREN Other Information That Helps Us Care for You: No Feels Safe at Home: Yes Safety Concerns: Feels Safe At This Time Assistive Devices: Denture - Upper, Denture - Lower and Glasses Review of Systems Review of Systems: All systems reviewed & are unremarkable except as noted in HPI & below Physical Exam Physical Exam: General: Lying comfortably in bed, not in acute distress, on NC HEENT: IGOR, MMM Chest: Clear breath sounds bilaterally, no wheezes or crackles CVS: Regular rate and rhythm, normal heart sounds, no murmur Abdomen: Soft, non tender, not distended, normal bowel sounds Neuro: Awake, alert, oriented, conversing well, non focal Extremities: No edema Surgical dressing intact with FRANCESCO drain with serosanguineous output [place] with clear urine Results & Data Results & Data Vital Signs (Past 12 Hours) Vital Signs Temp Pulse Pulse Resp BP BP Pulse Ox 09/17/23 18:31 36.5 C 61 16 105/69 97 09/17/23 17:23 62 16 101/66 97 09/17/23 16:55 36.6 C 70 16 103/68 98 09/17/23 16:29 36.3 C L 73 16 134/86 98 09/17/23 16:00 66 12 101/58 L 94 09/17/23 15:30 36.2 C L 59 L 12 106/64 96 09/17/23 15:15 57 L 12 108/59 L 98 09/17/23 15:00 58 L 12 103/60 98 09/17/23 14:45 64 18 112/60 94 09/17/23 14:30 62 12 105/60 95 09/17/23 14:20 54 L 16 102/60 94 09/17/23 14:15 36.2 C L 58 L 15 105/60 95 09/17/23 14:05 59 L 16 101/56 L 96 09/17/23 13:55 60 15 103/63 95 09/17/23 13:45 62 20 94/55 L 93 09/17/23 13:35 58 L 16 95/50 L 93 09/17/23 13:25 62 14 96/53 L 94 09/17/23 13:15 60 12 93/54 L 94 09/17/23 13:05 64 12 98/55 L 94 09/17/23 12:55 67 12 100/50 L 95 09/17/23 12:45 65 12 106/55 L 97 09/17/23 12:35 78 15 106/55 L 94 09/17/23 12:26 36.4 C L 77 17 114/53 L 98 09/17/23 08:12 36.6 C 60 20 143/72 H 98 O2 Del Method O2 Flow Rate 09/17/23 18:31 Nasal Cannula 2 09/17/23 17:23 Nasal Cannula 2 09/17/23 16:55 Nasal Cannula 2 09/17/23 16:29 Nasal Cannula 2 09/17/23 16:00 Room Air 09/17/23 15:30 Room Air 09/17/23 15:15 Nasal Cannula 2 09/17/23 15:00 Nasal Cannula 2 09/17/23 14:45 Nasal Cannula 2 09/17/23 14:30 Nasal Cannula 2 09/17/23 14:20 Nasal Cannula 2 09/17/23 14:15 Nasal Cannula 2 09/17/23 14:05 Nasal Cannula 2 09/17/23 13:55 Nasal Cannula 2 09/17/23 13:45 Nasal Cannula 2 09/17/23 13:35 Nasal Cannula 2 09/17/23 13:25 Nasal Cannula 2 09/17/23 13:15 Nasal Cannula 2 09/17/23 13:05 Nasal Cannula 2 09/17/23 12:55 Nasal Cannula 2 09/17/23 12:45 Oxymask 8 09/17/23 12:35 Oxymask 8 09/17/23 12:26 Oxymask 8 09/17/23 08:12 Room Air Diagnostic Findings Lumbar Spine X-Ray 09/17/23 09:35 FL lumbar spine 2-3V CLINICAL HISTORY: L3-L4 L5-S1 DECOMPRESSION AND FUSON L4-L5 HW REMOVAL COMPARISON STUDY: MRI lumbar spine 04/09/2023 FLUOROSCOPY TIME: 27.5 seconds FLUOROSCOPY IMAGES: 3 EXPOSURE DOSE: 19.78 mGy FINDINGS: Posterior interbody farhad and screw fusion hardware with discectomy changes noted at what appears to be the L3-S1 levels. The hardware appears intac t. Note that the images were submitted following completion of the surgery. No unexpected opaque foreign bodies. IMPRESSION: Fluoroscopic assistance as above. ACT 112: Negative or not required by law. Electronically signed by: Jair Nicholson M.D. 09/17/2023 12:17 PM Code Status & VTE Plan VTE Prophylaxis Plan VTE Prophylaxis will be ordered: Yes
[2023-09-17] MEDS: HYDROmorphone INJ 0.5 MG/0.5 ML SYR IV PRN (20:47)
[2023-09-17] MEDS: CHOLECALCIFEROL 125 MCG (5,000 UNITS) TAB PO SCH (20:48)
[2023-09-17] MEDS: DOCUSATE SODIUM/SENNA 50/8.6MG TAB PO SCH (20:48)
[2023-09-17] MEDS: METOCLOPRAMIDE HCL INJ 5 MG/ML 2 ML VIAL IV PRN (20:58)
[2023-09-18] MEDS: POLYETHYLENE (MIRALAX) 17 GM PACK PO SCH (05:56)
[2023-09-18 06:27] LABS: BUN Creatinine Ratio 15.7 (10-20); Calcium 8.2 mg/dl (8.6-10.3); Est GFR (African American) 62.3 ml/min; Est GFR (Non-African American) 53.8 ml/min; Potassium 4.3 mmol/L (3.5-5.1)
[2023-09-18 07:06] LABS: Estimated Average Glucose 131 mg/dl; Hemoglobin A1C 6.2 % (4.5-5.6)
[2023-09-18 07:19] LABS: Basophils # (auto) 0.06 K/uL (0.00-0.20); Basophils % (auto) 0.5 %; Eosinophils # (auto) 0.02 K/uL (0.00-0.50); Eosinophils % (auto) 0.2 %; Hematocrit (blood only) 28.7 % (37.0-47.0); Hemoglobin 8.9 g/dl (12.0-16.0); Immature Granulocytes # (auto) 0.94 K/uL (0.01-0.20); Lymphocytes # (auto) 1.04 K/uL (1.20-3.40); Lymphocytes % (auto) 8.9 %; Mean Corpuscular Hemoglobin 32.8 pg (25.0-34.0); Mean Corpuscular Volume 105.9 fL (80.0-100.0); Monocytes # (auto) 1.12 K/uL (0.11-0.59); Monocytes % (auto) 9.5 %; Neutrophils # (auto) 8.55 K/uL (1.40-6.50); Neutrophils % (auto) 72.9 %; Platelet Count 127 K/uL (130-400); RDW Standard Deviation 62.1 fL (36.4-46.3); Red Blood Count 2.71 M/uL (4.20-5.40); White Blood Count 11.73 K/ul (4.8-10.8)
[2023-09-18] MEDS: CEROVITE ADV FORMULA TAB PO SCH (08:08)
[2023-09-18] MEDS: ATENOLOL 25 MG TABLET PO SCH (08:08)
[2023-09-18] MEDS: dexAMETHasone 6 MG in SYRINGE 0 ML IV SCH (08:08)
[2023-09-18] MEDS: PANTOprazole 40 MG TAB PO SCH (08:08)
[2023-09-18] MEDS: ROSUVASTATIN CALCIUM 5 MG TAB PO SCH (08:08)
--- NOTE | 2023-09-18 08:43 | Pharmacy Report ---
Pharmacy Glycemic Short Note 2 - Date of Service September 18, 2023 - Glycemic Short BSG Results (Last 24 hours): 09/17/23 09/17/23 09/17/23 12:32 16:51 20:33 Glucose POC Glucose 117 H 134 H 106 H 09/18/23 09/18/23 05:22 07:37 Glucose 143 H POC Glucose 127 H OUTPATIENT ANTIDIABETIC REGIMEN: * Lantus 30 units SC qAM * Jardiance 25 mg PO daily HbA1c: 6.2% (09/18/23) ASSESSMENT: * AMANDA is a 73 year old female POD #1 s/p spinal decompression/fusion * No steroids given in OR, but dexamethasone 6 mg IV daily ordered starting this morning (09/17) x 3 days * Blood sugars very well-controlled postoperatively w/ minimal insulin * Despite good control thus far, will tighten Novolog and give basal this morning to account for expected hyperglycemia effects of steroids PLAN FOR INPATIENT GLYCEMIC CONTROL: * Hold outpatient oral diabetes medications * Basal insulin * Lantus 30 units SQ daily w/ IV dexamethasone * Bolus insulin * NovoLog per scale ACHS or Q6hrs while NPO * Goal Range: Low 110 mg/dL - High 140 mg/dL * Correction Factor: 25 mg/dL/unit * Nutritional / Prandial insulin per carb ratio of 1 unit per 9 grams CHO consumed
[2023-09-18] MEDS ORDERED: PANTOprazole 40 MG TAB PO SCH (09:00)
[2023-09-18] MEDS ORDERED: EMPAGLIFLOZIN 25 MG TAB PO SCH (09:00)
[2023-09-18] MEDS: LANTUS PER UNIT CHARGE SC SCH (09:11)
[2023-09-18] MEDS: ALUMINUM/MAGNESIUM SUSP 30 ML UDC PO PRN (09:23)
--- NOTE | 2023-09-18 09:44 | Orthopedic Progress Note ---
Date of Service September 18, 2023 Assessment & Plan (1) Neurogenic claudication due to lumbar spinal stenosis: Plan: This time continue physical therapy monitor FRANCESCO output. We will assess possible rehab in the next few days. Admission and Anticipated Discharge Date Admission Date: September 17, 2023 Subjective Back pain controlled leg symptoms improved Physical Exam Physical Exam: Patient is currently in bed. Has good strength testing. Appears comfortable. Results & Data Vital Signs (Past 12 Hours) Vital Signs Temp Pulse Resp BP BP Pulse Ox O2 Del Method 09/18/23 07:35 37.7 C H 89 16 104/69 95 Nasal Cannula 09/18/23 03:00 36.6 C 82 16 99/63 L 95 Nasal Cannula 09/17/23 23:00 37.0 C 69 16 96/65 L 97 Nasal Cannula 09/17/23 22:20 Nasal Cannula O2 Flow Rate 09/18/23 07:35 2 09/18/23 03:00 2 09/17/23 23:00 2 09/17/23 22:20 2 Queries Orthopedic Spine Obesity: Yes
--- NOTE | 2023-09-18 16:37 | Hospitalist Progress Note ---
Date of Service September 18, 2023 Assessment & Plan (1) Neurogenic claudication due to lumbar spinal stenosis: Plan: S/P L4-L5 hardware removal along with L3-L4 and L5-S1 decompression and fusion by Dr. Armando on 09/17/2023 Postoperative acute blood loss anemia DVT prophylaxis, diet, activities, pain management, disposition per primary team No indication for blood transfusion currently Monitor CBC Bowel regimen to prevent constipation Incentive spirometry Continue PT/OT Will give IV fluids given low BP (2) Hypertension: Plan: Continue atenolol with hold parameters. Monitor (3) Diabetes mellitus type 2 in obese: Plan: Glycemic pharmacist consulted by primary team. States she takes Jardiance at home along with Lantus 30 units every morning unless blood sugar less than 120 when she skips Lantus. Monitor and adjust insulin per protocol (4) Hyperlipidemia: Plan: Continue statin. (5) Obesity: Plan: BMI 36.7. Weight loss recommended. Plan DVT prophylaxis-Per primary team Disposition-Per primary team Admission and Anticipated Discharge Date Admission Date: September 17, 2023 Subjective Patient is seen and examined at bedside Reports having back pain associated with nausea, vomiting today Blood pressure low today Denies any chest pain, dyspnea, dizziness, abdominal pain No BM today No other complaints Review of Systems Review of Systems: All systems reviewed & are unremarkable except as noted in Subjective Physical Exam Physical Exam: Physical Exam: Vitals signs as noted above General Appearance:Obese, no apparent distress Head: normocephalic, Atraumatic Eyes: normal inspection, EOMI Neck: supple, Trachea midline Respiratory/Chest: Normal breath sounds, CTA, No accessory muscle use Cardiovascular: S1, S2, No murmur Abdomen/GI:Soft, Non tender, Bowel sounds present Back+surgical site in dressing, +drain Extremities/Musculoskeletal:normal inspection, 1+ edema Neurologic/Psych:AAOX3, grossly no focal neurological deficits Skin: normal color, warm Results & Data Results & Data Vital Signs (Past 12 Hours) Vital Signs Temp Pulse Resp BP Pulse Ox O2 Del Method O2 Flow Rate 09/18/23 16:13 97/60 L 09/18/23 15:41 37 C 76 16 88/54 L 92 Nasal Cannula 2 09/18/23 13:29 Nasal Cannula 2 09/18/23 11:07 37.7 C H 65 18 102/62 91 Nasal Cannula 2 09/18/23 07:35 37.7 C H 89 16 104/69 95 Nasal Cannula 2
[2023-09-18] MEDS: SODIUM CHLORIDE 0.9% 1,000 ML IV ONE (17:09)
[2023-09-18] MEDS: ACETAMINOPHEN 500 MG TAB PO PRN (20:14)
[2023-09-19 06:44] LABS: Hematocrit (blood only) 25.3 % (37.0-47.0); Hemoglobin 7.9 g/dl (12.0-16.0); Mean Corpuscular Hemoglobin 33.1 pg (25.0-34.0); Mean Corpuscular Hgb Conc 31.2 g/dL (32.0-36.0); Mean Corpuscular Volume 105.9 fL (80.0-100.0); Platelet Count 103 K/uL (130-400); RDW Coefficient of Variation 15.8 % (11.5-14.5); RDW Standard Deviation 60.8 fL (36.4-46.3); Red Blood Count 2.39 M/uL (4.20-5.40); White Blood Count 13.93 K/ul (4.8-10.8)
[2023-09-19 07:05] LABS: BUN Creatinine Ratio 22.3 (10-20); Calcium 8.6 mg/dl (8.6-10.3); Creatinine Clr Calc Pharmacy 45.5 ml/min; Est GFR (African American) 55.6 ml/min; Potassium 4.5 mmol/L (3.5-5.1)
--- NOTE | 2023-09-19 13:15 | Orthopedic Progress Note ---
Date of Service September 19, 2023 Assessment & Plan (1) Neurogenic claudication due to lumbar spinal stenosis: Plan: Eric is postoperative day 2 status post hard removal L4-5, decompression instrumented fusion L3-S1. Will continue with physical therapy. Continue with pain control. Maintain FRANCESCO drain. Will consult social work instructor to discuss with the patient home nursing upon discharge. Anticipate discharge Sunday Admission and Anticipated Discharge Date Admission Date: September 17, 2023 Subjective Ella is postoperative day 2 status post hardware removal L4-5, decompression L3-4 and L5-S1 with instrumented fusion from L3-S1. Pain is improved but still has complaints of her left lower extremity giving out when she ambulates. FRANCESCO dr sandoval output last shift was 25 cc. No other complaints. Review of Systems Review of Systems: All systems reviewed & are unremarkable except as noted in HPI & below Physical Exam Physical Exam: She is alert and oriented x 3 no acute distress Sitting up in bed Lumbar dressing is clean dry and intact with functioning FRANCESCO drain Calf soft nontender bilaterally Strength unchanged bilateral lower extremities Results & Data Vital Signs (Past 12 Hours) Vital Signs Temp Pulse Resp BP Pulse Ox O2 Del Method O2 Flow Rate 09/19/23 11:10 37.6 C H 61 16 103/65 92 Nasal Cannula 2 09/19/23 07:40 37.3 C 66 16 96/58 L 92 Nasal Cannula 2 Queries Orthopedic Spine Obesity: Yes
--- NOTE | 2023-09-19 15:28 | Hospitalist Progress Note ---
Date of Service September 19, 2023 Assessment & Plan (1) Neurogenic claudication due to lumbar spinal stenosis: Plan: S/P L4-L5 hardware removal along with L3-L4 and L5-S1 decompression and fusion by Dr. Armando on 09/17/2023 Postoperative acute blood loss anemia DVT prophylaxis, diet, activities, pain management, disposition per primary team No indication for blood transfusion currently Monitor CBC Bowel regimen to prevent constipation Incentive spirometry Continue PT/OT (2) Acute on chronic blood loss anemia: Plan: likely 2/2 post-op losses -MCV 105.9 Anemia labs in am (3) Hypertension: Plan: Continue atenolol with hold parameters. Monitor (4) Diabetes mellitus type 2 in obese: Plan: Glycemic pharmacist consulted by primary team. States she takes Jardiance at home along with Lantus 30 units every morning unless blood sugar less than 120 when she skips Lantus. Monitor and adjust insulin per protocol (5) Hyperlipidemia: Plan: Continue statin. (6) Obesity: Plan: BMI 36.7. Weight loss recommended. Plan DVT prophylaxis-Per primary team Disposition-Per primary team Admission and Anticipated Discharge Date Admission Date: September 17, 2023 Subjective NAEO Reports post-operative pain but trying to move more Denies any acute concerns, reports feeling much better--no further nausea or other acute concerns Physical Exam Constitutional: WD/WN, vitals as above Cardiovascular: RRR, no murmur, no edema Gastrointestinal (Abdomen): normal bowel sounds, soft, nontender, no hepatosplenomegaly Results & Data Results & Data Vital Signs (Past 12 Hours) Vital Signs Temp Pulse Resp BP Pulse Ox O2 Del Method O2 Flow Rate 09/19/23 11:10 37.6 C H 61 16 103/65 92 Nasal Cannula 2 09/19/23 07:40 37.3 C 66 16 96/58 L 92 Nasal Cannula 2 Laboratory Results Short CBC 09/19/23 Range/Units 05:46 WBC 13.93 H (4.8-10.8) K/ul Hgb 7.9 L (12.0-16.0) g/dl Hct 25.3 L (37.0-47.0) % Plt Count 103 L (130-400) K/uL BMP 09/19/23 05:46 Sodium 137 Potassium 4.5 Chloride 108 H Carbon Dioxide 23 BUN 25 H Creatinine 1.12 Glucose 126 H Calcium 8.6 Medications Administered Home Medications Medication Instructions Recorded Confirmed Last Taken atenolol 25 mg tablet 25 mg PO QAM 02/18/18 09/17/23 09/17/23 05:15 insulin glargine 100 unit/mL 30 unit subcut QAM 02/18/18 09/17/23 09/12/23 subcutaneous solution (Lantus U-100 Insulin) multivitamin (Multiple Vitamins 1 tab PO QAM 02/18/18 09/17/23 09/16/23 07:30 tablet) omeprazole 40 mg capsule,delayed 40 mg PO QAM 02/18/18 09/17/23 09/17/23 05:15 release sodium bicarbonate-citric acid 1 tab PO UD PRN Heartburn 02/18/18 09/17/23 09/14/23 1,940 mg-1,000 mg effervescent tablet ([place] Heartburn) loratadine 10 mg tablet (Claritin) 10 mg PO QAM PRN Allergy Symptoms 01/23/19 09/17/23 2 Weeks Ago ~09/03/23 empagliflozin 25 mg tablet 25 mg PO QAM 05/04/20 09/17/23 09/16/23 07:30 (Jardiance) aspirin-caffeine 500 mg-32.5 mg 1 tab PO QID 10/12/22 09/17/23 09/14/23 tablet (Mara Back and Body) rosuvastatin 5 mg tablet 5 mg PO QAM 10/12/22 09/17/23 09/17/23 05:15 pantoprazole 40 mg tablet,delayed 40 mg PO QAM 07/11/23 09/17/23 09/14/23 release (Protonix) calcium carbonate (Tums) 200 mg PO UD PRN gerd 09/05/23 09/17/23 09/14/23 cholecalciferol (vitamin D3) 125 125 mcg PO BID 09/05/23 09/17/23 09/12/23 mcg (5,000 unit) tablet (Vitamin D3) oxycodone 5 mg tablet 5 mg PO Q6H PRN pain #30 tabs 09/18/23 Unknown Active Medications Generic Name Dose Route Start Last Admin Trade Name Freq PRN Reason Stop Dose Admin Acetaminophen 1,000 mg 09/17/23 14:49 09/18/23 20:14 Acetaminophen 500 Mg Tab PO 10/17/23 14:48 1,000 mg Q8H PRN Administration MILD Pain Scale 1,2,3 & Pre PT Al Hydrox/Mg Hydrox/Simethicone 30 ml 09/17/23 14:49 09/18/23 09:23 Aluminum/Magnesium Susp 30 Ml Udc PO 10/17/23 14:48 30 ml Q6H PRN Administration Dyspepsia Atenolol 25 mg 09/18/23 09:00 09/19/23 08:09 Atenolol 25 Mg Tablet PO 10/18/23 08:59 Not Given QAM JUAN J Hydromorphone HCl 0.5 mg 09/17/23 14:49 09/18/23 20:16 Hydromorphone Inj 0.5 Mg/0.5 Ml Syr IV 10/01/23 14:48 0.5 mg Q3H PRN Administration MODERATE Pain (Scale 4,5,6) & Pre PT Dexamethasone 6 mg/ Syringe 1.5 mls @ 1 mls/min 09/18/23 09:00 09/19/23 08:08 IV 09/20/23 09:02 1 mls/min DAILY JUAN J Administration Insulin Aspart 0 units 09/17/23 16:30 09/19/23 11:55 Insulin Aspart Per Unit Charge PR 10/17/23 16:29 5 units ACHS JUAN J Administration Insulin Glargine 30 units 09/18/23 09:00 09/19/23 08:12 Lantus Per Unit Charge SC 09/20/23 09:01 30 units DAILY JUAN J Administration Metoclopramide HCl 10 mg 09/17/23 14:49 09/17/23 20:58 Metoclopramide Hcl Inj 5 Mg/Ml 2 Ml Vial IV 10/17/23 14:48 10 mg Q6H PRN Administration Nausea &/or Vomiting Multivitamins/Minerals 1 tab 09/18/23 09:00 09/19/23 08:08 Cerovite Adv Formula Tab PO 10/18/23 08:59 1 tab QAM JUAN J Administration Ondansetron HCl 4 mg 09/17/23 14:49 09/18/23 08:19 Ondansetron Inj 2 Mg/Ml 2 Ml Vial IV 10/17/23 14:48 4 mg Q6H PRN Administration Nausea &/or Vomiting Oxycodone HCl 5 - 10 mg 09/17/23 14:49 09/18/23 17:37 Oxycodone Hcl Ir 5 Mg Tab (Immediate Release) PO 10/01/23 14:48 5 mg Q4H PRN Administration Pain & Pre PT Pantoprazole Sodium 40 mg 09/18/23 09:00 09/19/23 08:08 Pantoprazole 40 Mg Tab PO 10/18/23 08:59 40 mg QAM JUAN J Administration Protocol Polyethylene Glycol 17 gm 09/18/23 06:00 09/19/23 12:01 Polyethylene (Miralax) 17 Gm Pack PO 10/18/23 05:59 17 gm Q6 JUAN J Administration Rosuvastatin Calcium 5 mg 09/18/23 09:00 09/19/23 08:08 Rosuvastatin Calcium 5 Mg Tab PO 10/18/23 08:59 5 mg QAM JUAN J Administration Senna/Docusate Sodium 2 tab 09/17/23 21:00 09/18/23 20:14 Docusate Sodium/Senna 50/8.6mg Tab PO 10/17/23 20:59 2 tab HS JUAN J Administration Vitamin D 125 mcg 09/17/23 21:00 09/19/23 08:09 Cholecalciferol 125 Mcg (5,000 Units) Tab PO 10/17/23 20:59 125 mcg BID JUAN J Administration
[2023-09-19] MEDS: ONDANSETRON 4 MG OD TAB PO PRN (21:40)
--- NOTE | 2023-09-20 07:38 | XRay Report ---
XR chest 1V portable HISTORY: post-operative coughing and wheezing COMPARISON: Chest 08/21/2023. FINDINGS: There is a new small left basilar density. No pneumothorax. No pleural effusions. The heart remains mildly enlarged. There are calcifications within the aortic knob. 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 No acute fractures. IMPRESSION: There is a new small left basilar density. This represents atelectasis or a pneumonia. ACT 112: Negative or not required by law. Electronically signed by: Frankie Valdez M.D. 09/20/2023 7:37 AM
[2023-09-20 08:05] LABS: Hematocrit (blood only) 24.3 % (37.0-47.0); Hemoglobin 7.6 g/dl (12.0-16.0); Mean Corpuscular Hemoglobin 33.2 pg (25.0-34.0); Mean Corpuscular Hgb Conc 31.3 g/dL (32.0-36.0); Mean Corpuscular Volume 106.1 fL (80.0-100.0); Platelet Count 120 K/uL (130-400); RDW Standard Deviation 61.6 fL (36.4-46.3); Red Blood Count 2.29 M/uL (4.20-5.40); White Blood Count 11.71 K/ul (4.8-10.8)
[2023-09-20 08:49] LABS: Potassium 4.3 mmol/L (3.5-5.1)
[2023-09-20 08:55] LABS: BUN Creatinine Ratio 24.6 (10-20); Creatinine Clr Calc Pharmacy 44.7 ml/min; Est GFR (African American) 54.5 ml/min
[2023-09-20 09:03] LABS: Folate (Folic Acid),Ser orPlas > 22.30 ng/ml (>5.38)
[2023-09-20 09:04] LABS: Vitamin B12 156 pg/ml (180-914)
[2023-09-20 09:27] LABS: Ferritin 43.1 ng/ml (8-388)
--- NOTE | 2023-09-20 10:45 | Orthopedic Progress Note ---
Date of Service September 20, 2023 Assessment & Plan (1) Neurogenic claudication due to lumbar spinal stenosis: Plan: At this time continue physical therapy and plan for discharge home either Sunday or Sunday with home health if possible. Admission and Anticipated Discharge Date Admission Date: September 17, 2023 Subjective Back pain controlled leg symptoms improving Physical Exam Physical Exam: Patient is in bed. She is comfortable. Distracted testing. Results & Data Vital Signs (Past 12 Hours) Vital Signs Temp Pulse Resp BP Pulse Ox O2 Del Method O2 Flow Rate 09/20/23 07:30 Nasal Cannula 2 09/20/23 06:34 36.7 C 46 L 16 97/60 L 98 Nasal Cannula 4 09/20/23 00:11 73 18 108/64 95 Nasal Cannula 4 Queries Orthopedic Spine Obesity: Yes
--- NOTE | 2023-09-20 16:45 | Hospitalist Progress Note ---
Date of Service September 20, 2023 Assessment & Plan (1) Neurogenic claudication due to lumbar spinal stenosis: Plan: S/P L4-L5 hardware removal along with L3-L4 and L5-S1 decompression and fusion by Dr. Armando on 09/17/2023 Postoperative acute blood loss anemia DVT prophylaxis, diet, activities, pain management, disposition per primary team No indication for blood transfusion currently Monitor CBC Bowel regimen to prevent constipation Incentive spirometry Continue PT/OT (2) Acute on chronic blood loss anemia: (3) Iron deficiency anemia: (4) B12 deficiency anemia: Plan: likely 2/2 post-op losses -MCV 105.9 b12 157, ferritin 43 Start Iron and B12 replacement Will need PCP follow up (5) Asymptomatic bradycardia: (6) Hypertension: Plan: Hold atenolol. Blood pressure stable. Will need PCP follow up no dizziness, presyncope or other concerns EKG (7) Diabetes mellitus type 2 in obese: Plan: Glycemic pharmacist consulted by primary team. States she takes Jardiance at home along with Lantus 30 units every morning unless blood sugar less than 120 when she skips Lantus. Monitor and adjust insulin per protocol (8) Hyperlipidemia: Plan: Continue statin. (9) Obesity: Plan: BMI 36.7. Weight loss recommended. Plan DVT prophylaxis-Per primary team Disposition-Per primary team Admission and Anticipated Discharge Date Admission Date: September 17, 2023 Subjective Reports feeling good this morning, ambulating to bathroom with help Denies any fevers, cough, chills or other acute symptoms Physical Exam Constitutional: WD/WN, vitals as above Respiratory: normal respiratory effort, lungs clear to auscultation Cardiovascular: RRR, no murmur, no edema Results & Data Results & Data Vital Signs (Past 12 Hours) Vital Signs Temp Pulse Resp BP Pulse Ox O2 Del Method O2 Flow Rate 09/20/23 14:53 37.2 C 48 L 18 101/65 93 Room Air 09/20/23 07:30 Nasal Cannula 2 09/20/23 06:34 36.7 C 46 L 16 97/60 L 98 Nasal Cannula 4 Laboratory Results Short CBC 09/20/23 Range/Units 07:26 WBC 11.71 H (4.8-10.8) K/ul Hgb 7.6 L (12.0-16.0) g/dl Hct 24.3 L (37.0-47.0) % Plt Count 120 L (130-400) K/uL BMP 09/20/23 07:26 Sodium 137 Potassium 4.3 Chloride 107 Carbon Dioxide 25 BUN 28 H Creatinine 1.14 Glucose 114 H Calcium 9.0 Medications Administered Home Medications Medication Instructions Recorded Confirmed Last Taken atenolol 25 mg tablet 25 mg PO QAM 02/18/18 09/17/23 09/17/23 05:15 insulin glargine 100 unit/mL 30 unit subcut QAM 02/18/18 09/17/23 09/12/23 subcutaneous solution (Lantus U-100 Insulin) multivitamin (Multiple Vitamins 1 tab PO QAM 02/18/18 09/17/23 09/16/23 07:30 tablet) omeprazole 40 mg capsule,delayed 40 mg PO QAM 02/18/18 09/17/23 09/17/23 05:15 release sodium bicarbonate-citric acid 1 tab PO UD PRN Heartburn 02/18/18 09/17/23 09/14/23 1,940 mg-1,000 mg effervescent tablet ([place] Heartburn) loratadine 10 mg tablet (Claritin) 10 mg PO QAM PRN Allergy Symptoms 01/23/19 09/17/23 2 Weeks Ago ~09/03/23 empagliflozin 25 mg tablet 25 mg PO QAM 05/04/20 09/17/23 09/16/23 07:30 (Jardiance) aspirin-caffeine 500 mg-32.5 mg 1 tab PO QID 10/12/22 09/17/23 09/14/23 tablet (Mara Back and Body) rosuvastatin 5 mg tablet 5 mg PO QAM 10/12/22 09/17/23 09/17/23 05:15 pantoprazole 40 mg tablet,delayed 40 mg PO QAM 07/11/23 09/17/23 09/14/23 release (Protonix) calcium carbonate (Tums) 200 mg PO UD PRN gerd 09/05/23 09/17/23 09/14/23 cholecalciferol (vitamin D3) 125 125 mcg PO BID 09/05/23 09/17/23 09/12/23 mcg (5,000 unit) tablet (Vitamin D3) oxycodone 5 mg tablet 5 mg PO Q6H PRN pain #30 tabs 09/18/23 Unknown Active Medications Generic Name Dose Route Start Last Admin Trade Name Freq PRN Reason Stop Dose Admin Acetaminophen 1,000 mg 09/17/23 14:49 09/20/23 16:29 Acetaminophen 500 Mg Tab PO 10/17/23 14:48 1,000 mg Q8H PRN Administration MILD Pain Scale 1,2,3 & Pre PT Al Hydrox/Mg Hydrox/Simethicone 30 ml 09/17/23 14:49 09/18/23 09:23 Aluminum/Magnesium Susp 30 Ml Udc PO 10/17/23 14:48 30 ml Q6H PRN Administration Dyspepsia Atenolol 25 mg 09/18/23 09:00 09/20/23 08:35 Atenolol 25 Mg Tablet PO 10/18/23 08:59 Not Given QAM JUAN J Hydromorphone HCl 0.5 mg 09/17/23 14:49 09/18/23 20:16 Hydromorphone Inj 0.5 Mg/0.5 Ml Syr IV 10/01/23 14:48 0.5 mg Q3H PRN Administration MODERATE Pain (Scale 4,5,6) & Pre PT Insulin Aspart 0 units 09/17/23 16:30 09/20/23 12:10 Insulin Aspart Per Unit Charge SC 10/17/23 16:29 1 units ACHS JUAN J Administration Metoclopramide HCl 10 mg 09/17/23 14:49 09/17/23 20:58 Metoclopramide Hcl Inj 5 Mg/Ml 2 Ml Vial IV 10/17/23 14:48 10 mg Q6H PRN Administration Nausea &/or Vomiting Multivitamins/Minerals 1 tab 09/18/23 09:00 09/20/23 08:35 Cerovite Adv Formula Tab PO 10/18/23 08:59 1 tab QAM JUAN J Administration Ondansetron HCl 4 mg 09/17/23 14:49 09/18/23 08:19 Ondansetron Inj 2 Mg/Ml 2 Ml Vial IV 10/17/23 14:48 4 mg Q6H PRN Administration Nausea &/or Vomiting Ondansetron HCl 4 mg 09/17/23 14:49 09/19/23 21:40 Ondansetron 4 Mg Od Tab PO 10/17/23 14:48 4 mg Q6H PRN Administration Nausea Oxycodone HCl 5 - 10 mg 09/17/23 14:49 09/19/23 20:23 Oxycodone Hcl Ir 5 Mg Tab (Immediate Release) PO 10/01/23 14:48 10 mg Q4H PRN Administration Pain & Pre PT Pantoprazole Sodium 40 mg 09/18/23 09:00 09/20/23 08:35 Pantoprazole 40 Mg Tab PO 10/18/23 08:59 40 mg QAM JUAN J Administration Protocol Polyethylene Glycol 17 gm 09/18/23 06:00 09/20/23 12:15 Polyethylene (Miralax) 17 Gm Pack PO 10/18/23 05:59 17 gm Q6 JUAN J Administration Rosuvastatin Calcium 5 mg 09/18/23 09:00 09/20/23 08:35 Rosuvastatin Calcium 5 Mg Tab PO 10/18/23 08:59 5 mg QAM JUAN J Administration Senna/Docusate Sodium 2 tab 09/17/23 21:00 09/19/23 20:23 Docusate Sodium/Senna 50/8.6mg Tab PO 10/17/23 20:59 2 tab HS JUAN J Administration Vitamin D 125 mcg 09/17/23 21:00 09/20/23 10:35 Cholecalciferol 125 Mcg (5,000 Units) Tab PO 10/17/23 20:59 125 mcg BID JUAN J Administration
[2023-09-20] MEDS: FERROUS SULFATE 325 MG TAB PO SCH (17:31)
[2023-09-20] MEDS: CYANOCOBALAMIN (B-12) 500 MCG TABLET PO SCH (17:31)
--- NOTE | 2023-09-21 10:25 | Hospitalist Progress Note ---
Date of Service September 21, 2023 Assessment & Plan (1) Neurogenic claudication due to lumbar spinal stenosis: Plan: S/P L4-L5 hardware removal along with L3-L4 and L5-S1 decompression and fusion by Dr. Armando on 09/17/2023 Postoperative acute blood loss anemia DVT prophylaxis, diet, activities, pain management, disposition per primary team No indication for blood transfusion currently Bowel regimen to prevent constipation Encouraged Incentive spirometry Continue PT/OT -Plan for acute rehab (2) Acute on chronic blood loss anemia: (3) Iron deficiency anemia: (4) B12 deficiency anemia: Plan: likely 2/2 post-op losses -MCV 105.9 b12 157, ferritin 43 Continue Iron and B12 replacement Will need PCP follow up CBC in am (5) Asymptomatic bradycardia: (6) Hypertension: Plan: Hold atenolol. Blood pressure stable. Will need PCP follow up no dizziness, presyncope or other concerns EKG sinus bradycardia, asymptomatic (7) Diabetes mellitus type 2 in obese: Plan: Glycemic pharmacist consulted by primary team. States she takes Jardiance at home along with Lantus 30 units every morning unless blood sugar less than 120 when she skips Lantus. Monitor and adjust insulin per protocol (8) Hyperlipidemia: Plan: Continue statin. (9) Obesity: Plan: BMI 36.7. Weight loss recommended. Plan DVT prophylaxis-Per primary team Disposition-Per primary team Admission and Anticipated Discharge Date Admission Date: September 17, 2023 Subjective Reports feeling good this morning, ambulating to bathroom with help Denies any fevers, cough, chills or other acute symptoms Physical Exam Constitutional: WD/WN, vitals as above Cardiovascular: RRR, no murmur, no edema Gastrointestinal (Abdomen): normal bowel sounds, soft, nontender, no hepatosplenomegaly Results & Data Results & Data Vital Signs (Past 12 Hours) Vital Signs Temp Pulse Resp BP BP Pulse Ox O2 Del Method 09/21/23 07:44 36.7 C 49 L 18 116/69 95 Room Air 09/21/23 07:00 Room Air 09/21/23 01:01 36.6 C 54 L 18 102/62 93 Room Air Medications Administered Home Medications Medication Instructions Recorded Confirmed Last Taken atenolol 25 mg tablet 25 mg PO QAM 02/18/18 09/17/23 09/17/23 05:15 insulin glargine 100 unit/mL 30 unit subcut QAM 02/18/18 09/17/23 09/12/23 subcutaneous solution (Lantus U-100 Insulin) multivitamin (Multiple Vitamins 1 tab PO QAM 02/18/18 09/17/23 09/16/23 07:30 tablet) omeprazole 40 mg capsule,delayed 40 mg PO QAM 02/18/18 09/17/23 09/17/23 05:15 release sodium bicarbonate-citric acid 1 tab PO UD PRN Heartburn 02/18/18 09/17/23 09/14/23 1,940 mg-1,000 mg effervescent tablet ([place] Heartburn) loratadine 10 mg tablet (Claritin) 10 mg PO QAM PRN Allergy Symptoms 01/23/19 09/17/23 2 Weeks Ago ~09/03/23 empagliflozin 25 mg tablet 25 mg PO QAM 05/04/20 09/17/23 09/16/23 07:30 (Jardiance) aspirin-caffeine 500 mg-32.5 mg 1 tab PO QID 10/12/22 09/17/23 09/14/23 tablet (Mara Back and Body) rosuvastatin 5 mg tablet 5 mg PO QAM 10/12/22 09/17/23 09/17/23 05:15 pantoprazole 40 mg tablet,delayed 40 mg PO QAM 07/11/23 09/17/23 09/14/23 release (Protonix) calcium carbonate (Tums) 200 mg PO UD PRN gerd 09/05/23 09/17/23 09/14/23 cholecalciferol (vitamin D3) 125 125 mcg PO BID 09/05/23 09/17/23 09/12/23 mcg (5,000 unit) tablet (Vitamin D3) oxycodone 5 mg tablet 5 mg PO Q6H PRN pain #30 tabs 09/18/23 Unknown Active Medications Generic Name Dose Route Start Last Admin Trade Name Freq PRN Reason Stop Dose Admin Acetaminophen 1,000 mg 09/17/23 14:49 09/20/23 16:29 Acetaminophen 500 Mg Tab PO 10/17/23 14:48 1,000 mg Q8H PRN Administration MILD Pain Scale 1,2,3 & Pre PT Al Hydrox/Mg Hydrox/Simethicone 30 ml 09/17/23 14:49 09/18/23 09:23 Aluminum/Magnesium Susp 30 Ml Udc PO 10/17/23 14:48 30 ml Q6H PRN Administration Dyspepsia Atenolol 25 mg 09/18/23 09:00 09/20/23 08:35 Atenolol 25 Mg Tablet PO 10/18/23 08:59 Not Given QAM JUAN J Cyanocobalamin 1,000 mcg 09/20/23 17:00 09/21/23 08:13 Cyanocobalamin (B-12) 500 Mcg Tablet PO 10/20/23 16:59 1,000 mcg QAM JUAN J Administration Ferrous Sulfate 325 mg 09/20/23 17:00 09/21/23 08:14 Ferrous Sulfate 325 Mg Tab PO 10/20/23 16:59 325 mg QAM JUAN J Administration Hydromorphone HCl 0.5 mg 09/17/23 14:49 09/18/23 20:16 Hydromorphone Inj 0.5 Mg/0.5 Ml Syr IV 10/01/23 14:48 0.5 mg Q3H PRN Administration MODERATE Pain (Scale 4,5,6) & Pre PT Insulin Aspart 0 units 09/17/23 16:30 09/21/23 08:11 Insulin Aspart Per Unit Charge SC 10/17/23 16:29 2 units ACHS JUAN J Administration Metoclopramide HCl 10 mg 09/17/23 14:49 09/17/23 20:58 Metoclopramide Hcl Inj 5 Mg/Ml 2 Ml Vial IV 10/17/23 14:48 10 mg Q6H PRN Administration Nausea &/or Vomiting Multivitamins/Minerals 1 tab 09/18/23 09:00 09/21/23 08:14 Cerovite Adv Formula Tab PO 10/18/23 08:59 Not Given QAM JUAN J Ondansetron HCl 4 mg 09/17/23 14:49 09/18/23 08:19 Ondansetron Inj 2 Mg/Ml 2 Ml Vial IV 10/17/23 14:48 4 mg Q6H PRN Administration Nausea &/or Vomiting Ondansetron HCl 4 mg 09/17/23 14:49 09/19/23 21:40 Ondansetron 4 Mg Od Tab PO 10/17/23 14:48 4 mg Q6H PRN Administration Nausea Oxycodone HCl 5 - 10 mg 09/17/23 14:49 09/21/23 06:41 Oxycodone Hcl Ir 5 Mg Tab (Immediate Release) PO 10/01/23 14:48 10 mg Q4H PRN Administration Pain & Pre PT Pantoprazole Sodium 40 mg 09/18/23 09:00 09/21/23 08:13 Pantoprazole 40 Mg Tab PO 10/18/23 08:59 40 mg QAM JUAN J Administration Protocol Polyethylene Glycol 17 gm 09/18/23 06:00 09/21/23 05:48 Polyethylene (Miralax) 17 Gm Pack PO 10/18/23 05:59 17 gm Q6 JUAN J Administration Rosuvastatin Calcium 5 mg 09/18/23 09:00 09/21/23 08:13 Rosuvastatin Calcium 5 Mg Tab PO 10/18/23 08:59 5 mg QAM JUAN J Administration Senna/Docusate Sodium 2 tab 09/17/23 21:00 09/20/23 20:26 Docusate Sodium/Senna 50/8.6mg Tab PO 10/17/23 20:59 2 tab HS JUAN J Administration Vitamin D 125 mcg 09/17/23 21:00 09/21/23 08:14 Cholecalciferol 125 Mcg (5,000 Units) Tab PO 10/17/23 20:59 125 mcg BID JUAN J Administration ECG Additional Comments: sinus bradycardia, no block noted LA 138
--- NOTE | 2023-09-21 10:44 | Orthopedic Progress Note ---
Date of Service September 21, 2023 Assessment & Plan (1) Neurogenic claudication due to lumbar spinal stenosis: Plan: Ella is postoperative day 4 status post hard removal L4-5, decompression and instrumented fusion L3-S1. Will work on aggressive bowel regimen today. Continue with pain control. Anticipate discharge home tomorrow. She is currently refusing home health care and rehab. Admission and Anticipated Discharge Date Admission Date: September 17, 2023 Subjective Ella is postoperative day 4 status post hard removal L4-5, decompression instrumented fusion L3-S1. Still has some back pain which she rates to be an 8 out of 10. FRANCESCO drain was actually removed this morning by the patient. Yesterday in physical therapy ambling 12 to 15 feet. She is passing flatus but no bowel movement. She is going to return home upon discharge Review of Systems Review of Systems: All systems reviewed & are unremarkable except as noted in HPI & below Physical Exam Physical Exam: She is lying in bed in no acute distress Alert and oriented x 3 Dressing is clean dry and intact Strength intact bilateral lower extremities Results & Data Vital Signs (Past 12 Hours) Vital Signs Temp Pulse Resp BP BP Pulse Ox O2 Del Method 09/21/23 07:44 36.7 C 49 L 18 116/69 95 Room Air 09/21/23 07:00 Room Air 09/21/23 01:01 36.6 C 54 L 18 102/62 93 Room Air Queries Orthopedic Spine Obesity: Yes
--- NOTE | 2023-09-21 11:55 | Pharmacy Report ---
Pharmacy Glycemic Short Note 2 - Date of Service September 21, 2023 - Glycemic Short BSG Results (Last 24 hours): 09/20/23 09/20/23 09/21/23 16:28 20:35 07:43 POC Glucose 110 H 108 H 86 09/21/23 11:25 POC Glucose 102 H OUTPATIENT ANTIDIABETIC REGIMEN: * Lantus 30 units SC qAM * Jardiance 25 mg PO daily HbA1c: 6.2% (09/18/23) ASSESSMENT: 09/21/23: * Blood sugars very well-controlled postoperatively while on IV steroids (last dose of dexamethasone yesterday morning) * Now that steroids are discontinued, will significantly decrease basal and loosen Novolog parameters * Plan is for discharge tomorrow 09/18/23: * AMANDA is a 73 year old female POD #1 s/p spinal decompression/fusion * No steroids given in OR, but dexamethasone 6 mg IV daily ordered starting this morning (09/17) x 3 days * Blood sugars very well-controlled postoperatively w/ minimal insulin * Despite good control thus far, will tighten Novolog and give basal this morning to account for expected hyperglycemia effects of steroids PLAN FOR INPATIENT GLYCEMIC CONTROL: * Hold outpatient oral diabetes medications * Basal insulin * Lantus 0-5-10 units SC HS ( see EHR for details) * Bolus insulin * NovoLog per scale ACHS or Q6hrs while NPO * Goal Range: Low 110 mg/dL - High 140 mg/dL * Correction Factor: 30 mg/dL/unit * Nutritional / Prandial insulin per carb ratio of 1 unit per 13 grams CHO consumed
[2023-09-21] MEDS: CARBOHYDRATES FOR HYPOGLYCEMIA PO PRN (16:27)
[2023-09-21] MEDS: LANTUS PER UNIT CHARGE SC SCH (21:42)
--- NOTE | 2023-09-22 00:06 | Electrocardiogram Report ---
Test Reason : Blood Pressure : / mmHG Vent. Rate : 058 BPM Atrial Rate : 058 BPM P-R Int : 138 ms QRS Dur : 082 ms QT Int : 406 ms P-R-T Axes : 036 002 022 degrees QTc Int : 398 ms Sinus bradycardia Otherwise normal ECG When compared with ECG of 21-AUG-2023 09:34, Questionable change in QRS axis Confirmed by Juni Dillard ([id number]) on 09/22/2023 12:06:18 AM Referred By: Flash Armando Confirmed By:Juni Dillard
[2023-09-22 06:16] LABS: Hematocrit (blood only) 27.3 % (37.0-47.0); Hemoglobin 8.9 g/dl (12.0-16.0); Mean Corpuscular Hemoglobin 33.3 pg (25.0-34.0); Mean Corpuscular Hgb Conc 32.6 g/dL (32.0-36.0); Mean Corpuscular Volume 102.2 fL (80.0-100.0); Mean Platelet Volume 14.6 fL (9.4-12.4); Platelet Count 170 K/uL (130-400); RDW Coefficient of Variation 15.7 % (11.5-14.5); RDW Standard Deviation 58.6 fL (36.4-46.3); Red Blood Count 2.67 M/uL (4.20-5.40); White Blood Count 11.66 K/ul (4.8-10.8)
--- NOTE | 2023-09-22 08:19 | Orthopedic Progress Note ---
Date of Service September 22, 2023 Assessment & Plan (1) Neurogenic claudication due to lumbar spinal stenosis: Plan: Patient is stable postop day #5. She is adamant that she wants to go home unfortunately she has not met criteria for safe discharge. She is to continue to work with physical therapy we need to control her pain levels. We need to continue with GI and DVT prophylaxis. Hopefully she will be able to go home later this weekend. Admission and Anticipated Discharge Date Admission Date: September 17, 2023 Subjective Patient was seen bedside in room 306. She is postop day #5 status post removal of hardware at L4-5 lumbar decompression L3-4 and L5-S1 continuation of her fusion from L3-S1. She is still having difficulties with mobility. Per her physical therapy note she is only walk 12 to 15 feet at a time needing full assist. She is still having a significant amount of lower back pain as well. She is tolerating oral intake. She denies any other numbness, tingling, or paresthesias. Physical Exam Physical Exam: On exam she is alert and oriented. Her incision is clean dry and intact. Her strength and sensation are both intact. Her cardiovascular exam reveals no gross abnormalities. Her abdomen soft nontender calves are supple nontender. Results & Data Vital Signs (Past 12 Hours) Vital Signs Temp Pulse Resp BP BP Pulse Ox O2 Del Method 09/22/23 07:43 36.9 C 55 L 16 104/67 91 Room Air 09/21/23 20:26 36.8 C 61 14 130/77 97 Room Air
[2023-09-22] MEDS: LANTUS PER UNIT CHARGE SC SCH (09:31)
--- NOTE | 2023-09-22 11:05 | Hospitalist Progress Note ---
Date of Service September 22, 2023 Assessment & Plan (1) Neurogenic claudication due to lumbar spinal stenosis: Plan: S/P L4-L5 hardware removal along with L3-L4 and L5-S1 decompression and fusion by Dr. Armando on 09/17/2023 Postoperative acute blood loss anemia DVT prophylaxis, diet, activities, pain management, disposition per primary team No indication for blood transfusion currently Bowel regimen to prevent constipation -s/p Bisacodyl now Encouraged Incentive spirometry Continue PT/OT -Rehab recommended, but patient declined.patient not safe for dispo home (2) Acute on chronic blood loss anemia: (3) Iron deficiency anemia: (4) B12 deficiency anemia: Plan: likely 2/2 post-op losses -MCV 105.9 b12 157, ferritin 43 Continue Iron and B12 replacement Will need PCP follow up Stable (5) Asymptomatic bradycardia: (6) Hypertension: Plan: Discontinue atenolol. Blood pressure stable. Will need PCP follow up no dizziness, presyncope or other concerns EKG sinus bradycardia, asymptomatic (7) Diabetes mellitus type 2 in obese: Plan: Glycemic pharmacist consulted by primary team. States she takes Jardiance at home along with Lantus 30 units every morning unless blood sugar less than 120 when she skips Lantus. Monitor and adjust insulin per protocol (8) Hyperlipidemia: Plan: Continue statin. (9) Obesity: Plan: BMI 36.7. Weight loss recommended. Plan DVT prophylaxis-Per primary team Disposition-Per primary team Admission and Anticipated Discharge Date Admission Date: September 17, 2023 Subjective NAEO Declines rehab and adamant for home No bowel movement as of yet, willing to trial laxative Denies chest pain, SOB, palpitations or other acute concerns Denies fevers chills or infectious symptoms Physical Exam Constitutional: WD/WN, vitals as above Results & Data Results & Data Vital Signs (Past 12 Hours) Vital Signs Temp Pulse Resp BP Pulse Ox O2 Del Method 09/22/23 07:43 36.9 C 55 L 16 104/67 91 Room Air Laboratory Results Short CBC 09/22/23 Range/Units 05:49 WBC 11.66 H (4.8-10.8) K/ul Hgb 8.9 L (12.0-16.0) g/dl Hct 27.3 L (37.0-47.0) % Plt Count 170 (130-400) K/uL Medications Administered Home Medications Medication Instructions Recorded Confirmed Last Taken atenolol 25 mg tablet 25 mg PO QAM 02/18/18 09/17/23 09/17/23 05:15 insulin glargine 100 unit/mL 30 unit subcut QAM 02/18/18 09/17/23 09/12/23 subcutaneous solution (Lantus U-100 Insulin) multivitamin (Multiple Vitamins 1 tab PO QAM 02/18/18 09/17/23 09/16/23 07:30 tablet) omeprazole 40 mg capsule,delayed 40 mg PO QAM 02/18/18 09/17/23 09/17/23 05:15 release sodium bicarbonate-citric acid 1 tab PO UD PRN Heartburn 02/18/18 09/17/2309/13 1,940 mg-1,000 mg effervescent tablet ([place] Heartburn) loratadine 10 mg tablet (Claritin) 10 mg PO QAM PRN Allergy Symptoms 01/23/19 09/17/23 2 Weeks Ago ~09/03/23 empagliflozin 25 mg tablet 25 mg PO QAM 05/04/20 09/17/23 09/16/23 07:30 (Jardiance) aspirin-caffeine 500 mg-32.5 mg 1 tab PO QID 10/12/22 09/17/23 09/14/23 tablet ([facility] Back and Body) rosuvastatin 5 mg tablet 5 mg PO QAM 10/12/22 09/17/23 09/17/23 05:15 pantoprazole 40 mg tablet,delayed 40 mg PO QAM 07/11/23 09/17/23 09/14/23 release (Protonix) calcium carbonate (Tums) 200 mg PO UD PRN gerd 09/05/23 09/17/23 09/14/23 cholecalciferol (vitamin D3) 125 125 mcg PO BID 09/05/23 09/17/23 09/12/23 mcg (5,000 unit) tablet (Vitamin D3) oxycodone 5 mg tablet 5 mg PO Q6H PRN pain #30 tabs 09/18/23 Unknown Active Medications Generic Name Dose Route Start Last Admin Trade Name Freq PRN Reason Stop Dose Admin Acetaminophen 1,000 mg 09/17/23 14:49 09/22/23 05:56 Acetaminophen 500 Mg Tab PO 10/17/23 14:48 1,000 mg Q8H PRN Administration MILD Pain Scale 1,2,3 & Pre PT Al Hydrox/Mg Hydrox/Simethicone 30 ml 09/17/23 14:49 09/18/23 09:23 Aluminum/Magnesium Susp 30 Ml Udc PO 10/17/23 14:48 30 ml Q6H PRN Administration Dyspepsia Atenolol 25 mg 09/18/23 09:00 09/20/23 08:35 Atenolol 25 Mg Tablet PO 10/18/23 08:59 Not Given QAM JUAN J Cyanocobalamin 1,000 mcg 09/20/23 17:00 09/22/23 08:04 Cyanocobalamin (B-12) 500 Mcg Tablet PO 10/20/23 16:59 1,000 mcg QAM JUAN J Administration Ferrous Sulfate 325 mg 09/20/23 17:00 09/22/23 08:05 Ferrous Sulfate 325 Mg Tab PO 10/20/23 16:59 325 mg QAM JUAN J Administration Hydromorphone HCl 0.5 mg 09/17/23 14:49 09/18/23 20:16 Hydromorphone Inj 0.5 Mg/0.5 Ml Syr IV 10/01/23 14:48 0.5 mg Q3H PRN Administration MODERATE Pain (Scale 4,5,6) & Pre PT Insulin Aspart 0 units 09/17/23 16:30 09/22/23 09:09 Insulin Aspart Per Unit Charge OR 10/17/23 16:29 2 units ACHS JUAN J Administration Insulin Glargine 7 units 09/22/23 09:00 09/22/23 09:31 Lantus Per Unit Charge OR 10/22/23 08:59 7 units QAM JUAN J Administration Metoclopramide HCl 10 mg 09/17/23 14:49 09/17/23 20:58 Metoclopramide Hcl Inj 5 Mg/Ml 2 Ml Vial IV 10/17/23 14:48 10 mg Q6H PRN Administration Nausea &/or Vomiting Miscellaneous 15 - 30 gm 09/17/23 15:45 09/21/23 16:27 Carbohydrates For Hypoglycemia PO 10/17/23 15:44 15 gm UD PRN Administration Hypoglycemia Treatment Multivitamins/Minerals 1 tab 09/18/23 09:00 09/22/23 08:05 Cerovite Adv Formula Tab PO 10/18/23 08:59 1 tab QAM JUAN J Administration Ondansetron HCl 4 mg 09/17/23 14:49 09/18/23 08:19 Ondansetron Inj 2 Mg/Ml 2 Ml Vial IV 10/17/23 14:48 4 mg Q6H PRN Administration Nausea &/or Vomiting Ondansetron HCl 4 mg 09/17/23 14:49 09/19/23 21:40 Ondansetron 4 Mg Od Tab PO 10/17/23 14:48 4 mg Q6H PRN Administration Nausea Oxycodone HCl 5 - 10 mg 09/17/23 14:49 09/22/23 02:20 Oxycodone Hcl Ir 5 Mg Tab (Immediate Release) PO 10/01/23 14:48 10 mg Q4H PRN Administration Pain & Pre PT Pantoprazole Sodium 40 mg 09/18/23 09:00 09/22/23 08:05 Pantoprazole 40 Mg Tab PO 10/18/23 08:59 40 mg QAM JUAN J Administration Protocol Polyethylene Glycol 17 gm 09/18/23 06:00 09/22/23 05:57 Polyethylene (Miralax) 17 Gm Pack PO 10/18/23 05:59 17 gm Q6 JUAN J Administration Rosuvastatin Calcium 5 mg 09/18/23 09:00 09/22/23 08:05 Rosuvastatin Calcium 5 Mg Tab PO 10/18/23 08:59 5 mg QAM JUAN J Administration Senna/Docusate Sodium 2 tab 09/17/23 21:00 09/21/23 21:47 Docusate Sodium/Senna 50/8.6mg Tab PO 10/17/23 20:59 2 tab HS JUAN J Administration Vitamin D 125 mcg 09/17/23 21:00 09/21/23 21:47 Cholecalciferol 125 Mcg (5,000 Units) Tab PO 10/17/23 20:59 125 mcg BID JUAN J Administration
[2023-09-22] MEDS: bisacodyL 5 MG TABEC PO ONE (11:12)
--- NOTE | 2023-09-23 10:46 | Discharge Summary ---
Date of Service September 23, 2023 Admission HPI Per Admitting Provider 72-year-old male with history of hypertension, diabetes, hyperlipidemia, lupus, GERD, migraine with neurogenic claudication due to lumbar spinal stenosis who underwent L4-L5 hardware removal along with L3-L4 and L5-S1 decompression and fusion by Dr. Armando today. Hospitalist service is consulted for post management. Patient was seen and examined at bedside. Comments of pain at the surgical site. No fever, chills, chest pain or shortness of breath, nausea or vomiting. Tolerated diet well. Principal Diagnosis Cervical spinal stenosis with neurogenic claudication Discharge Data Allergies Allergy/AdvReac Type Severity Reaction Status Date / Time Sulfa (Sulfonamide Allergy Severe Anaphylaxis Verified 09/17/23 08:24 Antibiotics) erythromycin base Allergy Intermediate Hives Verified 09/17/23 08:24 latex Allergy Intermediate Blisters Verified 09/17/23 08:24 sucralfate Allergy Intermediate Hives Verified 09/17/23 08:24 adhesive Allergy Mild Contact Verified 09/17/23 08:24 dermatitis; skin blistering pineapple Allergy Unknown Throat Verified 09/17/23 08:24 swelling azithromycin AdvReac Severe Abdominal Verified 09/17/23 08:24 Pain, SOB meloxicam AdvReac Intermediate GI upset Verified 09/17/23 08:24 tramadol AdvReac Intermediate Headaches Verified 09/17/23 08:24 cantaloupe AdvReac Unknown Nausea Verified 09/17/23 08:24 codeine AdvReac Unknown Vomiting Verified 09/17/23 08:24 ibuprofen AdvReac Unknown GI upset Verified 09/17/23 08:24 morphine AdvReac Unknown Vomiting Verified 09/17/23 08:24 Consultations 09/17/23 14:49 Consult Hospitalist Routine Procedures Performed Operation Date: 09/17/23 09:35 Actual Procedures p L3-L4 and L5-S1 Decompression and Fusion, Spinal Cord Monitoring(Not Applicable) - Flash Armando DO s L4-L5 Hardware Removal,(Not Applicable) - Flash Armando DO Ordered Studies 09/17/23 09:35 FL lumbar spine 2-3V Routine Hospital Course (1) Neurogenic claudication due to lumbar spinal stenosis: Patient went multilevel lumbar depression fusion tolerated this well was taken to orthopedic for postoperative. Postop patient progressed appropriately throughout her hospital stay. Leg symptoms improved. Pain controlled. Subsequent discharge home. Discharge orders instructions from the chart for further review. Total Time Total Time Spent Total Time Spent (In Minutes): 20 minutes Discharge Plan Discharge Items Patient Disposition: Home - Self-Care Reason For Visit: Spondylolisthesis Lumbar Region, Spinal Stenosis o Discharge Diagnosis: Lumbar spinal stenosis with neurogenic claudication Activity: As commented below Non-emergency contact: Primary Care Provider Call non-emergency contact if: you have any medication questions Follow-up/Referrals: Allan Aragon MD [Primary Care Provider] - 09/26/23 1:45 pm Diet: Regular Addtl Attending Provider Instructions: ACTIVITY RECOMMENDATIONS: SELF CARE INSTRUCTIONS AFTER THORACIC/LUMBAR FUSIONS 1. You may walk to your tolerance. It is good exercise for your legs and back. Expect some back and intermittent leg aches and pains. 2. You may perform "counter-top" level activities (make a sandwich, ja with a project, etc.). 3. No bending or lifting of more than 10 pounds or back twisting of any nature (roll like a log when turning in bed). 4. You may ride in a car for 20-30 minutes at a time. No driving until after your first visit with your doctor. 5. Frequent changes of position and restricting sitting to 30 minutes at a time will help limit the amount of back spasms and stiffness you may experience. 6. You may discontinue the use of ambulatory aids (cane, crutches, etc.) once your strength and confidence allow. 7. You may warp scouring vat tender the shower and let water strike your incision when you arrive home at least once daily. Do not take a tub bath, sit in a hot tub or go into a swimming pool until after your first recheck in the office. SPECIAL CARE INSTRUCTIONS: VERY IMPORTANT TO READ AND REVIEW A. Your surgical incision has been closed with a cosmetic suture under the skin that will dissolve in about 6 weeks. In 14 days, you can use a pair of clean scissors and cut the suture that is left outside of the skin at the ends of your incision. 1. The small skin tapes can be removed 7 days after surgery if they have not fallen off by that point. 2. You may keep the wound open to air as much as possible to promote healing after post-op day number 5 unless told otherwise by your doctor. 3. If you think the wound looks like it is becoming infected (redness or worsening drainage) and/or you are experiencing fever, chill or worsening back pain and muscle spasms, contact the office so that we may evaluate you as soon as possible. B. Complications are uncommon, but please contact us if you have any signs or symptoms of: 1. wound infection (fever higher than 102.5 degrees F, redness, separation of wound, drainage, or increasing pain from the incision) 2. blood clots in legs (pain, swelling, redness and warmth in legs) 3. urinary tract infection (fever higher than 102.5 degrees F, burning upon urination or increased frequency of urination) 4. nerve problems (inability to walk on your toes or heels, numbness, loss of bowel or bladder control) 5. any other symptoms that concern you C. Please call the office at if you have any concerns or questions about your operation or recovery. D. No smoking! Smoking drastically decreases the chance of a solid fusion. E. Do not take any anti-inflammatory medications (Indocin, Advil, Motrin, Aspirin, Naprosyn, etc.) as these may inhibit the chance of a solid fusion. Tylenol is okay to take for pain. MANAGING PAIN AFTER SPINAL SURGERY 1. Narcotic medication is intended for short-term use and will be provided for surgical pain. Surgical pain usually lasts for a period of 4-6 weeks. Narcotic medication includes Percocet, Vicodin, Darvocet, Tylenol #3 or Lortab. 2. Longer-term pain is more appropriately treated with non-narcotic medication such as Tylenol ES. 3. Muscle spasm is not appropriately treated with narcotics. Muscle relaxers such as Soma, Flexeril or Skelaxin can be used along with Tylenol ES. 4. Remember that we all live with some "aches and pains". This is not unusual or uncommon after an injury or as we get older. a. Back pain is expected and may include muscle spasms for 4 to 6 weeks after surgery. The pain should gradually improve. If the pain worsens for no apparent reason, please contact the office. b. Intermittent leg pain may also be experienced and should not be concerned about unless it worsens for no apparent reason. If so, please contact the office. 5. We will provide appropriate medication within the normal guidelines of their prescribed use. We will also be very cautious and aware of potential abuse and extended duration of patients' medication needs. a. Pain medications are for your comfort and to assist with sleep and rest so that the tissue can heal. They are not provided in order to return to normal activity and should not be used through the day. To do so or worsening pain at night can result from ongoing tissue damage and development of tolerance to the prescribed medicine. 6. Please allow 2-3 days to process refills. Prescriptions will not be mailed but must be picked up at the office. FOLLOW UP VISIT: Keep your scheduled follow-up appointment. Any questions, please call the office at . Pending Studies at Discharge: No Stand-Alone Forms: [facility], Smoking Cessation Medications and DC Order Prescriptions: New oxycodone 5 mg tablet 5 mg PO Q6H PRN (Reason: pain) Qty: 30 0RF Continued multivitamin [Multiple Vitamins] Tablet 1 tab PO QAM atenolol 25 mg Tablet 25 mg PO QAM omeprazole 40 mg Capsule,Delayed Release(Dr/Ec) 40 mg PO QAM [place] Heartburn 1,940-1,000 mg Tablet, Effervescent 1 tab PO UD PRN (Reason: Heartburn) insulin glargine [Lantus U-100 Insulin] 100 unit/mL Solution 30 unit SUBCUT QAM Rx Instructions: TAKES IF BSG GREATER THAN 120 IN THE AM loratadine [Claritin] 10 mg Tablet 10 mg PO QAM PRN (Reason: Allergy Symptoms) Jardiance 25 mg Tablet 25 mg PO QAM pantoprazole [Protonix] 40 mg tablet,delayed release (DR/EC) 40 mg PO QAM Rx Instructions: half hour before breakfast cholecalciferol (vitamin D3) [Vitamin D3] 125 mcg (5,000 unit) Tablet 125 mcg PO BID calcium carbonate [Tums] 200 mg calcium (500 mg) tablet,chewable 200 mg PO UD PRN (Reason: gerd) Rx Instructions: for heartburn rosuvastatin 5 mg Tablet 5 mg PO QAM [facility] Back and Body 500-32.5 mg Tablet 1 tab PO QID Discharge Orders: Discharge Order (Routine); Ordered 09/23/23 Ordered By: Flash Bill/Other Patient Handouts: Managing Type 2 Diabetes Admission Data Admit Date/Time: 09/17/23 12:17 Attending Provider: Flash Armando Admit Provider: Flash Armando Primary Care Provider: Allan Aragon Other Providers: Karyn Montes; Rehan More; [facility]; Julio Cesar Young [facility]; [facility]
--- NOTE | 2023-09-25 11:15 | Coding Query ---
CODING QUERY To promote full compliance with coding requirements relating to patient care, provider participation is requested in all cases of air brake worker uncertainty. Please assist us with the question(s) below: Coding Question(s): Your discharge summary notes two conflicting diagnoses. Patient underwent L4-L5 hardware removal along with L3-L4 and L5-S1 decompression and fusion Principal Diagnosis Cervical spinal stenosis with neurogenic claudication Discharge Diagnosis: Lumbar spinal stenosis with neurogenic claudication Pls amend your DS and clarify the correct Principal/Discharge diagnosis. Physician's Response(s): principal dx should read lumbar Thank you Sara Gonzales Principal Diagnosis: "that condition established after study, to be chiefly responsible for occasioning the admission of the patient to the hospital for care." Co-Existing Principal Diagnosis: "when two or more diagnoses equally meet the criteria for principal diagnosis as determined by the circumstances of admission, diagnostic work up, and/or therapy provided, and the Alphabetic Index, Tabular List, or another coding guideline does not provide sequencing direction, any one of the diagnoses may be sequenced first." "When the physician has documented what appears to be a current diagnosis in the body of the record, but has not included the diagnosis in the final diagnostic statement, the physician should be asked whether the diagnosis should be added." (Source Coding Clinic 2 QTR90. p3-4) FANTAD
== END 2023-09-23 12:45 | disposition home or self-care (01) | DRG 454 ==
LOC: ASU 07:27 → PACUINP 12:17 → 3E 17:01